=== PATIENT | female | born 1935 | race Caucasian/White ===

== ENCOUNTER → 2017-11-18 07:59 | Outpatient (CLI) | payer MEDICARE, SELFPAY ==
[2017-11-18 09:53] LABS: HCT 40.6 % (36.0-46.0); HGB 12.9 g/dL (12.0-15.5); Mean Corp. HGB Concentration 31.8 g/dL (32.0-36.0); Mean Corpuscular Hemoglobin 30.5 pg (27.0-33.0); Mean Platelet Volume 10.9 fL (8.0-11.0); Platelet Count 232 x1000/uL (130-400); RBC 4.23 m/cumm (4.00-5.20); RBC Distribution Width 16.2 % (11.7-14.6); White Blood Cell Count 4.92 k/cumm (4.4-10.8)
[2017-11-18 12:21] LABS: ALT 20 U/L (12-78); AST 18 U/L (15-37); Albumin 3.6 g/dL (3.4-5.0); Alkaline Phosphatase 106 U/L (46-116); Anion Gap 9.7 mmol/L (3-11); BUN 16 mg/dL (7-18); Bilirubin, Total 0.3 mg/dL (0.2-1.0); CO2 27.3 mmol/L (21.0-32.0); CREATININE 0.81 mg/dL (0.55-1.02); Calcium 8.9 mg/dL (8.5-10.1); Chloride 104 mmol/L (98-107); Glucose 68 mg/dL (70-100); Potassium 4.2 mmol/L (3.5-5.1); Sodium 141 mmol/L (136-145); Total Protein 7.1 g/dL (6.4-8.2); Vitamin B12 873 pg/mL (193-986)
[2017-11-18 12:52] LABS: Iron 109 ug/dL (50-175)
== END ==
DX: I10 Essential (primary) hypertension (principal); I48.91 Unspecified atrial fibrillation; D51.8 Other vitamin B12 deficiency anemias; F32.9 Major depressive disorder, single episode, unspecified; K21.9 Gastro-esophageal reflux disease without esophagitis; R63.8 Other symptoms and signs concerning food and fluid intake
CPT/HCPCS: 36415; 80053; 85027; 82607; 83540

== ENCOUNTER 2018-06-04 00:52 | Outpatient (CLI) | payer MEDICARE, SELFPAY ==
[2018-06-04 07:29] LABS: HCT 42.1 % (36.0-46.0); HGB 13.7 g/dL (12.0-15.5); Mean Corp. HGB Concentration 32.5 g/dL (32.0-36.0); Mean Corpuscular Hemoglobin 31.6 pg (27.0-33.0); Mean Corpuscular Volume 97.2 fL (80-95); Mean Platelet Volume 10.9 fL (8.0-11.0); Platelet Count 220 x1000/uL (130-400); RBC 4.33 m/cumm (4.00-5.20); RBC Distribution Width 13.4 % (11.7-14.6); White Blood Cell Count 4.56 k/cumm (4.4-10.8)
[2018-06-04 10:18] LABS: ALT 15 U/L (12-78); AST 18 U/L (15-37); Albumin 3.8 g/dL (3.4-5.0); Alkaline Phosphatase 110 U/L (46-116); Anion Gap 8.5 mmol/L (3-11); BUN 13 mg/dL (7-18); Bilirubin, Total 0.4 mg/dL (0.2-1.0); CO2 28.5 mmol/L (21.0-32.0); CREATININE 0.74 mg/dL (0.55-1.02); Calcium 9.6 mg/dL (8.5-10.1); Chloride 105 mmol/L (98-107); Cholesterol 219 mg/dL (50-200); Glucose 101 mg/dL (70-100); HDL Cholesterol 74 mg/dL (40-60); LDL CHOLESTEROL 130 mg/dL (<100); Potassium 3.8 mmol/L (3.5-5.1); Sodium 142 mmol/L (136-145); Total Protein 7.3 g/dL (6.4-8.2); Triglyceride 88 mg/dL (30-150)
== END 2018-06-04 01:12 ==
DX: I10 Essential (primary) hypertension (principal); E78.2 Mixed hyperlipidemia; F32.9 Major depressive disorder, single episode, unspecified; K21.9 Gastro-esophageal reflux disease without esophagitis
CPT/HCPCS: 36415; 80053; 80061; 83721; 85027

== ENCOUNTER 2018-12-16 11:00 | Emergency (ER) | payer MEDICARE, SELFPAY ==
[2018-12-16] VITALS (35 sets, daily range): BP systolic 124–170; BP diastolic 70–112; PULSE 53–98; RESP 11–44; TEMP 36.8; O2SAT 89–96
--- NOTE | 2018-12-16 11:07 | ED.GENADUL_ITS ---
Discharge Plan Disposition Patient Disposition: HOME Condition: Improving Discharge Details Chief Complaint: Chest Pain Clinical Impression: Atypical chest pain, Breast mass, Chest wall pain, Abdominal pain, Hiatal hernia Primary Care Provider: Renee Andrade ED Provider: Tayla Batres Home Meds and New Rx's Prescriptions: Continued cyanocobalamin (vitamin B-12) 1,000 mcg/mL solution 1,000 mcg IM monthly Qty: 1 RF: 0 metoprolol succinate 25 mg tablet extended release 24 hr 25 mg PO DAILY Qty: 90 RF: 3 sertraline 25 MG tablet 25 mg PO DAILY Qty: 90 RF: 4 Slow Release Iron 250 MG tablet extended release 250 mg PO BID Qty: 60 RF: 0 apixaban 5 mg tablet 5 mg PO BID Qty: 180 RF: 4 pantoprazole 40 mg tablet,delayed release (DR/EC) 40 mg PO DAILY Qty: 90 RF: 4 Discharge Instructions Instructions: Abdominal Pain (ED), Chest Wall Pain (ED) Additional Instructions: Avoid foods which may worsen reflux or abdominal pain associated with a hiatal hernia such as chocolate, peppermint, alcohol or spicy foods. Take Tylenol as needed directed for pain. Continue your Protonix as directed. Follow-up with your scheduled appointment with your primary care doctor next week for reevaluation and for referral for outpatient upper endoscopy or stress test if indicated and for further evaluation of the breast mass noted on your CT chest today. Return to the emergency department if you develop any worsening or new concerning symptoms. Discharge Data Discharge Date/Time-TO BE ENTERED AT DEPARTURE: 12/16/18 16:40 Discharge Physician: Tayla Batres Medical Decision Making 1110 -- 82-year-old female with a history of anxiety, anemia, atrial fibrillation on Eliquis, hypertension, GERD who presents with chest and upper abdominal pain since this morning. Also admits to generalized weakness and nausea for the past few weeks. Blood pressure hypertensive 170/112. She is afebrile and appears nontoxic and comfortable. EKG notes a rate of 92, A. fib with [address] depression in V3 through V6 which appears new compared to previous. No acute ST elevation. She is most significantly tender in the epigastrium as well as right and left upper quadrants and anterior chest. Differential diagnosis includes acute abdominal abnormality including gastritis, PUD, pancreatitis, ACS, pneumonia, CHF, colitis, UTI. Will place an IV, small bolus IV fluids, screening labs, urinalysis as well as CT chest abdomen and pelvis. 1345 -- labs and imaging reviewed. Normal white blood cell count, electrolytes, lipase. Troponin negative. BNP 836. CT chest abdomen pelvis notes hiatal hernia as well as a left breast mass with recommendation for mammogram. No other acute chest or abdominal findings. Patient states she feels much better after Pepcid and Zofran. She still complaining of some indigestion. She is declining a GI cocktail. Will obtain a second troponin. 1520 --second troponin negative. Repeat EKG rate of 80, A. fib with no ST elevation or depression seen. Urinalysis negative. Patient states she feels much better and feels good to go home. Discussed that her symptoms could be due to her hiatal hernia. She states she had a normal EGD 1 year ago. She has an appointment with her primary care doctor next week. She was informed of the breast mass noted on CT chest and to discuss further with her primary care doctor whether to proceed with a mammogram. Patient states she was told by her primary care doctor that she did not need mammograms anymore. She is advised to return here if she has any worsening or new concerning symptoms. Medical Records Medical records reviewed: Yes I reviewed the patient's medical records. Imaging Data Radiologic Study: Radiologist's impression: PA AND LATERAL CHEST: The heart is at the upper limits of normal in size. There are mild changes of pulmonary scarring. No focal consolidation. No pleural effusion. CONCLUSION: No evidence of acute process. CHEST/ABDOMEN AND PELVIC CT: CT examination of the chest, abdomen and pelvis was performed with a bolus infusion of 100 cc's of Omnipaque 350. The lungs are clear except for minimal areas of scarring and/or atelectasis. Thoracic aorta and major branches appear intact. No abnormality of the pulmonary arterial circulation. No mediastinal or hilar adenopathy. No axillary or supraclavicular adenopathy. 15 mm. left breast nodule identified which is well circumscribed, correlation with mammography recommended. No pleural effusion or pleural based mass. Cardiac size within normal limits. No abnormality of the bones of the thorax apart from degenerative changes of the spine. Liver is unremarkable in appearance except for a small, low attenuation lesion which may represent small cyst or hemangioma in the right hepatic lobe measuring less than 1 cm. in diameter. Prior cholecystectomy noted. No biliary dilatation. Pancreas is unremarkable. Spleen appears normal. Large hiatal hernia noted. No evidence of obstruction. Tiny fat containing umbilical hernia and tiny fat containing inguinal hernia is noted. Abdominal aorta is of normal diameter and no major vascular abnormality is seen. Adrenals and kidneys are unremarkable. Incidental presumed tiny right renal cyst noted. No abdominal or pelvic adenopathy. Colonic diverticulosis noted. Normal appearance of the appendix. No specific evidence of diverticulitis. [employer] structures unremarkable for age. Degenerative changes of the lumbar spine noted. Old mild anterior T 11 compression fracture noted. CONCLUSION: 1. Hiatal hernia. 2. 15 mm., well circumscribed left breast lesion, correlation with mammography is recommended. 3. No evidence of acute process. 4. Prior cholecystectomy noted. Lab Data Lab results reviewed: Yes I reviewed the patient's lab results. Laboratory Tests Range/Units 12/16/18 12/16/18 12/16/18 11:11 11:11 11:11 WBC (4.4-10.8) k/cumm 5.73 RBC (4.00-5.20) m/cumm 4.63 Hgb (12.0-15.5) g/dL 14.2 Hct (36.0-46.0) % 45.2 MCV (80-95) fL 97.6 H MCH (27.0-33.0) pg 30.7 MCHC (32.0-36.0) g/dL 31.4 L RDW (11.7-14.6) % 14.3 Plt Count (130-400) x1000/uL 282 MPV (8.0-11.0) fL 10.6 Immature Gran % 0.2 Neutrophils % 69.5 Lymphocytes % 19.4 Monocytes % 9.2 Eosinophils % 1.4 Basophils % 0.3 Absolute Neutrophils (1.2-6.7) k/cumm 3.98 Absolute Lymphocytes (1.2-3.4) k/cumm 1.11 L Absolute Monocytes (0.11-0.7) k/cumm 0.53 Absolute Eosinophils (0.0-0.7) k/cumm 0.08 Absolute Basophils (0.0-0.2) k/cumm 0.02 Sodium (136-145) mmol/L 141 Potassium (3.5-5.1) mmol/L 3.4 L Chloride (98-107) mmol/L 102 Carbon Dioxide (21.0-32.0) mmol/L 27.3 Anion Gap (3-11) mmol/L 11.7 H BUN (7-18) mg/dL 9 Creatinine (0.55-1.02) mg/dL 0.82 Estimated GFR/1.73 m2 (mL/min/1.73m2) >= 60.00 Glucose (70-100) mg/dL 95 Calcium (8.5-10.1) mg/dL 9.1 Magnesium (1.8-2.4) mg/dL 1.8 Total Bilirubin (0.2-1.0) mg/dL 0.4 AST (15-37) U/L 11 L ALT (14-59) U/L 13 L Alkaline Phosphatase (46-116) U/L 102 Troponin I (0.00-0.06) ng/mL < 0.05 NT-Pro-B Natriuret Pep ( - 299) pg/mL 836 H Total Protein (6.4-8.2) g/dL 8.0 Albumin (3.4-5.0) g/dL 3.8 Lipase (73-393) U/L 129 Urine Color (Yellow) Urine Clarity (Clear) Urine pH (5-8) Ur Specific [place] (1.005-1.025) Urine Protein (Negative) mg/dL Urine Ketones (Negative) mg/dL Urine Blood (Negative) Urine Nitrite (Negative) Urine Bilirubin (Negative) Urine Urobilinogen (Up TO 0.2) EU/dL Ur Leukocyte Esterase (Negative) Urine Glucose (Negative) mg/dL Range/Units 12/16/18 12/16/18 14:45 15:50 WBC (4.4-10.8) k/cumm RBC (4.00-5.20) m/cumm Hgb (12.0-15.5) g/dL Hct (36.0-46.0) % MCV (80-95) fL MCH (27.0-33.0) pg MCHC (32.0-36.0) g/dL RDW (11.7-14.6) % Plt Count (130-400) x1000/uL MPV (8.0-11.0) fL Immature Gran % Neutrophils % Lymphocytes % Monocytes % Eosinophils % Basophils % Absolute Neutrophils (1.2-6.7) k/cumm Absolute Lymphocytes (1.2-3.4) k/cumm Absolute Monocytes (0.11-0.7) k/cumm Absolute Eosinophils (0.0-0.7) k/cumm Absolute Basophils (0.0-0.2) k/cumm Sodium (136-145) mmol/L Potassium (3.5-5.1) mmol/L Chloride (98-107) mmol/L Carbon Dioxide (21.0-32.0) mmol/L Anion Gap (3-11) mmol/L BUN (7-18) mg/dL Creatinine (0.55-1.02) mg/dL Estimated GFR/1.73 m2 (mL/min/1.73m2) Glucose (70-100) mg/dL Calcium (8.5-10.1) mg/dL Magnesium (1.8-2.4) mg/dL Total Bilirubin (0.2-1.0) mg/dL AST (15-37) U/L ALT (14-59) U/L Alkaline Phosphatase (46-116) U/L Troponin I (0.00-0.06) ng/mL < 0.05 NT-Pro-B Natriuret Pep ( - 299) pg/mL Total Protein (6.4-8.2) g/dL Albumin (3.4-5.0) g/dL Lipase (73-393) U/L Urine Color (Yellow) Yellow Urine Clarity (Clear) Clear Urine pH (5-8) 5.5 Ur Specific [place] (1.005-1.025) 1.010 Urine Protein (Negative) mg/dL Negative Urine Ketones (Negative) mg/dL Negative Urine Blood (Negative) Negative Urine Nitrite (Negative) Negative Urine Bilirubin (Negative) Negative Urine Urobilinogen (Up TO 0.2) EU/dL 0.2 Ur Leukocyte Esterase (Negative) Negative Urine Glucose (Negative) mg/dL Negative ECG Data Attestation: I personally reviewed and interpreted this ECG (s) as follows: Interpretation: #1 -- Rate of 92, A. fib, [address] depression in V3, V4, V5 and V6 which is new compared to previous. No acute ST elevation. QTc 438. QRS 88. #2 --Rate of 80, A. fib, no ST depression or elevation evident. T wave inversion in lead III. QTc 434. QRS 86. HPI General Mode of arrival: ambulatory . Date/Time Provider Initiated Documentation: 12/16/18 11:04 . Limitations to Documentation: no limitations . Information obtained by: patient . HPI Narrative: Patient is a an 82-year-old female with history of atrial fibrillation on Eliquis, hypertension, hyperlipidemia, GERD, cholecystectomy who presents with chest and upper abdominal pain since this morning. She states her symptoms started while she was laying in bed this morning. She has a history of chronic shortness of breath associated with her atrial fibrillation and states this is no worse than usual. She describes her chest and abdominal pain is constant, pressure-like with radiation wrapping around to both sides of her back. She states the pain is worse with eating and when laying flat and better when she is laying on either side. She states the pain is currently 4/10. She admits to nausea but denies any vomiting. She admits to a few episodes of loose brown stools over the past few days but denies any rectal bleeding. She also admits to dry cough and nasal congestion over the past 3 to 4 weeks but denies any headache or neck pain. She denies dizziness, sick contacts, recent antibiotics, recent travel, leg pain or swelling or recent surgery. Related Data Home Medications Medication Instructions Recorded Confirmed Slow Release Iron 250 mg PO BID #60 tab 11/27/17 12/16/18 sertraline 25 mg PO DAILY #90 tab-cap 11/27/17 12/16/18 apixaban 5 mg tablet 5 mg PO BID #180 tab 12/27/17 12/16/18 pantoprazole 40 mg tablet,delayed 40 mg PO DAILY #90 tab 12/27/17 12/16/18 release cyanocobalamin (vitamin B-12) 1,000 mcg IM monthly #1 vial 06/12/18 12/16/18 1,000 mcg/mL injection solution metoprolol succinate 25 mg 25 mg PO DAILY #90 tab 06/12/18 12/16/18 tablet,extended release 24 hr Previous Rx's Medication Instructions Recorded Slow Release Iron 250 mg PO BID #60 tab 11/27/17 sertraline 25 mg PO DAILY #90 tab-cap 11/27/17 apixaban 5 mg tablet 5 mg PO BID #180 tab 12/27/17 pantoprazole 40 mg tablet,delayed 40 mg PO DAILY #90 tab 12/27/17 release metoprolol succinate 25 mg 25 mg PO DAILY #90 tab 06/12/18 tablet,extended release 24 hr Allergies Allergy/AdvReac Type Severity Reaction Status Date / Time caffeine AdvReac Verified 06/12/18 12:57 General Stated Complaint: Chest Pain GEORGE: 2 Review of Systems Review of Systems All systems reviewed & are unremarkable except as noted in HPI and below Constitutional Reports as per HPI, Denies chills and Denies fever(s) Eyes Denies blurry vision ENT Denies dizziness, Denies sore throat and Denies throat swelling Cardiovascular Reports chest pain and Denies dyspnea Respiratory Denies cough and Denies dyspnea Gastrointestinal Reports abdominal pain, Denies diarrhea, Reports nausea and Denies vomiting Genitourinary Denies hematuria and Denies dysuria Musculoskeletal Denies back pain and Denies numbness Integumentary/Breasts Denies lesions and Denies rash Neurologic Denies dizziness, Denies focal weakness and Denies numbness Allergic/Immunologic Denies throat swelling [facility] Medical History Anemia Anxiety (Chronic 03/03/12) Atrial fibrillation by electrocardiogram (Chronic 08/06/17) By EKG 07/25/17 Cyst of left ovary (Suspected 08/06/17) Simple cyst - evaluated by [facility] Endometrial biopsy negative Depressive disorder (Chronic 02/11/12) Diverticulitis of colon (Chronic) Essential hypertension Essential hypertension (Chronic 02/11/12) Gastroesophageal reflux disease (Chronic 03/03/12) GERD (gastroesophageal reflux disease) Hemorrhoids Hemorrhoids (Resolved 03/03/12) Hyperlipidemia (Resolved 03/03/12) Increased body mass index (Chronic) Iron deficiency anemia, unspecified (Chronic 08/13/17) Osteoarthritis (Chronic 03/03/12) hands; 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 Grandmother Neoplasm BREAST/LIVER Grandmother No problems noted. MATERNAL AUNT Neoplasm BREAST Other Family history of GI malignancy Family hx-breast malignancy Social History Smoking/Tobacco Use Status: Former Tobacco Use Alcohol Intake: never Drug use: Never Substance use type: does not use Do you feel safe in your relationship?: Yes Exam Const General: cooperative, healthy appearing and no acute distress HENMT Head: normal to inspection Face and sinus: normal facial exam Eyes General: appearance normal, both eyes and all related structures Neck Neck: normal visual inspection and No submandibular swelling Lymphatic: no lymphadenopathy noted Chest Chest: normal inspection of the chest and no tenderness Resp Effort & Inspection: normal respiratory effort and able to speak in complete sentences Auscultation: clear to auscultation bilaterally Cardio Rate: regular rate Rhythm: regular rhythm GI Inspection: normal to inspection Palpation: soft, not firm, not rigid and tender (Diffuse, worse in epigastrium> RLQ/LUQ) Auscultation: normal bowel sounds Back/Spine/Pelvis Thoracic/Lumbar Spine: thoracic and lumbar spine normal to inspection Skin General skin exam: no rashes or lesions noted Neuro General: alert, awake and oriented x3 Cognition: normal cognition Speech: speech normal Motor: muscle tone normal throughout Sensory Exam: no sensory deficits noted Extrem General: normal to inspection, full ROM, normal capillary refill, no calf tenderness bilaterally and no edema Psych Appearance: grossly normal Mental Status: mental status grossly normal Speech and Movement: speech and movement normal Affect: normal affect Course Vital Signs Temperature 98.2 F 12/16/18 11:03 Pulse 98 H 12/16/18 11:03 Respiratory Rate 17 12/16/18 11:03 Blood Pressure 170/112 H 12/16/18 11:03 Pulse Oximetry 96 12/16/18 11:03 Temperature 98.2 F 12/16/18 11:03 Temperature Source Skin 12/16/18 11:03 Pulse 98 H 12/16/18 11:03 Respiratory Rate 17 12/16/18 11:03 Blood Pressure 170/112 H 12/16/18 11:03 Pulse Oximetry 96 12/16/18 11:03 Oxygen Delivery Method Room Air 12/16/18 11:03 Oxygen Flow Rate 0 12/16/18 11:03 Pain Level 5 12/16/18 11:03
--- NOTE | 2018-12-16 11:09 | NUR.NOTE ---
Nursing Note: obtain Vs for RN MADI see triage
[2018-12-16 11:23] LABS: Abs Immature Grans 0.01 k/cumm (0.0-0.09); Absolute Basophil Count 0.02 k/cumm (0.0-0.2); Absolute Eosinophil Count 0.08 k/cumm (0.0-0.7); Absolute Lymphocyte Count 1.11 k/cumm (1.2-3.4); Absolute Monocyte Count 0.53 k/cumm (0.11-0.7); Absolute Neutrophil Count 3.98 k/cumm (1.2-6.7); Basophils % 0.3; Eosinophils % 1.4; HCT 45.2 % (36.0-46.0); HGB 14.2 g/dL (12.0-15.5); Immature Grans % 0.2; Lymphocytes % 19.4; Mean Corp. HGB Concentration 31.4 g/dL (32.0-36.0); Mean Corpuscular Hemoglobin 30.7 pg (27.0-33.0); Mean Corpuscular Volume 97.6 fL (80-95); Mean Platelet Volume 10.6 fL (8.0-11.0); Monocytes % 9.2; Neutrophils % 69.5; Platelet Count 282 x1000/uL (130-400); RBC 4.63 m/cumm (4.00-5.20); RBC Distribution Width 14.3 % (11.7-14.6); White Blood Cell Count 5.73 k/cumm (4.4-10.8)
[2018-12-16 11:45] LABS: ALT 13 U/L (14-59); AST 11 U/L (15-37); Albumin 3.8 g/dL (3.4-5.0); Alkaline Phosphatase 102 U/L (46-116); Anion Gap 11.7 mmol/L (3-11); BUN 9 mg/dL (7-18); Bilirubin, Total 0.4 mg/dL (0.2-1.0); CO2 27.3 mmol/L (21.0-32.0); CREATININE 0.82 mg/dL (0.55-1.02); Calcium 9.1 mg/dL (8.5-10.1); Chloride 102 mmol/L (98-107); Glucose 95 mg/dL (70-100); Magnesium 1.8 mg/dL (1.8-2.4); NT-proBNP 836 pg/mL; Potassium 3.4 mmol/L (3.5-5.1); Sodium 141 mmol/L (136-145)
[2018-12-16 11:49] LABS: Troponin I < 0.05 ng/mL (0.00-0.06)
[2018-12-16 11:57] LABS: Lipase 129 U/L (73-393)
[2018-12-16] MEDS: FAMOTIDINE 20 MG/50 ML BAG 200 MG IVPB (11:57)
[2018-12-16] MEDS: Normal Saline 500 ML IV (11:57)
[2018-12-16] MEDS: Ondansetron 4 MG/2 ML VIAL IVP (11:57)
[2018-12-16] MEDS: Lidocaine 5% Patch 1 PATCH TP (11:57)
--- NOTE | 2018-12-16 12:38 | DI.RAD_ITS ---
SYMPTOM/DIAGNOSIS: CHEST PAIN PA AND LATERAL CHEST: The heart is at the upper limits of normal in size. There are mild changes of pulmonary scarring. No focal consolidation. No pleural effusion. CONCLUSION: No evidence of acute process.
[2018-12-16] MEDS: Normal Saline Flush 10 ML SYR IVP (12:44)
[2018-12-16] MEDS: Omnipaque 350 MG/ML 100 ML BTL IJ (12:44)
--- NOTE | 2018-12-16 12:50 | DI.CT_ITS ---
SYMPTOM/DIAGNOSIS: CHEST PAIN, UPPER ABD TENDERNESS CHEST/ABDOMEN AND PELVIC CT: CT examination of the chest, abdomen and pelvis was performed with a bolus infusion of 100 cc's of Omnipaque 350. The lungs are clear except for minimal areas of scarring and/or atelectasis. Thoracic aorta and major branches appear intact. No abnormality of the pulmonary arterial circulation. No mediastinal or hilar adenopathy. No axillary or supraclavicular adenopathy. 15 mm. left breast nodule identified which is well circumscribed, correlation with mammography recommended. No pleural effusion or pleural based mass. Cardiac size within normal limits. No abnormality of the bones of the thorax apart from degenerative changes of the spine. Liver is unremarkable in appearance except for a small, low attenuation lesion which may represent small cyst or hemangioma in the right hepatic lobe measuring less than 1 cm. in diameter. Prior cholecystectomy noted. No biliary dilatation. Pancreas is unremarkable. Spleen appears normal. Large hiatal hernia noted. No evidence of obstruction. Tiny fat containing umbilical hernia and tiny fat containing inguinal hernia is noted. Abdominal aorta is of normal diameter and no major vascular abnormality is seen. Adrenals and kidneys are unremarkable. Incidental presumed tiny right renal cyst noted. No abdominal or pelvic adenopathy. Colonic diverticulosis noted. Normal appearance of the appendix. No specific evidence of diverticulitis. [employer]INE structures unremarkable for age. Degenerative changes of the lumbar spine noted. Old mild anterior T 11 compression fracture noted. CONCLUSION: 1. Hiatal hernia. 2. 15 mm., well circumscribed left breast lesion, correlation with mammography is recommended. 3. No evidence of acute process. 4. Prior cholecystectomy noted.
[2018-12-16] MEDS: Acetaminophen 325 MG TAB 650 MG PO (14:06)
[2018-12-16 15:17] LABS: Troponin I < 0.05 ng/mL (0.00-0.06)
[2018-12-16 15:56] LABS: Bilirubin Negative (Negative); Blood Negative (Negative); Clarity Clear (Clear); Glucose Negative (Negative); Ketones Negative (Negative); Leukocyte Esterase Negative (Negative); Nitrite Negative (Negative); Urobilinogen 0.2 EU/dL (Up TO 0.2); pH 5.5 (5-8)
== END 2018-12-16 16:40 | disposition home or self-care (01) ==
PROVIDERS: Emergency Provider Physician Assistant
DX: R07.89 Other chest pain (principal); R07.81 Pleurodynia; R11.0 Nausea; R53.1 Weakness; K44.9 Diaphragmatic hernia without obstruction or gangrene; R10.10 Upper abdominal pain, unspecified; N63.20 Unspecified lump in the left breast, unspecified quadrant; I48.91 Unspecified atrial fibrillation; Z79.01 Long term (current) use of anticoagulants; I10 Essential (primary) hypertension
CPT/HCPCS: 36415; 74177; 80053; 83690; 93005; 96361; 96374; 96375; 99285; 71046; 71260; 81003; 83735; 83880; 84484; 85025; 93010; J2405; J3490

== ENCOUNTER 2018-12-19 01:48 | Outpatient (CLI) | payer MEDICARE, SELFPAY ==
[2018-12-19 10:29] LABS: Potassium 3.8 mmol/L (3.5-5.1)
== END 2018-12-19 02:08 ==
DX: E87.6 Hypokalemia (principal)
CPT/HCPCS: 36415; 84132

== ENCOUNTER 2018-12-23 11:37 | Observation (INO) | payer MEDICARE, SELFPAY ==
[2018-12-23] VITALS (55 sets, daily range): BP systolic 100–156; BP diastolic 57–88; PULSE 56–92; RESP 10–49; TEMP 36.5–37; O2SAT 93–99
--- NOTE | 2018-12-23 11:48 | DI.RAD_ITS ---
INDICATION: Chest pain COMPARISON: XR CHEST 2V PA LATERAL from 12/16/2018 TECHNIQUE: 2D digital imaging was performed. FINDINGS: The lungs are well expanded and free of infiltrate. Again noted are small regions of scarring. There is an apparent small axial hiatus hernia. There is no pleural effusion. The cardiovascular structures are intact. There has been no significant interval change when compared to prior examination of 12/07.
[2018-12-23 12:01] LABS: Abs Immature Grans 0.01 k/cumm (0.0-0.09); Absolute Basophil Count 0.02 k/cumm (0.0-0.2); Absolute Eosinophil Count 0.07 k/cumm (0.0-0.7); Absolute Lymphocyte Count 1.12 k/cumm (1.2-3.4); Absolute Monocyte Count 0.59 k/cumm (0.11-0.7); Absolute Neutrophil Count 4.28 k/cumm (1.2-6.7); Basophils % 0.3; Eosinophils % 1.1; HCT 46.9 % (36.0-46.0); HGB 14.9 g/dL (12.0-15.5); Immature Grans % 0.2; Lymphocytes % 18.4; Mean Corp. HGB Concentration 31.8 g/dL (32.0-36.0); Mean Corpuscular Hemoglobin 30.8 pg (27.0-33.0); Mean Corpuscular Volume 96.9 fL (80-95); Mean Platelet Volume 10.7 fL (8.0-11.0); Monocytes % 9.7; Neutrophils % 70.3; Platelet Count 281 x1000/uL (130-400); RBC 4.84 m/cumm (4.00-5.20); RBC Distribution Width 14.3 % (11.7-14.6); White Blood Cell Count 6.09 k/cumm (4.4-10.8)
[2018-12-23] MEDS: Ondansetron 4 MG/2 ML VIAL IVP (12:07)
[2018-12-23] MEDS: Normal Saline Flush 10 ML SYR IVP ×2 (12:10→23:17)
[2018-12-23 12:14] LABS: PTT Activated 26.9 sec (21.0-31.4); Prothrombin Time 10.4 sec (9.3-11.0)
--- NOTE | 2018-12-23 12:16 | W.ED.GENAD ---
Discharge Plan Disposition Patient Disposition: [facility] INPATIENT Condition: Stable Discharge Details Chief Complaint: Chest Pain Clinical Impression: Chest pain Primary Care Provider: Renee Andrade ED Provider: Bhavna Philip Home Meds and New Rx's Prescriptions: No Action cyanocobalamin (vitamin B-12) 1,000 mcg/mL solution 1,000 mcg IM monthly Qty: 1 RF: 0 metoprolol succinate 25 mg tablet extended release 24 hr 25 mg PO DAILY Qty: 90 RF: 3 sertraline 25 MG tablet 25 mg PO DAILY Qty: 90 RF: 4 Slow Release Iron 250 MG tablet extended release 250 mg PO BID Qty: 60 RF: 0 apixaban 5 mg tablet 5 mg PO BID Qty: 180 RF: 4 pantoprazole 40 mg tablet,delayed release (DR/EC) 40 mg PO DAILY Qty: 90 RF: 4 Medical Decision Making 1215 -after 1 tablet sublingual nitro patient had almost entire resolution of chest pain. Patient's initial troponin is negative, no concerning EKG changes on her EKG compared to previous. No obvious ST elevation or depression. EKG was reviewed with my attending Dr. Aguilar. Patient is noted to be in A. fib however EKG is unchanged compared to 07/30/2017. Patient has a heart rate of 80. Apparently currently has 1 out of 10 chest pain after receiving nitroglycerin. Patient's vital signs are stable however patient does have a concerning story specifically was seen in the ER 1 week ago for epigastric pain underwent a cardiac evaluation was unremarkable. Patient reports today episode of chest pain which relieved then another episode of chest pain which relieved then a third episode of chest pain which stayed constant presents to the ER with active chest pain. Significantly improved after nitro. Patient has a heart score of 5. Discussed this case at length with my attending Dr. Aguilar we agrees most appropriate to admit this patient to the hospital for further cardiac rule out, And concern for progressive angina symptoms. 1525 - Repeat EKG reviewed in my attending Dr. Aguilar. Current rate 74 irregular consistent with A. fib. Patient has no specific ST elevation changes. The nonspecific T wave changes noted on the EKG without significant change compared to previous. 1533 - Spoke [facility] Hosptialist, Dr. Wood [facility]. HPI General Date/Time Provider Initiated Documentation: 09/17/19 11:38. HPI Narrative: Patient presents for onset of chest pain occurred at approximately 930 this morning. Patient reports she did awake with nausea. Patient reports at approximately 930 this morning while she was sitting she had an episode of chest pain which came and went, another episode of chest pain which came and went in the third episode of chest pain which stayed persistent until she came to the emergency room. Patient reports associated with a chest pain with mild shortness of breath and weakness. She does report radiation of the chest pain into her bilateral upper arms as well as her neck. No radiation to the back. Denies cough, congestion or recent upper respiratory symptoms. Denies any fever. Patient was seen in the emergency room 7 days ago for epigastric and chest pain ultimately underwent a cardiac evaluation as well as CT imaging which was unremarkable. When asked about exertional type chest pain she denies any recent exertion and denies chest pain worsening when walking in from the parking lot prior to arrival. Patient historically was a smoker since quit, history of hyperlipidemia, history of hypertension. Currently on Eliquis for A. fib. A. fib is managed by local primary care not cardiology. Denies any urinary or bowel changes. Related Data Home Medications Medication Instructions Recorded Confirmed Slow Release Iron 250 mg PO BID #60 tab 11/27/17 12/23/18 sertraline 25 mg PO DAILY #90 tab-cap 11/27/17 12/23/18 apixaban 5 mg tablet 5 mg PO BID #180 tab 12/27/17 12/23/18 pantoprazole 40 mg tablet,delayed 40 mg PO DAILY #90 tab 12/27/17 12/23/18 release cyanocobalamin (vitamin B-12) 1,000 mcg IM monthly #1 vial 06/12/18 12/23/18 1,000 mcg/mL injection solution metoprolol succinate 25 mg 25 mg PO DAILY #90 tab 06/12/18 12/23/18 tablet,extended release 24 hr Previous Rx's Medication Instructions Recorded Slow Release Iron 250 mg PO BID #60 tab 11/27/17 sertraline 25 mg PO DAILY #90 tab-cap 11/27/17 apixaban 5 mg tablet 5 mg PO BID #180 tab 12/27/17 pantoprazole 40 mg tablet,delayed 40 mg PO DAILY #90 tab 12/27/17 release metoprolol succinate 25 mg 25 mg PO DAILY #90 tab 06/12/18 tablet,extended release 24 hr Allergies Allergy/AdvReac Type Severity Reaction Status Date / Time caffeine AdvReac Verified 12/23/18 11:53 General Stated Complaint: Chest Pain GEORGE: 2 Review of Systems Review of Systems Narrative: CONSTITUTIONAL: The patient denies fevers, chills. weakness present EYES: Denies vision changes, blurry vision, or eye pain. ENT: Denies hearing changes, tinnitus, vertigo, sore throat. CARDIAC: chest pain. SOB present. RESPIRATORY: Denies cough, sputum. Denies difficulty breathing. GASTROINTESTINAL: Denies abdominal pain, changes in bowel, vomiting. Nausea present GENITOURINARY: Denies dysuria, or frequency of urination. MUSCULOSKELETAL: Denies Joint pain, gait changes. NEUROLOGIC: Denies headaches, Denies focal weakness. Denies numbness. INTEGUMENT: Denies rashes. PSYCHIATRIC: Denies behavior changes. Denies anxiety or depression. ENDOCRINOLOGY: Fatigue present PSYCHIATRY: Denies depression, agitation or anxiety [facility] Surgical History Biopsy of breast (~1989) LEFT Cholecystectomy (~1980) Colonoscopy - MAC (08/16/17) EGD - MAC (08/16/17) Family History Mother Diabetes Father Neoplasm COLON Brother Stroke Grandfather Heart disease Grandfather No problems noted. Grandmother Neoplasm BREAST/LIVER Grandmother No problems noted. MATERNAL AUNT Neoplasm BREAST Other Family history of GI malignancy Family hx-breast malignancy Social History Smoking/Tobacco Use Status: Former Tobacco Use Alcohol Intake: never Drug use: Never Substance use type: does not use Do you feel safe in your relationship?: Yes Exam Narrative Exam Narrative: CONST: Healthy appearing patient, in no acute distress. Well hydrated. Alert and alert. HENMT: Head nomocephalic, normal to inspection. Atraumatic. Hearing grossly normal. EYES: General normal appearance. Alignment normal. Eyelids normal. Conjunctiva normal. NECK: Normal visual inspection. FROM. Trachea midline. No Midline tenderness. CHEST: Normal insepection of the chest. RESP: Normal respiratory effort. Speaking full sentences. No cough. No audible wheezing. No retractions. CARDIO: No JVD. MUSCULOSKELETAL: Normal Gait. FROM of all extremities. SKIN: Normal. Dry. No rashes. NEURO: Alert and awake. Speech clear. PSYCH: Normal affect. Cooperative. Course Vital Signs Vital signs: Vital Signs Temperature 37 C 12/23/18 11:49 Pulse 85 12/23/18 11:49 Respiratory Rate 17 12/23/18 11:49 Blood Pressure 156/85 H 12/23/18 11:49 Pulse Oximetry 98 12/23/18 11:49 Temperature 37 C 12/23/18 11:49 Temperature Source Skin 12/23/18 11:49 Pulse 85 12/23/18 11:49 Respiratory Rate 21 12/23/18 11:56 Respiratory Effort Non-Labored 12/23/18 11:56 Respiratory Depth Normal 12/23/18 11:56 Respiratory Pattern Normal 12/23/18 11:56 Blood Pressure 156/85 H 12/23/18 11:49 Blood Pressure Position Sitting 12/23/18 11:49 Pulse Oximetry 98 12/23/18 11:49 Oxygen Delivery Method Room Air 12/23/18 11:49 Oxygen Flow Rate 0 12/23/18 11:49 Pain Level 4 12/23/18 11:49 Lab/Test Results Lab/Test Results: Laboratory Tests Range/Units 12/23/18 11:47 WBC (4.4-10.8) k/cumm 6.09 RBC (4.00-5.20) m/cumm 4.84 Hgb (12.0-15.5) g/dL 14.9 Hct (36.0-46.0) % 46.9 H MCV (80-95) fL 96.9 H MCH (27.0-33.0) pg 30.8 MCHC (32.0-36.0) g/dL 31.8 L RDW (11.7-14.6) % 14.3 Plt Count (130-400) x1000/uL 281 MPV (8.0-11.0) fL 10.7 Immature Gran % 0.2 Neutrophils % 70.3 Lymphocytes % 18.4 Monocytes % 9.7 Eosinophils % 1.1 Basophils % 0.3 Absolute Neutrophils (1.2-6.7) k/cumm 4.28 Absolute Lymphocytes (1.2-3.4) k/cumm 1.12 L Absolute Monocytes (0.11-0.7) k/cumm 0.59 Absolute Eosinophils (0.0-0.7) k/cumm 0.07 Absolute Basophils (0.0-0.2) k/cumm 0.02
[2018-12-23 12:21] LABS: ALT 17 U/L (14-59); AST 14 U/L (15-37); Albumin 4.1 g/dL (3.4-5.0); Alkaline Phosphatase 101 U/L (46-116); Anion Gap 10.1 mmol/L (3-11); BUN 9 mg/dL (7-18); Bilirubin, Total 0.5 mg/dL (0.2-1.0); CO2 27.9 mmol/L (21.0-32.0); CREATININE 0.84 mg/dL (0.55-1.02); Calcium 9.2 mg/dL (8.5-10.1); Chloride 102 mmol/L (98-107); Glucose 91 mg/dL (70-100); Magnesium 1.9 mg/dL (1.8-2.4); NT-proBNP 452 pg/mL; Potassium 3.7 mmol/L (3.5-5.1); Sodium 140 mmol/L (136-145)
[2018-12-23 12:24] LABS: Troponin I < 0.05 ng/mL (0.00-0.06)
[2018-12-23 15:07] LABS: Troponin I < 0.05 ng/mL (0.00-0.06)
--- NOTE | 2018-12-23 16:59 | W.PM.HP.N ---
Date of service: 12/23/18 Time of Service: 16:59 Assessment and Plan Assessment and plan (1) Chest pain: Start date: 12/23/18 Start time: 17:44 Status: Acute Assessment and plan: The patient presented to the ER this morning with midsternal chest pain 5/10 with associated radiation to BUE and neck, nausea, and dyspnea. In the ER she had an EKG without evidence of ST elevation or depression. Sublingual nitroglycerine administered relieved chest pain symptoms. Initial troponin levels are negative at 0.05. Heart score upon presentation is 5. Chest XR is reported as clear but official radiology read is pending. This patient is admitted to hospital medicine for cardiac monitoring and evaluation. An inpatient echocardiogram and nuclear stress has been ordered. We will monitor lab values including serial troponins, CBC, BMP, and magnesium. Am EKG ordered. Will also maintain on telemetry. (2) Atrial fibrillation by electrocardiogram: Start date: 12/23/18 Start time: 18:02 Status: Chronic Assessment and plan: Rate controlled. Anticoagulated. Telemetry ordered. Continue with home medication apixaban 5mg BID. (3) Essential hypertension: Start date: 12/23/18 Start time: 17:53 Status: Chronic Assessment and plan: Hemodynamically stable. Continue with home medication Metoprolol Succinate 25mg daily. (4) Gastroesophageal reflux disease: Start date: 12/23/18 Start time: 18:00 Status: Chronic Assessment and plan: Patient was evaluated on 12/16/18 at [facility] ER for epigastric pain. The CT resulted showing a hiatal hernia. The patient was discharged with instructions to continue her PPI and follow up with an outpatient upper GI study. Continue with home medication Protonix 40mg daily. Of note relief of chest pain with nitroglycerin could also represent relief related to GI source possibly esphogeal spasms. Qualifiers: Esophagitis presence: without esophagitis Qualified Code(s): K21.9 - Gastro-esophageal reflux disease without esophagitis (5) Anxiety: Start date: 12/23/18 Start time: 17:52 Status: Chronic Assessment and plan: Continue with home medication sertraline 25mg po daily. History of Present Illness History of Present Illness Chief Complaint: Chest pain Narrative: Kaila is an 82yo female with PMH of atrial fibrillation (anticoagulated with abixaban BID), HTN, Iron deficiency anemia, hyperlipidemia, GERD, and anxiety. The patient presents to [facility] ER this morning with complaints of midsternal chest pain pressure 5/10 which radiated to BUE and neck. Denies radiation to her back. She endorses SOB, as well as, associated nausea without emesis during this event. She states that with activity the CP and SOB does not increase. The patient states that she had x2 intermittent chest pain occurances this morning at rest which lasted for approximately 5 minutes. At 1030 this morning she states that she had a third occurance of chest pain which lasted and caused her to present to the ER. In the ER the patient had an EKG without evidence of ST elevation or depression. Upon arrival to the ER she did receive a dose of nitroglycerine with reported improvement of chest pain symptoms. Initial troponin levels are negative at 0.05. Heart score upon presentation is 5. The patient denies MONTE or blurry vision. Denies dizziness, palpitations and, weight gain. Denies cough or increase in SOB prior to today. Denies abdominal pain, vomiting, hematachezia, melena. Denies dysuria, frequency, hesitation, or retention with voiding. Does endorse that she has urgency incontinence at baseline. Denies numbness, tingling, and mobility issues. Denies recent fevers or sick contacts. Is a former smoker from 50 years ago. Denies ETOH and illicit drug use. Of note: This patient was seen and evaluated on 12/16/18 in the ER at [facility] for chest pain and epigastric pain symptoms. She was evaluated for cardiac complications and had a CT which was unremarkable except for hiatal hernia. She was discharged from the ER with a diagnosis of chest wall pain and abdominal pain with instructions to continue her Protonix and referral for an outpatient upper endoscopy. Review of Systems Review of Systems ROS Unobtainable: All systems reviewed & are unremarkable except as noted in HPI and below [facility] Medical History Anemia Anxiety (Chronic 03/03/12) Atrial fibrillation by electrocardiogram (Chronic 08/06/17) By EKG 07/25/17 Cyst of left ovary (Suspected 08/06/17) Simple cyst - evaluated by [facility] Endometrial biopsy negative Depressive disorder (Chronic 02/11/12) Diverticulitis of colon (Chronic) Essential hypertension Essential hypertension (Chronic 02/11/12) Gastroesophageal reflux disease (Chronic 03/03/12) GERD (gastroesophageal reflux disease) Hemorrhoids Hemorrhoids (Resolved 03/03/12) Hyperlipidemia (Resolved 03/03/12) Increased body mass index (Chronic) Iron deficiency anemia, unspecified (Chronic 08/13/17) Osteoarthritis (Chronic 03/03/12) hands; 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 Grandmother Neoplasm BREAST/LIVER Grandmother No problems noted. MATERNAL AUNT Neoplasm BREAST Other Family history of GI malignancy Family hx-breast malignancy Social History Smoking/Tobacco Use Status: Former Tobacco Use Alcohol Intake: never Drug use: Never Substance use type: does not use Do you feel safe in your relationship?: Yes Meds Home Medications and Allergies Home Medications Medication Instructions Recorded Confirmed Type Slow Release Iron 250 mg PO BID #60 tab 11/27/17 12/23/18 Rx sertraline 25 mg PO DAILY #90 tab-cap 11/27/17 12/23/18 Rx apixaban 5 mg tablet 5 mg PO BID #180 tab 12/27/17 12/23/18 Rx pantoprazole 40 mg tablet,delayed 40 mg PO DAILY #90 tab 12/27/17 12/23/18 Rx release cyanocobalamin (vitamin B-12) 1,000 mcg IM monthly #1 vial 06/12/18 12/23/18 History 1,000 mcg/mL injection solution metoprolol succinate 25 mg 25 mg PO DAILY #90 tab 06/12/18 12/23/18 Rx tablet,extended release 24 hr Allergies Allergy/AdvReac Type Severity Reaction Status Date / Time caffeine AdvReac Verified 12/23/18 11:53 Exam Const General: cooperative, comfortable and no acute distress Nutritional Appearance: obese Orientation: alert, awake and oriented x3 HENMT Head: normal to inspection Mouth: oral mucosae normal Teeth and gingiva: dentures Throat: posterior oropharynx normal Eyes General: appearance normal, both eyes and all related structures Pupils: PERRL EOM: EOM intact bilaterally Neck Neck: normal visual inspection, full ROM, trachea midline and no JVD Chest Chest: normal inspection of the chest Resp Effort & Inspection: normal respiratory effort and able to speak in complete sentences Auscultation: clear to auscultation bilaterally Cardio Jugular venous pressure: no JVD Palpation: normal PMI Rate: regular rate Rhythm: abnormal rhythm (irregular ) Heart Sounds: S1 normal and S2 normal Pulses: normal peripheral pulses GI Inspection: normal to inspection Palpation: soft Auscultation: normal bowel sounds General: deferred Back/Spine/Pelvis Thoracic/Lumbar Spine: thoracic and lumbar spine normal to inspection Skin Lesions: no lesions Wounds: no wounds Other: yeast like rash noted under bilateral breasts. No open areas Neuro General: alert, awake, oriented x3, moves all extremities and no focal motor deficits Cognition: normal cognition Speech: speech normal Motor: muscle tone normal throughout and strength 5/5 throughout Sensory Exam: no sensory deficits noted Extrem General: normal to inspection and full ROM Psych Appearance: grossly normal Speech and Movement: speech and movement normal Mood: congruent mood Affect: normal affect Attitude: cooperative Thought Process: normal Thought Content: normal Results Labs Result diagrams: 12/23/18 11:47 12/23/18 11:47 Labs: Laboratory Results - last 24 hr 12/23/18 12/23/18 12/23/18 11:47 11:47 11:47 WBC 6.09 RBC 4.84 Hgb 14.9 Hct 46.9 H MCV 96.9 H MCH 30.8 MCHC 31.8 L RDW 14.3 Plt Count 281 MPV 10.7 Immature Gran % 0.2 Neutrophils % 70.3 Lymphocytes % 18.4 Monocytes % 9.7 Eosinophils % 1.1 Basophils % 0.3 Absolute Neutrophils 4.28 Absolute Lymphocytes 1.12 L Absolute Monocytes 0.59 Absolute Eosinophils 0.07 Absolute Basophils 0.02 PT 10.4 INR 1.0 APTT 26.9 Sodium 140 Potassium 3.7 Chloride 102 Carbon Dioxide 27.9 Anion Gap 10.1 BUN 9 Creatinine 0.84 Estimated GFR/1.73 m2 >= 60.00 Glucose 91 Calcium 9.2 Magnesium 1.9 Total Bilirubin 0.5 AST 14 L ALT 17 Alkaline Phosphatase 101 Troponin I < 0.05 NT-Pro-B Natriuret Pep 452 H Total Protein 8.0 Albumin 4.1 12/23/18 14:40 WBC RBC Hgb Hct MCV MCH MCHC RDW Plt Count MPV Immature Gran % Neutrophils % Lymphocytes % Monocytes % Eosinophils % Basophils % Absolute Neutrophils Absolute Lymphocytes Absolute Monocytes Absolute Eosinophils Absolute Basophils PT INR APTT Sodium Potassium Chloride Carbon Dioxide Anion Gap BUN Creatinine Estimated GFR/1.73 m2 Glucose Calcium Magnesium Total Bilirubin AST ALT Alkaline Phosphatase Troponin I < 0.05 NT-Pro-B Natriuret Pep Total Protein Albumin Last Vital Signs Temp 36.9 C 12/23/18 16:52 Pulse 74 12/23/18 16:52 Resp 16 12/23/18 16:52 BP 130/73 12/23/18 16:52 Pulse Ox 93 L 12/23/18 16:52
[2018-12-23 18:36] LABS: Troponin I < 0.05 ng/mL (0.00-0.06)
[2018-12-23] MEDS: Apixaban 5 MG TAB PO (19:24)
[2018-12-23] MEDS: Nystatin POWDER 15 GM JAR TP (19:25)
[2018-12-23] MEDS: Ferrous Sulfate 325 MG TAB PO (19:25)
[2018-12-24] VITALS (11 sets, daily range): BP systolic 115–143; BP diastolic 74–89; PULSE 66–90; RESP 12–20; TEMP 36.2–36.8; O2SAT 93–96
[2018-12-24 07:12] LABS: Abs Immature Grans 0.01 k/cumm (0.0-0.09); Absolute Basophil Count 0.02 k/cumm (0.0-0.2); Absolute Eosinophil Count 0.05 k/cumm (0.0-0.7); Absolute Monocyte Count 0.49 k/cumm (0.11-0.7); Basophils % 0.4; HCT 43.2 % (36.0-46.0); HGB 13.7 g/dL (12.0-15.5); Immature Grans % 0.2; Mean Corp. HGB Concentration 31.7 g/dL (32.0-36.0); Mean Corpuscular Hemoglobin 30.7 pg (27.0-33.0); Mean Corpuscular Volume 96.9 fL (80-95); Monocytes % 10.3; Neutrophils % 67.1; Platelet Count 249 x1000/uL (130-400); RBC 4.46 m/cumm (4.00-5.20); RBC Distribution Width 14.2 % (11.7-14.6); White Blood Cell Count 4.77 k/cumm (4.4-10.8)
[2018-12-24 07:24] LABS: Anion Gap 9.6 mmol/L (3-11); BUN 9 mg/dL (7-18); CO2 27.4 mmol/L (21.0-32.0); CREATININE 0.75 mg/dL (0.55-1.02); Calcium 9.1 mg/dL (8.5-10.1); Chloride 105 mmol/L (98-107); Glucose 89 mg/dL (70-100); Magnesium 1.9 mg/dL (1.8-2.4); Potassium 3.8 mmol/L (3.5-5.1); Sodium 142 mmol/L (136-145)
[2018-12-24] MEDS: Pantoprazole 40 MG TABCR PO (08:04)
[2018-12-24] MEDS: Apixaban 5 MG TAB PO ×2 (08:04→19:23)
[2018-12-24] MEDS: Nystatin POWDER 15 GM JAR TP ×2 (08:04→19:23)
--- NOTE | 2018-12-24 09:00 | MERGE_ITS ---
*[facility]* *[facility]* [address] [place] [address] Date of study: 12/24/2018 Transthoracic Echocardiography M-mode, complete 2D, complete spectral Doppler, and color Doppler *STUDY CONCLUSIONS* Impressions: The patient was in atrial fibrillation throughout study. This rhythm can interfere with accurate global and segmental wall motion analysis. Summary: 1. Left ventricle: The cavity size was normal. Wall thickness was normal. Systolic function was normal. The estimated ejection fraction was 55-60%. Wall motion was normal; there were no regional wall motion abnormalities. 2. Left atrium: The atrium was severely dilated. 3. Right ventricle: The cavity size was normal. Wall thickness was normal. Systolic function was normal. 4. Right atrium: The atrium was moderately dilated. 5. Pulmonary arteries: Pulmonary systolic pressure was within the normal range, in the range of 40mm Hg to 45mm Hg. 6. Inferior vena cava: The vessel was patent and normal in size. The respirophasic diameter changes were in the normal range (greater than or equal to 50%). *PATIENT PRESENTATION* Height: 170.2cm (67in ) S/D Pressure: 125 / 74 Weight: 99.8kg (219.5lb ) BSA: 2.21m^2 Test start time: 09:00 AM. Test stop time: 09:45 AM. PERFORMING Unknown CONSULTING Iker Wood ORDERING Iker Wood REFERRING Iker Wood PERFORMING [facility] PARACHUTE OFFICER RT Clovis Melton)(REAGAN)ROB *PROCEDURE DATA* Procedure information: The patient was identified by two identifiers. This study was interpreted by [facility]. Pertinent images and digital data are archived for permanent storage and are available for subsequent review. Comparison was made to the study of 07/26/2017. Study status: Routine. Transthoracic echocardiography. M-mode, complete 2D, complete spectral Doppler, and color Doppler. A Transthoracic Echocardiogram was performed. Scanning was performed from the parasternal, apical, subcostal, and suprasternal notch acoustic windows. Images were obtained using an [id number] cardiac ultrasound machine. Image quality was adequate. Study completion: The patient tolerated the procedure well. History: PMH: Chest pain. *CARDIAC ANATOMY* Left ventricle: The cavity size was normal. Wall thickness was normal. Systolic function was normal. The estimated ejection fraction was 55-60%. Wall motion was normal; there were no regional wall motion abnormalities. The study was not technically sufficient to allow evaluation of LV diastolic dysfunction due to atrial fibrillation. Aortic valve: Trileaflet; mildly thickened, mildly calcified leaflets. Mobility was not restricted. Doppler: Transvalvular velocity was within the normal range. There was no stenosis. There was no significant regurgitation. VTI ratio of LVOT to aortic valve: 0.68. Indexed valve area (VTI): 1cm^2/m^2. Peak velocity ratio of LVOT to aortic valve: 0.6. Valve area (Vmax): 1.9cm^2. Indexed valve area (Vmax): 0.9cm^2/m^2. Mean velocity ratio of LVOT to aortic valve: 0.65. Valve area (Vmean): 2cm^2. Indexed valve area (Vmean): 0.9cm^2/m^2. Mean gradient (S): 5.6mm Hg. Peak gradient (S): 9.6mm Hg. Aorta: Aortic root: The aortic root was normal in size. Ascending aorta: The ascending aorta was normal in size. Mitral valve: Structurally normal valve. Mobility was not restricted. Doppler: Transvalvular velocity was within the normal range. There was no evidence for stenosis. There was trivial regurgitation. Peak gradient (D): 4.1mm Hg. Left atrium: The atrium was severely dilated. Right ventricle: The cavity size was normal. Wall thickness was normal. Systolic function was normal. Pulmonic valve: Doppler: Transvalvular velocity was within the normal range. There was no evidence for stenosis. There was no significant regurgitation. Tricuspid valve: Structurally normal valve. Doppler: Transvalvular velocity was within the normal range. There was no evidence for stenosis. There was mild regurgitation. Pulmonary artery: Pulmonary systolic pressure was within the normal range, in the range of 40mm Hg to 45mm Hg. Right atrium: The atrium was moderately dilated. Pericardium: There was no pericardial effusion. Systemic veins: Inferior vena cava: Well visualized. The vessel was patent and normal in size. The respirophasic diameter changes were in the normal range (greater than or equal to 50%). Baseline ECG: Atrial fibrillation. Measurements Left ventricle Value 07/26/2017 Reference LV ID, ED, PLAX 4.1 cm 4.9 3.5 - 6.0 LV ID, ES, PLAX 2.9 cm 3.5 2.1 - 4.0 LV PW thickness, ED, PLAX 1.1 cm 1.2 LV end-diastolic volume, 65 ml 66 1-p A2C LV ejection fraction, 1-p 60 % 67 A2C LV end-diastolic volume, 52 ml 79 1-p A4C LV ejection fraction, 1-p 59 % 59 A4C LV e', lateral 0.103 m/sec 0.104 LV E/e', lateral 10 12 LV e', medial 0.092 m/sec 0.088 LV E/e', medial 11 14 LV e', average 0.098 m/sec 0.096 LV E/e', average 10 13 Ventricular septum Value 07/26/2017 Reference IVS thickness, ED, PLAX 1.0 cm 1.2 LVOT Value 07/26/2017 Reference LVOT ID, A-P 2.0 cm 2.0 LVOT area 3.2 cm^2 3 LVOT peak velocity, S 0.94 m/sec 1 LVOT mean velocity, S 0.72 m/sec 0.73 LVOT VTI, S 19.6 cm 22.7 LVOT peak gradient, S 3.5 mm Hg 4 LVOT mean gradient, S 2.3 mm Hg 2.4 Stroke volume (SV), LVOT 62 ml 69 DP Stroke index (SV/bsa), 28 ml/m^2 30 LVOT DP Aortic valve Value 07/26/2017 Reference Aortic valve peak 1.6 m/sec 1.7 velocity, S Aortic valve mean 1.1 m/sec 1.2 velocity, S Aortic valve VTI, S 29.0 cm 37.2 Aortic mean gradient, S 5.6 mm Hg 6.7 Aortic peak gradient, S 9.6 mm Hg 11.3 VTI ratio, LVOT/AV 0.68 0.61 Velocity ratio, peak, 0.6 0.59 LVOT/AV Aortic valve area, peak 1.9 cm^2 1.8 velocity Velocity ratio, mean, 0.65 0.59 LVOT/AV Aortic valve area, mean 2 cm^2 1.8 velocity Aortic valve area/bsa, 0.9 cm^2/m^2 0.8 mean velocity Aorta Value 07/26/2017 Reference Aortic root ID, ED 3.2 cm 3.1 Ascending aorta ID, A-P, S 3.1 cm 3.1 Left atrium Value 07/26/2017 Reference LA ID, A-P, ES 3.7 cm 5.1 LA ID/bsa, A-P 1.7 cm/m^2 2.2 <=2.2 LA volume/bsa, ES, 1-p A4C 35 ml/m^2 LA volume, ES, 2-p 124 ml 102 LA volume/bsa, ES, 2-p 56 ml/m^2 44 LA/aortic root ratio 1.18 1.68 Mitral valve Value 07/26/2017 Reference Mitral E-wave peak 1.01 m/sec 1.2 velocity Mitral peak gradient, D 4.1 mm Hg 5.7 Tricuspid valve Value 07/26/2017 Reference Tricuspid regurg peak 3 m/sec 3 velocity Tricuspid peak RV-RA 34.9 mm Hg 34.9 gradient Right atrium Value 07/26/2017 Reference RA area, ES, A4C (H) 25.1 cm^2 19.6 8.3 - 19.5 Legend: (L) and (H) chris values outside specified reference range. I have personally reviewed the images and have reviewed and edited the reported findings. Electronically signed by Jose Herrera 12/24/2018 10:31
[2018-12-24 11:20] LABS: Troponin I < 0.05 ng/mL (0.00-0.06)
[2018-12-24] MEDS: Magnesium Oxide 400 MG TAB PO (11:25)
[2018-12-24] MEDS: Potassium Chloride 20 MEQ TABCR PO (11:25)
[2018-12-24] MEDS: Sertraline 25 MG TAB PO (12:10)
[2018-12-24] MEDS: Metoprolol CR 25 MG TABCR PO (12:11)
[2018-12-24] MEDS: Ferrous Sulfate 325 MG TAB PO ×2 (12:11→19:22)
[2018-12-24] MEDS: Cyanocobalamin 1000 MCG/ML VIAL IM (12:16)
--- NOTE | 2018-12-24 13:08 | W.PM.PROGNOT ---
Date of Service Date of service: 12/24/18 Time of Service: 13:08 Assessment and Plan Assessment and plan (1) Chest pain: Status: Acute Assessment and plan: Reports chest pain pressure this morning at 0630. Had associated radiation to neck and back with nausea, hot flash, and mild SOB. Resolved with x1 nitro 0.4mg sl. Had echo this morning. EF 55-60%. Left venticle size, systolic function, and wall motion all within normal limits. Both left and right atriums are dilated L>R this is a typical finding with chronic atrial fibrillation. Due to outpatient scheduling the Nuclear Stress test ordered will be done tomorrow. CXR was negative for cardiopulmonary process. Serial troponins flat at 0.05. Continue with telemetry monitoring. (2) Atrial fibrillation by electrocardiogram: Status: Chronic Assessment and plan: Nursing reports that the patient's HR has been to the 150's with ambulating to the BR then recovers quickly to 70's with rest. She denies chest pain and palpitations with ambulation. Am beta nena was held due to pending nuclear stress test, this certainly plays a factor with rate control. The patient reports in the last couple of weeks she has had increased HONG with ambulation but denies associated chest pain or palpitations. Cardiology consult may be beneficial and an outpatient, as well as, evaluation of heart rate via haulter monitor. Continue with home metoprolol and abixiban. Continue with Telemetry. (3) Essential hypertension: Status: Chronic Assessment and plan: Hemodynamically stable. Continue with home medication Metoprolol Succinate 25mg daily. (4) Gastroesophageal reflux disease: Status: Chronic Assessment and plan: Patient was evaluated on 12/16/18 at [facility] ER for epigastric pain. The CT resulted showing a hiatal hernia. The patient was discharged with instructions to continue her PPI and follow up with an outpatient upper GI study. Continue with home medication Protonix 40mg daily. Of note relief of chest pain with nitroglycerin could also represent relief related to GI source possibly esphogeal spasms. Again this morning, 12/24/18, CP was relieved with x1 nitro. Cardiac markers are negative. Nuclear Stress test will be perfomed tomorrow. Still unclear as to whether chest pain is cardiac or GI related. Continue with home medication Protonix 40mg daily. Qualifiers: Esophagitis presence: without esophagitis Qualified Code(s): K21.9 - Gastro-esophageal reflux disease without esophagitis (5) Anxiety: Status: Chronic Assessment and plan: Continue with home medication sertraline 25mg po daily. Subjective Subjective Interval history since last seen: Reports having 5/10 midsternal chest pain pressure this morning at 0630. States pain radiated to neck and back with associated nausea, hot flash, and mild SOB. Chest pain resolved after nitro 0.4mg sublinguinal x1. States has mild HONG with ambulation but denies palpitations. Had echocardigram this morning. Exam Const General: cooperative, comfortable and no acute distress Nutritional Appearance: obese Orientation: alert, awake and oriented x3 HENMT Head: normal to inspection Mouth: oral mucosae normal Teeth and gingiva: dentures Throat: posterior oropharynx normal Eyes General: appearance normal, both eyes and all related structures Pupils: PERRL EOM: EOM intact bilaterally Neck Neck: normal visual inspection, full ROM, trachea midline and no JVD Chest Chest: normal inspection of the chest Resp Effort & Inspection: normal respiratory effort and able to speak in complete sentences Auscultation: clear to auscultation bilaterally Cardio Jugular venous pressure: no JVD Palpation: normal PMI Rate: regular rate Rhythm: abnormal rhythm (irregular ) Heart Sounds: S1 normal and S2 normal Pulses: normal peripheral pulses GI Inspection: normal to inspection Palpation: soft Auscultation: normal bowel sounds General: deferred Back/Spine/Pelvis Thoracic/Lumbar Spine: thoracic and lumbar spine normal to inspection Skin Lesions: no lesions Wounds: no wounds Neuro General: alert, awake, oriented x3, moves all extremities and no focal motor deficits Cognition: normal cognition Speech: speech normal Motor: muscle tone normal throughout and strength 5/5 throughout Sensory Exam: no sensory deficits noted Extrem General: normal to inspection and full ROM Psych Appearance: grossly normal Speech and Movement: speech and movement normal Mood: congruent mood Affect: normal affect Attitude: cooperative Thought Process: normal Thought Content: normal Objective Objective Clinical Data: Abnormal lab results 12/24/18 Range/Units 06:55 MCV 96.9 H (80-95) fL MCHC 31.7 L (32.0-36.0) g/dL Absolute Lymphocytes 1.00 L (1.2-3.4) k/cumm Vital Signs Temperature 36.6 C 12/24/18 06:40 Temperature Source Tympanic 12/24/18 06:40 Pulse 90 12/24/18 07:25 Pulse Rhythm Irregular 12/24/18 07:25 Pulse 70 12/23/18 16:16 Respiratory Rate 20 12/24/18 06:40 Respiratory Effort Non-Labored 12/24/18 07:25 Respiratory Depth Normal 12/24/18 07:25 Respiratory Pattern Normal 12/24/18 07:25 Blood Pressure 125/74 12/24/18 06:40 Blood Pressure Mean 74 12/23/18 16:16 Blood Pressure Position Sitting 12/23/18 11:49 Pulse Oximetry 95 12/24/18 06:40 Oxygen Delivery Method Room Air 12/24/18 06:40 Oxygen Flow Rate 0 12/24/18 06:40 Pain Level 0 12/24/18 06:42 Comment 12/24/18 06:40 Intake & Output 12/23/18 12/24/18 12/24/18 23:59 11:59 23:59 Intake Total 10 10 200 / 200 Output Total 500 / 500 Balance -300 / -300 Weight 100.1 kg 98.8 kg Intake: IV 10 10 Oral 200 / 200 Output: Urine 500 / 500 Other: Urine Color Yellow Urine Appearance Clear Urine Odor Normal Voiding Methods Toilet Laboratory Results WBC 4.77 k/cumm (4.4-10.8) 12/24/18 06:55 RBC 4.46 m/cumm (4.00-5.20) 12/24/18 06:55 Hgb 13.7 g/dL (12.0-15.5) 12/24/18 06:55 Hct 43.2 % (36.0-46.0) 12/24/18 06:55 MCV 96.9 fL (80-95) H 12/24/18 06:55 MCH 30.7 pg (27.0-33.0) 12/24/18 06:55 MCHC 31.7 g/dL (32.0-36.0) L 12/24/18 06:55 RDW 14.2 % (11.7-14.6) 12/24/18 06:55 Plt Count 249 x1000/uL (130-400) 12/24/18 06:55 MPV 11.0 fL (8.0-11.0) 12/24/18 06:55 Immature Gran % 0.2 12/24/18 06:55 Neutrophils % 67.1 12/24/18 06:55 Lymphocytes % 21.0 12/24/18 06:55 Monocytes % 10.3 12/24/18 06:55 Eosinophils % 1.0 12/24/18 06:55 Basophils % 0.4 12/24/18 06:55 Absolute Neutrophils 3.20 k/cumm (1.2-6.7) 12/24/18 06:55 Absolute Lymphocytes 1.00 k/cumm (1.2-3.4) L 12/24/18 06:55 Absolute Monocytes 0.49 k/cumm (0.11-0.7) 12/24/18 06:55 Absolute Eosinophils 0.05 k/cumm (0.0-0.7) 12/24/18 06:55 Absolute Basophils 0.02 k/cumm (0.0-0.2) 12/24/18 06:55 PT 10.4 sec (9.3-11.0) 12/23/18 11:47 INR 1.0 (0.9-1.1) 12/23/18 11:47 APTT 26.9 sec (21.0-31.4) 12/23/18 11:47 Sodium 142 mmol/L (136-145) 12/24/18 06:55 Potassium 3.8 mmol/L (3.5-5.1) 12/24/18 06:55 Chloride 105 mmol/L (98-107) 12/24/18 06:55 Carbon Dioxide 27.4 mmol/L (21.0-32.0) 12/24/18 06:55 Anion Gap 9.6 mmol/L (3-11) 12/24/18 06:55 BUN 9 mg/dL (7-18) 12/24/18 06:55 Creatinine 0.75 mg/dL (0.55-1.02) 12/24/18 06:55 Estimated GFR/1.73 m2 >= 60.00 (mL/min/1.73m2) 12/24/18 06:55 Glucose 89 mg/dL (70-100) 12/24/18 06:55 Calcium 9.1 mg/dL (8.5-10.1) 12/24/18 06:55 Magnesium 1.9 mg/dL (1.8-2.4) 12/24/18 06:55 Total Bilirubin 0.5 mg/dL (0.2-1.0) 12/23/18 11:47 AST 14 U/L (15-37) L 12/23/18 11:47 ALT 17 U/L (14-59) 12/23/18 11:47 Alkaline Phosphatase 101 U/L (46-116) 12/23/18 11:47 Troponin I < 0.05 ng/mL (0.00-0.06) 12/24/18 06:55 NT-Pro-B Natriuret Pep 452 pg/mL (-299) H 12/23/18 11:47 Total Protein 8.0 g/dL (6.4-8.2) 12/23/18 11:47 Albumin 4.1 g/dL (3.4-5.0) 12/23/18 11:47 Exam(s) a US:US echocardiogram *[facility]* *[facility]* [address] [place] [address] Date of study: 12/24/2018 Transthoracic Echocardiography M-mode, complete 2D, complete spectral Doppler, and color Doppler *STUDY CONCLUSIONS* Impressions: The patient was in atrial fibrillation throughout study. This rhythm can interfere with accurate global and segmental wall motion analysis. Summary: 1. Left ventricle: The cavity size was normal. Wall thickness was normal. Systolic function was normal. The estimated ejection fraction was 55-60%. Wall motion was normal; there were no regional wall motion abnormalities. 2. Left atrium: The atrium was severely dilated. 3. Right ventricle: The cavity size was normal. Wall thickness was normal. Systolic function was normal. 4. Right atrium: The atrium was moderately dilated. 5. Pulmonary arteries: Pulmonary systolic pressure was within the normal range, in the range of 40mm Hg to 45mm Hg. 6. Inferior vena cava: The vessel was patent and normal in size. The respirophasic diameter changes were in the normal range (greater than or equal to 50%). *PATIENT PRESENTATION* Height: 170.2cm (67in ) S/D Pressure: 125 / 74 Weight: 99.8kg (219.5lb ) BSA: 2.21m^2 Test start time: 09:00 AM. Test stop time: 09:45 AM. PERFORMING Unknown CONSULTING Iker Wood ORDERING Iker Wood REFERRING Iker Wood PERFORMING [facility] ASSISTANT GOLF PROFESSIONAL Kaity Maynard, RT (R)(CT), RDCS
--- NOTE | 2018-12-24 13:46 | INITIAL_ITS ---
Care Management Initial Assess REASON FOR HOSPITALIZATION:: Chest Pain PAST MEDICAL HISTORY/PAST SURGICAL HISTORY:: Anemia, Anxiety, A-fib, left ovary cyst, depressive disorder, diverticulitis of colon, essential hypertension, GERD, hemorrhoids, hyperlipidemia, increased BMI, iron deficient anemia, osteoarthritis, uterine anomaly, L breast biopsy, cholecystectomy, colonoscopy, EGD PREVIOUS FUNCTIONAL STATUS/SOCIAL/FAMILY SUPPORTS:: Kaila resides alone in own home in [facility]. She has three daughters, Lesvia in [facility] [facility], Ney in [place] and Mitzi in [place]. She has been since 2011. She is usually independent with ADL's and still able to drive. CURRENT FUNCTIONAL STATUS:: Kaila was lying in bed when CM met with her. She was pleasant in interaction and forthcoming with information. She reviewed her family relationships and shared significant losses including her seven years ago and her best friend three years ago. CM provided space for Kaila to process her loss, Kaila identified that her life is enriched by her family; her three daughters, her grandchildren (6) and great children (15). She was open to the idea of expanding her social [place] and to explore activities in the area. She was agreeable to [facility] referral and [facility] to start taking steps toward downsizing and selling her home. ADVANCE DIRECTIVES:: On file at [facility]; Olegario as agent, Ney as alternate. Has patient been provided with information about the portal?: Yes Did the patient sign up for the portal?: No CODE STATUS:: Full Code INSURANCE COVERAGE / FINANCIAL ISSUES:: Medicare CURRENT HOME/COMMUNITY SERVICES/EQUIPMENT:: [facility] PRIMARY CARE PHYSICIAN:: Renee Andrade NP POTENTIAL DISCHARGE NEEDS:: Follow up appointment with PCP. PATIENT/FAMILY EDUCATION NEEDS:: Review of discharge instructions, discuss Ask Me Three. ANTICIPATED BARRIERS TO DISCHARGE:: None identified at this time. TRANSPORTATION:: Via private vehicle with one of her daughters. PLAN:: Kaila will continue to be closely monitored and treated. Anticipate further imaging and tests including ECHO and MPI stress test. Kaila will likely return home, with outpatient follow up appointments when ready per MD. CM faxed referral for [facility] and [facility]. She will transport via private vehicle with one of her daughters.
--- NOTE | 2018-12-24 13:55 | CHAPLAIN ---
Kaila was in bed when I visited. She had a friend with her who explained that they were waiting for test results to then learn what the next steps would be in Kaila's care. Kaila talked about how difficult it is to not know yet the test results are or what the plan of care will be.
[2018-12-25] VITALS (8 sets, daily range): BP systolic 112–124; BP diastolic 68–86; PULSE 61–85; RESP 18–20; TEMP 36.3–37.1; O2SAT 94–98
[2018-12-25 07:37] LABS: Abs Immature Grans 0.01 k/cumm (0.0-0.09); Absolute Basophil Count 0.02 k/cumm (0.0-0.2); Absolute Eosinophil Count 0.09 k/cumm (0.0-0.7); Absolute Monocyte Count 0.62 k/cumm (0.11-0.7); Absolute Neutrophil Count 3.34 k/cumm (1.2-6.7); Basophils % 0.4; Eosinophils % 1.8; HGB 14.4 g/dL (12.0-15.5); Immature Grans % 0.2; Lymphocytes % 19.7; Mean Corp. HGB Concentration 32.7 g/dL (32.0-36.0); Mean Corpuscular Hemoglobin 31.4 pg (27.0-33.0); Mean Corpuscular Volume 96.1 fL (80-95); Mean Platelet Volume 10.8 fL (8.0-11.0); Monocytes % 12.2; Neutrophils % 65.7; Platelet Count 238 x1000/uL (130-400); RBC 4.58 m/cumm (4.00-5.20); RBC Distribution Width 14.1 % (11.7-14.6); White Blood Cell Count 5.08 k/cumm (4.4-10.8)
--- NOTE | 2018-12-25 07:45 | NUR.NOTE ---
Nursing Note: 12/25/18 0545- pt feeling funny. pt states she feels like her arms and legs are heavy. pt nauseous and lightheaded. no chest pain or pain anywhere. VSS and blood sugar 91. pt got up to bathroom shortly before this and her heart rate climbed to almost 150.
[2018-12-25 07:56] LABS: Anion Gap 8.8 mmol/L (3-11); BUN 14 mg/dL (7-18); CO2 27.2 mmol/L (21.0-32.0); CREATININE 0.73 mg/dL (0.55-1.02); Calcium 9.3 mg/dL (8.5-10.1); Chloride 104 mmol/L (98-107); Glucose 84 mg/dL (70-100); Potassium 4.4 mmol/L (3.5-5.1); Sodium 140 mmol/L (136-145)
--- NOTE | 2018-12-25 08:15 | MERGEMPI_ITS ---
*[facility]* *[facility]* [address] [place] [address] Myocardial Perfusion Imaging - SPECT Rob protocol Date of study: 12/25/2018 *PATIENT PRESENTATION* Height: 170.2cm (67in) Blood Pressure: Weight: 99.8kg (219.5lb) BSA: 2.21m^2 Referring physician: Jose Herrera Ordering physician: Tammy Keating Impressions: Normal study after pharmacologic stress. Summary: 1. Myocardial perfusion imaging: No myocardial perfusion defects noted. 2. The calculated left ventricular ejection fraction after stress: 65%. LV global systolic function is normal. No left ventricular regional motion abnormality. Indication: R07.9. History: REASON FOR TESTING: PATIENT PRESENTED TO THE ER 12/23/18 WITH MIDSTERNAL CHEST PAIN (5/10) WITH RADIATION TO BILATERAL UPPER EXTREMITIES AND NECK, NAUSEA, AND DYSPNEA. PAIN RELIEVED WITH SUBLINGUAL NITROGLYCERINE IN THE ER. PATIENT WAS ADMITTED TO THE HOSPITAL. HER TROPONIN LEVELS WERE 0.05 TIMES FOUR. PATIENT REPORTS HAVING CHEST PRESSURE (5/10) WITH ASSOCIATED SYMPTOMS DESCRIBED ABOVE FOR THE PAST TWO WEEKS. SHE ALSO REPORTS HAVING BEEN TO THE ER 1 WEEK PRIOR TO THIS ADMISSION FOR THE SAME SYMPTOMS. PATIENT DENIES CHEST PAIN UPON ARRIVAL TO TESTING TODAY. SIGNIFICANT PAST MEDICAL HISTORY: GERD, ATRIAL FIBRILLATION, ANXIETY. SMOKING STATUS: QUIT 50 YEARS AGO. SHE SMOKED FOR APPROXIMATELY 20 YEARS--1 PACK PER WEEK. EXERCISE ROUTINE: SEDENTARY LIFESTYLE. Risk factors: Family history of coronary artery disease. Hypertension. Dyslipidemia. ALLERGIES: CAFFEINE. MEDICATIONS: APIXABAN 5 MG BID, SLOW RELEASE IRON 250 MG BID, SERTRALINE 25 MG DAILY, PANTOPRAZOLE 40 MG DAILY, METOPROLOL SUCCINATE 25 MG DAILY, VITAMIN B 12 IM INJECTION MONTHLY. Imaging Technique: Protocol: Rob protocol. Acquisition: Gated SPECT; 1 day - rest/stress. The patient was imaged in the supine position. Attenuation correction used. Isotope administration: - Rest. Tc[99m]-sestamibi. Dose: 10mCi. Injection time: 08:25 AM. Injection to stress time: 00:45. - Stress. Tc[99m]-sestamibi. Dose: 31.5mCi. Injection time: 10:25 AM. 1-2 min before end of exercise Baseline ECG: ATRIAL FIBRILLATION. HR 76 BPM. Stress protocol: +--------+---+ + + !Stage !HR !BP (mmHg) !Comments ! +--------+---+ + + !Baseline!76 !134/90 (105)! ! +--------+---+ + + !1 min !91 !152/90 (111)!Inject Regadenoson.! +--------+---+ + + !3 min !112!134/82 (99) ! ! +--------+---+ + + !5 min !103!128/82 (97) ! ! +--------+---+ + + !6 min !95 !126/78 (94) ! ! +--------+---+ + + * Stress results: LEXISCAN STRESS TEST ENDED IN 6 MINUTES 56 SECONDS. NORMAL HEART RATE AND BLOOD PRESSURE RESPONSE TO LEXISCAN INJECTION. NO ECTOPY. NO ANGINA. NO SIGNIFICANT ST SEGMENT CHANGES. The rate-pressure product for the peak heart rate and blood pressure was 83937he Hg/min. Myocardial perfusion: Imaging information: gated. Left ventricular size is normal. No myocardial perfusion defects noted. Ventricular Function (Wall Motion): The calculated left ventricular ejection fraction after stress: 65%. LV global systolic function is normal. No left ventricular regional motion abnormality. Study data: Sidney Murphy MD supervised and was readily available during the procedure. This study was interpreted by [facility]. Study status: Routine. Consent: The risks, benefits, and alternatives to the procedure were explained to the patient and informed consent was obtained. Procedure: Initial setup. A baseline ECG was recorded. Surface ECG leads and manual cuff blood pressure measurements were monitored. Heart sounds: Normal. Lung sounds: Normal. Treadmill exercise testing was performed using the Rob protocol. Study completion: All catheters inserted during the procedure were removed. The patient tolerated the procedure well and was discharged from the lab. Discharge: The patient left the laboratory in stable condition. Birthdate: Patient birthdate: 1935. Sex: Gender: female. Study date: Study date: 12/25/2018. Study time: 00:01 AM. Signature Documentation: - The imaging portion of this study was interpreted by Nuclear Community Health Nurse Sidney Murphy MD. - The imaging portion of this study was interpreted by Nuclear Radiologist Olegario Rivera MD. - The Stress ECG portion of this study was interpreted by Sidney Murphy MD. Electronically signed by Sidney Murphy 12/25/2018 14:49
[2018-12-25] MEDS: Regadenoson 0.4 MG/5 ML SYR IVP (10:21)
[2018-12-25] MEDS: Pantoprazole 40 MG TABCR PO (11:10)
[2018-12-25] MEDS: Apixaban 5 MG TAB PO (11:10)
[2018-12-25] MEDS: Metoprolol CR 25 MG TABCR PO (11:10)
[2018-12-25] MEDS: Ferrous Sulfate 325 MG TAB PO (11:10)
[2018-12-25] MEDS: Nystatin POWDER 15 GM JAR TP (11:10)
[2018-12-25] MEDS: Sertraline 25 MG TAB PO (11:10)
--- NOTE | 2018-12-25 11:18 | PDOC.CMDIS ---
LACE Index Scoring Tool - Questions: Length of Stay (in days): 2 Acuity (Admit via E.D.?): Yes Comorbidities: Diabetes w/o Complication E.D. Visits: 2 - Answers: Total Score: 8 Risk of Readmission: Low Risk Care Management Discharge Reason for Hospitalization: Chest Pain Discharge Plan: Kaila will return home with outpatient follow up appointments when ready per MD. CM faxed referral for [facility] and [facility]. Kaila will transport via private vehicle with one of her daughters. Patient/Family Education Needs: Review discharge instructions, discuss Ask Me Three.
[2018-12-25] MEDS: Acetaminophen 325 MG TAB PO (11:37)
--- NOTE | 2018-12-25 12:43 | PHARADMIT ---
Admission Pharmacy Clinical Review CHEST PAIN Code Status Full Code Current Weight Wgt-97.3 kg Renally Cleared and Narrow Therapeutic Index Meds CrCl~54.54 Meds-OK QTc Value / Action Taken QTc-444 na BP Control, Fever BP-124/82 Tmax- 36.8C Electrolytes reviewed Na- 140 K+4.4 Mag-2.0 DVT Prophylaxis Eliquis, Opiate Usage / Scheduled Bowel Regimen Ordered No Yes Plt/SCr for Heparin / Enoxaparin Plts- SCr-0.73 INR for Warfarin inr-1.0 H/H stable, WBC/Bands H&H- 14.4/ 44.0 WBC- 5.08 Antibiotic appropriateness none Cultures and Sensitivities none Surgical ABX d/c within 24 hr NA DM control / Insulin Dosing BG-84 Heart Failure (Check EF%) (YAJAIRA's, B-Block, Diuretics) Toprol-XL, NTG IV to PO Switch No Home Meds Reviewed Yes Home Meds Not Ordered Ordered Comments Stress test today
--- NOTE | 2018-12-25 15:45 | W.PM.DS.N ---
Date of service: 12/25/18 Time of Service: 15:45 DS: Diagnosis Discharge Diagnosis (1) Chest pain: Start date: 12/25/18 Start time: 15:45 Status: Acute Asessment and Plan: Resolved. Echo with 55-60 % EF. LA dilated>RA typical in Afib. Mild PH. Nuclear stress no myocardial defects, left ef 65%. LV global systolic function normal. No left ventricular motion abnormality. Likely GERD or hernia related. Increase PPI BID, Diet for GERD, 48 hour holter monitor as patient does become tachycardic when ambulating with quick recovery. Zoi patch recommended if no results with 48 hour monitor. (2) Atrial fibrillation by electrocardiogram: Start date: 12/25/18 Start time: 15:48 Status: Chronic Asessment and Plan: Continue eliquis BID. (3) Essential hypertension: Status: Chronic (4) Gastroesophageal reflux disease: Status: Chronic (5) Anxiety: Status: Chronic Discharge Plan Disposition Patient Disposition: HOME Condition: Stable Discharge Details Chief Complaint: Chest Pain Clinical Impression: Chest pain Reason For Visit: CHEST PAIN Admit Date/Time: 12/23/18 15:33 Admit Provider: Iker Wood Attending Provider: Iker Wood Primary Care Provider: Renee Andrade ED Provider: Bhavna Philip Hospital Course Hospital Course: 82 y.o Female with PMH afib on apixaban, HTN, KENNETH, Hyperlipidemia, GERD and anxiety admitted to [facility] m/s telemetry from [facility] ED on 12/23 with c/o midsternal chest pain pressure radiating to BUE and neck. SOB with pain as well as nausea. [address] lasting approx. 5 mins. She was admitted to observation for an echo which revealed EF-55-60%, Normal wall motion, LA>RA with severely dilated to moderately dilated in setting of Afib this is typical. Mild PH. Flat troponins at less than 0.05, pain was resolved with nitro. Nuculear stress obtained noted LV ef at 65% with no abnormality. Patient has no pain at this time. On 12/[address] a [address] revealing 15 mm well circumscribed left breast lesion that will need a mammogram for further work up. CXR with no acute abnormality. Likely this was from a hiatal hernia found on CT or GERD. She is being discharged home with a 48 hour holter monitor; while she was on telemetry when ambulating her HR would increase with activity and correct as soon as she sat down. Recommend a Zio patch if holter does not reveal any abnormalities in a patient with a history of Afib. She should also have a follow up mammogram for her breast lesion. Her PPI will be increased to 40 mg BID and she should avoid spicy foods, chocolate, etc. She denies CP, SOB, N/v/d Home Meds and New Rx's Prescriptions: New pantoprazole [Protonix] 40 mg tablet,delayed release (DR/EC) 40 mg PO BID Qty: 60 RF: 0 Continued cyanocobalamin (vitamin B-12) 1,000 mcg/mL solution 1,000 mcg IM monthly Qty: 1 RF: 0 metoprolol succinate 25 mg tablet extended release 24 hr 25 mg PO DAILY Qty: 90 RF: 3 sertraline 25 MG tablet 25 mg PO DAILY Qty: 90 RF: 4 Slow Release Iron 250 MG tablet extended release 250 mg PO BID Qty: 60 RF: 0 apixaban 5 mg tablet 5 mg PO BID Qty: 180 RF: 4 pantoprazole 40 mg tablet,delayed release (DR/EC) 40 mg PO DAILY Qty: 90 RF: 4 Discharge Instructions Instructions: Atrial Fibrillation (GEN), Chest Pain (GEN), Hiatal Hernia (GEN), Diet for Stomach Ulcers and Gastritis (GEN), Gastroesophageal Reflux Disease (GEN) Additional Instructions: Follow up with PCP in 1 day. Take protonix twice a day. Avoid laying down for at least 30 mins after every meal. You were found to have a breast lesion by CT on 12/16, you should have a follow up mammogram for further treatment. You will have a holter monitor for 48 hours. Follow up with your PCP on what to do next regarding Holter. Activity:: Activity as Tolerated Equipment/Supplies:: No Equipment Needed Diet:: As Tolerated Discharge Orders Discharge Orders: Discharge Order (Routine); Ordered 12/25/18 Ordered By: Naila Mcintosh DS: Summary Status at Discharge Functional status at discharge: independent ambulation Overall status at discharge: patient is back to baseline Mental Status: mental status grossly normal Speech and Movement: speech and movement normal Mood: congruent mood Affect: normal affect Exam Const General: cooperative, healthy appearing, comfortable and no acute distress Nutritional Appearance: obese Orientation: alert, awake and oriented x3 HENMT Head: normal to inspection Mouth: oral mucosae normal Teeth and gingiva: dentures Throat: posterior oropharynx normal Eyes General: appearance normal, both eyes and all related structures Pupils: PERRL EOM: EOM intact bilaterally Neck Neck: normal visual inspection, full ROM, trachea midline and no JVD Chest Chest: normal inspection of the chest Resp Effort & Inspection: normal respiratory effort and able to speak in complete sentences Auscultation: clear to auscultation bilaterally Cardio Jugular venous pressure: no JVD Palpation: normal PMI Rate: regular rate Rhythm: abnormal rhythm (irregular ) Heart Sounds: S1 normal and S2 normal Pulses: normal peripheral pulses GI Inspection: normal to inspection Palpation: soft Auscultation: normal bowel sounds General: deferred Back/Spine/Pelvis Thoracic/Lumbar Spine: thoracic and lumbar spine normal to inspection Skin Lesions: no lesions Wounds: no wounds Neuro General: alert, awake, oriented x3, moves all extremities and no focal motor deficits Cognition: normal cognition Speech: speech normal Motor: muscle tone normal throughout and strength 5/5 throughout Sensory Exam: no sensory deficits noted Extrem General: normal to inspection and full ROM Psych Appearance: grossly normal Mental Status: mental status grossly normal Speech and Movement: speech and movement normal Mood: congruent mood Affect: normal affect Attitude: cooperative Thought Process: normal Thought Content: normal DS: Data Vitals/I&O Vitals and I&O: Vital Signs Temperature 36.6 C 12/25/18 11:25 Temperature Source Tympanic 12/25/18 11:25 Pulse 82 12/25/18 11:25 Pulse Rhythm Irregular 12/25/18 07:53 Pulse 70 12/23/18 16:16 Respiratory Rate 18 12/25/18 11:25 Respiratory Effort 12/25/18 07:53 Respiratory Depth Normal 12/25/18 07:53 Respiratory Pattern Normal 12/25/18 07:53 Blood Pressure 124/82 12/25/18 11:25 Blood Pressure Mean 74 12/23/18 16:16 Blood Pressure Position Sitting 12/23/18 11:49 Pulse Oximetry 96 12/25/18 11:25 Oxygen Delivery Method Room Air 12/25/18 11:25 Oxygen Flow Rate 0 12/25/18 11:25 Pain Level 5 12/25/18 11:37 Comment 12/25/18 05:45 Intake & Output 12/24/18 12/25/18 12/25/18 23:59 11:59 23:59 Intake Total 610 / 810 10 / 130 120 / 130 Output Total 300 / 1400 600 / 600 Balance 310 / -590 -590 / -470 120 / -470 Weight 97.3 kg Intake: IV 10 / 10 10 / 10 Oral 600 / 800 120 / 120 Output: Urine 300 / 1400 600 / 600 Other: Urine Color Yellow Yellow Urine Appearance Clear Clear Urine Odor Normal Normal Comment pt voiding in toilet. no hat being used at this time. incontinent void when Pt stood up, pad in underware wet. Voiding Methods Toilet Toilet Data Completed and Pending Completed studies during hospitalization [Text1]: Exam(s) a RAD:XR chest 2V PA & lateral SYMPTOM/DIAGNOSIS: CHEST PAIN PA AND LATERAL CHEST: The heart is at the upper limits of normal in size. There are mild changes of pulmonary scarring. No focal consolidation. No pleural effusion. CONCLUSION: No evidence of acute process. Exam(s) a CT:CT chest/abd/pel w SYMPTOM/DIAGNOSIS: CHEST PAIN, UPPER ABD TENDERNESS CHEST/ABDOMEN AND PELVIC CT: CT examination of the chest, abdomen and pelvis was performed with a bolus infusion of 100 cc's of Omnipaque 350. The lungs are clear except for minimal areas of scarring and/or atelectasis. Thoracic aorta and major branches appear intact. No abnormality of the pulmonary arterial circulation. No mediastinal or hilar adenopathy. No axillary or supraclavicular adenopathy. 15 mm. left breast nodule identified which is well circumscribed, correlation with mammography recommended. No pleural effusion or pleural based mass. Cardiac size within normal limits. No abnormality of the bones of the thorax apart from degenerative changes of the spine. Liver is unremarkable in appearance except for a small, low attenuation lesion which may represent small cyst or hemangioma in the right hepatic lobe measuring less than 1 cm. in diameter. Prior cholecystectomy noted. No biliary dilatation. Pancreas is unremarkable. Spleen appears normal. Large hiatal hernia noted. No evidence of obstruction. Tiny fat containing umbilical hernia and tiny fat containing inguinal hernia is noted. Abdominal aorta is of normal diameter and no major vascular abnormality is seen. Adrenals and kidneys are unremarkable. Incidental presumed tiny right renal cyst noted. No abdominal or pelvic adenopathy. Colonic diverticulosis noted. Normal appearance of the appendix. No specific evidence of diverticulitis. [employer] structures unremarkable for age. Degenerative changes of the lumbar spine noted. Old mild anterior T 11 compression fracture noted. CONCLUSION: 1. Hiatal hernia. 2. 15 mm., well circumscribed left breast lesion, correlation with mammography is recommended. 3. No evidence of acute process. 4. Prior cholecystectomy noted. Exam(s) a RAD:XR chest 2V PA & lateral INDICATION: Chest pain COMPARISON: XR CHEST 2V PA LATERAL from 12/16/2018 TECHNIQUE: 2D digital imaging was performed. FINDINGS: The lungs are well expanded and free of infiltrate. Again noted are small regions of scarring. There is an apparent small axial hiatus hernia. There is no pleural effusion. The cardiovascular structures are intact. There has been no significant interval change when compared to prior examination of 12/16/2018. Exam(s) a US:US echocardiogram *[facility]* *[facility]* [address] [place] [address] Date of study: 12/24/2018 Transthoracic Echocardiography M-mode, complete 2D, complete spectral Doppler, and color Doppler *STUDY CONCLUSIONS* Impressions: The patient was in atrial fibrillation throughout study. This rhythm can interfere with accurate global and segmental wall motion analysis. Summary: 1. Left ventricle: The cavity size was normal. Wall thickness was normal. Systolic function was normal. The estimated ejection fraction was 55-60%. Wall motion was normal; there were no regional wall motion abnormalities. 2. Left atrium: The atrium was severely dilated. 3. Right ventricle: The cavity size was normal. Wall thickness was normal. Systolic function was normal. 4. Right atrium: The atrium was moderately dilated. 5. Pulmonary arteries: Pulmonary systolic pressure was within the normal range, in the range of 40mm Hg to 45mm Hg. 6. Inferior vena cava: The vessel was patent and normal in size. The respirophasic diameter changes were in the normal range (greater than or equal to 50%). Impressions: Normal study after pharmacologic stress. Summary: 1. Myocardial perfusion imaging: No myocardial perfusion defects noted. 2. The calculated left ventricular ejection fraction after stress: 65%. LV global systolic function is normal. No left ventricular regional motion abnormality. Labs on day of discharge: Labs from last 24 hours 12/25/18 12/25/18 06:55 06:55 WBC 5.08 RBC 4.58 Hgb 14.4 Hct 44.0 MCV 96.1 H MCH 31.4 MCHC 32.7 RDW 14.1 Plt Count 238 MPV 10.8 Immature Gran % 0.2 Neutrophils % 65.7 Lymphocytes % 19.7 Monocytes % 12.2 Eosinophils % 1.8 Basophils % 0.4 Absolute Neutrophils 3.34 Absolute Lymphocytes 1.00 L Absolute Monocytes 0.62 Absolute Eosinophils 0.09 Absolute Basophils 0.02 Sodium 140 Potassium 4.4 Chloride 104 Carbon Dioxide 27.2 Anion Gap 8.8 BUN 14 Creatinine 0.73 Estimated GFR/1.73 m2 >= 60.00 Glucose 84 Calcium 9.3 Magnesium 2.0 PFSH Medical History Anemia Anxiety (Chronic 03/03/12) Atrial fibrillation by electrocardiogram (Chronic 08/06/17) By EKG 07/25/17 Cyst of left ovary (Suspected 08/06/17) Simple cyst - evaluated by 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 Grandmother Neoplasm BREAST/LIVER Grandmother No problems noted. MATERNAL AUNT Neoplasm BREAST Other Family history of GI malignancy Family hx-breast malignancy Social History Smoking/Tobacco Use Status: Former Tobacco Use Alcohol Intake: never Drug use: Never Substance use type: does not use Do you feel safe in your relationship?: Yes
== END 2018-12-25 17:20 | disposition home or self-care (01) ==
LOC: ER 16:40 → MS 16:43
PROVIDERS: Nurse Practitioner Family; Admitting Provider Internal Medicine; Emergency Provider Physician Assistant; Visit Provider Internal Medicine
DX: R07.9 Chest pain, unspecified (principal); I48.91 Unspecified atrial fibrillation; I10 Essential (primary) hypertension; K21.9 Gastro-esophageal reflux disease without esophagitis; F41.9 Anxiety disorder, unspecified; Z79.01 Long term (current) use of anticoagulants
CPT/HCPCS: 36415; 78452; 80048; 80053; 93005; 93016; 93018; 93306; 96374; 99219; 99232; 99239; 99285; 71046; 83735; 83880; 84484; 85025; 85610; 85730; 93010; 93017; 93225; 99217; 99225; G0378; J2405; J2785; J3420; J3490

== ENCOUNTER 2018-12-28 07:20 | Outpatient (CLI) | payer MEDICARE, SELFPAY ==
--- NOTE | 2018-12-29 09:50 | HOLTER_ITS ---
DATE OF DICTATION: December 29, 2018 48-HOUR STUDY Atrial fibrillation throughout recording. Heart rates on average 60-80 bpm, both during the daytime and nighttime hours. There are occasional brief episodes of more rapid heart rate, approximately 120-140 bpm, these are more numerous during th e nighttime hours. Occasional single PVC vs. aberrantly-conducted beat, 155 total, 0.1% of total beat. Heart rates as low as 55-60 bpm, this occurring at 8 p.m. No symptoms. Average heart rate 72 bpm, range 57-156 bpm.
== END 2018-12-28 07:40 ==
PROVIDERS: Visit Provider Nurse Practitioner Family
DX: I48.91 Unspecified atrial fibrillation (principal)
CPT/HCPCS: 93226

== ENCOUNTER 2018-12-29 08:34 | Outpatient (CLI) | payer MEDICARE, SELFPAY | END 2018-12-29 08:54 | PROVIDERS: Visit Provider Internal Medicine Interventional Cardiology | DX: I48.91 Unspecified atrial fibrillation (principal) | CPT/HCPCS: 93227 ==

== ENCOUNTER 2019-12-10 04:28 | Outpatient (CLI) | payer MEDICARE, SELFPAY ==
[2019-12-10 08:07] LABS: HCT 40.8 % (36.0-46.0); HGB 13.3 g/dL (11.2-15.7)
[2019-12-10 10:21] LABS: Anion Gap 7.8 mmol/L (3-11); BUN 16 mg/dL (7-18); CO2 28.2 mmol/L (21.0-32.0); CREATININE 0.86 mg/dL (0.55-1.02); Calcium 9.4 mg/dL (8.5-10.1); Chloride 105 mmol/L (98-107); Glucose 94 mg/dL (74-106); Sodium 141 mmol/L (136-145); Vitamin B12 1541 pg/mL (193-986)
== END 2019-12-10 04:48 ==
DX: I10 Essential (primary) hypertension (principal); I48.91 Unspecified atrial fibrillation; E78.5 Hyperlipidemia, unspecified; F32.9 Major depressive disorder, single episode, unspecified; E53.8 Deficiency of other specified B group vitamins
CPT/HCPCS: 36415; 80048; 82607; 85014; 85018

== ENCOUNTER 2021-07-31 04:43 | Outpatient (CLI) | payer MEDICARE, SELFPAY ==
[2021-07-31 09:02] LABS: Anion Gap 7.6 mmol/L (3-11); BUN 18 mg/dL (7-18); CO2 27.4 mmol/L (21.0-32.0); CREATININE 0.8 mg/dL (0.55-1.02); Calcium 9.2 mg/dL (8.5-10.1); Chloride 103 mmol/L (98-107); Glucose 91 mg/dL (74-106); Potassium 4.2 mmol/L (3.5-5.1); Sodium 138 mmol/L (136-145)
== END 2021-07-31 04:44 | disposition home or self-care (01) ==
LOC: LBO 04:44
DX: I10 Essential (primary) hypertension (principal)
CPT/HCPCS: 36415; 80048

== ENCOUNTER 2022-07-24 02:44 | Outpatient (CLI) | payer MEDICARE, SELFPAY ==
[2022-07-24 07:34] LABS: HCT 38.8 % (36.0-46.0); HGB 12.3 g/dL (11.2-15.7); MCH 30.8 pg (27.0-33.0); MCHC 31.7 % (32.0-36.0); MCV 97 fL (80-95); MPV 9.6 fL (8.0-11.0); Platelet Count 273 10^3/uL (130-400); RDW 15.1 % (11.7-14.6); RDW-SD 54.4 fL; WBC 6.85 10^3/uL (4.4-10.8)
[2022-07-24 08:32] LABS: Iron 76 ug/dL (50-170)
[2022-07-24 08:58] LABS: Anion Gap 9.5 mmol/L (3-11); BUN 17 mg/dL (7-18); CO2 26.5 mmol/L (21.0-32.0); Calcium 9.3 mg/dL (8.5-10.1); Chloride 102 mmol/L (98-107); Estimated GFR 55.55 (mL/min/1.73m2); Glucose 96 mg/dL (74-106); Potassium 3.4 mmol/L (3.5-5.1); Sodium 138 mmol/L (136-145); Vitamin B12 204 pg/mL (193-986)
== END 2022-07-24 02:45 | disposition home or self-care (01) ==
LOC: LBO 02:44
PROVIDERS: PCP Nurse Practitioner Family; Visit Provider Nurse Practitioner Family
DX: I10 Essential (primary) hypertension (principal); D50.9 Iron deficiency anemia, unspecified; E53.8 Deficiency of other specified B group vitamins
CPT/HCPCS: 36415; 80048; 85027; 82607; 83540

== ENCOUNTER 2022-11-14 07:07 | Inpatient (IN) | payer MEDICARE, SELFPAY ==
[2022-11-14] VITALS (8 sets, daily range): BP systolic 132–162; BP diastolic 68–89; PULSE 83–110; RESP 16–19; TEMP 36–38; O2SAT 92–98
--- NOTE | 2022-11-14 08:00 | RT.EKG_ITS ---
APPROVED REPORT Exam: Resting ECG Reason for Exam: NV Patient Location: E HR:94 bpm ECG Measurements Heart Rate 94 AXIS NC [id number] P [id number] QRSd 105 QRS 1 QT [id number] T 242 QTc 0 Conclusion Atrial fibrillation...V-rate 63-106, irreg A-activity Ventricular premature complex...V complex w/ short R-R interval Aberrant conduction of SV complex(es)...aberrant shape, NC 80-220 Nonspecific repol abnormality, diffuse leads...ST dep, T flat/neg, ant/lat/inf
--- NOTE | 2022-11-14 08:24 | W.ED.GENAD ---
Discharge Plan Disposition Patient Disposition: Admit to [facility] Discharge Details Clinical Impression: Bowel obstruction Admit Date/Time: 11/14/22 09:20 Admit Provider: Eb Jiang Attending Provider: Eb Jiang Primary Care Provider: Sridhar Odell ED Provider: Rama Ross Medical Decision Making Case discussed with Dr. Eb Jiang from surgery. He will admit the patient to his service. He would like an NG tube. This was all discussed with the patient and her daughter, as well as differential diagnosis. Of note, the patient says the breast nodule has been there for years and is stable. Medical Records Medical records reviewed: Yes I reviewed the patient's medical records. Imaging Data Radiologic Study: Imaging: CT Scan Radiologist's impression: Exam(s) a CT:CT abdomen & pelvis wo Exam(s) CT ABDOMEN ? PELVIS WO EXAM:? CT ABDOMEN ? PELVIS WO CLINICAL HISTORY: ? vomiting, distension, r/o SBO.? TECHNIQUE:? Imaging Protocol: Axial computed tomography images with coronal and sagittal reformatted images were created and reviewed. Oral: no COMPARISON:? CT CT CHEST/ABD/PEL W from 12/16/2018 FINDINGS: ABDOMEN: Lung Bases: Normal where visualized. ? Large hiatal hernia, increasing in size from prior.? No findings to suggest obstruction.? The heart is enlarged.? Coronary artery calcifications are present. Liver: Normal density. No measurable mass. Gallbladder and biliary tract: Status post cholecystectomy.? No radiodense calculus or dilation. Pancreas: Normal density, no abnormal calcifications or inflammatory process. Spleen: Normal. Kidneys: Normal size, contour and axis. No radiodense stones or obstructive uropathy. No masses seen. Adrenal glands: No masses seen. Lymph nodes: Within normal limits. Abdominal Aorta: Abdominal portion non-dilated. ? Atherosclerotic changes. Soft tissues: 2.4 centimeter relatively circumscribed nodule seen laterally in the left breast/left lateral chest wall.? This was present the prior exam but has increased in size. PELVIS:? Bladder: Symmetric distention, no gross wall thickening. Bowel: Markedly dilated:, cecum measures 11 cm in diameter.? The colon is dilated down to the sigmoid region with the distal sigmoid and rectum nondistended. ? diverticulosis is noted of the sigmoid.? No evidence of diverticulitis.? A mass would be difficult to exclude given lack of IV an oral contrast.? Small bowel is also dilated proximally with decreased distention of distal small bowel. Peritoneal cavity: No ascites, collection or mesenteric inflammatory response. Reproductive organs: Within normal limits. Bones: Mild T11 compression fracture, stable from 2019.? Degenerative changes. IMPRESSION: Marked dilatation of small bowel as well as colon. The distal sigmoid rectum not distended. A diverticular stricture or mass could be considered. Significant small bowel dilatation also present. Large hiatal hernia containing fluid. 2.4 centimeter left breast nodule.? Mammogram and ultrasound could be considered for further evaluation. Lab Data Lab results reviewed: Yes I reviewed the patient's lab results. Lab results narrative: White blood cell count normal. Patient's BUN and creatinine are elevated when compared to July. The remainder of her labs are unremarkable. ECG Data Attestation: I personally reviewed and interpreted this ECG (s) as follows: (Atrial fibrillation at 95, diffuse artifact, diffuse T wave abnormalities new vs 2019) Interpretation: xam(s) a CT:CT abdomen & pelvis wo Exam(s) CT ABDOMEN ? PELVIS WO EXAM:? CT ABDOMEN ? PELVIS WO CLINICAL HISTORY: ? vomiting, distension, r/o SBO.? TECHNIQUE:? Imaging Protocol: Axial computed tomography images with coronal and sagittal reformatted images were created and reviewed. Oral: no COMPARISON:? CT CT CHEST/ABD/PEL W from 12/16/2018 FINDINGS: ABDOMEN: Lung Bases: Normal where visualized. ? Large hiatal hernia, increasing in size from prior.? No findings to suggest obstruction.? The heart is enlarged.? Coronary artery calcifications are present. Liver: Normal density. No measurable mass. Gallbladder and biliary tract: Status post cholecystectomy.? No radiodense calculus or dilation. Pancreas: Normal density, no abnormal calcifications or inflammatory process. Spleen: Normal. Kidneys: Normal size, contour and axis. No radiodense stones or obstructive uropathy. No masses seen. Adrenal glands: No masses seen. Lymph nodes: Within normal limits. Abdominal Aorta: Abdominal portion non-dilated. ? Atherosclerotic changes. Soft tissues: 2.4 centimeter relatively circumscribed nodule seen laterally in the left breast/left lateral chest wall.? This was present the prior exam but has increased in size. PELVIS:? Bladder: Symmetric distention, no gross wall thickening. Bowel: Markedly dilated:, cecum measures 11 cm in diameter.? The colon is dilated down to the sigmoid region with the distal sigmoid and rectum nondistended. ? diverticulosis is noted of the sigmoid.? No evidence of diverticulitis.? A mass would be difficult to exclude given lack of IV an oral contrast.? Small bowel is also dilated proximally with decreased distention of distal small bowel. Peritoneal cavity: No ascites, collection or mesenteric inflammatory response. Reproductive organs: Within normal limits. Bones: Mild T11 compression fracture, stable from 2019.? Degenerative changes. IMPRESSION: Marked dilatation of small bowel as well as colon. The distal sigmoid rectum not distended. A diverticular stricture or mass could be considered. Significant small bowel dilatation also present. Large hiatal hernia containing fluid. 2.4 centimeter left breast nodule.? Mammogram and ultrasound could be considered for further evaluation. HPI General Date/Time Provider Initiated Documentation: 11/14/22 08:02. HPI Narrative: This 86-year-old female patient presents with a chief complaint of nausea, vomiting, and diarrhea that began 3 days ago. Patient reports that the diarrhea started first. She says it was loose but had no blood in it. It stopped on Saturday, 2 days ago. She had some nausea yesterday and overnight she began vomiting profusely. She says she has some diffuse belly soreness and feels like she is distended. She has had no bowel movement in 2 days. There is no fever or shaking chills. She has no chest pain or shortness of breath. She is peeing. Nothing really makes this better or worse. Related Data Home Medications Medication Instructions Recorded Confirmed acetaminophen 325 mg capsule 325 mg PO BID PRN 06/08/19 11/14/22 ferrous sulfate 250 mg (50 mg 250 mg PO DAILY #30 tabs 03/12/22 11/14/22 iron) tablet,extended release (Slow Release Iron) metoprolol succinate 25 mg 25 mg PO DAILY #90 tabs 03/12/22 11/14/22 tablet,extended release 24 hr pantoprazole 40 mg tablet,delayed 40 mg PO BID #180 tabs 03/12/22 11/14/22 release (Protonix) sertraline 25 mg tablet 25 mg PO DAILY #90 tab-caps 03/12/22 11/14/22 apixaban 5 mg tablet 5 mg PO BID #180 tabs 04/17/22 11/14/22 diclofenac sodium 1 % topical gel 4 g topical QID #100 grams 04/17/22 11/14/22 (Arthritis Pain (diclofenac)) Previous Rx's Medication Instructions Recorded ferrous sulfate 250 mg (50 mg 250 mg PO DAILY #30 tabs 03/12/22 iron) tablet,extended release (Slow Release Iron) metoprolol succinate 25 mg 25 mg PO DAILY #90 tabs 03/12/22 tablet,extended release 24 hr pantoprazole 40 mg tablet,delayed 40 mg PO BID #180 tabs 03/12/22 release (Protonix) sertraline 25 mg tablet 25 mg PO DAILY #90 tab-caps 03/12/22 apixaban 5 mg tablet 5 mg PO BID #180 tabs 04/17/22 diclofenac sodium 1 % topical gel 4 g topical QID #100 grams 04/17/22 (Arthritis Pain (diclofenac)) Allergies Allergy/AdvReac Type Severity Reaction Status Date / Time cyanocobalamin (vitamin B12) AdvReac Intermediate heart Verified 04/17/22 10:08 racing caffeine AdvReac Verified 04/17/22 10:08 General Stated Complaint: Nausea/Vomit/Diar GEORGE: 3 Review of Systems Constitutional Constitutional: Denies chills, Denies fever(s), Denies headache(s) and Denies weakness Eyes Eyes: Denies diplopia and Reports other (no redness) ENT Ears, Nose, Mouth, and Throat: Denies otalgia, Denies headache(s), Denies nasal congestion, Denies nasal discharge, Denies neck pain and Denies sore throat Cardiovascular Cardiovascular: Denies chest pain, Denies palpitations and Denies dyspnea Respiratory Respiratory: Denies cough and Denies dyspnea Gastrointestinal Gastrointestinal: Reports abdominal pain, Reports diarrhea, Reports nausea and Reports vomiting Genitourinary Genitourinary: Denies dysuria Musculoskeletal Musculoskeletal: Denies myalgias, Denies muscle weakness, Denies neck pain, Denies numbness and Reports other (edema) Integumentary/Breasts Skin/Breast: Denies change in pigmentation and Denies rash Neurologic Neurologic: Denies headache(s), Denies numbness and Denies weakness Endocrine Endocrine: Denies palpitations PFSH All Active Problems (Updated 11/14/22 @ 09:17 by Rama Ross MD) Bowel obstruction (Acute) Obesity (BMI 30-39.9) (Acute) Anxiety (Chronic 03/03/12) Depressive disorder (Chronic 02/11/12) Essential hypertension (Chronic 02/11/12) Iron deficiency anemia, unspecified (Chronic 08/13/17) Gastroesophageal reflux disease (Chronic 03/03/12) Osteoarthritis (Chronic 03/03/12) hands; knees Vitamin B12 deficiency (Chronic) Advanced directives, counseling/discussion (Chronic) Hiatal hernia (Chronic) Atrial fibrillation by electrocardiogram (Chronic 08/06/17) By EKG 07/25/17 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 Grandmother Neoplasm BREAST/LIVER Grandmother No problems noted. MATERNAL AUNT Neoplasm BREAST Other Family history of GI malignancy Family hx-breast malignancy Social History Smoking/Tobacco Use Status: Former Tobacco Use tobacco type: cigarettes Quit Date: 04/08/59 Second Hand Exposure: Yes Smoking risk assessment performed?: Yes Alcohol Intake: never Drug use: Never Substance use type: does not use Household members: none Housing: house Do you need help understanding health information?: Never Pets and animals: No Sexually active: No Do you think of yourself as: straight/heterosexual Current gender identity: female What is your relationship status?: How often do you talk on the phone with friends or family?: three or more times per week How often do you get together with friends or relatives?: once per week How often do you attend mormonism or zoroastrianism services?: decline to answer Do you belong to any clubs or organized social groups?: no Panel score (0-1 are the most socially isolated patients): 1 What type of physical activity do you participate in: none Caroline/Restorationism: Yazdanism Special caroline needs: No Seatbelt use: always Drive intox or ride w/intox truck driver: No Do you feel safe at home: Yes Do you feel safe in your relationship?: Yes Exam Const General: no acute distress, well developed, well groomed and not in acute distress Nutritional Appearance: well nourished Orientation: alert and oriented x3 HENMT Head: normocephalic and atraumatic Ears: external ears normal Mouth: oropharynx normal and moist mucous membranes Throat: posterior oropharynx normal Eyes Conjunctivae: conjunctivae normal Neck Neck: full ROM and supple Chest Chest: normal inspection of the chest Resp Effort & Inspection: normal respiratory effort Auscultation: clear to auscultation bilaterally Cardio Rate: regular rate Rhythm: regular rhythm Heart Sounds: no murmurs and no rubs GI Inspection: distended Palpation: soft, tender (Diffusely and minimally tender to palpation) and other (Tympanitic to percussion) Auscultation: absent bowel sounds Skin General skin exam: no rashes or lesions noted and other (pink, warm, dry) Neuro General: patient alert, patient awake and patient oriented x3 Speech: speech normal Motor: other (MCLEAN) Sensory Exam: no sensory deficits noted Extrem General: normal to inspection, full ROM and pedal edema present Psych Mental Status: mental status grossly normal Speech and Movement: speech and movement normal Affect: normal affect Course Vital Signs Vital signs: Vital Signs Pulse 110 H 11/14/22 07:09 Respiratory Rate 18 11/14/22 07:09 Blood Pressure 162/83 H 11/14/22 07:09 Pulse Oximetry 97 11/14/22 07:09 Pulse 110 H 11/14/22 07:09 Respiratory Rate 18 11/14/22 07:09 Respiratory Effort Normal 11/14/22 07:35 Blood Pressure 162/83 H 11/14/22 07:09 Blood Pressure Position Supine 11/14/22 07:09 Pulse Oximetry 97 11/14/22 07:09 Oxygen Delivery Method Room Air 11/14/22 07:09 Oxygen Flow Rate 0 11/14/22 07:09 Pain Level 2 11/14/22 07:35
[2022-11-14] MEDS: Normal Saline 1,000 ML 1000 ML IV (08:25)
[2022-11-14] MEDS: Ondansetron 4 MG/2 ML VIAL IVP (08:25)
[2022-11-14 08:27] LABS: Abs Immature Grans 0.02 10^3/uL (0.0-0.06); Absolute Basophil Count 0.03 10^3/uL (0.0-0.2); Absolute Eosinophil Count 0.02 10^3/uL (0.0-0.7); Absolute Monocyte Count 1.15 10^3/uL (0.1-0.8); Absolute Neutrophil Count 7.12 10^3/uL (1.2-6.7); Basophils % 0.3; Eosinophils % 0.2; HGB 12.6 g/dL (11.2-15.7); Immature Grans % 0.2; Lymphocytes % 6.7; MCH 30.7 pg (27.0-33.0); MCHC 33.2 % (32.0-36.0); MCV 93 fL (80-95); MPV 10.6 fL (8.0-11.0); Monocytes % 12.9; Neutrophils % 79.7; Platelet Count 318 10^3/uL (130-400); RBC 4.11 10^6/uL (3.93-5.22); RDW-SD 47.8 fL; WBC 8.94 10^3/uL (4.4-10.8)
[2022-11-14 08:41] LABS: ALT 12 U/L (14-59); AST 16 U/L (15-37); Albumin 3.3 g/dL (3.4-5.0); Alkaline Phosphatase 99 U/L (46-116); Anion Gap 11.5 mmol/L (3-11); BUN 30 mg/dL (7-18); Bilirubin, Total 0.9 mg/dL (0.2-1.0); CO2 24.5 mmol/L (21.0-32.0); CREATININE 1.1 mg/dL (0.55-1.02); Chloride 98 mmol/L (98-107); Estimated GFR 49.55 (mL/min/1.73m2); Glucose 111 mg/dL (74-106); Magnesium 1.8 mg/dL (1.8-2.4); Potassium 3.4 mmol/L (3.5-5.1); Sodium 134 mmol/L (136-145); Total Protein 7.1 g/dL (6.4-8.2); Troponin I < 50 ng/L (<or=60)
--- NOTE | 2022-11-14 08:44 | DI.CT_ITS ---
Exam(s) CT ABDOMEN PELVIS WO EXAM: CT ABDOMEN PELVIS WO CLINICAL HISTORY: vomiting, distension, r/o SBO. TECHNIQUE: Imaging Protocol: Axial computed tomography images with coronal and sagittal reformatted images were created and reviewed. Oral: no COMPARISON: CT CT CHEST/ABD/PEL W from 12/16/2018 FINDINGS: ABDOMEN: Lung Bases: Normal where visualized. Large hiatal hernia, increasing in size from prior. No findin gs to suggest obstruction. The heart is enlarged. Coronary artery calcifications are present. Liver: Normal density. No measurable mass. Gallbladder and biliary tract: Status post cholecystectomy. No radiodense calculus or dilation. Pancreas: Normal density, no abnormal calcifications or inflammatory process. Spleen: Normal. Kidneys: Normal size, contour and axis. No radiodense stones or obstructive uropathy. No masses seen. Adrenal glands: No masses seen. Lymph nodes: Within normal limits. Abdominal Aorta: Abdominal portion non-dilated. Atherosclerotic changes. Soft tissues: 2.4 centimeter relatively circumscribed nodule seen laterally in the left breast/left l ateral chest wall. This was present the prior exam but has increased in size. PELVIS: Bladder: Symmetric distention, no gross wall thickening. Bowel: Markedly dilated:, cecum measures 11 cm in diameter. The colon is dilated down to the sigmoid region with the distal sigmoid and rectum nondistended. diverticulosis is noted of the sigmoid. N o evidence of diverticulitis. A mass would be difficult to exclude given lack of IV an oral contrast . Small bowel is also dilated proximally with decreased distention of distal small bowel. Peritoneal cavity: No ascites, collection or mesenteric inflammatory response. Reproductive organs: Within normal limits. Bones: Mild T11 compression fracture, stable from 2019. Degenerative changes. IMPRESSION: Marked dilatation of small bowel as well as colon. The distal sigmoid rectum not distended. A diverti cular stricture or mass could be considered. Significant small bowel dilatation also present. Large h iatal hernia containing fluid. 2.4 centimeter left breast nodule. Mammogram and ultrasound could be considered for further evaluati on. RADIATION DOSE DELIVERED: Total DLP DATA REPOSITORY: All CT scans at this facility are submitted to the National Radiology Data Registry (NRDR) Dose Index Registry (DIR) with the [employer] (ACR). RADIATION OPTIMIZATION: All CT scans at this facility use at least one of these dose optimization te chniques: automated exposure control; mA and/or kV adjustment per patient size (includes targeted exa ms where dose is matched to clinical indication); or iterative reconstruction.
--- NOTE | 2022-11-14 10:14 | HPE_ITS ---
Date of service: 11/14/22 Time of Service: 10:14 Assessment and Plan Assessment and plan (1) Bowel obstruction: Status: Acute Assessment and plan: Based on the CAT scan, I suspect that this is a partial bowel obstruction, potentially involving the area of the sigmoid colon. Based on her history, I t hink the leading differential diagnosis would be diverticular stricture, although malignancy is certainly within the realm of possibility. While the cecum is a bit dilated on her CAT scan, she is not at all tender in that area, and the rest of her abdominal exam is fairly reassuring. Will attempt a Gastrografin challenge to see if that offers any therapeutic relief, or at the very least identifies a specific target of transition. I did explain that some patients in this condition will require an operation to relieve the source of obstruction, but I think we have some time to try to figure out exactly where the cause is. History of Present Illness History of Present Illness Chief Complaint: Abdominal pain Narrative: Kaila is 86 years old. She comes to the emergency department with nausea vomiting and abdominal pain. She says it started about 4 days ago, when she had the acute onset of crampy abdominal pain with diarrhea. Very shortly thereafter, she developed nausea and vomiting. It was around that same time that she developed a little bit of abdominal distention as well. She says the pain is nonfocal. Sharp, and a bit stabbing, and tends to radiate throughout the abdomen. There is no exacerbating factors. Nothing in particular makes it feel better. Generally she has had some loss of appetite, and she has not been drinking much because of the symptoms. She denies any melena or hematochezia. It appears her last colonoscopy was in 2018, with marked diverticulosis Review of Systems Constitutional Constitutional: Denies body ache(s), Reports fatigue, Denies fever(s) and Reports poor appetite Eyes Eyes: Reports system reviewed and no additional complaints, except as documented ENT Ears, Nose, Mouth, and Throat: Reports system reviewed and no additional complaints, except as documented Cardiovascular Cardiovascular: Denies chest pain and Denies dyspnea Respiratory Respiratory: Denies chest congestion, Denies cough and Denies dyspnea Gastrointestinal Gastrointestinal: Reports abdominal pain, Denies hematochezia, Denies tenesmus, Reports cramping, Reports diarrhea, Reports nausea and Reports vomiting Genitourinary Genitourinary: Reports system reviewed and no additional complaints, except as documented Musculoskeletal Musculoskeletal: Reports muscle weakness Neurologic Neurologic: Reports system reviewed and no additional complaints, except as documented Psychiatric Psychiatric: Reports system reviewed and no additional complaints, except as documented Endocrine Endocrine: Reports fatigue Hematologic/Lymphatic Hematologic/Lymphatic: Denies easy bleeding and Denies easy bruising PFSH All Active Problems (Updated 11/14/22 @ 09:17 by Rama Ross MD) Bowel obstruction (Acute) Obesity (BMI 30-39.9) (Acute) Anxiety (Chronic 03/03/12) Depressive disorder (Chronic 02/11/12) Essential hypertension (Chronic 02/11/12) Iron deficiency anemia, unspecified (Chronic 08/13/17) Gastroesophageal reflux disease (Chronic 03/03/12) Osteoarthritis (Chronic 03/03/12) hands; knees Vitamin B12 deficiency (Chronic) Advanced directives, counseling/discussion (Chronic) Hiatal hernia (Chronic) Atrial fibrillation by electrocardiogram (Chronic 08/06/17) By EKG 07/25/17 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 Grandmother Neoplasm BREAST/LIVER Grandmother No problems noted. MATERNAL AUNT Neoplasm BREAST Other Family history of GI malignancy Family hx-breast malignancy Social History Smoking/Tobacco Use Status: Former Tobacco Use tobacco type: cigarettes Quit Date: 04/08/59 Second Hand Exposure: Yes Smoking risk assessment performed?: Yes Alcohol Intake: never Drug use: Never Substance use type: does not use Household members: none Housing: house Do you need help understanding health information?: Never Pets and animals: No Sexually active: No Do you think of yourself as: straight/heterosexual Current gender identity: female What is your relationship status?: How often do you talk on the phone with friends or family?: three or more times per week How often do you get together with friends or relatives?: once per week How often do you attend amish or presybeterian services?: decline to answer Do you belong to any clubs or organized social groups?: no Panel score (0-1 are the most socially isolated patients): 1 What type of physical activity do you participate in: none Caroline/Anglican: Restorationism Special caroline needs: No Seatbelt use: always Drive intox or ride w/intox after school driver: No Do you feel safe at home: Yes Do you feel safe in your relationship?: Yes Meds Allergies and Home Medications Allergies Allergy/AdvReac Type Severity Reaction Status Date / Time cyanocobalamin (vitamin B12) AdvReac Intermediate heart Verified 04/17/22 10:08 racing caffeine AdvReac Verified 04/17/22 10:08 Home Medications Medication Instructions Recorded Confirmed Type acetaminophen 325 mg capsule 325 mg PO BID PRN 06/08/19 11/14/22 History ferrous sulfate 250 mg (50 mg 250 mg PO DAILY #30 tabs 03/12/22 11/14/22 Rx iron) tablet,extended release (Slow Release Iron) metoprolol succinate 25 mg 25 mg PO DAILY #90 tabs 03/12/22 11/14/22 Rx tablet,extended release 24 hr pantoprazole 40 mg tablet,delayed 40 mg PO BID #180 tabs 03/12/22 11/14/22 Rx release (Protonix) sertraline 25 mg tablet 25 mg PO DAILY #90 tab-caps 03/12/22 11/14/22 Rx apixaban 5 mg tablet 5 mg PO BID #180 tabs 04/17/22 11/14/22 Rx diclofenac sodium 1 % topical gel 4 g topical QID #100 grams 04/17/22 11/14/22 Rx (Arthritis Pain (diclofenac)) Exam Const General: cooperative and comfortable Orientation: alert, awake and oriented x3 HENMT Head: normal to inspection Eyes General: appearance normal, both eyes and all related structures Resp Effort & Inspection: normal respiratory effort Auscultation: clear to auscultation bilaterally Cardio Rate: regular rate Rhythm: abnormal rhythm Heart Sounds: S1 normal GI Inspection: normal to inspection Palpation: soft, no guarding, no hernias, no masses and tender (Mild nonfocal tenderness) Auscultation: abnormal bowel sounds Neuro General: patient alert, patient awake and patient oriented x3 Extrem General: normal to inspection and full ROM Results Imaging Abdomen CT scan report/results: report reviewed and image reviewed CT scan - pelvis: report reviewed and image reviewed Labs 11/14/22 07:25 11/14/22 07:25 Labs: Laboratory Results - last 24 hr 11/14/22 11/14/22 07:25 07:25 WBC 8.94 RBC 4.11 Hgb 12.6 Hct 38.0 MCV 93 MCH 30.7 MCHC 33.2 RDW 14.0 Plt Count 318 MPV 10.6 Immature Gran % 0.2 Neutrophils % 79.7 Lymphocytes % 6.7 Monocytes % 12.9 Eosinophils % 0.2 Basophils % 0.3 Nucleated RBC % 0.0 Absolute Neutrophils 7.12 H Absolute Lymphocytes 0.60 L Absolute Monocytes 1.15 H Absolute Eosinophils 0.02 Absolute Basophils 0.03 Sodium 134 L Potassium 3.4 L Chloride 98 Carbon Dioxide 24.5 Anion Gap 11.5 H BUN 30 H Creatinine 1.1 H Est GFR (CKD-EPI 2020) 49.55 Glucose 111 H Calcium 9.0 Magnesium 1.8 Total Bilirubin 0.9 AST 16 ALT 12 L Alkaline Phosphatase 99 Troponin I < 50 Total Protein 7.1 Albumin 3.3 L Last Vital Signs Pulse 96 H 11/14/22 09:29 Resp 16 11/14/22 09:29 BP 145/74 H 11/14/22 09:29 Pulse Ox 96 11/14/22 09:29 Time Spent Time spent with Patient: 55-74 minutes Time was spent: preparing to see the patient(eg.review tests), obtaining and/or reviewing separately otained hiistory, ordering medications,tests, procedures, referring, communicating with other health customer care assistant, indepentently interpreting results and counseling the patient
[2022-11-14 11:41] LABS: Bilirubin Small (Negative); Blood Negative (Negative); Clarity Clear (Clear); Glucose Negative (Negative); Ketones 40 mg/dL (Negative); Leukocyte Esterase Small (Negative); Nitrite Negative (Negative); pH 5.5 (5-8)
[2022-11-14] MEDS: Normal Saline Flush 10 ML SYR IVP (11:52)
[2022-11-14] MEDS: Normal Saline 1,000 ML 125 ML IV (11:52)
[2022-11-14 11:53] LABS: Bacteria Few HPF (Negative); C & S Indicated? No/Sq. Contamination; Casts 0-2 Hyaline LPF (Negative); Crystals Negative HPF (Negative); Epithelial Cells Moderate HPF (Negative); Mucus Trace (Negative); RBC Negative HPF (0-2)
[2022-11-14 13:28] LABS: Troponin I < 50 ng/L (<or=60)
[2022-11-14] MEDS: Lactated Ringers 1,000 ML 75 ML IV (13:41)
[2022-11-14] MEDS: Gastrografin 120 ML BTL PO (15:15)
--- NOTE | 2022-11-14 22:00 | DI.RAD_ITS ---
Exam(s) XR ABDOMEN FLAT PLATE EXAM: 2D digital imaging was performed. CLINICAL HISTORY: bowel obstruction with gastrografin challenge. COMPARISON: CT CT ABDOMEN PELVIS WO from 11/14/2022 TECHNIQUE: Supine views of the abdomen performed. FINDINGS: BOWEL GAS PATTERN: There is again seen moderate gaseous distention of the small bowel with marked dis tention of the right colon. This is similar in appearance to the CT scan from earlier in the day. CALCIFICATIONS: No radiopaque calcifications. There are surgical clips seen in the right upper quadra nt of the abdomen. OSSEOUS STRUCTURES: Normal for age. OTHER FINDINGS: At the upper edge of the film a tube is present, likely the tip of the nasogastric tu be. The upper abdomen is not completely imaged. IMPRESSION: 1. Similar small and large bowel dilatation compared to the CT scan from earlier in the day which may represent ileus and/or obstruction. 2. The tip of the nasogastric tube is seen at the edge of the film. DATA REPOSITORY: RADIATION DOSE DELIVERED:
--- NOTE | 2022-11-14 22:56 | DI.VRAD_ITS ---
PROCEDURE INFORMATION: Exam: XR Abdomen Exam date and time: 11/14/2022 22:33 Age: 86 years old Clinical indication: Condition or disease; Other: Bowel obstruction with gastrografin challenge TECHNIQUE: Imaging protocol: Radiologic exam of the abdomen. Views: Frontal supine view of the abdomen. 1 View. COMPARISON: CT ABDOMEN PELVIS WO 11/14/2022 08:41 FINDINGS: Tubes, catheters and devices: Tip of NGT partially seen, upper edge of the film. Upper abdomen not completely imaged. Gastrointestinal tract: Moderate gaseous distension of small bowel, moderate to severe gaseous distention of right colon measuring up to 14 mm. Intraperitoneal space: Right upper quadrant clips, probable cholecystectomy. Bones/joints: Unremarkable. IMPRESSION: 1. Small bowel ileus and or obstruction as well as significant dilation of right colon similar to prior. 2. NGT tip not well assessed, consider dedicated view of the upper abdomen. Dictated and Authenticated by: Maxine York MD. Ordering:MARLENE Parson MD
[2022-11-15] VITALS (17 sets, daily range): BP systolic 107–162; BP diastolic 58–87; PULSE 79–122; RESP 18–34; TEMP 36.4–37.2; O2SAT 88–99; BMI 34.2
[2022-11-15] MEDS: Lactated Ringers 1,000 ML 75 ML IV ×4 (02:32→17:22)
[2022-11-15] MEDS: Normal Saline Flush 10 ML SYR IVP (08:00)
[2022-11-15] MEDS: Pantoprazole 40 MG VIAL IVP (08:00)
[2022-11-15 08:35] LABS: Anion Gap 12.6 mmol/L (3-11); BUN 41 mg/dL (7-18); CO2 24.4 mmol/L (21.0-32.0); Calcium 9.2 mg/dL (8.5-10.1); Chloride 101 mmol/L (98-107); Estimated GFR 55.55 (mL/min/1.73m2); Glucose 107 mg/dL (74-106); Potassium 3.4 mmol/L (3.5-5.1); Sodium 138 mmol/L (136-145)
[2022-11-15 10:25] LABS: HCT 35.8 % (36.0-46.0); MCV 92 fL (80-95); WBC 6.75 10^3/uL (4.4-10.8)
[2022-11-15 10:26] LABS: MCH 30.8 pg (27.0-33.0); MCHC 33.5 % (32.0-36.0); MPV 10.4 fL (8.0-11.0); Platelet Count 323 10^3/uL (130-400); RDW 14.3 % (11.7-14.6); RDW-SD 47.8 fL
--- NOTE | 2022-11-15 10:34 | W.PM.PROGNOT ---
Date of Service Date of service: 11/15/22 Time of Service: 10:34 Assessment and Plan Assessment and plan (1) Bowel obstruction: Status: Acute Assessment and plan: Although her labs, vital signs, and exam are fairly reassuring, there was 0 progress of contrast from the Gastrografin study, and based on the nature of the CAT scan, I am quite concerned this is a very significant large bowel obstruction. Given the dilation of the cecum, I do not think there is much benefit waiting any longer. The Eliquis should be cleared by now, and I think this is a safe window to proceed with the operation. We talked about the nature of surgery, which would be an exploratory laparotomy, potential bowel resection, and possibility of colostomy depending upon the nature of the bowel, and the prognosis of the new anastomosis. I think she has a good understanding of the nature of the operation, we will make arrangements to proceed this afternoon when a room is available. Subjective Subjective Interval history since last seen: Kaila has had no bowel movement since her admission. She denies any vomiting with the nasogastric tube, but she does complain of some discomfort in her mouth and hypopharynx associated with the tube itself. Exam GI Other: Abdomen remains distended, tympanitic. There is minimal bowel sounds. She is not very tender. Objective Last Vital Signs Temp 98.8 F 11/15/22 07:15 Pulse 102 H 11/15/22 07:15 Resp 18 11/15/22 07:15 BP 162/86 H 11/15/22 07:15 Pulse Ox 94 11/15/22 07:15 Laboratory Results - last 24 hr 11/14/22 11/14/22 11/15/22 11:34 13:02 06:49 WBC 6.75 RBC 3.90 L Hgb 12.0 Hct 35.8 L MCV 92 MCH 30.8 MCHC 33.5 RDW 14.3 Plt Count 323 MPV 10.4 Sodium Potassium Chloride Carbon Dioxide Anion Gap BUN Creatinine Est GFR (CKD-EPI 2020) Glucose Calcium Troponin I < 50 Urine Color Yellow Urine Clarity Clear Urine pH 5.5 Ur Specific [place] 1.020 Urine Protein 30 H Urine Ketones 40 H Urine Blood Negative Urine Nitrite Negative Urine Bilirubin Small H Urine Urobilinogen 1.0 H Ur Leukocyte Esterase Small H Urine RBC Negative Urine WBC 5-10 Ur Epithelial Cells Moderate Urine Crystals Negative Urine Bacteria Few Urine Casts 0-2 Hyaline Urine Mucus Trace Ur Culture Indicated? No/Sq. Contamination Urine Glucose Negative 11/15/22 06:49 WBC RBC Hgb Hct MCV MCH MCHC RDW Plt Count MPV Sodium 138 Potassium 3.4 L Chloride 101 Carbon Dioxide 24.4 Anion Gap 12.6 H BUN 41 H Creatinine 1.0 Est GFR (CKD-EPI 2020) 55.55 Glucose 107 H Calcium 9.2 Troponin I Urine Color Urine Clarity Urine pH Ur Specific [place] Urine Protein Urine Ketones Urine Blood Urine Nitrite Urine Bilirubin Urine Urobilinogen Ur Leukocyte Esterase Urine RBC Urine WBC Ur Epithelial Cells Urine Crystals Urine Bacteria Urine Casts Urine Mucus Ur Culture Indicated? Urine Glucose Time Spent with Patient Time Spent with Patient: 35-49 minutes Time was spent: preparing to see the patient(eg.review tests), indepentently interpreting results and counseling the patient
--- NOTE | 2022-11-15 10:51 | ANES.PREOP_ITS ---
General Info Date of Service Date Performed: 11/15/22 Height: 5 ft 8 in Weight: 102.058 kg Body Mass Index (BMI): 34.2 Surgical Procedure: Operation Date: 11/15/22 15:35 Proposed Procedure Side Surgeon p Exploratory Laparotomy Eb Jiang MD s Bowel Resection, possible Colostomy Eb Jiang MD Meds Allergies and Home Medications Allergies Allergy/AdvReac Type Severity Reaction Status Date / Time cyanocobalamin (vitamin B12) AdvReac Intermediate heart Verified 04/17/22 10:08 racing caffeine AdvReac Verified 04/17/22 10:08 Home Medication Medication Instructions Recorded acetaminophen 325 mg capsule 325 mg PO BID PRN 06/08/19 ferrous sulfate 250 mg (50 mg 250 mg PO DAILY #30 tabs 03/12/22 iron) tablet,extended release (Slow Release Iron) metoprolol succinate 25 mg 25 mg PO DAILY #90 tabs 03/12/22 tablet,extended release 24 hr pantoprazole 40 mg tablet,delayed 40 mg PO BID #180 tabs 03/12/22 release (Protonix) sertraline 25 mg tablet 25 mg PO DAILY #90 tab-caps 03/12/22 apixaban 5 mg tablet 5 mg PO BID #180 tabs 04/17/22 diclofenac sodium 1 % topical gel 4 g topical QID #100 grams 04/17/22 (Arthritis Pain (diclofenac)) Current Visit Medications: Current Medications Generic Name Dose Route Start Last Admin Trade Name Freq PRN Reason Stop Dose Admin Ringer's Solution 1,000 mls @ 75 mls/hr 11/14/22 13:00 11/15/22 02:32 IV 75 mls/hr [facility] Administration Sodium Chloride 500 mls @ 0 mls/hr 11/15/22 09:52 Saline 500ml Bag IV PRN PRN As Directed IV Miscellaneous Supplies 1 each 11/15/22 10:00 Iv Access IV DIRECTED ABNER Metoprolol Succinate 25 mg 11/15/22 08:30 11/15/22 08:37 Metoprolol Cr 25 Mg Tabcr PO Not Given DAILY ABNER Morphine Sulfate 2 mg 11/14/22 13:01 Morphine 2 Mg/Ml Syr IVP Q3H PRN PRN Ondansetron HCl 4 mg 11/14/22 13:01 Ondansetron 4 Mg/2 Ml Vial IVP Q6H PRN PRN Pantoprazole Sodium 40 mg 11/15/22 08:30 11/15/22 08:00 Pantoprazole 40 Mg Vial IVP 40 mg DAILY ABNER Administration Sodium Chloride 0 ml 11/14/22 08:07 11/15/22 08:00 Normal Saline Flush 10 Ml Syr IVP 10 ml PRN PRN Administration PFSH Active Problems Active Problems: Problem Status Onset Code Bowel obstruction K56.609 Obesity (BMI 30-39.9) E66.9 Anxiety 03/03/12 F41.9 Depressive disorder 02/11/12 F32.9 Essential hypertension 02/11/12 I10 Hyperlipidemia 03/03/12 E78.5 Iron deficiency anemia, unspecified 08/13/17 D50.9 Gastroesophageal reflux disease 03/03/12 K21.9 Osteoarthritis 03/03/12 M19.90 Vitamin B12 deficiency E53.8 Advanced directives, counseling/discussion Z71.89 Hiatal hernia K44.9 Hemorrhoids 03/03/12 K64.9 Atrial fibrillation by electrocardiogram 08/06/17 I48.91 Diverticulitis of colon K57.32 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 Medical History Medical History Anemia Breast lump Essential hypertension Family history of GI malignancy (03/03/12) Family hx-breast malignancy (03/03/12) GERD (gastroesophageal reflux disease) Hemorrhoids History of tobacco use Surgical History Surgical History Biopsy of breast (~1989) LEFT Cholecystectomy (~1980) Colonoscopy - MAC (08/16/17) EGD - MAC (08/16/17) Status post breast biopsy Tobacco Smoking/Tobacco Use Status: Former Tobacco Use Passive smoking exposure: Yes Second hand exposure: Yes Alcohol Alcohol Intake: never Substance Use Substance use: Never Substance use type: does not use Vital Signs and Lab Results Vital Signs Most Recent Vital Signs in EMR: Most Recent Vital Signs Temp Pulse Resp BP Pulse Ox 37.1 C 102 H 18 162/86 H 94 11/15/22 07:15 11/15/22 07:15 11/15/22 07:15 11/15/22 07:15 11/15/22 07:15 Lab Results 11/15/22 06:49 11/15/22 06:49 Blood Type / Crossmatch: No Data to Display Complete Blood Count: White Blood Count 6.75 10^3/uL (4.4-10.8) 11/15/22 06:49 Red Blood Count 3.90 10^6/uL (3.93-5.22) L 11/15/22 06:49 Hemoglobin 12.0 g/dL (11.2-15.7) 11/15/22 06:49 Hematocrit 35.8 % (36.0-46.0) L 11/15/22 06:49 Platelet Count 323 10^3/uL (130-400) 11/15/22 06:49 Complete Metabolic Panel: Sodium 138 mmol/L (136-145) 11/15/22 06:49 Potassium 3.4 mmol/L (3.5-5.1) L 11/15/22 06:49 Chloride 101 mmol/L (98-107) 11/15/22 06:49 Carbon Dioxide 24.4 mmol/L (21.0-32.0) 11/15/22 06:49 BUN 41 mg/dL (7-18) H 11/15/22 06:49 Creatinine 1.0 mg/dL (0.55-1.02) 11/15/22 06:49 Est GFR (CKD-EPI 2020) 55.55 (mL/min/1.73m2) 11/15/22 06:49 Magnesium 1.8 mg/dL (1.8-2.4) 11/14/22 07:25 Calcium 9.2 mg/dL (8.5-10.1) 11/15/22 06:49 Albumin 3.3 g/dL (3.4-5.0) L 11/14/22 07:25 Glucose 107 mg/dL (74-106) H 11/15/22 06:49 Liver Function Panel: Alanine Aminotransferase (ALT/SGPT) 12 U/L (14-59) L 11/14/22 0 7:25 Aspartate Amino Transf (AST/SGOT) 16 U/L (15-37) 11/14/22 07:25 Coagulation Panel: No Data to Display Cardiac Panel: Troponin I < 50 ng/L (<or=60) 11/14/22 Arterial Blood Gas: No Data to Display Venous Blood Gas: No Data to Display Pancreas Panel: No Data to Display Thyroid Panel: No Data to Display Infectious Disease: No Data to Display Blood Cultures: No Data to Display Toxicology Panel: No Data to Display Anesthesia Assessment and Plan Anesthesia History Personal History: No History of Anesthesia Complications Family History: No Family History of Anesthesia Complications Exercise Tolerance Exercise Tolerance: Metabolic Equivalents>4 Pertinent Negatives Pertinent Negatives: No Symptoms of GERD Cardiac & Pulmonary Exam Cardiac Exam: Normal S1/S2 Heart Sounds Pulmonary Exam: Clear Bilateral Breath Sounds Implantable Cardiac Device Does patient have a Pacemaker or an ICD?: No Airway Exam Known Difficult Airway: No Mallampati Class: 2 Mouth Opening: Normal (> 3cm) Thyromental Distance: Greater than 3 cm Neck Range of Motion: Full ROM Neck Circumference: Normal Teeth Condition: Removable Dentures/Plates Upper and Removable Dentures/Plates Lower ASA Classification ASA Score: ASA 3 Emergency Case?: Yes NPO Status NPO Status: NPO Clears >2 hours, Solids >8 hours Anesthesia Plan Resuscitation Status: Full Code Anesthesia Technique: General Anesthesia Airway Planned: Endotracheal Tube Monitors Used: Standard Monitors Preoperative Comments:: Last Eliquis dose: November 13 @ 6pm
--- NOTE | 2022-11-15 14:16 | INITIAL_ITS ---
Date of service: 11/15/22 Time of Service: 14:16 Care Management Initial Assmt Initial Assessment REASON FOR HOSPITALIZATION:: Bowel Obstruction PREVIOUS FUNCTIONAL STATUS/SOCIAL/FAMILY SUPPORTS:: Kaila is and lives in [facility] alone. She feels very well supported and plans to live at home for as long as possible. She is independent with her ADL's at baseline. Her daughter Lesvia Huynh lives 5 minutes from her house and provides her transportation, she also helps her with her bills and get groceries; since she no longer drives. She receives [facility] and is connected to [facility]. CURRENT FUNCTIONAL STATUS:: Kaila is lying in bed visiting with her daughter Lesvia when CM met with her. Kaila easily engages in conversation for the purpose of this interview and identifies Lesvia as her primary support person. She de nies any needs at this time. ADVANCE DIRECTIVES:: On file Has patient been provided with info about the portal/API?: Yes Did the patient sign up for the portal?: Yes (Prior to admission) CODE STATUS:: DNR/DNI (COLST on file) INSURANCE COVERAGE / FINANCIAL ISSUES:: Medicare CURRENT HOME/COMMUNITY SERVICES/EQUIPMENT:: MOW through [facility] PRIMARY CARE PHYSICIAN:: Sridhar Peters/[facility] POTENTIAL DISCHARGE NEEDS:: Evaluations for further needs, Follow up appointments and discharge plan of care PATIENT/FAMILY EDUCATION NEEDS:: Review discharge instructions, limitations, medications and plan to follow up with outpatient providers. Discuss ask me three and goals of self care. ANTICIPATED BARRIERS TO DISCHARGE:: None identified TRANSPORTATION:: Via private vehicle with daughter Lesvia PLAN:: Kaila went to the OR for an exploratory laparotomy. Per Surgeon it is possible that she may need a bowel Resection and colostomy. Discharge plan is undetermined at this time. CM will continue to follow. PFSH All Active Problems (Updated 11/14/22 @ 09:17 by Rama Ross MD) Bowel obstruction (Acute) Obesity (BMI 30-39.9) (Acute) Anxiety (Chronic 03/03/12) Depressive disorder (Chronic 02/11/12) Essential hypertension (Chronic 02/11/12) Iron deficiency anemia, unspecified (Chronic 08/13/17) Gastroesophageal reflux disease (Chronic 03/03/12) Osteoarthritis (Chronic 03/03/12) hands; knees Vitamin B12 deficiency (Chronic) Advanced directives, counseling/discussion (Chronic) Hiatal hernia (Chronic) Atrial fibrillation by electrocardiogram (Chronic 08/06/17) By EKG 07/25/17 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 Grandmother Neoplasm BREAST/LIVER Grandmother No problems noted. MATERNAL AUNT Neoplasm BREAST Other Family history of GI malignancy Family hx-breast malignancy Social History Smoking/Tobacco Use Status: Former Tobacco Use tobacco type: cigarettes Quit Date: 04/08/59 Second Hand Exposure: Yes Smoking risk assessment performed?: Yes Alcohol Intake: never Drug use: Never Substance use type: does not use Household members: none Housing: house Do you need help understanding health information?: Never Pets and animals: No Sexually active: No Do you think of yourself as: straight/heterosexual Current gender identity: female What is your relationship status?: How often do you talk on the phone with friends or family?: three or more times per week How often do you get together with friends or relatives?: once per week How often do you attend taoist or cheondoism services?: decline to answer Do you belong to any clubs or organized social groups?: no Panel score (0-1 are the most socially isolated patients): 1 What type of physical activity do you participate in: none Caroline/Jain: Uatsdin Special caroline needs: No Seatbelt use: always Drive intox or ride w/intox driver utility worker: No Do you feel safe at home: Yes Do you feel safe in your relationship?: Yes
[2022-11-15] MEDS: ceFAZolin 2 GM/50 ML BAG 50 GM (15:06)
[2022-11-15] MEDS: Bupivacaine 0.5% Pres-Free W/EPI 30 ML VIAL (15:17)
[2022-11-15] MEDS: Bupivacaine LIPOSOME/PF 133 MG/10 ML VIAL IJ (16:40)
--- NOTE | 2022-11-15 18:05 | W.ANESPOSTOP ---
Postoperative Evaluation Date, Time and Location Date Performed: 11/15/22 Time Performed: 18:05 Patient Location: PACU Vital Signs Most Recent Imported Vital Signs: Most Recent Vital Signs Temp Pulse Resp BP Pulse Ox 36.4 C L 101 H 24 143/69 H 98 11/15/22 18:00 11/15/22 18:00 11/15/22 18:00 11/15/22 18:00 11/15/22 18:00 Pain Score Most Recent Pain Score: Most Recent Pain Score Pain Level [Mid Abdomen] 0 11/14/22 14:20 Pain Level 0 11/15/22 03:04 Assessment Mental Status: Arousable with meaningful communication Airway and Respiratory Function: Patent airway with normal (patient baseline) respiratory exam Cardiovascular Function: Hemodynamically Stable (Weaned off of Phenylephrine. A-fib HR 100-110) Hydration Status: Adequately Hydrated Nausea & Vomiting: No Nausea or Vomiting (NG with high output. 1000cc in OR/PACU) Pain: Pt. Denies Any Pain Peripheral Nerve Block: Other (abdominal inj. of Exparel by surgeon) Postoperative Comments:: Transfer from PACU to ICU for ongoing HR management, high NG output and pain control.
--- NOTE | 2022-11-15 18:26 | W.PM.OP ---
Date of service: 11/15/22 Time of Service: 18:26 Operative Note Operative Note DATE OF PROCEDURE: 11/15/22 PRE-OP DIAGNOSIS: Large bowel obstruction POST-OP DIAGNOSIS: same PROCEDURE: Exploratory laparotomy, creation of descending loop colostomy SURGEON: Eb Jiang TECHNICAL ASST: Brisa Singh ANESTHESIA TYPE: Local By Surgeon and General LMA/ETT Refer to Anesthesia Record ESTIMATED BLOOD LOSS: 100 PATHOLOGY: none sent COMPLICATIONS: None Patient was transported to: PACU Patient's condition: stable Indications: Kaila is an 86-year-old woman who comes to the hospital with a chief complaint of abdominal pain with nausea and vomiting. She underwent a CAT scan of the abdomen and pelvis demonstrated massively dilated loops of small and large bowel. There is transition point near the sigmoid colon, and concern for a sigmoid colon obstruction. We attempted a Gastrografin challenge, but there was no evidence of any progression of contrast anywhere on the film. Findings: Dense adhesion of the rectosigmoid colon to the pelvic floor Procedure Description: After the induction of general endotracheal anesthesia, we assisted the patient to lithotomy positioning. Great care was taken to pad all of the points of contact. Anterior abdominal wall was then prepped and draped in the usual fashion. I started with a midline laparotomy incision. I dissected down to the fascia which was quite attenuated from her abdominal distention and obesity. The fascia was opened along the midline. The cecum was massively dilated occupying majority of the right lower quadrant. I began by gently grasping the stomach to ensure appropriate position of the nasogastric tube. It felt to be seated above the diaphragm hiatus, and I manually by directed down into the true gastric lumen as it was advanced by the anesthesia service. It was secured in place in the appropriate position and placed to suction. Next, I turned my attention to the large intestine. As mentioned the cecum was massively dilated, the transverse colon was also dilated as well as the descending and sigmoid colons. I could traced the sigmoid colon down onto the pelvic floor, and behind the uterus as the sigmoid transition into the rectum, there was a dense adhesion, folding the sigmoid down onto the pelvic floor. This was clearly the site of obstruction as there was dilation all upstream of this. Next, I established a self-retaining retracting system. As the bowel was so dilated, it was quite difficult to gain adequate exposure. After multiple attempts, I felt decompression of the gastrointestinal tract in a controlled fashion was the best option. Therefore, I identified a location along the descending colon right at the beginning of the sigmoid colon to serve as a site of controlled colotomy. I figured this would be a good place in the case that we ultimately needed to make a loop colostomy. I used to pursestring suture on the antimesenteric border within the tenia. I then opened that portion of the colon wall with electrocautery, and passed a pool sucker type drain into the colon lumen. I then gently manipulated the contents of the large intestine from the cecum towards the descending colon. Once this was complete, I gently evacuated the small intestine into the cecum and antegrade in the same fashion. All told, I would estimate we drained about 2 L of succus and stool using this technique. Suction was then removed, and the pursestring suture was closed. With the bowel decompressed, I could get better visualization of the pelvic floor. I began by lysing some adhesions along the left pelvic floor to better visualize the sigmoid colon. Once this was complete, I could traced the colon all the way down onto the back wall of the uterus. There were some adhesions here, but a majority of the adhesions involve the pelvic floor creating an acute fold of the rectosigmoid junction. I was not able to appreciate a discrete mass here, but complete evaluation of the area was quite challenging based on her anatomy. There was no obvious carcinomatosis, or concerning lesions of the pelvic floor that would support the diagnosis of cancer at this point. Given the location of this obstruction, and the patient's overall state of health and body habitus, think I be safely able to resect this. Therefore, I felt the safest course of option at this point was to create a loop colostomy to allow for antegrade drainage, as well as to provide a decompression for the downstream obstruction. Therefore, I turned my attention back up to the more proximal sigmoid colon. Because of the tethering of the mass down onto the pelvic floor the sigmoid colon proper was not a suitable candidate for creation of the loop colostomy. Therefore, I mobilized some of the descending colon more towards the midline. I created a small defect along the mesenteric border and passed a [place] drain here. Next, an appropriate target was found on the anterior abdominal wall through which we could pass the colostomy. An ellipse of skin and fat was excised, and dissection was continued down onto the fascia, which was opened in a cruciate manner. The rectus muscle was split, and the back wall of the fascia was also opened. I then passed the [place] drain in the loop of colon out through the anterior abdominal wall. It was just slightly retracted, but held in place with [place] clamps to give it some time to settle and to ensure that it would remain well-perfused and be a suitable colostomy site. I turned my attention back to the midline, and ensured that all the small bowel was arranged in the appropriate manner. I quickly ran the small intestine from the ligament of Treitz down to the cecum once again. It was all normal-appearing, and seemed adequately decompressed at this point. I laid the greater omentum over the small bowel, and closed the midline fascia with running 2-0 PDS stitches. This was irrigated, and the overlying subcutaneous tissues were closed with interrupted Vicryl stitches in multiple layers. Finally, the skin was closed with a surgical stapler. I then turned my attention back to the loop colostomy. It appeared well-perfused, and sat at the skin level with the assistance of the [place] bridge. I removed the [place] clamps. There was no evidence of trauma from them. Next, I open the antimesenteric tenia, and affixed it to the skin with interrupted Vicryl stitches. As mentioned previously, the [place] drain was used as a bridge, and was pexied to the skin with Prolene sutures. The colostomy was mildly edematous, but pink. The cut edges bled. Perform digital examination of the afferant and efferant limbs. They felt appropriate. A colostomy appliance was cut to fit and secured in place. The midline incision was dressed with a domingo negative pressure therapy device. The patient was then extubated and transferred to the recovery unit prior to transfer up to the surgical intensive care unit. I discussed the findings, and the conduct of the operation as well as the prognosis and plan with the patient's family immediately afterwards.
[2022-11-15] MEDS: Heparin 5,000 UNITS/ML VIAL 5000 UNITS SC (20:17)
[2022-11-15] MEDS: MORPHine 2 MG/ML SYR IVP (20:18)
[2022-11-16] VITALS (20 sets, daily range): BP systolic 106–130; BP diastolic 48–68; PULSE 64–127; RESP 16–24; TEMP 36.5–37.6; O2SAT 89–92
[2022-11-16] MEDS: Metoprolol 5 MG/5 ML VIAL IVP (03:35)
[2022-11-16] MEDS: MORPHine 2 MG/ML SYR IVP (03:37)
[2022-11-16] MEDS: Metoprolol CR 25 MG TABCR PO ×2 (09:44→20:43)
[2022-11-16] MEDS: Pantoprazole 40 MG VIAL IVP (09:45)
[2022-11-16] MEDS: Normal Saline Flush 10 ML SYR IVP (09:45)
--- NOTE | 2022-11-16 10:01 | W.PM.PROGNOT ---
Date of Service Date of service: 11/16/22 Time of Service: 10:01 Assessment and Plan Assessment and plan (1) Bowel obstruction: Status: Acute Assessment and plan: I talked with her and her daughter again regarding what I found in the operating room. Briefly, dense adhesions in the pelvic floor that I did not think were safe for resection. She seems to be doing well with a diverting colostomy at this point. I would like to see it a little more productive before pulling the nasogastric tube. Especially since she has a fairly large hiatal hernia, and reinsertion of the nasogastric tube may be challenging. Will check some labs today, and replete electrolytes if needed. I like to see her up in about. I think she is fine to move out of the intensive care unit. Will plan to resume some therapeutic anticoagulation in the next 24 to 48 hours. Subjective Subjective Interval history since last seen: We looks very good this morning. She is awake and alert. She has been tolerating ice chips and sips of antonina racheal. He denies any nausea or vomiting (although she still has her nasogastric tube to suction). She has a mild amount of abdominal discomfort, but says that her pain is well-controlled. Exam GI Other: Abdomen is soft and not distended. The domingo dressing looks fine. The stoma is making some liquid stool. There is not a lot of gas in that yet. Mucosa is pink, mildly edematous Objective Last Vital Signs Temp 97.7 F 11/16/22 00:00 Pulse 64 11/16/22 03:01 Resp 20 11/16/22 03:01 BP 119/66 11/16/22 03:01 Pulse Ox 91 L 11/16/22 03:01 Laboratory Results - last 24 hr 11/15/22 06:49 WBC 6.75 RBC 3.90 L Hgb 12.0 Hct 35.8 L MCV 92 MCH 30.8 MCHC 33.5 RDW 14.3 Plt Count 323 MPV 10.4 Time Spent with Patient Time Spent with Patient: 25-34 minutes Time was spent: preparing to see the patient(eg.review tests) and counseling the patient
[2022-11-16] MEDS: Heparin 5,000 UNITS/ML VIAL 5000 UNITS SC ×2 (10:04→20:43)
[2022-11-16] MEDS: Lactated Ringers 1,000 ML 75 ML IV (10:13)
--- NOTE | 2022-11-16 10:29 | PDOC.CMPRO ---
Date of service: 11/16/22 Time of Service: 10:29 Care Management Progress Note Progress Note Text Progress Note Text: S/O: Kaila was sitting up in her chair when CM met with her. She stated that she is doing well today, although she has not been able to eat yet since her surgery. She stated that she is able to have clear liquids which she is happy about. CM discussed discharge planning considerations; Kaila stated that she lives alone, but is independent, and her daughter lives very close, and is supportive. CM stated that new orders for home health nursing may be recommended, as she has a new ostomy, which she is agreeable to. She reported that per MD, she will likely remain inpatient for 5-6 days. She continues to be closely monitored at ICU level of care. CM will continue to follow. A: Kaila is an 86 year old female admitted to [facility] for a bowel obstruction. P: Kaila went to the OR yesterday, and now has a diverting colostomy. Kaila will return home once medically cleared, likely with new RN for support with her new colostomy. Her daughter is supportive as well, and will provide transport home via private vehicle. She will follow up with her PCP and discharge plan of care. CM will continue to follow.
[2022-11-16 10:58] LABS: HCT 33.7 % (36.0-46.0); MCH 30.2 pg (27.0-33.0); MCHC 32.6 % (32.0-36.0); MCV 93 fL (80-95); Platelet Count 290 10^3/uL (130-400); RBC 3.64 10^6/uL (3.93-5.22); RDW 14.6 % (11.7-14.6); WBC 7.35 10^3/uL (4.4-10.8)
[2022-11-16 11:23] LABS: Anion Gap 9.5 mmol/L (3-11); BUN 33 mg/dL (7-18); CO2 26.5 mmol/L (21.0-32.0); CREATININE 0.9 mg/dL (0.55-1.02); Calcium 8.6 mg/dL (8.5-10.1); Chloride 104 mmol/L (98-107); Estimated GFR 63.04 (mL/min/1.73m2); Glucose 123 mg/dL (74-106); Magnesium 1.9 mg/dL (1.8-2.4); Sodium 140 mmol/L (136-145)
[2022-11-16 11:27] LABS: Potassium 2.8 mmol/L (3.5-5.1)
[2022-11-16] MEDS: POTASSIUM CHLORIDE 20 MEQ/100 ML BAG 50 MEQ IVPB ×2 (12:30→15:11)
--- NOTE | 2022-11-16 13:38 | PHA.REVIEW2 ---
Pharmacy Admission Review Admission Clinical Review Admission Pharmacy Review: (Updated 11/14/22 @ 09:17 by Rama Ross MD) Bowel obstruction (Acute) cyanocobalamin (vitamin B12) Adverse Reaction (Intermediate, Verified 04/17/22 10:08) heart racing caffeine Adverse Reaction (Verified 04/17/22 10:08) Resuscitation Status DNR/DNI Height 5 ft 8 in Weight 102.5 kg Pharmacy Admission Review Renal Dosing Renal Dosing: BUN 33 mg/dL (7-18) H 11/16/22 10:40 Creatinine 0.9 mg/dL (0.55-1.02) 11/16/22 10:40 Medications needing adjustments: Reviewed (crcl ~52 mL/min, no adjustments needed) Anticoagulation Anticoagulation: Hgb 11.0 g/dL (11.2-15.7) L 11/16/22 10:40 Hct 33.7 % (36.0-46.0) L 11/16/22 10:40 Plt Count 290 10^3/uL (130-400) 11/16/22 10:40 Creatinine 0.9 mg/dL (0.55-1.02) 11/16/22 10:40 DVT Prophylaxis: Reviewed (heparin 5000 units q12h) Therapeutic Anticoagulation: Reviewed (takes abixaban 5 mg BID at home - currently on hold d/t surgery (done yesterday), restart in 24-[address] Jiang note (or start therapeutic LMWH if unable to take PO per Dr. Garcia)) Opiate Usage Evaluate Pain Scale/Pains Meds: Reviewed (morphine 2 mg q3h prn - minimal use (2 doses in last 24 hrs). IV tylenol q8h prn added this afternoon) Scheduled Bowel Reg ordered if on Opiates?: No (n/a) Relevant Labs Relevant Labs: Sodium 140 mmol/L (136-145) 11/16/22 10:40 Potassium 2.8 mmol/L (3.5-5.1) L* 11/16/22 10:40 Chloride 104 mmol/L (98-107) 11/16/22 10:40 Magnesium 1.9 mg/dL (1.8-2.4) 11/16/22 10:40 Electrolytes, C-Reactive P, ESR: Reviewed (K+ drop from 3.4 yesterday, 40 mEq IV ordered for today) DM Control DM Control: Reviewed (no diabetes diagnosis noted, sugars are WNL) Cardiac Review Cardiac Review: Troponin I < 50 ng/L (<or=60) 11/14/22 13:02 BP, HR, EF%: Reviewed (metoprolol succ 25 mg daily restarted this AM - increased to BID to start tonight) QTc Review QTc: Not Reviewed (no QTc in chart to review, EKG in chart from 11/14 does not include QTc) IV to PO Switch IV Medications: Reviewed (IV meds necessary for now, switch to PO when able) Home Meds Home Med List reviewed: Reviewed Relevent Home Meds Not ordered & why?: apixiban held for surgery, ?restart tomorrow. sertraline not currently ordered, assess ability to take PO tomorrow and ?restart Current Meds Current Medication Order Review: Reviewed
--- NOTE | 2022-11-16 14:01 | W.PM.PROGNOT ---
Date of Service Date of service: 11/16/22 Time of Service: 14:01 Assessment and Plan Assessment and plan (1) Bowel obstruction: Status: Acute Assessment and plan: Kaila is POD #1 s/p Loop colostomy created Some stool in the bag BS ar normoactive Will clamp NG tube. If residuals are < 100 then will pull NG tube If able to remove NG tube will start clears (2) Anxiety: Status: Chronic (3) Essential hypertension: Status: Chronic Assessment and plan: continue on Lopressor IV until taking po (4) Gastroesophageal reflux disease: Status: Chronic Qualifiers: Esophagitis presence: without esophagitis Qualified Code(s): K21.9 - Gastro-esophageal reflux disease without esophagitis (5) Atrial fibrillation by electrocardiogram: Status: Chronic Assessment and plan: Is normally on Eliquis Will start weight based lovenox or eliquis tomorrow deopending on if she is taking po HR into 170's when she gets up. Appreciate Hospitalist helping with management of Afib Subjective Subjective Interval history since last seen: Kaila is doing well. She has no complaints this afternoon. She was up for a couple of hours. She is tired. Exam Const General: cooperative, comfortable and no acute distress Nutritional Appearance: overweight Orientation: alert and oriented x3 HENMT Head: normocephalic and atraumatic Resp Effort & Inspection: normal respiratory effort Auscultation: clear to auscultation bilaterally Cardio Rate: regular rate Rhythm: regular rhythm GI Inspection: incision (covered with LORI) and other (ostomy with some stool in it) Palpation: soft, no hepatosplenomegaly and tender (appropriately tender) Auscultation: normal bowel sounds Other: NG tube with clear output Objective Last Vital Signs Temp 99.0 F 11/16/22 10:07 Pulse 92 H 11/16/22 10:01 Resp 19 11/16/22 10:01 BP 116/66 11/16/22 10:01 Pulse Ox 91 L 11/16/22 10:01 Laboratory Results - last 24 hr 11/16/22 11/16/22 11/16/22 10:40 10:40 10:40 WBC 7.35 RBC 3.64 L Hgb 11.0 L Hct 33.7 L MCV 93 MCH 30.2 MCHC 32.6 RDW 14.6 Plt Count 290 MPV 10.0 Sodium 140 Potassium 2.8 L* Chloride 104 Carbon Dioxide 26.5 Anion Gap 9.5 BUN 33 H Creatinine 0.9 Est GFR (CKD-EPI 2020) 63.04 Glucose 123 H Calcium 8.6 Magnesium 1.9 Time Spent with Patient Time Spent with Patient: <25 minutes Time was spent: preparing to see the patient(eg.review tests), obtaining and/or reviewing separately otained hiistory and counseling the patient
[2022-11-16] MEDS: ACETAMINOPHEN 1,000 MG/100 ML BTL 400 MG IVPB (15:24)
--- NOTE | 2022-11-16 15:52 | MCONE_ITS ---
Date of service: 11/16/22 Time of Service: 15:52 Assessment and Plan Assessment and plan (1) Bowel obstruction: Status: Acute Assessment and plan: POD #1. Gen Surg planning to clamp NG and potentially d/c. + bowel sounds. Colostomy functioning. Stoma appears viable. (2) Anxiety: Status: Chronic Assessment and plan: Stable. (3) Depressive disorder: Status: Chronic Assessment and plan: Will restart sertraline in the AM. (4) Essential hypertension: Status: Chronic Assessment and plan: Metoprolol; also for rate control. Has been receiving via IV but did receive an oral dose of 25mg this AM (her home dose). Will give another dose tonight. . (5) Atrial fibrillation by electrocardiogram: Status: Chronic Assessment and plan: On metoprolol and apixiban at home. Given oral metoprolol this AM when NG clamped. Also has received prn IV dosing. HR has elevated into the 140-150 transiently today with activity but then mostly now in the low 100's Gen surgery OK with restarting apixaban in the AM. Telemetry monitoring. History of Present Illness History of Present Illness Chief Complaint: Abd pain and vomitting Narrative: This is an 86 yo female that presented to the ED on 11/14/22 with N/V and abd pain. Her symptoms began appx 4 days prior to presentation. General surgery admitted her for a partial bowel obstruction potentially involving the sigmoid colon. A gastrograffin study indicated a more significant large bowel o bstruction. On 11/15 she was taken to the OR and Dr Jiang performed an exploratory laparotomy and creation of a descending loop colostomy. She had very dense adhesions that were not amenable to lysis. Today, POD 1 she was feeling generally well. Her NG was clamped this AM and her morning medications were given w/o development of nausea. Hospitalist service consulted for managment of afib, HTN. Review of Systems All systems reviewed & are unremarkable except as noted in HPI and below PFSH All Active Problems (Updated 11/14/22 @ 09:17 by Rama Ross MD) Bowel obstruction (Acute) Obesity (BMI 30-39.9) (Acute) Anxiety (Chronic 03/03/12) Depressive disorder (Chronic 02/11/12) Essential hypertension (Chronic 02/11/12) Iron deficiency anemia, unspecified (Chronic 08/13/17) Gastroesophageal reflux disease (Chronic 03/03/12) Osteoarthritis (Chronic 03/03/12) hands; knees Vitamin B12 deficiency (Chronic) Advanced directives, counseling/discussion (Chronic) Hiatal hernia (Chronic) Atrial fibrillation by electrocardiogram (Chronic 08/06/17) By EKG 07/25/17 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 Grandmother Neoplasm BREAST/LIVER Grandmother No problems noted. MATERNAL AUNT Neoplasm BREAST Other Family history of GI malignancy Family hx-breast malignancy Social History Smoking/Tobacco Use Status: Former Tobacco Use tobacco type: cigarettes Quit Date: 04/08/59 Second Hand Exposure: Yes Smoking risk assessment performed?: Yes Alcohol Intake: never Drug use: Never Substance use type: does not use Household members: none Housing: house Do you need help understanding health information?: Never Pets and animals: No Sexually active: No Do you think of yourself as: straight/heterosexual Current gender identity: female What is your relationship status?: How often do you talk on the phone with friends or family?: three or more times per week How often do you get together with friends or relatives?: once per week How often do you attend catholic or christianity services?: decline to answer Do you belong to any clubs or organized social groups?: no Panel score (0-1 are the most socially isolated patients): 1 What type of physical activity do you participate in: none Caroline/Taoism: Oriental Orthodox Special caroline needs: No Seatbelt use: always Drive intox or ride w/intox route cdl driver: No Do you feel safe at home: Yes Do you feel safe in your relationship?: Yes Exam Narrative Exam Narrative: Gen: Lying supine. NG in place. Pleasant and conversant. Appears comfortable. HEENT: sclera clear. MMM. Neck: No JVD Lungs: clear. Nonlabored breathing. CV: Irreg Irreg. HR in the low 100's Abd: Surgical incision covered. Ostomy with liquid brown stool in bag. Soft. Appropriate mild tendernss. +BS. Exts: No edema, calf tenderness. GI Other: Abdomen is soft and not distended. The domingo dressing looks fine. The stoma is making some liquid stool. There is not a lot of gas in that yet. Mucosa is pink, mildly edematous Results Last Vital Signs Temp 36.9 C 11/16/22 12:45 Pulse 87 11/16/22 11:01 Resp 19 11/16/22 11:01 BP 111/59 L 11/16/22 11:01 Pulse Ox 91 L 11/16/22 11:01 Labs 11/16/22 10:40 11/16/22 10:40 Labs: Laboratory Results - last 24 hr 11/16/22 11/16/22 11/16/22 10:40 10:40 10:40 WBC 7.35 RBC 3.64 L Hgb 11.0 L Hct 33.7 L MCV 93 MCH 30.2 MCHC 32.6 RDW 14.6 Plt Count 290 MPV 10.0 Sodium 140 Potassium 2.8 L* Chloride 104 Carbon Dioxide 26.5 Anion Gap 9.5 BUN 33 H Creatinine 0.9 Est GFR (CKD-EPI 2020) 63.04 Glucose 123 H Calcium 8.6 Magnesium 1.9
--- NOTE | 2022-11-16 16:09 | CHAPLAIN ---
Kaila was resting in bed in the ICU when I visited. Her middle daughter was with her. Kaila has surgery yesterday for a small bowel obstruction. She said he didn't sleep well last night and is very tired. She seems to be well supported by family.
--- NOTE | 2022-11-16 17:33 | PT.INNT ---
PT Notes Visit Reasons: Bowel Obstruction Patient wanted to wait until tomorrow to be mobilized by PT. Daughter in agreement. Fatigued and is firm about resting today. Anxious about her heart rate going up if she does too much. Weekend on-call PT apprised.
[2022-11-17] VITALS (12 sets, daily range): BP systolic 107–126; BP diastolic 69–83; PULSE 85–165; RESP 16–24; TEMP 36.4–37.5; O2SAT 93–95
[2022-11-17] MEDS: Lactated Ringers 1,000 ML 75 ML IV (00:17)
[2022-11-17 05:58] LABS: HCT 31.8 % (36.0-46.0); HGB 10.4 g/dL (11.2-15.7); MCH 30.8 pg (27.0-33.0); MCHC 32.7 % (32.0-36.0); MCV 94 fL (80-95); MPV 9.9 fL (8.0-11.0); Platelet Count 261 10^3/uL (130-400); RBC 3.38 10^6/uL (3.93-5.22); RDW 14.4 % (11.7-14.6); RDW-SD 49.7 fL; WBC 7.18 10^3/uL (4.4-10.8)
[2022-11-17 06:23] LABS: Anion Gap 8.8 mmol/L (3-11); BUN 30 mg/dL (7-18); CO2 26.2 mmol/L (21.0-32.0); CREATININE 0.9 mg/dL (0.55-1.02); Calcium 8.3 mg/dL (8.5-10.1); Chloride 101 mmol/L (98-107); Estimated GFR 63.04 (mL/min/1.73m2); Glucose 82 mg/dL (74-106); Potassium 3.1 mmol/L (3.5-5.1); Sodium 136 mmol/L (136-145)
[2022-11-17] MEDS: Normal Saline Flush 10 ML SYR IVP ×3 (08:28→22:08)
[2022-11-17] MEDS: Pantoprazole 40 MG VIAL IVP (08:28)
[2022-11-17] MEDS: Heparin 5,000 UNITS/ML VIAL 5000 UNITS SC (08:28)
[2022-11-17] MEDS: Metoprolol CR 25 MG TABCR PO ×2 (08:28→19:24)
--- NOTE | 2022-11-17 09:25 | IN_ITS ---
Date of service: 11/17/22 Time of Service: 09:00 PT Notes Visit Reasons: Bowel Obstruction Inpatient Physical Therapy Evaluation Date: 11/17/22 Referring Doctor: Teresa Garcia MD PT Orders: PT CONSULT: Non-urgent, limited ability Precautions: standard Patient Profile/Admitting Diagnosis: 86 y o POD #2 S/P exploratory laparotomy and creation of a descending loop colostomy. 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 Biopsy of breast (~1989) LEFTCholecystectomy (~1980) Colonoscopy - MAC (08/16/17) EGD - MAC (08/16/17) Status post breast biopsy Social History/Home Situation: Lives independent, in a private one story home. Handicap bathroom, with grab bars, and walk in shower, high toilet. Ramp to enter home. She no longer drives. She utilizes meals on wheels, her daughter buys her groceries for her - her daughter lives [address] an is supportive. Patient wishes to return home when ready, and daughter will stay with her if needed. Current Functional Limitations: Requires use of walker, CG for STS and vice versa, refuses to walk more than transfer from bed to chair (already completed with nursing), limited to 30 sec of standing Equipment Owned/DME: None Subjective: Kaila reporting pain in abdomen, more so with movement. She feels very tired and fatigued, can not tolerate ambulation because her legs are shaky. Her skin is raw where they continue to attach her colostomy bag. Welcome to hospital stay to become more confident and able with mobility. Objective: General Observation: Sitting in hospital chair, colostomy bag, IV port left wrist and cubitol fossa Mental Status: A & O x 3 Pain: 4/10 with movement, 2/10 sititng - abdoen Vital Signs: Sitting BP 90/54, HR 95-105 w a. fib, O2 on room air 95%. BP improves to 105/67 with standing ROM: Right Upper Extremity: 90 deg shoulder flex and abduction, elbow and wrists WNL Left Upper Extremity: 90 deg shoulder flex and abduction, elbow and wrist WNL Right Lower Extremity: Grossly WFL Left Lower Extremity: Grossly WFL Strength: Right Upper Extremity: Wendy: Flex 4/5, abd 4/5, elbow ext 5/5, elbow flex 5/5, wrist grossly 5/5 Left Upper Extremity: Wendy: Flex 4/5, abd 4/5, elbow ext 5/5, elbow flex 5/5, wrist grossly 5/5 Right Lower Extremity: Grossly 4/5 throughout Left Lower Extremity: Grossly 4/5 throughout Sensation: Intact Bed Mobility/Transfers: Sit to stand from recliner chair CGx1, to RW Stand to sit CG Denies chair to bed attempt, she was transfer from bed to chair with 2 CG (RN's) Gait: Only attempts two steps with RW, legs become shaky and unable to attempt ambulation Balance: 10 sec WBOS, WNL. 10 sec WBOS, EC, 8 sec. Stage 4 Balance Test Time (seconds) Feet together 10 Partial tandem Unable Tandem Uable One foot Unable Static Sitting: Good Dynamic Sitting: Good Static Standing: Good w WBOS Dynamic Standing: Poor Special Tests: Mobility Limitations Standardized Measure [facility] AM-PAC 6 clicks Basic Mobility Inpatient Short Form: 64% disability Treatment: Therapeutic Procedures [id number] min: Provided skilled instruction in LE strengthening and mobility exercises to initiation mobility return, written on patient board in room for independent performance between PT sessions LAQ x 10 Seated HR x 10 Glute sets 10 sec x 10 seated Mini seated march x 10 Informed Consent/Education: Patient instructed in purpose of PT consult and plan of care. Assessment: Patient is a 86 year old female referred to physical therapy services POD 2, S/P colostomy. She presents globally weak with poor balance, limited her confidence and ability to ambulate functional distance and requiring assist upon attempt, requires CG with transfers, pain and weakness allowing for reporting bed mobility assistance and [facility] sore of 64% disability. She requires skilled PT service to attend to these impairment and functional limitations, to progress her strength, balance, and functional mobilities for hopeful return home with family support. She will require RW to prevent falls and promote safe home distance ambulation up discharge. OT consultation recommended. Patient is assessed as a Moderate 34105 complexity based on the following: History: See comorbdities Examination: See assessment Presentation: Evolving Decision Making: Moderate Goals: Goals X1 week 1. Supine-Sit supervision 2. Sit-Supine supervision 3. Sit-Stand close supervision to RW 4. Stand-Sit close supervision from RW 5. Bed-Chair close supervision w RW 6. Chair-Bed close supervision w RW 7. Gait 40 ft with RW, close supervision 8. Tolerated 5 min of standing activity 9. Dynamic static balance fair with Rw Plan of Care/Treatment Plan: 1-2x/day, 7 days/week x 1 week. Plan of care has been reviewed with the INSPECTOR OF DREDGING providing the service under Physical Therapy direction. Initiate Physical Therapy intervention for strengthening, bed mobility, transfers, gait, stairs, balance training, use of assistive device. DISCHARGE RECOMMENDATIONS: Home with services HHPT and family supervision TREATMENT CODE/TIME: 49600, 49051, 30 min 9:00-9:30
[2022-11-17] MEDS: Sertraline 25 MG TAB PO (11:08)
[2022-11-17] MEDS: Potassium Chloride 20 MEQ TABCR 40 MEQ PO (11:09)
--- NOTE | 2022-11-17 15:50 | W.PM.PROGNOT ---
Date of Service Date of service: 11/17/22 Time of Service: 15:50 Assessment and Plan Assessment and plan (1) Bowel obstruction: Status: Acute Assessment and plan: Kaila is POD #2 s/p Loop colostomy Some stool in the bag and normal BS On clear liquids and tolerating that. Will advance to full liquids I will place an order for a colostomy consult to assist nursing staff Midline wound- LORI was removed. Will apply Mepilex dressing or ABD with tape (2) Anxiety: Status: Chronic (3) Essential hypertension: Status: Chronic Assessment and plan: switched to her PO meds (4) Gastroesophageal reflux disease: Status: Chronic Qualifiers: Esophagitis presence: without esophagitis Qualified Code(s): K21.9 - Gastro-esophageal reflux disease without esophagitis (5) Atrial fibrillation by electrocardiogram: Status: Chronic Assessment and plan: Eliquis started Subjective Subjective Interval history since last seen: Mrs Salas is doing OK. She is frustrated with the ostomy leaking a lot. Her LORI dressing has stopped working because the edges were lifted up to change the ostomy appliance. Nursing continues to work on trying to find an ostomy appliance that works. She is tolerating clear liquids. There is liquid and soft stool in her ostomy bag labs showed low potassium. WBC count is normal. She has been afebrile Exam Const General: cooperative, comfortable and no acute distress Nutritional Appearance: overweight Orientation: alert and oriented x3 HENMT Head: normocephalic and atraumatic Resp Effort & Inspection: normal respiratory effort Auscultation: clear to auscultation bilaterally Cardio Rate: regular rate Rhythm: abnormal rhythm GI Inspection: incision (c/d/i) and other (ostomy is congested and sunken in.) Palpation: soft, no hepatosplenomegaly and nontender Objective Last Vital Signs Temp 99.5 F 11/17/22 15:14 Pulse 107 H 11/17/22 15:14 Resp 17 11/17/22 15:14 BP 117/81 11/17/22 15:14 Pulse Ox 94 11/17/22 15:14 Laboratory Results - last 24 hr 11/17/22 11/17/22 05:51 05:51 WBC 7.18 RBC 3.38 L Hgb 10.4 L Hct 31.8 L MCV 94 MCH 30.8 MCHC 32.7 RDW 14.4 Plt Count 261 MPV 9.9 Sodium 136 Potassium 3.1 L Chloride 101 Carbon Dioxide 26.2 Anion Gap 8.8 BUN 30 H Creatinine 0.9 Est GFR (CKD-EPI 2020) 63.04 Glucose 82 Calcium 8.3 L Time Spent with Patient Time Spent with Patient: 25-34 minutes Time was spent: preparing to see the patient(eg.review tests), indepentently interpreting results and counseling the patient
[2022-11-17] MEDS: Metoprolol 5 MG/5 ML VIAL IVP (17:06)
--- NOTE | 2022-11-17 17:10 | NUR.NOTE ---
Nursing Note: was notified by dora songtest and turn up technician nurse that patient hr was elevated to 160s. pt just got transferred from bed to chair. charge nurse states that pt was seen sitting in chair and hr remained elevated. when this rn came to assess, pt hr was between 112-140s. iv metoprolol was given. will continue to monitor
[2022-11-17] MEDS: POTASSIUM CHLORIDE 10 MEQ/100 ML BAG 100 MEQ IVPB ×2 (17:53→18:59)
[2022-11-17] MEDS: Ondansetron 4 MG/2 ML VIAL IVP (19:23)
[2022-11-17] MEDS: Apixaban 5 MG TAB PO (19:23)
[2022-11-17] MEDS: Calcium Carbonate *TUMS* 500 MG CHEW PO (19:24)
[2022-11-17] MEDS: Prochlorperazine 10 MG/2 ML VIAL 5 MG IVP (22:07)
[2022-11-17] MEDS: PIPERACILLIN/TAZO 3.375 GM in Normal Saline 50 ML IVPB (23:04)
--- NOTE | 2022-11-17 23:28 | NUR.NOTE ---
Ostomy Care Note 11/17/22 2100: I came in to do some routine rounding. which included checking on pts ostomy. Per day time report pts ostomy had frequent drainage, requiring a couple ostomy bag changes. due to visible brown drainage near the bag attachment site and inability to assess the stoma color due to mucous . I decided to change the ostomy bag to ensure the patient skin integrity remains intact. Before removing bag, it was drained with approximately 150ml liquid brown. pt tolerated removal of ostomy bag adhesive well. upon removal of ostomy bag. visible excoriation noted around ostomy site. What was visible of the stoma was covered in a dark brown mucous. with copious drainage. the right side of the stoma site had a visible suture intact with what appeared to be a gautam drain protruding above the skin. the left side of the stoma did not appear to have a suture intact but a gautam drain was visible just beneath the surface of the skin. Upon recognition of the stoma suture missing. I Notified the Charge Nurse so we could contact the attending physician of these findings. about 22:30 pt ordered to npo. provider came to bedside to assess pt. throughout this the patient remained relatively comfortable, despite some nausea, about 750ml of brown emesis. since the beginning of my shift since 1800. 4mg IV zofran initially unsuccessful for nausea relief. compazine 5mg iv push. successful. [id number] end note. Nursing Note:
--- NOTE | 2022-11-17 23:46 | PGE_ITS ---
Date of Service Date of service: 11/17/22 Time of Service: 23:00 Assessment and Plan Assessment and plan (1) Colostomy malfunction: Status: Acute Assessment and plan: Discussed with Kaila and her daughter over the phone that I was worried about enteric content leaking into her abdomen. Recommend going back to the operating room to try and pull up the ostomy. If that doesnt work then will need to re-explore the abdomen and bring up a new loop colostomy. Risks, benefits and complications have been discussed with the patient. Complications inlcude but are not limited to bleeding (increased risk as patient was restarted on eliquis), infection, injury to the intestine or other organs, AK, , aspirayion, hernia, wound dehisence. Patient asked questions which were answered to her satisfaction and she wished to proceed. Patient seemed to understand the risks involved. No guarantees were given. Patient will be typ4ed and screened. (2) Nausea and vomiting: Status: Acute Subjective Subjective Interval history since last seen: Recieved a call from nursing that the patient had started vomiting again. She was vomiting bile. There was also consern that they could only see one of the sides of the gautam drain that was holding the loop colostomy above the skin. No fevers or chills. No abdominal pain. Patient stated that she started feeling nauseated after drinking some broth that was spicey. Exam Const General: cooperative, comfortable and no acute distress [facility] Head: normocephalic and atraumatic Resp Effort & Inspection: normal respiratory effort Auscultation: clear to auscultation bilaterally Cardio Rate: tachycardic Rhythm: abnormal rhythm GI Palpation: soft, no hepatosplenomegaly and nontender Other: Ostomy is very dark. I attempted to pass a red rubber catheter under the loop colostomy without success. Objective Last Vital Signs Temp 99.1 F 11/17/22 23:16 Pulse 103 H 11/17/22 23:16 Resp 24 11/17/22 23:16 BP 119/78 11/17/22 23:16 Pulse Ox 94 11/17/22 23:16 Laboratory Results - last 24 hr 11/17/22 11/17/22 05:51 05:51 WBC 7.18 RBC 3.38 L Hgb 10.4 L Hct 31.8 L MCV 94 MCH 30.8 MCHC 32.7 RDW 14.4 Plt Count 261 MPV 9.9 Sodium 136 Potassium 3.1 L Chloride 101 Carbon Dioxide 26.2 Anion Gap 8.8 BUN 30 H Creatinine 0.9 Est GFR (CKD-EPI 2020) 63.04 Glucose 82 Calcium 8.3 L Time Spent with Patient Time Spent with Patient: 25-34 minutes Time was spent: indepentently interpreting results and counseling the patient
[2022-11-18] VITALS (57 sets, daily range): BP systolic 86–123; BP diastolic 46–72; PULSE 61–136; RESP 14–28; TEMP 36.3–36.9; TEMPC 36.5; O2SAT 90–97; BMI 34.3
--- NOTE | 2022-11-18 00:18 | ANES.PREOP_ITS ---
General Info Date of Service Date Performed: 11/18/22 Height: 5 ft 8 in Weight: 102.5 kg Body Mass Index (BMI): 34.3 Surgical Procedure: Operation Date: 11/15/22 15:35 Proposed Procedure Side Surgeon p Exploratory Laparotomy Eb Jiang MD s Bowel Resection, possible Colostomy Eb Jiang MD Actual Procedure Side Surgeon p Exploratory Laparotomy w/Colostomy Placement Not Applicable Eb Jiang MD Pre-Op Diagnosis Post-Op Diagnosis BOWEL OBSTRUCTION BOWEL OBSTRUCTION Operation Date: 11/17/22 23:55 Proposed Procedure Side Surgeon p Exploratory Laparotomy Teresa Garcia MD Actual Procedure Side Surgeon p Exploratory Laparotomy Teresa Garcia MD Meds Allergies and Home Medications Allergies Allergy/AdvReac Type Severity Reaction Status Date / Time cyanocobalamin (vitamin B12) AdvReac Intermediate heart Verified 04/17/22 10:08 racing caffeine AdvReac Verified 04/17/22 10:08 Home Medication Medication Instructions Recorded acetaminophen 325 mg capsule 325 mg PO BID PRN 06/08/19 ferrous sulfate 250 mg (50 mg 250 mg PO DAILY #30 tabs 03/12/22 iron) tablet,extended release (Slow Release Iron) metoprolol succinate 25 mg 25 mg PO DAILY #90 tabs 03/12/22 tablet,extended release 24 hr pantoprazole 40 mg tablet,delayed 40 mg PO BID #180 tabs 03/12/22 release (Protonix) sertraline 25 mg tablet 25 mg PO DAILY #90 tab-caps 03/12/22 apixaban 5 mg tablet 5 mg PO BID #180 tabs 04/17/22 diclofenac sodium 1 % topical gel 4 g topical QID #100 grams 04/17/22 (Arthritis Pain (diclofenac)) Current Visit Medications: Current Medications Generic Name Dose Route Start Last Admin Trade Name Freq PRN Reason Stop Dose Admin Acetaminophen 650 mg 11/17/22 16:02 Acetaminophen 325 Mg Tab PO Q6H PRN PRN Apixaban 5 mg 11/17/22 20:00 11/17/22 19:23 Apixaban 5 Mg Tab PO 5 mg BID ABNER Administration Calcium Carbonate 500 mg 11/17/22 17:30 11/17/22 19:24 Calcium Carbonate *Tums* 500 Mg Chew PO 500 mg QID PRN PRN Administration Sodium Chloride 500 mls @ 0 mls/hr 11/15/22 09:52 Saline 500ml Bag IV PRN PRN As Directed IV Miscellaneous Supplies 1 each 11/15/22 10:00 Iv Access IV DIRECTED [facility] Metoprolol Succinate 25 mg 11/16/22 20:00 11/17/22 19:24 Metoprolol Cr 25 Mg Tabcr PO 25 mg BID ABNER Administration Metoprolol Tartrate 5 mg 11/16/22 13:56 11/17/22 17:06 Metoprolol 5 Mg/5 Ml Vial IVP 5 mg Q6H PRN PRN Administration Morphine Sulfate 2 mg 11/14/22 13:01 11/16/22 03:37 Morphine 2 Mg/Ml Syr IVP 2 mg Q3H PRN PRN Administration Nystatin 60 gm 11/17/22 20:00 Nystatin Powder 60 Gm Jar TP BID [facility] Ondansetron HCl 4 mg 11/14/22 13:01 11/17/22 19:23 Ondansetron 4 Mg/2 Ml Vial IVP 4 mg Q6H PRN PRN Administration Pantoprazole Sodium 40 mg 11/18/22 07:30 Pantoprazole 40 Mg Tabcr PO DAILY@0730 [facility] Prochlorperazine Edisylate 5 mg 11/17/22 21:49 11/17/22 22:07 Prochlorperazine 10 Mg/2 Ml Vial IVP 5 mg Q3H PRN PRN Administration Sertraline HCl 25 mg 11/17/22 10:50 11/17/22 11:08 Sertraline 25 Mg Tab PO 25 mg DAILY ABNER Administration Sodium Chloride 0 ml 11/14/22 08:07 11/17/22 22:08 Normal Saline Flush 10 Ml Syr IVP 10 ml PRN PRN Administration [facility] Active Problems Active Problems: Problem Status Onset Code Bowel obstruction K56.609 Obesity (BMI 30-39.9) E66.9 Anxiety 03/03/12 F41.9 Depressive disorder 02/11/12 F32.9 Essential hypertension 02/11/12 I10 Hyperlipidemia 03/03/12 E78.5 Iron deficiency anemia, unspecified 08/13/17 D50.9 Gastroesophageal reflux disease 03/03/12 K21.9 Osteoarthritis 03/03/12 M19.90 Vitamin B12 deficiency E53.8 Advanced directives, counseling/discussion Z71.89 Hiatal hernia K44.9 Hemorrhoids 03/03/12 K64.9 Atrial fibrillation by electrocardiogram 08/06/17 I48.91 Diverticulitis of colon K57.32 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 Medical History Medical History Anemia Breast lump Essential hypertension Family history of GI malignancy (03/03/12) Family hx-breast malignancy (03/03/12) GERD (gastroesophageal reflux disease) Hemorrhoids History of tobacco use Surgical History Surgical History Biopsy of breast (~1989) LEFT Cholecystectomy (~1980) Colonoscopy - MAC (08/16/17) EGD - MAC (08/16/17) Status post breast biopsy Tobacco Smoking/Tobacco Use Status: Former Tobacco Use Passive smoking exposure: Yes Second hand exposure: Yes Alcohol Alcohol Intake: never Substance Use Substance use: Never Substance use type: does not use Vital Signs and Lab Results Vital Signs Most Recent Vital Signs in EMR: Most Recent Vital Signs Temp Pulse Resp BP Pulse Ox 37.3 C 103 H 24 119/78 94 11/17/22 23:16 11/17/22 23:16 11/17/22 23:16 11/17/22 23:16 11/17/22 23:16 Point of Care Results Point of Care Results: Finger Stick Blood Glucose 112 11/17/22 23:12 Lab Results 11/17/22 05:51 11/17/22 05:51 Blood Type / Crossmatch: Patient ABO/Rh Pending 11/17/22 Complete Blood Count: White Blood Count 7.18 10^3/uL (4.4-10.8) 11/17/22 05:51 Red Blood Count 3.38 10^6/uL (3.93-5.22) L 11/17/22 05:51 Hemoglobin 10.4 g/dL (11.2-15.7) L 11/17/22 05:51 Hematocrit 31.8 % (36.0-46.0) L 11/17/22 05:51 Platelet Count 261 10^3/uL (130-400) 11/17/22 05:51 Complete Metabolic Panel: Sodium 136 mmol/L (136-145) 11/17/22 05:51 Potassium 3.1 mmol/L (3.5-5.1) L 11/17/22 05:51 Chloride 101 mmol/L (98-107) 11/17/22 05:51 Carbon Dioxide 26.2 mmol/L (21.0-32.0) 11/17/22 05:51 BUN 30 mg/dL (7-18) H 11/17/22 05:51 Creatinine 0.9 mg/dL (0.55-1.02) 11/17/22 05:51 Est GFR (CKD-EPI 2020) 63.04 (mL/min/1.73m2) 11/17/22 05:51 Magnesium 1.9 mg/dL (1.8-2.4) 11/16/22 10:40 Calcium 8.3 mg/dL (8.5-10.1) L 11/17/22 05:51 Albumin 3.3 g/dL (3.4-5.0) L 11/14/22 07:25 Glucose 82 mg/dL (74-106) 11/17/22 05:51 Liver Function Panel: Alanine Aminotransferase (ALT/SGPT) 12 U/L (14-59) L 11/14/22 0 7:25 Aspartate Amino Transf (AST/SGOT) 16 U/L (15-37) 11/14/22 07:25 Coagulation Panel: No Data to Display Cardiac Panel: Troponin I < 50 ng/L (<or=60) 11/14/22 Arterial Blood Gas: No Data to Display Venous Blood Gas: No Data to Display Pancreas Panel: No Data to Display Thyroid Panel: No Data to Display Infectious Disease: No Data to Display Blood Cultures: No Data to Display Toxicology Panel: No Data to Display Imaging and Studies Imaging and Studies Study information below may be from another EMR and interpreted by another provider. Please see original notes in EMR for more complete details. EKG Summary: EKG PATIENT NAME: Kaila Thomas #: [id number] ORDERING PROVIDER: Rama Ross M.D. PRIMARY CARE PROVIDER:Sridhar Charles DNP DATE/TIME OF SERVICE: 11/14/22811 : 1935PERFORMING LOCATION: ER APPROVED REPORT Exam: Resting ECG Reason for Exam: NV Patient Location: E HR:94 bpm ECG Measurements Heart Rate 94 AXIS [place] [id number] P [id number] QRSd 105 QRS 1 QT [id number] T242 QTc 0 Conclusion Atrial fibrillation...V-rate 63-106, irreg A-activity Ventricular premature complex...V complex w/ short R-R interval Aberrant conduction of SV complex(es)...aberrant shape, WI 80-220 Nonspecific repol abnormality, diffuse leads...ST dep, T flat/neg, ant/lat/inf <Electronically signed by RAMA ROSS MD in OV> E-Sign Date: 11/14/22 E-Sign Time: 832 Stress Test Summary: Patient Name: KAILA THOMAS #: [id number]: MS Ordering Provider: Tammy Keating NPAccount #: [id number]: DIS RADHA Primary Care Provider: Renee Andrade NPDate of Exam: 12/25/18Sex: F : 8Age: 82 Exam(s) a NM:NM MPI rest & stress grp *[facility]* *[facility]* [address] [place] [address] Myocardial Perfusion Imaging - SPECT Rob protocol Date of study: 12/25/2018 *PATIENT PRESENTATION* Height: 170.2cm (67in) Blood Pressure: Weight: 99.8kg (219.5lb) BSA: 2.21m^2 Referring physician: Jose Herrera Ordering physician: Tammy Keating Impressions: Normal study after pharmacologic stress. Summary: 1. Myocardial perfusion imaging: No myocardial perfusion defects noted. 2. The calculated left ventricular ejection fraction after stress: 65%. LV global systolic function is normal. No left ventricular regional motion abnormality. Indication: R07.9. History: REASON FOR TESTING: PATIENT PRESENTED TO THE ER 12/23/18 WITH MIDSTERNAL CHEST PAIN (5/10) WITH RADIATION TO BILATERAL UPPER EXTREMITIES AND NECK, NAUSEA, AND DYSPNEA. PAIN RELIEVED WITH SUBLINGUAL NITROGLYCERINE IN THE ER. PATIENT WAS ADMITTED TO THE HOSPITAL. HER TROPONIN LEVELS WERE 0.05 TIMES FOUR. PATIENT REPORTS HAVING CHEST PRESSURE (5/10) WITH ASSOCIATED SYMPTOMS DESCRIBED ABOVE FOR THE PAST TWO WEEKS. SHE ALSO REPORTS HAVING BEEN TO THE ER 1 WEEK PRIOR TO THIS ADMISSION FOR THE SAME SYMPTOMS. PATIENT DENIES CHEST PAIN UPON ARRIVAL TO TESTING TODAY. SIGNIFICANT PAST MEDICAL HISTORY: GERD, ATRIAL FIBRILLATION, ANXIETY. SMOKING STATUS: QUIT 50 YEARS AGO. SHE SMOKED FOR APPROXIMATELY 20 YEARS--1 PACK PER WEEK. EXERCISE ROUTINE: SEDENTARY LIFESTYLE. Risk factors: Family history of coronary artery disease. Hypertension. Dyslipidemia. ALLERGIES: CAFFEINE. MEDICATIONS: APIXABAN 5 MG BID, SLOW RELEASE IRON 250 MG BID, SERTRALINE 25 MG DAILY, PANTOPRAZOLE 40 MG DAILY, METOPROLOL SUCCINATE 25 MG DAILY, VITAMIN B 12 IM INJECTION MONTHLY. Imaging Technique: Protocol: Rob protocol. Acquisition: Gated SPECT; 1 day - rest/stress. The patient was imaged in the supine position. Attenuation correction used. Isotope administration: - Rest. Tc[99m]-sestamibi. Dose: 10mCi. Injection time: 08:25 AM. Injection to stress time: 00:45. - Stress. Tc[99m]-sestamibi. Dose: 31.5mCi. Injection time: 10:25 AM. 1-2 min before end of exercise Baseline ECG: ATRIAL FIBRILLATION. HR 76 BPM. Stress protocol: +--------+---+ + + !Stage !HR !BP (mmHg) !Comments ! +--------+---+ + + !Baseline!76 !134/90 (105)! ! +--------+---+ + + !1 min !91 !152/90 (111)!Inject Regadenoson.! +--------+---+ + + !3 min !112!134/82 (99) ! ! +--------+---+ + + !5 min !103!128/82 (97) ! ! +--------+---+ + + !6 min !95 !126/78 (94) ! ! +--------+---+ + + * Stress results: LEXISCAN STRESS TEST ENDED IN 6 MINUTES 56 SECONDS. NORMAL HEART RATE AND BLOOD PRESSURE RESPONSE TO LEXISCAN INJECTION. NO ECTOPY. NO ANGINA. NO SIGNIFICANT ST SEGMENT CHANGES. The rate-pressure product for the peak heart rate and blood pressure was 22136mk Hg/min. Myocardial perfusion: Imaging information: gated. Left ventricular size is normal. No myocardial perfusion defects noted. Ventricular Function (Wall Motion): The calculated left ventricular ejection fraction after stress: 65%. LV global systolic function is normal. No left ventricular regional motion abnormality. Study data: Sidney Murphy MD supervised and was readily available during the procedure. This study was interpreted by [facility]. Study status: Routine. Consent: The risks, benefits, and alternatives to the procedure were explained to the patient and informed consent was obtained. Procedure: Initial setup. A baseline ECG was recorded. Surface ECG leads and manual cuff blood pressure measurements were monitored. Heart sounds: Normal. Lung sounds: Normal. Treadmill exercise testing was performed using the Rob protocol. Study completion: All catheters inserted during the procedure were removed. The patient tolerated the procedure well and was discharged from the lab. Discharge: The patient left the laboratory in stable condition. Birthdate: Patient birthdate: 1935. Sex: Gender: female. Study date: Study date: 12/25/2018. Study time: 00:01 AM. Signature Documentation: - The imaging portion of this study was interpreted by Nuclear Systems Planner Sidney Murphy MD. - The imaging portion of this study was interpreted by Nuclear Radiologist Olegario Rivera MD. - The Stress ECG portion of this study was interpreted by Sidney Murphy MD. Electronically signed by Sidney Murphy 12/25/2018 14:49 Ordering provider: Tammy Keating NP CC: MARIE AMOS,PhD,[facility] Dictated by: Olegario Rivera M.D.12/25/18 1500 <Electronically signed by Olegario Rivera M.D.>12/30/18 1313 Disclaimer: The [facility] radiologist is signing only the Nuclear Medicine MPI Imaging exam portion of the report. Transcribed by: Yohana Lynn12/25/18 6179 Echocardiogram Summary: Patient Name: KAILA THOMAS #: [id number]: MS Ordering Provider: Iker Wood M.D. : ADM RADHA Primary Care Provider: Renee Andrade NPDate of Exam: 12/24/18Sex: Jennifer : 8Age: 82 Exam(s) a US:US echocardiogram *[facility]* *[facility]* [address] [place] [address] Date of study: 12/24/2018 Transthoracic Echocardiography M-mode, complete 2D, complete spectral Doppler, and color Doppler *STUDY CONCLUSIONS* Impressions: The patient was in atrial fibrillation throughout study. This rhythm can interfere with accurate global and segmental wall motion analysis. Summary: 1. Left ventricle: The cavity size was normal. Wall thickness was normal. Systolic function was normal. The estimated ejection fraction was 55-60%. Wall motion was normal; there were no regional wall motion abnormalities. 2. Left atrium: The atrium was severely dilated. 3. Right ventricle: The cavity size was normal. Wall thickness was normal. Systolic function was normal. 4. Right atrium: The atrium was moderately dilated. 5. Pulmonary arteries: Pulmonary systolic pressure was within the normal range, in the range of 40mm Hg to 45mm Hg. 6. Inferior vena cava: The vessel was patent and normal in size. The respirophasic diameter changes were in the normal range (greater than or equal to 50%). *PATIENT PRESENTATION* Height: 170.2cm (67in ) S/D Pressure: 125 / 74 Weight: 99.8kg (219.5lb ) BSA: 2.21m^2 Test start time: 09:00 AM. Test stop time: 09:45 AM. PERFORMING Unknown CONSULTING Iker Wood ORDERING Iker Wood REFERRING Iker Wood PERFORMING [facility] PAPER CORE MACHINE OPERATOR RT Melton (R)(REAGAN) [facility] *PROCEDURE DATA* Procedure information: The patient was identified by two identifiers. This study was interpreted by [facility]. Pertinent images and digital data are archived for permanent storage and are available for subsequent review. Comparison was made to the study of 07/26/2017. Study status: Routine. Transthoracic echocardiography. M-mode, complete 2D, complete spectral Doppler, and color Doppler. A Transthoracic Echocardiogram was performed. Scanning was performed from the parasternal, apical, subcostal, and suprasternal notch acoustic windows. Images were obtained using an [id number] cardiac ultrasound machine. Image quality was adequate. Study completion: The patient tolerated the procedure well. History: PMH: Chest pain. *CARDIAC ANATOMY* Left ventricle: The cavity size was normal. Wall thickness was normal. Systolic function was normal. The estimated ejection fraction was 55-60%. Wall motion was normal; there were no regional wall motion abnormalities. The study was not technically sufficient to allow evaluation of LV diastolic dysfunction due to atrial fibrillation. Aortic valve: Trileaflet; mildly thickened, mildly calcified leaflets. Mobility was not restricted. Doppler: Transvalvular velocity was within the normal range. There was no stenosis. There was no significant regurgitation. VTI ratio of LVOT to aortic valve: 0.68. Indexed valve area (VTI): 1cm^2/m^2. Peak velocity ratio of LVOT to aortic valve: 0.6. Valve area (Vmax): 1.9cm^2. Indexed valve area (Vmax): 0.9cm^2/m^2. Mean velocity ratio of LVOT to aortic valve: 0.65. Valve area (Vmean): 2cm^2. Indexed valve area (Vmean): 0.9cm^2/m^2. Mean gradient (S): 5.6mm Hg. Peak gradient (S): 9.6mm Hg. Aorta: Aortic root: The aortic root was normal in size. Ascending aorta: The ascending aorta was normal in size. Mitral valve: Structurally normal valve. Mobility was not restricted. Doppler: Transvalvular velocity was within the normal range. There was no evidence for stenosis. There was trivial regurgitation. Peak gradient (D): 4.1mm Hg. Left atrium: The atrium was severely dilated. Right ventricle: The cavity size was normal. Wall thickness was normal. Systolic function was normal. Pulmonic valve: Doppler: Transvalvular velocity was within the normal range. There was no evidence for stenosis. There was no significant regurgitation. Tricuspid valve: Structurally normal valve. Doppler: Transvalvular velocity was within the normal range. There was no evidence for stenosis. There was mild regurgitation. Pulmonary artery: Pulmonary systolic pressure was within the normal range, in the range of 40mm Hg to 45mm Hg. Right atrium: The atrium was moderately dilated. Pericardium: There was no pericardial effusion. Systemic veins: Inferior vena cava: Well visualized. The vessel was patent and normal in size. The respirophasic diameter changes were in the normal range (greater than or equal to 50%). Baseline ECG: Atrial fibrillation. Measurements Left ventricle Value 07/26/2017 Reference LV ID, ED, PLAX 4.1 cm 4.9 3.5 - 6.0 LV ID, ES, PLAX 2.9 cm 3.5 2.1 - 4.0 LV PW thickness, ED, PLAX 1.1 cm 1.2 LV end-diastolic volume, 65 ml 66 1-p A2C LV ejection fraction, 1-p 60 % 67 A2C LV end-diastolic volume, 52 ml 79 1-p A4C LV ejection fraction, 1-p 59 % 59 A4C LV e', lateral 0.103 m/sec 0.104 LV E/e', lateral 10 12 LV e', medial 0.092 m/sec 0.088 LV E/e', medial 11 14 LV e', average 0.098 m/sec 0.096 LV E/e', average 10 13 Ventricular septum Value 07/26/2017 Reference IVS thickness, ED, PLAX 1.0 cm 1.2 LVOT Value 07/26/2017 Reference LVOT ID, A-P 2.0 cm 2.0 LVOT area 3.2 cm^2 3 LVOT peak velocity, S 0.94 m/sec 1 LVOT mean velocity, S 0.72 m/sec 0.73 LVOT VTI, S 19.6 cm 22.7 LVOT peak gradient, S 3.5 mm Hg 4 LVOT mean gradient, S 2.3 mm Hg 2.4 Stroke volume (SV), LVOT 62 ml 69 DP Stroke index (SV/bsa), 28 ml/m^2 30 LVOT DP Aortic valve Value 07/26/2017 Reference Aortic valve peak 1.6 m/sec 1.7 velocity, S Aortic valve mean 1.1 m/sec 1.2 velocity, S Aortic valve VTI, S 29.0 cm 37.2 Aortic mean gradient, S 5.6 mm Hg 6.7 Aortic peak gradient, S 9.6 mm Hg 11.3 VTI ratio, LVOT/AV 0.68 0.61 Velocity ratio, peak, 0.6 0.59 LVOT/AV Aortic valve area, peak 1.9 cm^2 1.8 velocity Velocity ratio, mean, 0.65 0.59 LVOT/AV Aortic valve area, mean 2 cm^2 1.8 velocity Aortic valve area/bsa, 0.9 cm^2/m^2 0.8 mean velocity Aorta Anesthesia Assessment and Plan Anesthesia History Personal History: No History of Anesthesia Complications Family History: No Family History of Anesthesia Complications Exercise Tolerance Exercise Tolerance: Metabolic Equivalents>4 Pertinent Negatives Pertinent Negatives: No Symptoms of GERD and No Major Pulmonary Symptoms or Complaints Cardiac & Pulmonary Exam Cardiac Exam: Normal S1/S2 Heart Sounds Pulmonary Exam: Clear Bilateral Breath Sounds Implantable Cardiac Device Does patient have a Pacemaker or an ICD?: No Airway Exam Known Difficult Airway: No Mallampati Class: 2 Mouth Opening: Normal (> 3cm) Thyromental Distance: Greater than 3 cm Neck Range of Motion: Full ROM Neck Circumference: Normal Teeth Condition: Removable Dentures/Plates Upper and Removable Dentures/Plates Lower ASA Classification ASA Score: ASA 3 Emergency Case?: Yes NPO Status NPO Status: Full Stomach Anesthesia Plan Resuscitation Status: Full Code Anesthesia Technique: General Anesthesia Airway Planned: Endotracheal Tube Monitors Used: Standard Monitors Preoperative Comments:: Last Eliquis dose: Tonight
[2022-11-18] MEDS: Lactated Ringers 1,000 ML 30 ML IV ×2 (00:22→22:28)
[2022-11-18 00:33] LABS: ALT 15 U/L (14-59); AST 16 U/L (15-37); Albumin 2.3 g/dL (3.4-5.0); Alkaline Phosphatase 76 U/L (46-116); Anion Gap 7.2 mmol/L (3-11); BUN 25 mg/dL (7-18); Bilirubin, Total 0.6 mg/dL (0.2-1.0); CO2 25.8 mmol/L (21.0-32.0); CREATININE 0.8 mg/dL (0.55-1.02); Calcium 8.4 mg/dL (8.5-10.1); Chloride 101 mmol/L (98-107); Estimated GFR 72.61 (mL/min/1.73m2); Glucose 114 mg/dL (74-106); Potassium 3.4 mmol/L (3.5-5.1); Sodium 134 mmol/L (136-145); Total Protein 5.9 g/dL (6.4-8.2)
[2022-11-18] MEDS: Bupivacaine 0.25% Pres-Free 30 ML VIAL (01:59)
--- NOTE | 2022-11-18 03:00 | ROE_ITS ---
Date of service: 11/18/22 Time of Service: 03:00 Operative Note Operative Note DATE OF PROCEDURE: 11/15/22 PRE-OP DIAGNOSIS: colostomy malfunction POST-OP DIAGNOSIS: same (and ileus) PROCEDURE: Exploratory Laparotomy and loop colostomy revision SURGEON: Teresa Garcia WATERPROOFING MACHINE OPERATOR: Angely Rucker ANESTHESIA TYPE: Local By Surgeon and General LMA/ETT Refer to Anesthesia Record ESTIMATED BLOOD LOSS: 100 PATHOLOGY: none sent COMPLICATIONS: None Patient was transported to: ICU Patient's condition: stable Indications: Ms. 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 Patient was doing well up until the night of the procedure when she started to develop nausea and vomiting. Her ostomy was sinking down into the subcutaneous tissue. I tried to place a Blaise catheter under the loop colostomy to bring it back up but was unable to. I was worried about enteric contents leaking down into the patient's abdomen and therefore I recommended going back to the OR to try to bring the loop colostomy up a little bit higher without going into the abdomen. I did tell Ms. shabazz that if I was not able to do it I would have to go back into her abdomen to revise her colostomy. Risks, benefits and complications were reviewed with her and she wished to proceed. No guarantees were given or implied. Findings: The descending colon loop was almost below the fascial defect at the colostomy site. The sigmoid loop had a necrotic area which had perforated. Procedure Description: After informed consent was obtained the patient was taken to the operating room and placed in a supine position. Monitors were applied and a timeout was done. The patient's name date of procedure site and type, allergies to medications, antibiotic given were reviewed. Fire risk was assessed. The patient was then placed under general anesthesia and intubated without difficulty. NG tube was placed. SCDs were applied to the patient's lower extremities. A Baugh catheter was placed in a standard fashion. The colostomy bag was then removed and her entire abdomen was prepped and draped with iodine and a sterile flexion. Ioban was placed over the abdomen. Using scissors the Ioban was cut over the colostomy site. The old sutures were removed from the ostomy site and I attempted to gently pull up the loop col ostomy a little bit farther up to rehab suture it. I noticed that the edges of the colostomy loops were dusky and I was unable to see a small enterotomy in the side of the sigmoid loop which was dusky. At that point the midline incision tisha were removed and the midline incision was reopened. The subcutaneous sutures were removed and the fascia was easily opened. The Prolene sutures were removed from the fascia as well. Once the abdomen was entered the omentum was gently moved away from the fascia. The small intestine was noted to be quite dilated. The loop colostomy was then delivered down into the abdominal cavity. The sigmoid loop was palpated all the way down into the pelvic floor. I was able to gently break some adhesions bluntly to give me a little bit more length to that loop. I did feel the strictured area down low in the pelvis. I thought about potentially just removing that area and therefore being able to give the patient just an end colostomy. The narrowing was way too low in the pelvis for me to safely be able to resect therefore the loop was left intact. Next I went along the white line of Toldt and mobilized the splenic flexure and descending colon again to try to give me a little bit more length for creation of the new colostomy. Once this was done I trimmed both loops of intestine to get new fridge edges and also to remove the area where the necrotic enterotomy was. I was then able to pass the 2 loops back through the fascial defect up to the skin. I had more length than before which would help with colostomy creation. I then gently milked the small bowel content into the stomach. I was able to palpate the NG tube within the stomach and over 3 L was removed in this fashion. I then followed the small intestine from the ligament of Treitz down to the ileocecal valve. 1 small serosal tear was identified and this was reapproximated with silk interrupted sutures. No other serosal tears or enterotomies were noted. The omentum was then placed over the small intestine and the abdomen was irrigated with 1 L of normal saline. At the end the fluid was clear. No bleeding was identified anywhere. Interceed was then placed over the omentum and the fascia was reclosed using a running 2-0 Prolene suture. Once the fascia was closed local anesthetic was injected along the fascia on both sides. Subcutaneous tissue was irrigated. The subcutaneous tissue was reapproximated with 3-0 Vicryl and the skin was closed with tisha. At this point attention was given to the creation of the loop colostomy. The loops were brought up and a loop colostomy was created in a standard fashion using 2-0 silk sutures to attach it to this skin. Once the colostomy was created the skin was cleaned and dried. A Mepilex border dressing was applied through the midline incision and an ostomy bag was placed over the loop colostomy. Lap, instrument needle counts were correct at the end of the case. Patient was woken up extubated and taken back upstairs to ICU in stable condition.
--- NOTE | 2022-11-18 03:17 | W.ANESPOSTOP ---
Postoperative Evaluation Date, Time and Location Date Performed: 11/18/22 Time Performed: 03:17 Patient Location: Day Surgery Unit Vital Signs Most Recent Imported Vital Signs: Most Recent Vital Signs Temp Pulse Resp BP Pulse Ox 37.3 C 103 H 24 119/78 94 11/17/22 23:16 11/17/22 23:16 11/17/22 23:16 11/17/22 23:16 11/17/22 23:16 Most Recent Vital Signs Temp Pulse Resp BP Pulse Ox 36.4 C L 101 H 24 143/69 H 98 11/15/22 18:00 11/15/22 18:00 11/15/22 18:00 11/15/22 18:00 11/15/22 18:00 Most Recent Manually Entered Vital Signs: Adult Blood Pressure: 111/54 Heart Rate: 96 Respirations: 21 Oxygen Saturation (%): 93 Temperature (C): 36.5 C Pain Score (0-10 Scale): 0 Pain Score Most Recent Pain Score: Most Recent Pain Score Pain Level [Mid Abdomen] 0 11/16/22 00:00 Pain Level 4 11/17/22 23:16 Assessment Mental Status: Awake (Alert & Oriented to Patient Baseline) Airway and Respiratory Function: Patent airway with normal (patient baseline) respiratory exam Cardiovascular Function: Hemodynamically Unstable (See Explanation) (Remains on neosynephrine to be titrated by ICU) and Receiving care as an inpatient Hydration Status: Adequately Hydrated Nausea & Vomiting: No Nausea or Vomiting Pain: Pt. Denies Any Pain Peripheral Nerve Block: Patient did not receive a nerve block
[2022-11-18] MEDS: ACETAMINOPHEN 1,000 MG/100 ML BTL 400 MG IVPB ×3 (05:04→21:23)
[2022-11-18] MEDS: Enoxaparin 100 MG/ML SYR SC ×2 (05:05→21:20)
[2022-11-18] MEDS: Lactated Ringers 1,000 ML 125 ML IV (05:05)
[2022-11-18] MEDS: PIPERACILLIN/TAZO 3.375 GM in Normal Saline 50 ML IVPB ×3 (06:09→18:35)
[2022-11-18] MEDS: MORPHine 2 MG/ML SYR IVP (06:09)
[2022-11-18] MEDS: Normal Saline Flush 10 ML SYR IVP ×2 (06:11→09:08)
[2022-11-18 06:31] LABS: Abs Immature Grans 0.15 10^3/uL (0.0-0.06); Absolute Basophil Count 0.11 10^3/uL (0.0-0.2); Absolute Eosinophil Count 0.03 10^3/uL (0.0-0.7); Basophils % 0.8; Eosinophils % 0.2; HCT 32.3 % (36.0-46.0); HGB 10.6 g/dL (11.2-15.7); Immature Grans % 1.1; Lymphocytes % 2.5; MCH 30.7 pg (27.0-33.0); MCHC 32.8 % (32.0-36.0); MCV 94 fL (80-95); MPV 10.8 fL (8.0-11.0); Monocytes % 6.9; Neutrophils % 88.5; Platelet Count 341 10^3/uL (130-400); RBC 3.45 10^6/uL (3.93-5.22); RDW 14.6 % (11.7-14.6); RDW-SD 50.2 fL; WBC 13.85 10^3/uL (4.4-10.8)
[2022-11-18 06:33] LABS: Absolute Lymphocyte Count 0.35 10^3/uL (1.2-3.4); Absolute Monocyte Count 0.96 10^3/uL (0.1-0.8); Absolute Neutrophil Count 12.26 10^3/uL (1.2-6.7)
[2022-11-18 07:06] LABS: Anion Gap 8.9 mmol/L (3-11); BUN 26 mg/dL (7-18); CO2 25.1 mmol/L (21.0-32.0); CREATININE 0.9 mg/dL (0.55-1.02); Calcium 8.4 mg/dL (8.5-10.1); Chloride 99 mmol/L (98-107); Estimated GFR 63.04 (mL/min/1.73m2); Glucose 118 mg/dL (74-106); Magnesium 1.9 mg/dL (1.8-2.4); Potassium 3.6 mmol/L (3.5-5.1); Sodium 133 mmol/L (136-145)
--- NOTE | 2022-11-18 09:04 | PT.INNT ---
PT Notes Visit Reasons: Bowel Obstruction Status change with pt. New order will have to be made for PT when pt is appropriate.
[2022-11-18] MEDS: Normal Saline Flush 10 ML SYR ×2 (09:06→21:23)
[2022-11-18] MEDS: Metoprolol 5 MG/5 ML VIAL IVP ×2 (09:09→14:15)
[2022-11-18] MEDS: Pantoprazole 40 MG VIAL IVP (09:09)
--- NOTE | 2022-11-18 12:01 | PGE_ITS ---
Date of Service Date of service: 11/18/22 Time of Service: 12:01 Assessment and Plan Assessment and plan (1) Colostomy malfunction: Status: Acute Assessment and plan: POD#3/0- s/p ex-lap with loop colostomy creation/ Ex-lap with colostomy revision Plan: 1. Nutrition: Continue NPO except for ice chips and sips of Ngozi Vidya. Will get PICC line placed for TPN (no reall po intake for 1 week) 2. DVT prophilaxis: Lovenox weight based. 3. GI prophilaxis: Protonix IV 4. Activity- up with PT and nursing 5. UOP- decreased- will give 1 L bolus of NS 6. Other- continue to watch in ICU overnight due to low BP's Continue supportive care (2) Nausea and vomiting: Status: Acute Subjective Subjective Interval history since last seen: Kaila is doing well this morning. She has been up walking. She is currently in the chair visiting with 2 daughters. She doesn't complain of pain She was able to get weaned off the ayana last night. BP's in the low 100's. Labs show a slight increase in her WbC count which I expected. No fevers over night Exam Const General: cooperative, comfortable and no acute distress Nutritional Appearance: overweight Orientation: alert and oriented x3 HENMT Head: normocephalic and atraumatic Chest Other: mamary folds- with some bruising vs candidiasis. Resp Effort & Inspection: normal respiratory effort Auscultation: clear to auscultation bilaterally Cardio Rate: regular rate and tachycardic Rhythm: abnormal rhythm Heart Sounds: no gallops, no murmurs and no rubs GI Inspection: incision (Mepilex dressing intact) Palpation: soft, no hepatosplenomegaly, nontender and other (Ostomy is congest ed, no output) Auscultation: hypoactive bowel sounds Objective Last Vital Signs Temp 98.4 F 11/18/22 08:54 Pulse 120 H 11/18/22 09:09 Resp 19 11/18/22 09:04 BP 106/50 L 11/18/22 09:09 Pulse Ox 93 11/18/22 09:04 Laboratory Results - last 24 hr 11/17/22 11/18/22 11/18/22 23:58 00:05 05:45 WBC 13.85 H RBC 3.45 L Hgb 10.6 L Hct 32.3 L MCV 94 MCH 30.7 MCHC 32.8 RDW 14.6 Plt Count 341 MPV 10.8 Immature Gran % 1.1 Neutrophils % 88.5 Lymphocytes % 2.5 Monocytes % 6.9 Eosinophils % 0.2 Basophils % 0.8 Nucleated RBC % 0.0 Absolute Neutrophils 12.26 H Absolute Lymphocytes 0.35 L Absolute Monocytes 0.96 H Absolute Eosinophils 0.03 Absolute Basophils 0.11 Sodium 134 L Potassium 3.4 L Chloride 101 Carbon Dioxide 25.8 Anion Gap 7.2 BUN 25 H Creatinine 0.8 Est GFR (CKD-EPI 2020) 72.61 Glucose 114 H Calcium 8.4 L Magnesium Total Bilirubin 0.6 AST 16 ALT 15 Alkaline Phosphatase 76 Total Protein 5.9 L Albumin 2.3 L Patient ABO/Rh O Negative Antibody Screen NEGATIVE 11/18/22 06:46 WBC RBC Hgb Hct MCV MCH MCHC RDW Plt Count MPV Immature Gran % Neutrophils % Lymphocytes % Monocytes % Eosinophils % Basophils % Nucleated RBC % Absolute Neutrophils Absolute Lymphocytes Absolute Monocytes Absolute Eosinophils Absolute Basophils Sodium 133 L Potassium 3.6 Chloride 99 Carbon Dioxide 25.1 Anion Gap 8.9 BUN 26 H Creatinine 0.9 Est GFR (CKD-EPI 2020) 63.04 Glucose 118 H Calcium 8.4 L Magnesium 1.9 Total Bilirubin AST ALT Alkaline Phosphatase Total Protein Albumin Patient ABO/Rh Antibody Screen Time Spent with Patient Time Spent with Patient: 25-34 minutes Time was spent: preparing to see the patient(eg.review tests), obtaining and/or reviewing separately otained hiistory, ordering medications,tests, procedures, indepentently interpreting results, counseling the patient and care coordination
[2022-11-18] MEDS: Normal Saline 500 ML 1000 ML IV (14:04)
--- NOTE | 2022-11-18 15:15 | DI.RAD_ITS ---
Exam(s) XR PORTABLE CHEST AP POST LINE EXAM: XR PORTABLE CHEST AP POST LINE CLINICAL HISTORY: S/P RUE PICC line placement. TECHNIQUE: 2D digital imaging was performed. COMPARISON: CR XR CHEST 2V PA LATERAL from 12/23/2018 CR,XR XR ABDOMEN FLAT PLATE from 11/14/2022 FINDINGS: The exam is limited by multiple overlying leads. Lungs are suboptimally inflated. A nasogastric tube has been placed which projects in the stomach. A PICC line is been inserted which projects in the upper right atrium. LUNGS: Increased density at medial left lung base could represent large hiatal hernia. No pleural ab normality seen. HEART: Normal size. AORTA: Normal diameter. BONES: Unremarkable for age. Soft tissues: Unremarkable. IMPRESSION: Tip of PICC line projects in upper right atrium. DATA REPOSITORY: RADIATION DOSE DELIVERED:
--- NOTE | 2022-11-18 15:30 | DI.RAD_ITS ---
Exam(s) XR PORTABLE CHEST AP POST LINE EXAM: XR PORTABLE CHEST AP POST LINE CLINICAL HISTORY: picc line placement TECHNIQUE: 2D digital imaging was performed. COMPARISON: CT CT ABDOMEN PELVIS WO from 11/14/2022 CR,XR XR ABDOMEN FLAT PLATE from 11/14/2022 CR,XR XR PORTABLE CHEST AP POST LINE from 11/18/2022 FINDINGS: Exam limited by multiple leads overlying the chest. PICC line has been pulled out with the tip now lying in the distal SVC. In G-tube again projects in stomach. LUNGS: Area of increased density again noted in the medial left lung base. The this density could in part be secondary to the large hiatal hernia seen on prior CT. HEART: Normal size. AORTA: Normal diameter. BONES: Unremarkable for age. Soft tissues: Unremarkable. IMPRESSION: Satisfactory placement of PICC line. DATA REPOSITORY: RADIATION DOSE DELIVERED:
--- NOTE | 2022-11-18 16:03 | DI.VRAD_ITS ---
PROCEDURE INFORMATION: Exam: XR Chest Exam date and time: 11/18/2022 3:32 PM Age: 86 years old Clinical indication: Other: Picc line placement TECHNIQUE: Imaging protocol: Radiologic exam of the chest. Views: 1 view. COMPARISON: CR XR CHEST 2V PA LATERAL 12/23/2018 12:31 PM FINDINGS: Tubes, catheters and devices: Right-sided PICC in place. The tip is seen at the distal SVC sinoatrial junction. Lungs: Mild left lower lobe atelectasis. Pleural spaces: Unremarkable. No pleural effusion. No pneumothorax. Heart/Mediastinum: Mild cardiomegaly. Bones/joints: Unremarkable. Other findings: The patient is slightly rotated to the right. IMPRESSION: No pneumothorax after line placement. Line tip at the distal SVC sinoatrial junction. Dictated and Authenticated by: Edel Fu MD. Ordering:TANYA Moore MD
--- NOTE | 2022-11-18 16:09 | DI.VRAD_ITS ---
PROCEDURE INFORMATION: Exam: XR Chest Exam date and time: 11/18/2022 3:39 PM Age: 86 years old Clinical indication: Other: Backed out 3 cm from first image TECHNIQUE: Imaging protocol: Radiologic exam of the chest. Views: 1 view. COMPARISON: CR XR PORTABLE CHEST AP POST LINE 11/18/2022 3:32 PM FINDINGS: Tubes, catheters and devices: A right PICC is in place. The tip is currently at the distal SVC level. Lungs: Left lower lobe opacity, atelectasis versus early consolidation. Pleural spaces: Unremarkable. No pleural effusion. No pneumothorax. Heart/Mediastinum: Mild cardiomegaly. Bones/joints: Unremarkable. Other findings: Patient is slightly rotated to the right. IMPRESSION: Right PICC tip at the distal SVC. Dictated and Authenticated by: Edel Fu MD. Ordering:TANYA Moore MD
[2022-11-18] MEDS: Lactated Ringers 1,000 ML 1000 ML IV (18:15)
--- NOTE | 2022-11-18 20:01 | W.PM.PROGNOT ---
Date of Service Date of service: 11/18/22 Time of Service: 20:01 Assessment and Plan Assessment and plan (1) Hypotension: Status: Acute Assessment and plan: Hypotension and UOP has responded to fluid bolus. Will continue to watch overnight. Continue supportive Care Subjective Subjective Interval history since last seen: Received call from [facility] that patients UOP was still down and her blood pressure was in the low 90's. Patient was asymptomatic. Urine was clear. I came in to see the patient. She looks well. She has no pain. NG tube is in good position with bilious output. I did order 1 L NS bolus. BP has come up with that. Has had another 75 cc of urine in last 2 hours which is adequate Exam Resp Auscultation: clear to auscultation bilaterally and diminished lung sounds bilaterally in the lower lung [place] Objective Last Vital Signs Temp 98.1 F 11/18/22 17:06 Pulse 101 H 11/18/22 17:06 Resp 18 11/18/22 17:06 BP 93/52 L 11/18/22 17:06 Pulse Ox 95 11/18/22 17:40 Laboratory Results - last 24 hr 11/17/22 11/18/22 11/18/22 23:58 00:05 05:45 WBC 13.85 H RBC 3.45 L Hgb 10.6 L Hct 32.3 L MCV 94 MCH 30.7 MCHC 32.8 RDW 14.6 Plt Count 341 MPV 10.8 Immature Gran % 1.1 Neutrophils % 88.5 Lymphocytes % 2.5 Monocytes % 6.9 Eosinophils % 0.2 Basophils % 0.8 Nucleated RBC % 0.0 Absolute Neutrophils 12.26 H Absolute Lymphocytes 0.35 L Absolute Monocytes 0.96 H Absolute Eosinophils 0.03 Absolute Basophils 0.11 Sodium 134 L Potassium 3.4 L Chloride 101 Carbon Dioxide 25.8 Anion Gap 7.2 BUN 25 H Creatinine 0.8 Est GFR (CKD-EPI 2020) 72.61 Glucose 114 H Calcium 8.4 L Magnesium Total Bilirubin 0.6 AST 16 ALT 15 Alkaline Phosphatase 76 Total Protein 5.9 L Albumin 2.3 L Patient ABO/Rh O Negative Antibody Screen NEGATIVE 11/18/22 06:46 WBC RBC Hgb Hct MCV MCH MCHC RDW Plt Count MPV Immature Gran % Neutrophils % Lymphocytes % Monocytes % Eosinophils % Basophils % Nucleated RBC % Absolute Neutrophils Absolute Lymphocytes Absolute Monocytes Absolute Eosinophils Absolute Basophils Sodium 133 L Potassium 3.6 Chloride 99 Carbon Dioxide 25.1 Anion Gap 8.9 BUN 26 H Creatinine 0.9 Est GFR (CKD-EPI 2020) 63.04 Glucose 118 H Calcium 8.4 L Magnesium 1.9 Total Bilirubin AST ALT Alkaline Phosphatase Total Protein Albumin Patient ABO/Rh Antibody Screen Time Spent with Patient Time Spent with Patient: 25-34 minutes Time was spent: ordering medications,tests, procedures, indepentently interpreting results and counseling the patient
[2022-11-18] MEDS: Miconazole 2% Topical Powder 85 GM BTL TP (21:23)
[2022-11-18] MEDS: Insulin Aspart 300 UNITS/3 ML PEN SC (21:27)
[2022-11-19] VITALS (56 sets, daily range): BP systolic 96–131; BP diastolic 45–103; PULSE 66–138; RESP 12–26; TEMP 36.1–36.8; O2SAT 82–97
[2022-11-19] MEDS: Normal Saline 500 ML 30 ML IV (00:01)
[2022-11-19] MEDS: PIPERACILLIN/TAZO 3.375 GM in Normal Saline 50 ML IVPB ×5 (00:02→23:24)
[2022-11-19] MEDS: Insulin Aspart 300 UNITS/3 ML PEN SC (00:09)
--- NOTE | 2022-11-19 03:18 | NUR.NOTE ---
Nursing Note: Time spent with patient from 29 to 229 cleaning and redressing abdominal midline incision. Page surgeon production assembler initially @ 0030 through hospital tank farm operator. Jones back from Dr Garcia @ 0225. Informed her that patients ostomy had leaked stool from around the ostomy and into the abdominal wound. Both dressings were completely changed, patient skin is excoriated beneath the ostomy site. Duoderm wafer was placed under ostomy device to protect excoriated skin, then ostomy was attached. Midline abdominal incision was dressed with Silver Mepiplex with border.
[2022-11-19] MEDS: ACETAMINOPHEN 1,000 MG/100 ML BTL 400 MG IVPB ×3 (05:45→22:10)
[2022-11-19] MEDS: Normal Saline Flush 10 ML SYR (06:18)
[2022-11-19 06:35] LABS: Abs Immature Grans 0.12 10^3/uL (0.0-0.06); Absolute Basophil Count 0.07 10^3/uL (0.0-0.2); Absolute Eosinophil Count 0.01 10^3/uL (0.0-0.7); Absolute Monocyte Count 0.91 10^3/uL (0.1-0.8); Basophils % 0.5; Eosinophils % 0.1; HGB 9.8 g/dL (11.2-15.7); Immature Grans % 0.9; Lymphocytes % 5.6; MCH 30.7 pg (27.0-33.0); MCHC 32.7 % (32.0-36.0); MCV 94 fL (80-95); MPV 10.5 fL (8.0-11.0); Monocytes % 6.6; Neutrophils % 86.3; Platelet Count 318 10^3/uL (130-400); RBC 3.19 10^6/uL (3.93-5.22); RDW 14.6 % (11.7-14.6); RDW-SD 50.4 fL; WBC 13.85 10^3/uL (4.4-10.8)
[2022-11-19 06:39] LABS: Absolute Lymphocyte Count 0.78 10^3/uL (1.2-3.4); Absolute Neutrophil Count 11.95 10^3/uL (1.2-6.7)
[2022-11-19 06:42] LABS: INR 1.1 (0.9-1.1); Prothrombin Time 11.5 sec (9.3-11.0)
[2022-11-19 06:50] LABS: ALT 10 U/L (14-59); AST 13 U/L (15-37); Albumin 1.7 g/dL (3.4-5.0); Alkaline Phosphatase 60 U/L (46-116); BUN 23 mg/dL (7-18); Bilirubin, Total 0.4 mg/dL (0.2-1.0); CREATININE 0.8 mg/dL (0.55-1.02); Calcium 8.6 mg/dL (8.5-10.1); Chloride 104 mmol/L (98-107); Estimated GFR 72.61 (mL/min/1.73m2); Glucose 122 mg/dL (74-106); PHOSPHORUS 2.7 mg/dL (2.6-4.7); Sodium 137 mmol/L (136-145); Total Protein 4.9 g/dL (6.4-8.2)
--- NOTE | 2022-11-19 07:35 | W.PM.PROGNOT ---
Date of Service Date of service: 11/19/22 Time of Service: 06:50 Assessment and Plan Assessment and plan (1) Colostomy malfunction: Status: Acute Assessment and plan: POD#4/1- s/p ex-lap with loop colostomy creation/ Ex-lap with colostomy revision Plan: 1. Nutrition: Continue NPO except for ice chips and sips of Ngozi Vidya. Will clamp NG tube. If residuals in 1 hour are <100 will d/c NG tube. PICC line placed for TPN. TPN started last night 2. DVT prophilaxis: Lovenox weight based. 3. GI prophilaxis: Protonix IV 4. Activity- up with PT and nursing 5. UOP- marginal- will give 500 cc bolus of LR 6. Other- continue to watch in ICU due to low BP's Continue supportive care (2) Hypotension: Status: Acute Assessment and plan: Has been responsive to fluid boluses. With the high ostomy output she is getting dehydrated (3) Hypokalemia: Status: Acute Assessment and plan: Will replace today (4) Nausea and vomiting: Status: Acute Assessment and plan: resolved with NG decompression Subjective Subjective Interval history since last seen: Kaila is doing well except for the fact that her ostomy leaked again overnight. She is putting out 150 cc/hr of bilious fluid from her ostomy. NG output has decreased significantly to 200 cc in 9 hours. She has minimal pain. No fevers overnight. WBC count today about the same. Lymphocytosis decreased. She is hypokalemic again today Exam Const General: cooperative and no acute distress Nutritional Appearance: overweight Orientation: alert and oriented x3 [facility] Head: normocephalic and atraumatic Resp Effort & Inspection: normal respiratory effort Auscultation: clear to auscultation bilaterally Cardio Rate: regular rate Rhythm: abnormal rhythm GI Inspection: other (midline dressing is intact) Palpation: soft, no hepatosplenomegaly and nontender Auscultation: hypoactive bowel sounds Other: Ostomy- pink. bilious output noted Objective Last Vital Signs Temp 97.2 F L 11/19/22 05:45 Pulse 90 11/19/22 06:00 Resp 16 11/19/22 06:01 BP 98/58 L 11/19/22 06:00 Pulse Ox 91 L 11/19/22 06:01 Laboratory Results - last 24 hr 11/19/22 11/19/22 11/19/22 06:00 06:00 06:00 WBC 13.85 H RBC 3.19 L Hgb 9.8 L Hct 30.0 L MCV 94 MCH 30.7 MCHC 32.7 RDW 14.6 Plt Count 318 MPV 10.5 Immature Gran % 0.9 Neutrophils % 86.3 Lymphocytes % 5.6 Monocytes % 6.6 Eosinophils % 0.1 Basophils % 0.5 Nucleated RBC % 0.0 Absolute Neutrophils 11.95 H Absolute Lymphocytes 0.78 L Absolute Monocytes 0.91 H Absolute Eosinophils 0.01 Absolute Basophils 0.07 PT 11.5 H INR 1.1 Sodium 137 Potassium 3.0 L Chloride 104 Carbon Dioxide 26.0 Anion Gap 7.0 BUN 23 H Creatinine 0.8 Est GFR (CKD-EPI 2020) 72.61 Glucose 122 H Calcium 8.6 Phosphorus 2.7 Total Bilirubin 0.4 AST 13 L ALT 10 L Alkaline Phosphatase 60 Total Protein 4.9 L Albumin 1.7 L Time Spent with Patient Time Spent with Patient: 25-34 minutes Time was spent: preparing to see the patient(eg.review tests), obtaining and/or reviewing separately otained hiistory, ordering medications,tests, procedures, indepentently interpreting results, counseling the patient and care coordination
--- NOTE | 2022-11-19 07:41 | W.PULMCC ---
General Date of Service Date of service: 11/19/22 Time of Service: 07:41 Reason for Admission to ICU: Hypotension Assessment and Plan Assessment and plan (1) Hypokalemia: Status: Acute (2) Hypovolemia: Status: Acute (3) Colostomy malfunction: Status: Acute (4) Bowel obstruction: Status: Acute (5) Gastroesophageal reflux disease: Status: Chronic Qualifiers: Esophagitis presence: without esophagitis Qualified Code(s): K21.9 - Gastro-esophageal reflux disease without esophagitis (6) Atrial fibrillation by electrocardiogram: Status: Chronic (7) Leukocytosis: Status: Acute (8) Iron deficiency anemia, unspecified: Status: Chronic Qualifiers: Iron deficiency anemia type: inadequate dietary iron intake Qualified Code(s): D50.8 - Other iron deficiency anemias (9) Hypoalbuminemia: Status: Acute (10) Hypoproteinemia: Status: Acute (11) S/P exploratory laparotomy: Status: Acute (12) Colostomy in place: Status: Chronic Assessment and plan: This is a 86 yo admitted to the ICU in the setting of a SBO POD4 ex lap with colostomy and POD1 for colostomy revision. She is doing very well but did have some hypotension and decreased urine output overnight. She is receiving TPN and IVF's. On POCUS today her IVC is completed collapsible with a likely normal EF and irregular rhythm. I agree the fluid bolus and LR at 125cc/hr is appropriate for the specified time given her apparent hypovolemia. She is on scheduled metoprolol for A. fib, but I would recommend making this prn this until her blood pressure can more effectively tolerate this. She is having a fair amount of ostomy output so I do think this is likely related. Her potassium as been chronically low during admission. She was written for 40 or potassium this morning but she will need at least another 40 this afternoon. Recommendations Pulmonary: No acute concerns Cardiac: A. fib - change 5mg IV metoprolol q6hr to q4h prn - given is HR is persistently >140 bpm - stop metoprolol 2.5mg q4h prn - holding home metoprolol - Eliquis being held Hypovolemia - s/p LR bolus this morning - LR 125cc/hr ordered for 8 hours - strict I/O's - MAP goal 65mmHg Renal: Monitor UOP Hypokalemia - 40meq this morning - will order for 40meq to be given this afternoon Hypoproteinemia and hypoalbuminemia - nutrition via TPN - per surgery I&O: Intake & Output 11/16/22 11/17/22 11/18/22 11/19/22 23:59 23:59 23:59 23:59 Intake Total 3020 / 3020 1780 / 1780 4250 / 4250 217 / 217 Output Total 1615 / 1615 1220 / 1220 2680 / 2830 1225 / 1225 Balance 1405 / 1405 560 / 560 1570 / 1420 -1008 / -1008 Weight 106.2 kg Daily Fluid Goal:: positive 1L GI Nutrition: SBO POD4 ex lap with colostomy and POD1 colostomy revision - NGT clamped - residual assessment today to assess for NGT D/C - ostomy with significant output - nutrition via TPN - NPO - per surgery GERD - on PPI Date of Last Bowel Movement: 11/19/22 Infectious Disease: No acute concerns Hematologic: No acute concerns Neurologic: No acute concerns Endocrine: No acute concerns - on SSI Lines: PICC PIV Valencia Prophylaxis: Protonix Eliquis on hold Code Status: Resuscitation Status DNR/DNI Subjective Critical and life-threatening events over the past 24 hours: In brief this is an 86 yo admitted to the ICU for continued complications s/p bowel resection and colostomy. She presented with a SBO necessitating an ex lap with surgical resection and ostomy formation. Over the weekend the ostomy fell as had to be revised. She is POD 4 from the original ex-lap with loop colostomy and POD 1 from ex lap with colostomy revision. She is doing considerably well, however did have some hypotension and decreased UOP occur overnight which was treated with fluids. She has been having high ostomy output. She is planned for NGT clamp and residual measurement to assess for ability to remove NGT. She is having some abdominal pain today but nothing terrible. She does not have chest pain nor any difficulty breathing. Exam Narrative Exam Narrative: Gen: NAD, normal respiratory effort, well-nourished HENT: PERRL, moist oral mucosa Chest: No respiratory distress, normal appearance of chest, clear to auscultation bilaterally, no crackles or wheezes, normal inspiratory effort Heart: regular rate and but an irregular rhythm, no murmurs, rubs or gallops Abdomen: Non-distended, soft, non tender, pink ostomy in place with GI output and some skin excoriation, +BS Extremities: No clubbing, edema, cyanosis, rashes Neuro: AAOx3 , non focal Psych: cooperative, appropriate mental affect Most Recent VS/Results Last Vital Signs Temp 36.2 C L 11/19/22 05:45 Pulse 90 11/19/22 06:00 Resp 16 11/19/22 06:01 BP 98/58 L 11/19/22 06:00 Pulse Ox 91 L 11/19/22 06:01 Laboratory Results - last 24 hr 11/19/22 11/19/22 11/19/22 06:00 06:00 06:00 WBC 13.85 H RBC 3.19 L Hgb 9.8 L Hct 30.0 L MCV 94 MCH 30.7 MCHC 32.7 RDW 14.6 Plt Count 318 MPV 10.5 Immature Gran % 0.9 Neutrophils % 86.3 Lymphocytes % 5.6 Monocytes % 6.6 Eosinophils % 0.1 Basophils % 0.5 Nucleated RBC % 0.0 Absolute Neutrophils 11.95 H Absolute Lymphocytes 0.78 L Absolute Monocytes 0.91 H Absolute Eosinophils 0.01 Absolute Basophils 0.07 PT 11.5 H INR 1.1 Sodium 137 Potassium 3.0 L Chloride 104 Carbon Dioxide 26.0 Anion Gap 7.0 BUN 23 H Creatinine 0.8 Est GFR (CKD-EPI 2020) 72.61 Glucose 122 H Calcium 8.6 Phosphorus 2.7 Total Bilirubin 0.4 AST 13 L ALT 10 L Alkaline Phosphatase 60 Total Protein 4.9 L Albumin 1.7 L Review of Systems All systems reviewed & are unremarkable except as noted in HPI and below Time spent with patient Time spent in Critical Care: 45 Time spent in Critical care included: Chart review, Documenting critically ill care, Time at immediate bedside, Discussing critically ill care with other medical staff and Discussing care with family members Multi-Disciplinary Checklist Lines/Tubes CENTRAL LINE: yes, Central Line Day#: 1 Note: PICC line ARTERIAL LINE: no VALENCIA: yes, Valencia Day#: 5 ENDOTRACHEAL TUBE: no ICU Maintenance GLUCOSE 140-180mg/dL: yes NUTRITION AT GOAL: no, Reason/Intervention: NPO on TPN, per surgery PRESSURE ULCER: yes, ostomy skin excoriation RESTRAINTS: no ANTIBIOTICS(if yes, consider Stewardship): No Social Issues FAMILY UPDATED: yes PT/OT: yes GOALS/DISPOSITION/ADMINISTRATOR HEALTH CARE FACILITY: yes CODE STATUS: DNR/DNI Prophylaxis DVT PROPHYLAXIS: no Reason/Intervention: Eliquis on hold per surgery GI PROPHYLAXIS: yes, Pocus Exam Limited Cardiac Exam DATE OF EXAM: 11/19/22 TIME OF EXAM: 07:30 PROVIDER THAT PERFORMED THE STUDY: Renae Romano IS THIS A REPEAT EXAM DURING THIS ENCOUNTER: no REASON FOR EXAM: Hypotension VISUALIZED STRUCTURES: four chambers, LVOT, aortic valve, Interventricular septum and IVC VIEW OBTAINED: Apical 4-Chamber, Parasternal long-axis, Parasternal short-axis and Subxiphoid PERTINENT FINDINGS/IMPRESSION: IVC inspiratory collapsability; No LV dysfunction, No pericardial effusion and No RV dysfunction Exam complete
[2022-11-19] MEDS: Lactated Ringers 1,000 ML 125 ML IV (08:23)
[2022-11-19] MEDS: Enoxaparin 100 MG/ML SYR SC ×2 (08:24→20:20)
[2022-11-19] MEDS: Pantoprazole 40 MG VIAL IVP (08:25)
[2022-11-19] MEDS: POTASSIUM CHLORIDE 20 MEQ/100 ML BAG 50 MEQ IVPB ×4 (08:25→17:56)
[2022-11-19] MEDS: Normal Saline Flush 10 ML SYR IVP ×2 (08:31)
[2022-11-19] MEDS: Miconazole 2% Topical Powder 85 GM BTL TP ×2 (08:37→20:20)
--- NOTE | 2022-11-19 10:20 | CMPROGNOTE_ITS ---
Date of service: 11/19/22 Time of Service: 10:21 Care Management Progress Note Progress Note Text Progress Note Text: S/O: Kaila was lying in bed when CM met with her. She stated that she has had a very long day, and is tired. Her daughter, Lesvia, was in the room visiting. Lesvia reported that they had just met with an RN who was helping with ostomy care teaching, which she was glad to be present for. Kaila stated that she has a very supportive family who are willing to help in any way, especially during the transition home. CM discussed the recommendation for new nursing, for ostomy care and supplies, which they are both happy to have. Kaila stated that she was looking forward to getting some rest, but she has been able to get up and out of bed multiple times a day with both PT and nursing. CM will continue to follow. A: Kaila is an 86 year old female admitted to [facility] for a bowel obstruction. P: Kaila will return home once medically cleared, with new RN for support with her new colostomy. Her family is very supportive; her daughter Lesvia will provide transport home via private vehicle, and the family plans to take turns helping Kaila at home. She will follow up with her PCP and discharge plan of care. CM will continue to follow.
[2022-11-19] MEDS: Lactated Ringers 1,000 ML 30 ML IV (20:17)
--- NOTE | 2022-11-19 21:12 | NUR.NOTE ---
Nursing Note: Ostomy Care note: Post-op colostomy and bowel resection on 11/18/2022. Patient alert and orientated, reports positive pain control and states she has visualized her stoma. Patients three children are at bedside for teaching and support. Patient has been experiencing leaking of her appliance, multiple changes have been required. Stoma was measured at ~70-71 mm in length in an oval shape. Team worked with [employer] ostomy supplies to have larger base waffer sent to hospital to better fit patient. New appliance will be a two piece with drainable pouch that opens vs a spout opening. Appliance was removed, peristomal skin is macerated with multiple open areas, tender and weeping. Skin was cleansed, duo derm applied for protection, stoma measured, barrier rings and pasted used to better protect skin around stoma and appliance placed. Education was provided on when to change your appliance, how to measure, when to seek medical attention, diet considerations, trouble shooting for leaks, importance of saving template, new ostomy kit provided along with additional educational information, daughters were actively involved in care, questions asked and answered and emotional support provided for patient and family. A review of reaching and ostomy recommendations was completed with primary nurse DAVID Perdue. Primary RN was also given ostomy teaching tool for continuity of care,that will go with the patient throughout her inpatient stay. Providers have been updated on patient status.
[2022-11-19] MEDS: Metoprolol 5 MG/5 ML VIAL IVP (23:54)
[2022-11-20] VITALS (30 sets, daily range): BP systolic 100–122; BP diastolic 51–71; PULSE 80–117; RESP 13–27; TEMP 36–36.9; O2SAT 91–98
[2022-11-20] MEDS: Normal Saline Flush 10 ML SYR IVP ×4 (02:50→16:49)
[2022-11-20] MEDS: PIPERACILLIN/TAZO 3.375 GM in Normal Saline 50 ML IVPB ×3 (05:02→18:04)
[2022-11-20] MEDS: ACETAMINOPHEN 1,000 MG/100 ML BTL 400 MG IVPB ×3 (05:33→21:05)
[2022-11-20 06:37] LABS: Abs Immature Grans 0.23 10^3/uL (0.0-0.06); Absolute Basophil Count 0.03 10^3/uL (0.0-0.2); Absolute Eosinophil Count 0.27 10^3/uL (0.0-0.7); Absolute Lymphocyte Count 0.94 10^3/uL (1.2-3.4); Absolute Monocyte Count 0.51 10^3/uL (0.1-0.8); Absolute Neutrophil Count 12.47 10^3/uL (1.2-6.7); Basophils % 0.2; Eosinophils % 1.9; HCT 27.9 % (36.0-46.0); Immature Grans % 1.6; Lymphocytes % 6.5; MCH 30.7 pg (27.0-33.0); MCHC 32.3 % (32.0-36.0); MCV 95 fL (80-95); MPV 9.9 fL (8.0-11.0); Monocytes % 3.5; Neutrophils % 86.3; Platelet Count 308 10^3/uL (130-400); RBC 2.93 10^6/uL (3.93-5.22); RDW 14.7 % (11.7-14.6); RDW-SD 51.3 fL; WBC 14.45 10^3/uL (4.4-10.8)
[2022-11-20 06:56] LABS: Anion Gap 2.6 mmol/L (3-11); BUN 16 mg/dL (7-18); CO2 28.4 mmol/L (21.0-32.0); CREATININE 0.6 mg/dL (0.55-1.02); Calcium 8.5 mg/dL (8.5-10.1); Chloride 104 mmol/L (98-107); Estimated GFR 88.45 (mL/min/1.73m2); Glucose 127 mg/dL (74-106); Magnesium 1.7 mg/dL (1.8-2.4); PHOSPHORUS < 2.0 mg/dL (2.6-4.7); Potassium 3.2 mmol/L (3.5-5.1); Sodium 135 mmol/L (136-145)
[2022-11-20 07:19] LABS: Ferritin 392 ng/mL (8-252)
--- NOTE | 2022-11-20 07:35 | W.PM.PROGNOT ---
Date of Service Date of service: 11/20/22 Time of Service: 07:05 Assessment and Plan Assessment and plan (1) Colostomy malfunction: Status: Acute Assessment and plan: POD#5/2- s/p ex-lap with loop colostomy creation/ Ex-lap with colostomy revision Plan: 1. Nutrition: Continue NPO except for ice chips and sips of Ngozi Vidya. NG tube removed yesterday. Minimal BS PICC line placed for TPN. Continue TPN 2. DVT prophilaxis: Lovenox weight based. 3. GI prophilaxis: Protonix IV 4. Activity- up with PT and nursing 5. UOP- improved 6. Other- continue to watch in ICU due to low BP's Continue supportive care (2) Hypotension: Status: Acute Assessment and plan: Has been responsive to fluid boluses. With the high ostomy output she is getting dehydrated (3) Hypokalemia: Status: Acute Assessment and plan: Will replace today (4) Nausea and vomiting: Status: Acute Assessment and plan: resolved with NG decompression Subjective Subjective Interval history since last seen: Ms. shabazz is doing well today she is a little sore around her abdominal incision. She has a new ostomy in place which seems to be working well. She has not had any more leaking. She has been tolerating some sips of clears without nausea or vomiting. Her ostomy put out around 450 cc of bilious fluid overnight. There is no air within the ostomy bag. Urine output has been about 45 cc an hour which is better than yesterday. She still tachycardic and goes up into the 130s at times. Blood pressure is still soft but holding steady. She is not symptomatic from the lower blood pressures. Exam Const General: cooperative, comfortable and no acute distress Nutritional Appearance: overweight Orientation: alert and oriented x3 HENMT Head: normocephalic and atraumatic Resp Effort & Inspection: normal respiratory effort Auscultation: diminished lung sounds bilaterally in the lower lung moulton and wheezes expiratory wheezes Cardio Rate: tachycardic Rhythm: abnormal rhythm GI Palpation: soft, no hepatosplenomegaly, tender (appropriately tender around incisions and ostomy) and other (ostomy is pink. there is bilious output) Auscultation: hypoactive bowel sounds Objective Last Vital Signs Temp 96.8 F L 11/20/22 06:00 Pulse 96 H 11/20/22 06:00 Resp 16 11/20/22 06:00 BP 109/54 L 11/20/22 06:00 Pulse Ox 95 11/20/22 06:00 Laboratory Results - last 24 hr 11/20/22 11/20/22 11/20/22 05:35 05:50 05:50 WBC 14.45 H RBC 2.93 L Hgb 9.0 L Hct 27.9 L MCV 95 MCH 30.7 MCHC 32.3 RDW 14.7 H Plt Count 308 MPV 9.9 Immature Gran % 1.6 Neutrophils % 86.3 Lymphocytes % 6.5 Monocytes % 3.5 Eosinophils % 1.9 Basophils % 0.2 Nucleated RBC % 0.0 Absolute Neutrophils 12.47 H Absolute Lymphocytes 0.94 L Absolute Monocytes 0.51 Absolute Eosinophils 0.27 Absolute Basophils 0.03 Sodium 135 L Potassium 3.2 L Chloride 104 Carbon Dioxide 28.4 Anion Gap 2.6 L BUN 16 Creatinine 0.6 Est GFR (CKD-EPI 2020) 88.45 Glucose 127 H Calcium 8.5 Phosphorus Cancelled < 2.0 L Magnesium 1.7 L Ferritin Cancelled 392 H Time Spent with Patient Time Spent with Patient: 25-34 minutes Time was spent: preparing to see the patient(eg.review tests), obtaining and/or reviewing separately otained hiistory, indepentently interpreting results, counseling the patient and care coordination
[2022-11-20] MEDS: Sertraline 25 MG TAB PO (08:22)
[2022-11-20] MEDS: Enoxaparin 100 MG/ML SYR SC (08:22)
[2022-11-20] MEDS: Apixaban 5 MG TAB PO ×2 (08:22→21:05)
[2022-11-20] MEDS: Metoprolol CR 25 MG TABCR PO ×2 (08:22→21:05)
[2022-11-20] MEDS: Pantoprazole 40 MG VIAL IVP (08:23)
--- NOTE | 2022-11-20 09:44 | PGE_ITS ---
Date of Service Date of service: 11/20/22 Time of Service: 09:44 Assessment and Plan Assessment and plan (1) Bowel obstruction: Status: Acute Assessment and plan: POD#2 laparotomy and loop colostomy revision, POD# 5 expl lap, creation of descending loop colostomy; patient started on sips/chips but diet not advanced yet until improvement in her bowels. surgery managing patient and has ordered TPN; patient w/ multiple electrolyte issues including hypokalemia, hypophosphatemia, hypomagnesemia (2) Atrial fibrillation by electrocardiogram: Status: Chronic Assessment and plan: patient resumed on oral toprol XL, she still has prn iv lopressor, patient back on apixaban; Medicine service will continue to follow peripherally but if no acute medical issues, then no need for daily medicine notes (3) Essential hypertension: Status: Chronic Assessment and plan: BP stable, toprol xl resumed (4) Depressive disorder: Status: Chronic Assessment and plan: sertraline has been resumed (5) Hypokalemia: Status: Acute Assessment and plan: K 3.2 up from 3.0, receiving iv replacement and will get K from her TPN; repeat level ordered for this afternoon (6) Hypomagnesemia: Status: Acute Assessment and plan: mild; replete and monitor (7) Hypophosphatemia: Status: Acute Assessment and plan: severely depressed at <2.0; I spoke w/ pharmacist and asked for iv phosphorus to be given; she will coordinated TPN composition w/ surgeon. Subjective Subjective Interval history since last seen: Patient states that her abdomen is sore but not severely painful. Passing flatus but no BM yet. Dr. Garcia has put her on sips and chips. Patient denies any dyspnea, cough or CP. She has been using her IS. Nursing plans on getting her out of bed today. Patient will start TPN tonight. Exam Narrative Exam Narrative: Pleasant elderly white female lying in bed upright, alert and oriented x 3, visiting w/ her daughter HEENT: unremarkable Neck: supple, no JVD Lungs: clear Heart: irregullary irregular, slightly fast (per monitor running high 90's to low 100's); no appreciable murmur Abdomen: hypoactive bowel sounds; stoma appears intact, pink; colostimy back w/ green clear liquid Baugh draining clear yellow urine Extremities: normal strength and ROM, feet warm, dry, normal pedal pulses Objective Last Vital Signs Temp 36.4 C L 11/20/22 07:30 Pulse 105 H 11/20/22 07:30 Resp 16 11/20/22 07:30 BP 109/54 L 11/20/22 06:00 Pulse Ox 95 11/20/22 07:30 Laboratory Results - last 24 hr 11/20/22 11/20/22 11/20/22 05:35 05:50 05:50 WBC 14.45 H RBC 2.93 L Hgb 9.0 L Hct 27.9 L MCV 95 MCH 30.7 MCHC 32.3 RDW 14.7 H Plt Count 308 MPV 9.9 Immature Gran % 1.6 Neutrophils % 86.3 Lymphocytes % 6.5 Monocytes % 3.5 Eosinophils % 1.9 Basophils % 0.2 Nucleated RBC % 0.0 Absolute Neutrophils 12.47 H Absolute Lymphocytes 0.94 L Absolute Monocytes 0.51 Absolute Eosinophils 0.27 Absolute Basophils 0.03 Sodium 135 L Potassium 3.2 L Chloride 104 Carbon Dioxide 28.4 Anion Gap 2.6 L BUN 16 Creatinine 0.6 Est GFR (CKD-EPI 2020) 88.45 Glucose 127 H Calcium 8.5 Phosphorus Cancelled < 2.0 L Magnesium 1.7 L Ferritin Cancelled 392 H Time Spent with Patient Time Spent with Patient: 25-34 minutes Time was spent: preparing to see the patient(eg.review tests), ordering medications,tests, procedures, referring, communicating with other health critical care technician, indepentently interpreting results, counseling the patient and care coordination
[2022-11-20] MEDS: MAGNESIUM SULFATE 2 GM/50 ML BAG IVPB (09:49)
[2022-11-20] MEDS: POTASSIUM CHLORIDE 20 MEQ/100 ML BAG 50 MEQ IVPB (09:50)
--- NOTE | 2022-11-20 10:35 | PT.INIE ---
PT Notes Visit Reasons: Bowel Obstruction Physical Therapy Inpatient Initial Evaluation Date: 11/20/22 Referring Doctor: Angely Malagon MD PT Orders: PT CONSULT: Eval & treat Precautions: Fall. Standard. Ostomy. Patient Profile/Admitting Diagnosis: Kaila is an 86 yo female that presented to the ER on 11/14/22 for nausea, vomiting, and diarrhea three days prior and lack of bowel movement in two days. She was admitted and subsequently underwent exploratory laparotomy and creation of a descending loop colostomy on 11/15/22. She was experiencing leaking at ostomy and difficulty with getting good sealing around the wound and concern for enteric content entering the abdominal cavity. On 11/18/22 she underwent exploratry laparotomy and loop colostomy revision. Patient more stable today without leaking at ostomy site. PMHX: See EMR Social History/Home Situation: Lives independent in a private one story home. Handicap bathroom with grab bars, walk in shower, and high toilet. Ramp to enter home. She no longer drives. She utilizes meals on wheels, her daughter buys her groceries. Daughter lives [address] and is supportive. Patient wishes to return home when ready, and daughter will stay with her if needed. Equipment Owned/DME: None Subjective: Cleared by nursing to see patient and patient is agreeable to PT. Patient resting in bed at time of consult and connected to telemetry, IV, rodriguez catheter, ostomy. She does report somewhat tired. Objective: General Observation: Pleasant and calm, happy to sit up in chair Mental Status: A&O x3 Pain: Mild in abdomen, no rating given ROM: Right Upper Extremity: Shoulder Flexion 100. Shoulder abduction 100. Elbow flexion WFL. Wrist flexion WFL. Opening and closing of hand WFL. Left Upper Extremity: Shoulder Flexion 100. Shoulder abduction 100. Elbow flexion WFL. Wrist flexion WFL. Opening and closing of hand WFL. Right Lower Extremity: Hip flexion less than 90 degrees AROM. Hip abduction WFL. Knee flexion WFL. Ankle dorsiflexion WFL. Ankle plantarflexion WFL. Left Lower Extremity: Hip flexion less than 90 degrees AROM. Hip abduction WFL. Knee flexion WFL. Ankle dorsiflexion WFL. Ankle plantarflexion WFL. Strength: Right Upper Extremity: Shoulder flexors 3+/5. Shoulder abductors 3+/5. Elbow flexors 4+/5. Elbow extensors 4/5. Left Upper Extremity: Shoulder flexors 4/5. Shoulder abductors 4/5. Elbow flexors 5-/5. Elbow extensors 4+/5. Right Lower Extremity: Grossly 4/5 Left Lower Extremity: Grossly 4/5 Sensation: Intact as to pain and pressure on bilateral lower extremities. Bed Mobility/Transfers: Supine to sit: 1 person mod A with HOB elevated and use of rail Sit to supine: Not assessed Sit to stand: 1 person mod A with surface height raised Stand to sit: CGA Gait: Shuffling steps in right step pivot transfer to chair using FWW Balance: Static Sitting: Fair Dynamic Sitting: Poor Static Standing: Fair Dynamic Standing: Poor Special Tests: Mobility Limitations Standardized Measure [facility] AM-PAC 6 clicks Basic Mobility Inpatient Short Form: Raw Score: 8 CMS Score: 87% Informed Consent/Education: Patient instructed in purpose of PT consult and plan of care. Assessment: Kaila is POD 5 and 2 following laparotomies for loop colostomy. She demonstrates poor endurance with easy fatigue. Weakness throughout body, including core. She needs assist to get out of bed and reports shaky feeling in standing. Bed height needed to be elevated in order for her to get to standing. Weaker in right upper extremity and patient is left side dominant. Shuffling steps with FWW to chair. Unable to do standing june. Will monitor her progress closely. Patient would like to return home. If her functional mobility does not improve to demonstrate being safe home with assist, then would recommend SNF to build strength for resuming independence. Patient presents with clinical signs and symptoms consistent with current/admitting diagnoses that have resulted to mobility limitations, gait instability, generalized weakness, and impairment of motor control as demonstrated by the following impairment level findings: 1. Decreased strength to shoulder and hip major muscle groups 2. Impaired sitting/standing balance 3. Impaired activity tolerance Impairments are contributing to the following functional limitations: 1. Dependent bed mobility skills 2. Increased dependence with transfers 3. Inability to safely ambulate without assistive device and physical assistance 4. Increase completion time for mobility ADL performance 5. Increased fall risk Patient is assessed as a Moderate complexity based on the following: History: 86 year old female with impairment level findings, functional limitations, and past medical history as indicated above Examination: Demonstrable impairment in strength, balance, and mobility level with underlying impairments and functional limitations as documented above Presentation: Evolving Decision Making: Moderate complexity Goals: Goals x1 week 1. Supine-Sit: Min A 2. Sit-Supine: Min A 3. Sit-Stand: independent 4. Stand-Sit: independent 5. Bed-Chair: independent 6. Chair-Bed: independent 7. Independent gait on level surface with use of least restrictive device for at least 100 feet without report of pain nor dyspnea 8. Good static and dynamic standing balance/tolerance 9. Independent with home exercise program Plan of Care/Treatment Plan: 1-2x/day, 7 days/week x1 week. Plan of care has been reviewed with the PHOSPHORUS PROCESSING SUPERVISOR providing the service under Physical Therapy direction. Initiate Physical Therapy intervention for strengthening, bed mobility, transfers, gait, stairs, balance training, and use of assistive device. Discharge Plan DISCHARGE RECOMMENDATIONS: Home with Home Health PT versus SNF for continued rehabilitation depending on mobility progression while admitted TREATMENT CODE/TIME: 10:08-10:33 (25 minutes), [id number] Thank you for the opportunity to participate in the care of this patient. Sarina Borrego, PT, DPT, OCS [facility] [place], [place]
[2022-11-20] MEDS: POTASSIUM CHLORIDE 20 MEQ/100 ML BAG 100 MEQ IVPB (10:58)
--- NOTE | 2022-11-20 11:08 | PT.INDS ---
Date of service: 11/19/22 PT Notes Visit Reasons: Bowel Obstruction Inpatient Physical Therapy Discharge Summary Date: 11/19/22 Dates of Service: 11/17/22 through 11/19/22 Patient required service of inpatient physical therapy to improve functional mobility and strength for return to independence. Patient was evaluated on 11/17/22 for acute care physical therapy, but change of status and new surgery required a new patient evaluation. Discharge of this episode of care and see new evaluation for updated status. Please refer to patient physical therapy initial evaluation, treatment and/or progress notes for a summary of physical therapy care provided through dates of service listed above. This is a clinical summary of care provided for the duration of dates listed above. No charge was made in the completion of this documentation.
--- NOTE | 2022-11-20 13:42 | PT.INTREAT ---
Date of service: 11/20/22 Time of Service: 13:10 PT Notes Visit Reasons: Bowel Obstruction Inpatient Physical Therapy Treatment Note [facility] Date: 11/20/22 PRECAUTIONS: Fall, standard, activity as tolerated. SUBJECTIVE: Patient sitting up in chair, reports feeling tired, ready to go to bed. OBJECTIVE: Baugh catheter, ostomy catheter, telemetry all in place, blood pressure cuff on LUE, IV access RUE with IV connected. ? PAIN: yes, around ostomy site, especially with movement. VITALS: Closely monitored by nursing staff via telemetry. ? Therapeutic Exercises (54689k8): Direct one-on-one instruction in therapeutic exercises to develop strength, endurance, range of motion and flexibility. ? Exercises bridging x2 ?Ambulation ? Assistive Device: FWW ? Weight bearing: full Assist: SBA, help with cord, catheter, and IV management. ? Distance:? 3 feet ? Deviation: reduced step height, flexed posture, HR spike to 170+ with simply standing up, recovered to low 100's after resting for 3+ minutes. ? Provided skilled instruction in proper exercise performance Coached patient on breathing to reduce heart rate. ASSESSMENT:? Patient tolerates therapy well, is supine in bed at end of treatment with call vines in easy reach, daughter and RN present in room at end of treatment. PLAN: Continue global strengthening and endurance training within patient tolerance per plan of care until patient is medically cleared for discharge. TREATMENT CODE/TIME: 16212 Ther Ex 16 minutes beginning at 13:10
--- NOTE | 2022-11-20 13:47 | CMPROGNOTE_ITS ---
Date of service: 11/20/22 Time of Service: 13:47 Care Management Progress Note Progress Note Text Progress Note Text: S/O: Kaila is awake and lying in bed when CM met with her. She is very pleasant and easily engages in conversation. Kaila recognizes that she is much weaker than her baseline and is agreeable to short rehab stay at [facility], prior to returning home. CM sent referral to [facility] at patients request. Patient may transition to Med Surg status tomorrow per Dr. Garcia. A: Kaila is an 86 year old female admitted to [facility] on 11/14/22 for a bowel obstruction. P: PT recommends Home with [facility] PT vs SNF. She would like to have a short rehab stay at [facility] prior to returning home. Referral is sent to [facility]. Her family is very supportive; and plan to take turns helping Kaila at home. She will follow up with her PCP and discharge plan of care. CM will continue to follow.
[2022-11-20] MEDS: Miconazole 2% Topical Powder 85 GM BTL TP ×2 (13:59→21:06)
--- NOTE | 2022-11-20 16:32 | W.PM.PROGNOT ---
Date of Service Date of service: 11/20/22 Time of Service: 16:32 Assessment and Plan Assessment and plan (1) Colostomy malfunction: Status: Acute Assessment and plan: POD#5/2- s/p ex-lap with loop colostomy creation/ Ex-lap with colostomy revision Plan: 1. Nutrition: Continue NPO except for sips of clears. NG tube removed yesterday. Minimal BS PICC line placed for TPN. Continue TPN 2. DVT prophilaxis: Lovenox weight based. 3. GI prophilaxis: Protonix IV 4. Activity- up with PT and nursing 5. UOP- improved 6. Other- continue to watch in ICU due to low BP's Continue supportive care (2) Hypotension: Status: Acute Assessment and plan: Better this afternoon (3) Hypokalemia: Status: Acute Assessment and plan: Will replace today (4) Nausea and vomiting: Status: Acute Assessment and plan: resolved Subjective Subjective Interval history since last seen: Went up to check on Ms. shabazz. She is sleeping comfortably so I did not want to wake her. Discussed case with nursing. Patient is having a good urine output. Her pressures have been a little bit higher in the 110s to 120s. She continues to just sip on clear liquids at this point. She continues to have quite a bit of output from her ostomy but adrenals all bilious. Still not a lot of bowel sounds. Objective Last Vital Signs Temp 98.4 F 11/20/22 12:00 Pulse 82 11/20/22 13:27 Resp 27 H 11/20/22 13:27 BP 122/58 L 11/20/22 13:27 Pulse Ox 98 11/20/22 13:27 Laboratory Results - last 24 hr 11/20/22 11/20/22 11/20/22 05:35 05:50 05:50 WBC 14.45 H RBC 2.93 L Hgb 9.0 L Hct 27.9 L MCV 95 MCH 30.7 MCHC 32.3 RDW 14.7 H Plt Count 308 MPV 9.9 Immature Gran % 1.6 Neutrophils % 86.3 Lymphocytes % 6.5 Monocytes % 3.5 Eosinophils % 1.9 Basophils % 0.2 Nucleated RBC % 0.0 Absolute Neutrophils 12.47 H Absolute Lymphocytes 0.94 L Absolute Monocytes 0.51 Absolute Eosinophils 0.27 Absolute Basophils 0.03 Sodium 135 L Potassium 3.2 L Chloride 104 Carbon Dioxide 28.4 Anion Gap 2.6 L BUN 16 Creatinine 0.6 Est GFR (CKD-EPI 2020) 88.45 Glucose 127 H Calcium 8.5 Phosphorus Cancelled < 2.0 L Magnesium 1.7 L Ferritin Cancelled 392 H Time Spent with Patient Time Spent with Patient: <25 minutes Time was spent: care coordination
[2022-11-20 16:58] LABS: Potassium 3.4 mmol/L (3.5-5.1)
[2022-11-20] MEDS: Potassium Chloride 10 MEQ CAPCR 20 MEQ PO (21:05)
[2022-11-21] VITALS (19 sets, daily range): BP systolic 111–132; BP diastolic 48–69; PULSE 77–106; RESP 17–27; TEMP 36.4–37.1; O2SAT 93–98
[2022-11-21] MEDS: PIPERACILLIN/TAZO 3.375 GM in Normal Saline 50 ML IVPB ×5 (00:06→23:19)
[2022-11-21] MEDS: ACETAMINOPHEN 1,000 MG/100 ML BTL 400 MG IVPB ×3 (05:01→21:18)
[2022-11-21] MEDS: Normal Saline Flush 10 ML SYR IVP ×2 (06:07→08:39)
[2022-11-21 07:48] LABS: ALT 10 U/L (14-59); AST 15 U/L (15-37); Albumin 1.3 g/dL (3.4-5.0); Alkaline Phosphatase 76 U/L (46-116); Anion Gap 5.2 mmol/L (3-11); BUN 12 mg/dL (7-18); Bilirubin, Total 0.3 mg/dL (0.2-1.0); CO2 27.8 mmol/L (21.0-32.0); CREATININE 0.6 mg/dL (0.55-1.02); Calcium 8.4 mg/dL (8.5-10.1); Chloride 103 mmol/L (98-107); Estimated GFR 88.45 (mL/min/1.73m2); Glucose 115 mg/dL (74-106); Potassium 3.3 mmol/L (3.5-5.1); Sodium 136 mmol/L (136-145); Total Protein 4.8 g/dL (6.4-8.2)
[2022-11-21] MEDS: Pantoprazole 40 MG VIAL IVP (08:38)
[2022-11-21] MEDS: Potassium Chloride 10 MEQ CAPCR 20 MEQ PO ×2 (08:39→14:37)
[2022-11-21] MEDS: Metoprolol CR 25 MG TABCR PO ×2 (08:39→21:18)
[2022-11-21] MEDS: Sertraline 25 MG TAB PO (08:39)
[2022-11-21] MEDS: Apixaban 5 MG TAB PO ×2 (08:39→21:18)
[2022-11-21] MEDS: Miconazole 2% Topical Powder 85 GM BTL TP ×2 (08:41→21:24)
--- NOTE | 2022-11-21 08:59 | CMPROGNOTE_ITS ---
Date of service: 11/21/22 Time of Service: 08:59 Care Management Progress Note Progress Note Text Progress Note Text: S/O: Kaila is awake and sitting up in her chair visiting with her daughter when CM met with her. She is very pleasant and easily engages in conversation. She remains on TPN and is not medically ready for discharge, transitioned to MS status today. Her daughter is looking into getting her a second hand lift chair. Pt remains agreeable to a short rehab stay at [facility], prior to returning home. She accepted a bed offer at [facility]. Per Rossana, bed availability is unlikely before Saturday. CM will follow. A: Kaila is an 86 year old female admitted to [facility] on 11/14/22 for a bowel obstruction. P: PT recommends Home with [facility] PT vs SNF. She would like to have a short rehab stay at [facility] prior to returning home. [facility] has a bed offer for Saturday. Her family is very supportive;? and plan to take turns helping Kaila at home. She will follow up with her PCP and discharge plan of care. CM will continue to follow.
--- NOTE | 2022-11-21 09:50 | PT.INTREAT ---
Date of service: 11/21/22 Time of Service: 09:20 PT Notes Visit Reasons: Bowel Obstruction Inpatient Physical Therapy Treatment Note [facility] Date: 11/21/22 PRECAUTIONS: Fall, standard. RUE IV access with IV attached. LUE BP cuff, O2 sensor. Telemetry in place, Baugh catheter in place, Ostomy catheter in place. SUBJECTIVE: Patient was feeling a bit better until this therapist arrived. Appears to be joking. Supine in bed, agreeable to therapy. OBJECTIVE: ? PAIN: Yes, around ostomy site with movement. Less at rest, but not none. VITALS: Closely monitored by RN via telemetry. Spikes to 180 bpm with standing, drops back to low 100's within 2 minutes of seated rest. Patient appears much less anxious today when heart rate spikes. ? Therapeutic Exercises ([id number]): Direct one-on-one instruction in therapeutic exercises to develop strength, endurance, range of motion and flexibility. ? ?Ambulation ? Assistive Device: FWW? Weight bearing: full Assist: Standby, assist with managing catheters, telemetry, and IV lines. Min assist of 1 to stand. Mod assist of one to transition supine to sit. ? Distance:? 5 feet ? Deviation: reduced step height, reduced stride length, however both are improved over yesterday. Standing tolerance improved over yesterday. Patient remains standing while RN provides hygiene support for 2 minutes. ? Provided skilled instruction in proper exercise performance Provided skilled instruction for breath and pacing to optimize energy during ambulation. ASSESSMENT:? Patient tolerates therapy well, is sitting up in chair at end of session with tray table, breakfast. Daughter present throughout therapy session. PLAN: Plan established with patient, nurse to come back just before lunch for breathing exercises, seated LE exercises, and transfer training back to bed / bed mobility. Patient, RN, and daughter agreeable to plan. Continue global strength and conditioning per plan of care until patient is medically ready to discharge. Patient would benefit from a skilled rehab stay to continue strengthening. TREATMENT CODE/TIME: 30058 Ther Ex 15 minutes beginning at 9:20
--- NOTE | 2022-11-21 10:13 | W.PM.PROGNOT ---
Date of Service Date of service: 11/21/22 Time of Service: 10:13 Assessment and Plan Assessment and plan (1) Atrial fibrillation by electrocardiogram: Status: Chronic Assessment and plan: Rates are still uncontrolled with activity, but the patient is asymptomatic of this. She is currently on metoprolol XL 25 mg PO BID. She only gets tachycardic with activity which is more c/w deconditioning. I would like to keep her toprol XL dose the same today and encourage activity. Would increase dose tomorrow if the episodes of tachycardia persist. Continue apixaban. (2) Bowel obstruction: Status: Acute Assessment and plan: POD#3 laparotomy and loop colostomy revision, POD# 5 exl lap, creation of descending loop colostomy. On TPN and tolerating clears. Monitor and replete lytes. I do think that she is slightly fluid overloaded today, so I am writing for a dose of furosemide. (3) Essential hypertension: Status: Chronic Assessment and plan: Continue metoprolol. (4) Depressive disorder: Status: Chronic Assessment and plan: Continue sertraline (5) Hypokalemia: Status: Acute Assessment and plan: Being repleted orally and via TPN. We are rechecking it at 4 Pm today. (6) Hypomagnesemia: Status: Resolved Assessment and plan: Recheck in am. (7) Hypophosphatemia: Status: Acute Assessment and plan: Being repleted by general surgery in TPN. (8) DVT prophylaxis: Status: Acute Assessment and plan: On apixaban. Subjective Subjective Interval history since last seen: Ms Salas feels well. She denies dizziness, CP, SOB, n/v. She is tolerating clear liquids. Her colostomy has a large amount of liquid brown output. HR goes up to 150s with activity. Exam Narrative Exam Narrative: General: Pleasant elderly female who is sitting comfortably in a chair, A&Ox3, NAD, on RA HEENT: EOMI, MMM Heart: irregularly irregular rhythm, no m/r/g Lungs: subtle end-expiratory squeek B Abdomen: soft, LUQ ostomy with liquid brown output - ostomy bag is connected with a rodriguez bag Extremities: +1 edema BUEs/BLEs, symmetric Objective Last Vital Signs Temp 37.1 C 11/21/22 09:10 Pulse 93 H 11/21/22 09:10 Resp 18 11/21/22 09:10 BP 120/61 11/21/22 09:10 Pulse Ox 97 11/21/22 09:10 Laboratory Results - last 24 hr 11/20/22 11/21/22 11/21/22 16:25 05:35 06:15 Sodium Cancelled Potassium 3.4 L Cancelled Chloride Cancelled Carbon Dioxide Cancelled Anion Gap Cancelled BUN Cancelled Creatinine Cancelled Est GFR (CKD-EPI 2020) Cancelled Glucose Cancelled Calcium Cancelled Phosphorus 2.0 L Magnesium Cancelled Total Bilirubin AST ALT Alkaline Phosphatase Total Protein Albumin 11/21/22 06:15 Sodium 136 Potassium 3.3 L Chloride 103 Carbon Dioxide 27.8 Anion Gap 5.2 BUN 12 Creatinine 0.6 Est GFR (CKD-EPI 2020) 88.45 Glucose 115 H Calcium 8.4 L Phosphorus Magnesium 2.0 Total Bilirubin 0.3 AST 15 ALT 10 L Alkaline Phosphatase 76 Total Protein 4.8 L Albumin 1.3 L Time Spent with Patient Time Spent with Patient: 25-34 minutes Time was spent: preparing to see the patient(eg.review tests), obtaining and/or reviewing separately otained hiistory, ordering medications,tests, procedures, referring, communicating with other health nurse behavioral health care, indepentently interpreting results, counseling the patient and care coordination
[2022-11-21] MEDS: Furosemide 20 MG/2 ML VIAL IVP (10:44)
--- NOTE | 2022-11-21 14:02 | W.PM.PROGNOT ---
Date of Service Date of service: 11/21/22 Time of Service: 14:02 Assessment and Plan Assessment and plan (1) Colostomy malfunction: Status: Acute Assessment and plan: POD#6/3- s/p ex-lap with loop colostomy creation/ Ex-lap with colostomy revision Plan: 1. Nutrition: Continue with sips of clears.Still with Minimal BS PICC line placed for TPN. Continue TPN 2. DVT prophilaxis: apixiban restarted 3. GI prophilaxis: Protonix IV 4. Activity- up with PT and nursing 5. UOP- improved 6. Other- Transfered to Med/Surg 7. Discharge planning: Patient will be going to SNF once Medically stable. (2) Hypotension: Status: Acute Assessment and plan: Seems to have resolved (3) Hypokalemia: Status: Acute Assessment and plan: Replaced (4) Nausea and vomiting: Status: Acute Assessment and plan: resolved Subjective Subjective Interval history since last seen: Kaila is doing well today. She sitting in the chair when I walked into her room. She is sipping on some broth. She denies any nausea. She denies any pain today. She did receive some Lasix today from the hospitalist to help with some of the edema. Her blood pressures have finally been stable. Last blood pressure recorded at noon was 132/64. Her heart rate is still anywhere from low 90s to 100s. She is working with physical therapy. Exam Const General: comfortable and no acute distress Orientation: alert and oriented x3 HENMT Head: normocephalic and atraumatic Resp Effort & Inspection: normal respiratory effort Auscultation: diminished lung sounds bilaterally in the lower lung [place] Cardio Rate: tachycardic Rhythm: abnormal rhythm GI Inspection: incision (covered with a new mepilex) Palpation: soft, no hepatosplenomegaly, nontender and other (ostomy with bilious discharge) Objective Last Vital Signs Temp 98.8 F 11/21/22 09:10 Pulse 83 11/21/22 12:00 Resp 18 11/21/22 12:01 BP 132/64 11/21/22 12:00 Pulse Ox 97 11/21/22 09:10 Laboratory Results - last 24 hr 11/20/22 11/21/22 11/21/22 16:25 05:35 06:15 Sodium Cancelled Potassium 3.4 L Cancelled Chloride Cancelled Carbon Dioxide Cancelled Anion Gap Cancelled BUN Cancelled Creatinine Cancelled Est GFR (CKD-EPI 2020) Cancelled Glucose Cancelled Calcium Cancelled Phosphorus 2.0 L Magnesium Cancelled Total Bilirubin AST ALT Alkaline Phosphatase Total Protein Albumin 11/21/22 06:15 Sodium 136 Potassium 3.3 L Chloride 103 Carbon Dioxide 27.8 Anion Gap 5.2 BUN 12 Creatinine 0.6 Est GFR (CKD-EPI 2020) 88.45 Glucose 115 H Calcium 8.4 L Phosphorus Magnesium 2.0 Total Bilirubin 0.3 AST 15 ALT 10 L Alkaline Phosphatase 76 Total Protein 4.8 L Albumin 1.3 L Time Spent with Patient Time Spent with Patient: <25 minutes Time was spent: counseling the patient
--- NOTE | 2022-11-21 16:40 | PT.INTREAT ---
Date of service: 11/21/22 Time of Service: 14:22 PT Notes Visit Reasons: Bowel Obstruction Inpatient Physical Therapy Treatment Note [facility] Date: 11/21/22 PRECAUTIONS: Fall, standard, activity as tolerated. Per RN, no out of bed activity until replacement ostomy supply shipment arrives. SUBJECTIVE: Patient supine in bed, agreeable to therapy. Daughter visiting. OBJECTIVE: ? PAIN: none reported with bed level activity. VITALS: closely monitored by RN via telemetry. Of note, patient's HR did not go above the mid 110's. ? Therapeutic Exercises ([id number]): Direct one-on-one instruction in therapeutic exercises to develop strength, endurance, range of motion and flexibility. ? Exercises: 1x5 each of the following: ankle pumps, heel slides, bridges, hip ab/adduction. UE exercises with red theraband as follows: shoulder horizontal abduction, rows, LUE bicep curls, tricep extensions. RUE curls/extensions skipped due to IV access. ? Provided skilled instruction in proper exercise performance Provided skilled manual cues to facilitate proper muscle recruitment and/or form: patient required repeated cues for when to keep elbows straight vs when to bend them. ASSESSMENT:? Patient tolerates therapy well. PLAN: Continue global strengthening per plan of care until patient is medically cleared for discharge. TREATMENT CODE/TIME: 71762 ther ex 17 minutes beginning at 14:22
[2022-11-21 16:41] LABS: Anion Gap 9.2 mmol/L (3-11); BUN 11 mg/dL (7-18); CO2 24.8 mmol/L (21.0-32.0); CREATININE 0.7 mg/dL (0.55-1.02); Calcium 8.1 mg/dL (8.5-10.1); Chloride 103 mmol/L (98-107); Estimated GFR 85.23 (mL/min/1.73m2); Glucose 136 mg/dL (74-106); Potassium 3.4 mmol/L (3.5-5.1); Sodium 137 mmol/L (136-145)
[2022-11-21] MEDS: POTASSIUM CHLORIDE 20 MEQ/100 ML BAG 50 MEQ IVPB (18:06)
[2022-11-22] VITALS (34 sets, daily range): BP systolic 99–126; BP diastolic 50–68; PULSE 72–106; RESP 14–31; TEMP 36.6–36.9
[2022-11-22 06:48] LABS: Abs Immature Grans 0.25 10^3/uL (0.0-0.06); Absolute Eosinophil Count 0.13 10^3/uL (0.0-0.7); Absolute Lymphocyte Count 0.82 10^3/uL (1.2-3.4); Absolute Monocyte Count 0.57 10^3/uL (0.1-0.8); Basophils % 0.3; Eosinophils % 0.9; HCT 28.7 % (36.0-46.0); HGB 9.2 g/dL (11.2-15.7); Immature Grans % 1.7; Lymphocytes % 5.7; MCH 29.8 pg (27.0-33.0); MCHC 32.1 % (32.0-36.0); MCV 93 fL (80-95); MPV 9.8 fL (8.0-11.0); Neutrophils % 87.4; Platelet Count 366 10^3/uL (130-400); RBC 3.09 10^6/uL (3.93-5.22); RDW 15.1 % (11.7-14.6); RDW-SD 51.9 fL
[2022-11-22] MEDS: PIPERACILLIN/TAZO 3.375 GM in Normal Saline 50 ML IVPB ×3 (06:48→17:51)
[2022-11-22] MEDS: ACETAMINOPHEN 1,000 MG/100 ML BTL 400 MG IVPB ×2 (06:48→14:53)
[2022-11-22 06:51] LABS: Absolute Basophil Count 0.04 10^3/uL (0.0-0.2)
[2022-11-22 07:05] LABS: Anion Gap 6.5 mmol/L (3-11); BUN 11 mg/dL (7-18); CO2 27.5 mmol/L (21.0-32.0); CREATININE 0.6 mg/dL (0.55-1.02); Calcium 8.5 mg/dL (8.5-10.1); Chloride 104 mmol/L (98-107); Estimated GFR 88.45 (mL/min/1.73m2); Glucose 111 mg/dL (74-106); Magnesium 1.8 mg/dL (1.8-2.4); Potassium 3.8 mmol/L (3.5-5.1); Sodium 138 mmol/L (136-145)
[2022-11-22 07:06] LABS: PHOSPHORUS 3.1 mg/dL (2.6-4.7)
--- NOTE | 2022-11-22 08:14 | PDOC.CMPRO ---
Date of service: 11/22/22 Time of Service: 08:14 Care Management Progress Note Progress Note Text Progress Note Text: S/O: Kaila is Med Surg status in the ICU. She is awake and lying in bed visiting with her daughter Lesvia when CM met with her. Ostomy nurse is present. Per pt, she has had more set backs but she remains positive and states that she will get through it. Per Hospitalist, Kaila is 4 days s/p revision of her new Colostomy and purulent drainage was expressed from a wound. Culture is pending. Per nursing; Ostomy supply delivery is expected by 1100. Kaila remains on TPN and tolerating clear liquids. Her daughter found her a second hand lift chair to borrow. Pt remains agreeable to a short rehab stay at [facility], prior to returning home. She accepted a bed offer at [facility]. Per Rossana, bed availability is unlikely before Saturday. CM will follow. A: Kaila is an 86 year old female admitted to [facility] on 11/14/22 for a bowel obstruction. P: PT recommends Home with [facility] PT vs SNF. She would like to have a short rehab stay at [facility] prior to returning home.??[facility] has a bed offer for Saturday.?Her family is very supportive;? and plan to take turns helping Kaila at home. She will follow up with her PCP and discharge plan of care. CM will continue to follow.
[2022-11-22] MEDS: Pantoprazole 40 MG VIAL IVP (08:16)
[2022-11-22] MEDS: Metoprolol CR 25 MG TABCR PO ×2 (08:16→19:55)
[2022-11-22] MEDS: Apixaban 5 MG TAB PO ×2 (08:16→19:55)
[2022-11-22] MEDS: Sertraline 25 MG TAB PO (08:16)
[2022-11-22] MEDS: Normal Saline Flush 10 ML SYR IVP (08:16)
--- NOTE | 2022-11-22 10:59 | NUR.NOTE ---
Nursing Note: Ostomy care note: Patient working with PT upon arrival, bhargavi Moran RN primary nurse today, over the last few days the appliance has been leaking. Currently it is stable and new appliances are due to arrive today. Patients daughter is at bedside and continues to be involved with care. Patient states she is feeling down about the set back, emotional support and education provided.
[2022-11-22] MEDS: Miconazole 2% Topical Powder 85 GM BTL TP ×2 (11:48→19:55)
[2022-11-22] MEDS: HYDROmorphone 2 MG/ML SYR (12:35)
--- NOTE | 2022-11-22 13:05 | PT.INTREAT ---
Date of service: 11/22/22 Time of Service: 10:03 PT Notes Visit Reasons: Bowel Obstruction Inpatient Physical Therapy Treatment Note [facility] Date: 11/22/22 PRECAUTIONS: Fall, standard, activity as tolerated. SUBJECTIVE: Patient groans and rolls her eyes as this therapist enters. Supine in bed, agreeable to therapy. AFTERNOON 13:49 Patient states she just had wound vac installed, ostomy bag changed, has been poked and prodded and is now too tired to do anything. Agreeable to have this therapist check back after an hour or two. OBJECTIVE: IV access RUE, bp cuff LUE, rodriguez catheter in place, ostomy catheter in place. AFTERNOON: new wound vac to central insicion, smaller ostomy bag contained to abdomen. ? PAIN: none reported with bed level exercises AFTERNOON yes, surgical wound quite irritated from placement of wound vac. VITALS: Closely monitored by nursing staff via telemetry.? Therapeutic Activities AFTERNOON ([id number]): Direct one-on-one instruction in dynamic activities to improve functional performance. ? BED MOBILITY/TRANSFERS? Supine-sit: Mod assist? Sit-supine: Mod assist? Sit-stand: Mod assist? Stand-sit: Min assist ? Bed-Chair: CGA? Chair-bed: CGA Provided skilled cues and instruction on performance and technique throughout. Provided education regarding pacing and breathing techniques to maximize activity tolerance. ? Therapeutic Exercises MORNING ([id number]): Direct one-on-one instruction in therapeutic exercises to develop strength, endurance, range of motion and flexibility. ? Exercises included: - shoulder horizontal abduction, red theraband, 1x10 - rows, red theraband, 1x18 - LUE bicep curls, red theraband, 1x8 - LUE tricep extensions, red theraband, 1x12 - ankle pumps - heel slides 1x8 each side - SLR 1x7 each side - Bridges 1x15 - hip abduction against red theraband 1x11 ? Provided skilled instruction in proper exercise performance Provided skilled manual cues to facilitate proper muscle recruitment and/or form throughout session as necessary. ASSESSMENT:? Patient's heart rate stayed under 122 bpm throughout session. Patient tolerates therapy well. Remains in bed at end of treatment session. AFTERNOON: Patient's HR spikes to 170's/180's with standing, reports feeling short of breath, recovers quickly (<3 minutes) once seated. PLAN: Continue global strengthening per plan of care. Progress ambulation as tolerated once new ostomy supplies arrive today. TREATMENT CODE/TIME: 91854 Ther Ex 22 minutes beginning at 10:03, 19923 Ther Act 24 minutes beginning at 16:35
--- NOTE | 2022-11-22 13:47 | NUR.NOTE ---
Ostomy Product Update: Given the patient has a 70mm ostomy, we did not have products in-house for this large of an ostomy. We have two ostomy supply companies ([employer] (now [employer]) and [employer]). Below is the summary of the supplies we were able to secure from them to be able to use on the patient and to assess what supplies the patient may need from which company at discharge. [facility] - Rehabilitation Liaison Kenneth Tapia ([phone]) 1 box (10 bags) Two Piece Ostomy Pouch (Ref # [id number]) 2 boxes (10 barriers total) Two Piece Ostomy Skin Barrier (Ref # [id number]) Received these completely by 11/22. I called and left a message with Kenneth to see if they have any convexity barrier options. If so, we need some to sample. If not, we do not need anything further from [employer]now [employer]) at this time until the patient is closer to discharge or we choose to enroll the patient in [employer] Start program [employer] - clinician line I called and enrolled the patient in the [employer] Support Program. [employer] is sending the patient a welcome kit along with several bag options for us to try. 2 bags One piece 80mm+ Pouch 2 bags Two piece 80mm+ Pouch 4 Convexity Stretchable Skin barriers These items should be shipping 11/22 or 11/23 and arriving to the [facility] ICU by 11/26. The nurses should try these products and take note of which ones are working best so we can help the patient get the most suitable products on discharge. Ava Webster RN (Ostomy nurse) and Luisa Diez RN (Primary nurse) and the patient's family have been updated. Nursing Note:
--- NOTE | 2022-11-22 15:49 | PGE_ITS ---
Date of Service Date of service: 11/22/22 Time of Service: 15:49 Assessment and Plan Assessment and plan (1) Atrial fibrillation by electrocardiogram: Status: Chronic Assessment and plan: Rates are better today. Continue metoprolol XL 25 mg PO BID. She only gets tachycardic with activity which is more c/w deconditioning, which has not been happening as much today. I would like to keep her toprol XL dose the same. Treating wound infection may also be helpful in slowing down the rates. Encourage activity. Continue apixaban. (2) Bowel obstruction: Status: Acute Assessment and plan: POD#4 laparotomy and loop colostomy revision, POD# 6 exl lap, creation of desc ending loop colostomy. Complicated by surgical wound infection On TPN and tolerating clears. Defer diets to general surgery. Monitor and replete lytes. Repeat furosemide. (3) Essential hypertension: Status: Chronic Assessment and plan: Continue metoprolol. (4) Depressive disorder: Status: Chronic Assessment and plan: Continue sertraline (5) Hypokalemia: Status: Resolved Assessment and plan: Recheck in am. (6) Hypomagnesemia: Status: Resolved Assessment and plan: Recheck in am. (7) Hypophosphatemia: Status: Resolved (8) DVT prophylaxis: Status: Acute Assessment and plan: On apixaban. Subjective Subjective Interval history since last seen: Found to have purulent drainage from the laparatomy incision, which was opened at the bedside today with wound vac placed. Discharge was cultured. Diet got advanced to regular diet. TPN is getting weaned off. Afib has been controlled. Ms Salas is not in pain, denies dizziness, CP, SOB, nausea. She had a new ostomy bag attached. She had ensure clear for lunch. Exam Narrative Exam Narrative: General: Pleasant elderly female who is laying comfortably in bed, A&Ox3, NAD, on RA HEENT: EOMI, MMM Heart: irregularly irregular rhythm, no m/r/g Lungs: CTAB anteriorly Abdomen: soft, LUQ ostomy with liquid brown output. Midline incision with wound vac. Extremities: +1 edema BUEs/BLEs, symmetric Objective Last Vital Signs Temp 36.9 C 11/22/22 12:04 Pulse 77 11/22/22 14:01 Resp 19 11/22/22 15:00 BP 107/68 11/22/22 14:01 Pulse Ox 97 11/21/22 09:10 Laboratory Results - last 24 hr 11/21/22 11/22/22 11/22/22 15:55 05:40 05:40 WBC RBC Hgb Hct MCV MCH MCHC RDW Plt Count MPV Immature Gran % Neutrophils % Lymphocytes % Monocytes % Eosinophils % Basophils % Nucleated RBC % Absolute Neutrophils Absolute Lymphocytes Absolute Monocytes Absolute Eosinophils Absolute Basophils Sodium 137 138 Potassium 3.4 L 3.8 Chloride 103 104 Carbon Dioxide 24.8 27.5 Anion Gap 9.2 6.5 BUN 11 11 Creatinine 0.7 0.6 Est GFR (CKD-EPI 2020) 85.23 88.45 Glucose 136 H 111 H Calcium 8.1 L 8.5 Phosphorus 3.1 Magnesium 1.8 11/22/22 05:40 WBC 14.30 H RBC 3.09 L Hgb 9.2 L Hct 28.7 L MCV 93 MCH 29.8 MCHC 32.1 RDW 15.1 H Plt Count 366 MPV 9.8 Immature Gran % 1.7 Neutrophils % 87.4 Lymphocytes % 5.7 Monocytes % 4.0 Eosinophils % 0.9 Basophils % 0.3 Nucleated RBC % 0.0 Absolute Neutrophils 12.50 H Absolute Lymphocytes 0.82 L Absolute Monocytes 0.57 Absolute Eosinophils 0.13 Absolute Basophils 0.04 Sodium Potassium Chloride Carbon Dioxide Anion Gap BUN Creatinine Est GFR (CKD-EPI 2020) Glucose Calcium Phosphorus Magnesium Time Spent with Patient Time Spent with Patient: 25-34 minutes Time was spent: preparing to see the patient(eg.review tests), obtaining and/or reviewing separately otained hiistory, ordering medications,tests, procedures, referring, communicating with other health care management coordinator, indepentently interpreting results, counseling the patient and care coordination
--- NOTE | 2022-11-22 16:28 | W.PM.PROGNOT ---
Date of Service Date of service: 11/22/22 Time of Service: 16:28 Assessment and Plan Assessment and plan (1) Colostomy malfunction: Status: Acute Assessment and plan: POD#7/4- s/p ex-lap with loop colostomy creation/ Ex-lap with colostomy revision Plan: 1. Nutrition: Continue TPN. Will advance diet as tolerated. (+) BS and increased stool output into the colostomy. 2. DVT prophilaxis: apixiban restarted 3. GI prophilaxis: Protonix IV 4. Activity- up with PT and nursing 5. UOP- improved 6. Other- Transfered to Med/Surg 7. Wound care for open portion of the incision. Change PRN for drainage. Dr. Malagon will evaluate this further later this morning. Await wound cultures. She is currently on Zosyn. 8. Discharge planning: Patient will be going to SNF once Medically stable. -Patient seen and examined agree with above. -We will wean TPN to off. Patient is tolerating p.o.'s well. She is hungry and wants to eat a regular diet. -There is purulent drainage from the wound. Tisha are removed and the wound is opened up. There is about 200 cc of purulent fluid that is evacuated. Wound is irrigated with saline and debrided at bedside with gauze. The fascia is intact. There has been minimal healing and there is a large collection of fluid underneath the wound. The wound measures 18 x 5 x 4. Cultures are taken. Wound VAC is placed. -Ostomy appliance is also changed at the same time. There is some necrotic tissue that is sloughed sloughing off stoma. This is debrided away using a sponge. The abdomen underneath the tissue is pink and healthy. The edema is starting to go down. Both lumens are patent. The stoma is productive. abx: zosyn (2) Hypotension: Status: Acute Assessment and plan: Seems to have resolved (3) Hypokalemia: Status: Resolved Assessment and plan: Replaced (4) Nausea and vomiting: Status: Acute Assessment and plan: resolved Subjective Subjective Interval history since last seen: Arrived with Kaila resting in bed. She reports that her pain is fairly well controlled at this time. She has soreness with transfers. Denies any fevers chills or night sweats. Exam Const General: cooperative, healthy appearing and comfortable Orientation: alert and oriented x3 Resp Effort & Inspection: normal respiratory effort, no audible wheezes and no cough GI Other: Shadowing was noted on the midline dressing. Midline dressing was removed. The midline incision is well approximated with tisha in place with palpation around the incision there was significant induration and tenderness. Upon the palpation towards the inferior aspect of the incision copious amounts of purulent drainage started leaking from the incision. 4 tisha were removed to open up the wound to allow for drainage. The purulent drainage was cultured. The open area was irrigated with sterile saline. 4 x 4 gauze and ABD pads were placed over the opening to collect the drainage. Colostomy in place with soft dark brown/green stool. It was noted at the time of patient's evaluation that she had had incontinence of the bowel movement per her rectum. Objective Last Vital Signs Temp 36.9 C 11/22/22 12:04 Pulse 77 11/22/22 14:01 Resp 19 11/22/22 15:00 BP 107/68 11/22/22 14:01 Pulse Ox 97 11/21/22 09:10 Laboratory Results - last 24 hr 11/21/22 11/22/22 11/22/22 15:55 05:40 05:40 WBC RBC Hgb Hct MCV MCH MCHC RDW Plt Count MPV Immature Gran % Neutrophils % Lymphocytes % Monocytes % Eosinophils % Basophils % Nucleated RBC % Absolute Neutrophils Absolute Lymphocytes Absolute Monocytes Absolute Eosinophils Absolute Basophils Sodium 137 138 Potassium 3.4 L 3.8 Chloride 103 104 Carbon Dioxide 24.8 27.5 Anion Gap 9.2 6.5 BUN 11 11 Creatinine 0.7 0.6 Est GFR (CKD-EPI 2020) 85.23 88.45 Glucose 136 H 111 H Calcium 8.1 L 8.5 Phosphorus 3.1 Magnesium 1.8 11/22/22 05:40 WBC 14.30 H RBC 3.09 L Hgb 9.2 L Hct 28.7 L MCV 93 MCH 29.8 MCHC 32.1 RDW 15.1 H Plt Count 366 MPV 9.8 Immature Gran % 1.7 Neutrophils % 87.4 Lymphocytes % 5.7 Monocytes % 4.0 Eosinophils % 0.9 Basophils % 0.3 Nucleated RBC % 0.0 Absolute Neutrophils 12.50 H Absolute Lymphocytes 0.82 L Absolute Monocytes 0.57 Absolute Eosinophils 0.13 Absolute Basophils 0.04 Sodium Potassium Chloride Carbon Dioxide Anion Gap BUN Creatinine Est GFR (CKD-EPI 2020) Glucose Calcium Phosphorus Magnesium Time Spent with Patient Time Spent with Patient: >50 minutes Time was spent: preparing to see the patient(eg.review tests), obtaining and/or reviewing separately otained hiistory, ordering medications,tests, procedures, referring, communicating with other health career development manager, indepentently interpreting results, counseling the patient and care coordination
[2022-11-22] MEDS: Furosemide 20 MG/2 ML VIAL IVP (16:30)
[2022-11-22] MEDS: Protein Nutritional Supplement 16 GM 1 OUNCE PACKET PO (19:55)
--- NOTE | 2022-11-22 21:22 | NUR.NOTE ---
Nursing Note: Ostomy care note: Ostomy appliances arrived to floor, nurse and MD Malagon changed ostomy appliance and a wound vac was placed at the midline site, for wound healing. Stoma measuring roughly 70 mm and oval in shape, stoma pink/red, noted to have less slough, patent with mucoid discharge and thickened green output. Peristomal skin, redended with open areas, tender to the touch. Skin and stoma cleansed with normal saline, stoma powder applied, antifungal powder applied and crusted with skin prep. stoma paste and barrier ring also applied, two piece delfina appliance placed, over wound vac dressing. Patient was given PRN pain medication for wound vac application and appliance change with fair to positive results. Prior to change nurse reviewed how to open and close pouch, when to empty, how often to change and answered patient questions. Patient demonstrated how to open and close different pouch styles. Dietary considerations and importance of increased protein intake for wound healing reviewed. Patient verbalized understanding and able to provide some teaching back, patient will need additional education and re-enforcement.
[2022-11-23] VITALS (36 sets, daily range): BP systolic 108–126; BP diastolic 52–68; PULSE 81–107; RESP 16–24; TEMP 36.2–36.9; O2SAT 96–100
[2022-11-23] MEDS: Acetaminophen 500 MG TAB 1000 MG PO ×4 (00:11→23:12)
[2022-11-23] MEDS: PIPERACILLIN/TAZO 3.375 GM in Normal Saline 50 ML IVPB ×5 (00:12→23:29)
[2022-11-23] MEDS: Lidocaine 2% Jelly 6 ML SYR TP (01:00)
[2022-11-23] MEDS: Normal Saline Flush 10 ML SYR IVP ×3 (05:34→20:48)
[2022-11-23 07:07] LABS: Anion Gap 5.9 mmol/L (3-11); BUN 13 mg/dL (7-18); CO2 27.1 mmol/L (21.0-32.0); CREATININE 0.6 mg/dL (0.55-1.02); Calcium 8.5 mg/dL (8.5-10.1); Chloride 103 mmol/L (98-107); Estimated GFR 88.45 (mL/min/1.73m2); Glucose 101 mg/dL (74-106); Magnesium 1.7 mg/dL (1.8-2.4); Potassium 3.6 mmol/L (3.5-5.1); Sodium 136 mmol/L (136-145)
--- NOTE | 2022-11-23 08:04 | W.PM.PROGNOT ---
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 Fascia is intact. WOund vac placed (3) Nausea and vomiting: Status: Acute (4) Obesity (BMI 30-39.9): Status: Acute (5) Anxiety: Status: Chronic (6) Essential hypertension: Status: Chronic (7) Hyperlipidemia: Status: Resolved Qualifiers: Hyperlipidemia type: mixed hyperlipidemia Qualified Code(s): E78.2 - Mixed hyperlipidemia (8) Iron deficiency anemia, unspecified: Status: Chronic Qualifiers: Iron deficiency anemia type: inadequate dietary iron intake Qualified Code(s): D50.8 - Other iron deficiency anemias (9) Gastroesophageal reflux disease: Status: Chronic Qualifiers: Esophagitis presence: without esophagitis Qualified Code(s): K21.9 - Gastro-esophageal reflux disease without esophagitis (10) Osteoarthritis: Status: Chronic (11) Hiatal hernia: Status: Chronic (12) Hemorrhoids: Status: Resolved (13) Atrial fibrillation by electrocardiogram: Status: Chronic (14) GERD (gastroesophageal reflux disease): (15) History of tobacco use: (16) Essential hypertension: (17) Anemia: Subjective Subjective Interval history since last seen: Pt is doing well. no headaches. No CP or SOB. no productive cough. no dysuria. no leg pain or swelling. Objective Last Vital Signs Temp 36.5 C 11/23/22 03:35 Pulse 92 H 11/23/22 03:35 Resp 19 11/23/22 06:00 BP 113/68 11/23/22 03:35 Pulse Ox 96 11/23/22 03:35 Laboratory Results - last 24 hr 11/23/22 05:50 Sodium 136 Potassium 3.6 Chloride 103 Carbon Dioxide 27.1 Anion Gap 5.9 BUN 13 Creatinine 0.6 Est GFR (CKD-EPI 2020) 88.45 Glucose 101 Calcium 8.5 Magnesium 1.7 L
--- NOTE | 2022-11-23 08:10 | PGE_ITS ---
Date of Service Date of service: 11/23/22 Time of Service: 08:10 Assessment and Plan Assessment and plan (1) Atrial fibrillation by electrocardiogram: Status: Chronic Assessment and plan: Rates controlled at rest; we will monitor them with activity. Continue metoprolol XL 25 mg PO BID. Keep her toprol XL dose the same. Treating wound infection may also be helpful in slowing down the rates. Encourage activity. Continue apixaban. (2) Bowel obstruction: Status: Acute Assessment and plan: POD#5 laparotomy and loop colostomy revision, POD# 7 exl lap, creation of descending loop colostomy. Complicated by surgical wound infection, now opened to fascia with wound vac in place. On TPN, which is being weaned off. Tolerated advancement of diet to apple sauce and a custard. Defer diets to general surgery. Monitor and replete lytes. Repeat furosemide. (3) Essential hypertension: Status: Chronic Assessment and plan: Continue metoprolol. (4) Depressive disorder: Status: Chronic Assessment and plan: Continue sertraline (5) Hypokalemia: Status: Resolved Assessment and plan: Recheck in am. (6) Hypomagnesemia: Status: Resolved Assessment and plan: Recurred. Replete. (7) Hypophosphatemia: Status: Resolved (8) DVT prophylaxis: Status: Acute Assessment and plan: On apixaban. Subjective Subjective Interval history since last seen: Ms Salas states she is comfortable. She tolerated a custard and an apple sauce. Denied dizziness, CP, SOB, n/v, abdominal pain. Heart rates controlled overnight. Exam Narrative Exam Narrative: General: Pleasant elderly female who is laying comfortably in bed, A&Ox3, NAD, on RA HEENT: EOMI, MMM Heart: irregularly irregular rhythm, no m/r/g Lungs: CTAB anteriorly Abdomen: soft, LUQ ostomy with liquid brown output. Midline incision with wound vac - c/d/i. Extremities: +1 edema BUEs/BLEs, symmetric Objective Last Vital Signs Temp 36.5 C 11/23/22 03:35 Pulse 92 H 11/23/22 03:35 Resp 19 11/23/22 06:00 BP 113/68 11/23/22 03:35 Pulse Ox 96 11/23/22 03:35 Laboratory Results - last 24 hr 08/18/23 05:50 Sodium 136 Potassium 3.6 Chloride 103 Carbon Dioxide 27.1 Anion Gap 5.9 BUN 13 Creatinine 0.6 Est GFR (CKD-EPI 2020) 88.45 Glucose 101 Calcium 8.5 Magnesium 1.7 L Time Spent with Patient Time Spent with Patient: 25-34 minutes Time was spent: preparing to see the patient(eg.review tests), obtaining and/or reviewing separately otained hiistory, ordering medications,tests, procedures, referring, communicating with other health home visit field care manager, indepentently interpreting results, counseling the patient and care coordination
[2022-11-23] MEDS: Apixaban 5 MG TAB PO ×2 (08:48→20:14)
[2022-11-23] MEDS: Pantoprazole 40 MG TABCR PO (08:49)
[2022-11-23] MEDS: Metoprolol CR 25 MG TABCR PO ×2 (08:49→20:14)
[2022-11-23] MEDS: Furosemide 20 MG/2 ML VIAL IVP (08:49)
--- NOTE | 2022-11-23 08:55 | PGE_ITS ---
Date of Service Date of service: 11/23/22 Time of Service: 07:30 Assessment and Plan Assessment and plan (1) Colostomy malfunction: Status: Acute Assessment and plan: POD#8/5- s/p ex-lap with loop colostomy creation/ Ex-lap with colostomy revision Plan: Nutrition: Continue TPN. She is currently on a high calorie/high protein diet. (+) BS and increased stool output into the colostomy. She has been actively participating in ostomy education. DVT prophilaxis: apixiban restarted GI prophilaxis: Protonix IV Activity- up with PT and nursing UOP- improved Wound VAC is now in place. The wound measures 18 x 5 x 4. Cultures were taken on 11/22. Will complete and send in prior authorization forms for outpatient wound VAC. Gram stain showed few WBCs Continue Zosyn Discharge planning: Patient will be going to SNF once Medically stable -probably saturday. She will require wound VAC at discharge. -d/c rodriguez -no further tpn (2) Hypotension: Status: Acute Assessment and plan: Seems to have resolved (3) Hypokalemia: Status: Resolved Assessment and plan: Replaced (4) Nausea and vomiting: Status: Acute Assessment and plan: resolved Subjective Subjective Interval history since last seen: Arrived with Kaila resting comfortably in bed. She does report a strange burning sensation last night at the superior portion of her thigh and her crease. This has resolved however she is unsure of the cause of the discomfort. She denies having any fevers or chills overnight. She does describe moderate abdominal pain that increases with transfers. She is feeling discouraged over the past couple days and is hoping to see more rapid improvement. She is concerned about the infection and the need for the wound VAC. Exam Const General: cooperative, healthy appearing and comfortable Orientation: alert and oriented x3 Resp Effort & Inspection: normal respiratory effort, no audible wheezes and no cough GI Palpation: soft and tender Auscultation: normal bowel sounds Other: Wound VAC in place along the midline incision. Mild erythema along the inferior portion of the wound and along the lower abdominal/suprapubic skin fold. Colostomy appliance is intact and functioning well at this time. Dark brown, soft stool is noted in the bag. Objective Last Vital Signs Temp 36.5 C 11/23/22 08:45 Pulse 91 H 11/23/22 08:45 Resp 16 11/23/22 08:45 BP 126/54 L 11/23/22 08:45 Pulse Ox 96 11/23/22 08:45 Laboratory Results - last 24 hr 11/23/22 05:50 Sodium 136 Potassium 3.6 Chloride 103 Carbon Dioxide 27.1 Anion Gap 5.9 BUN 13 Creatinine 0.6 Est GFR (CKD-EPI 2020) 88.45 Glucose 101 Calcium 8.5 Magnesium 1.7 L Time Spent with Patient Time Spent with Patient: 35-49 minutes Time was spent: preparing to see the patient(eg.review tests), obtaining and/or reviewing separately otained hiistory, ordering medications,tests, procedures, referring, communicating with other health patient centered care specialist, indepentently interpreting results, counseling the patient and care coordination
[2022-11-23] MEDS: Protein Nutritional Supplement 16 GM 1 OUNCE PACKET PO ×3 (09:29→20:15)
[2022-11-23] MEDS: Sertraline 25 MG TAB PO (09:29)
[2022-11-23] MEDS: MAGNESIUM SULFATE 2 GM/50 ML BAG IVPB (09:33)
[2022-11-23] MEDS: Nystatin POWDER 60 GM JAR TP ×3 (09:43→20:15)
--- NOTE | 2022-11-23 10:10 | PDOC.CMPRO ---
Date of service: 11/23/22 Time of Service: 10:10 Care Management Progress Note Progress Note Text Progress Note Text: S/O: Kaila remains in the ICU, med surg status. She is awake and pleasant. She is 5 days s/p revision of her new Colostomy and now has a wound vac. TPN is being discontinued. Unlikely she will be medically ready for discharge until Saturday or Saturday, per Surgery. Pt remains agreeable to a short rehab stay at [facility], prior to returning home. She accepted a bed offer at [facility]. CM updated Rossana. CM will follow. A: Kaila is an 86 year old female admitted to [facility] on 11/14/22 for a bowel obstruction. P: PT recommends Home with [facility] PT vs SNF. She would like to have a short rehab stay at [facility] prior to returning home. She will discharge with a wound vac.??[facility] has a bed offer for Saturday.?Her family is very supportive;? and plan to take turns helping Kaila at home. She will follow up with her PCP and discharge plan of care. CM will continue to follow.
--- NOTE | 2022-11-23 15:02 | NUR.NOTE ---
RN switches out cartridge on wound vac. Old cartridge was full of pink colored fluid.Nursing Note:
--- NOTE | 2022-11-23 15:40 | PT.INTREAT ---
Date of service: 11/23/22 Time of Service: 09:40 PT Notes Visit Reasons: Bowel Obstruction Inpatient Physical Therapy Treatment Note [facility] Date: 11/23/22 PRECAUTIONS: Fall, standard, activity as tolerated. SUBJECTIVE: Patient feels a bit better today. Supine in bed, agreeable to therapy. AFTERNOON: Patient feels wiped out, wishes to go lay down in the bed. Sitting up in chair, agreeable to therapy. OBJECTIVE: ? PAIN: Yes, around suture site, especially with movement. VITALS: Closely monitored by RN via telemetry.? Therapeutic Activities ([id number] morning, 1 afternoon): Direct one-on-one instruction in dynamic activities to improve functional performance. ? BED MOBILITY/TRANSFERS? Rolling L/R: SBA Supine-sit: mod assist? Sit-supine: mod assist ? Sit-stand: mod assist? Stand-sit: CGA with verbal cues for hand placement? Bed-Chair: min assist? Chair-bed: min assist Of note, patient's heart rate remains in the low 110's even with transfer in the afternoon. Provided skilled cues and instruction on performance and technique throughout. ? Therapeutic Exercises ([id number] in the morning): Direct one-on-one instruction in therapeutic exercises to develop strength, endurance, range of motion and flexibility. ?Ambulation ? Assistive Device: FWW ? Weight bearing: Full Assist: CGA, assist with IV, Baugh, wound vac, and telemetry management, wheelchair follow.? Distance:? 5 feet, seated rest, 15 feet. ? Deviation: reduced antonia, reduced step height, reduced step length. Patient's heart rate spike to 160's. Walk discontinued. Patient recovers to mid 100's within 3 minutes of seated rest. ? Provided skilled instruction in proper exercise performance ASSESSMENT:? Patient tolerates therapy well both times. Morning, resting in recliner with curtis vines in easy reach, DAVID Espinoza and daughter present. Afternoon, resting supine in bed with curtis vines in easy reach and DAVID Espinoza present. PLAN: Continue global strengthening per plan of care until patient is medically ready to discharge to SNF. TREATMENT CODE/TIME: 73152 Ther Ex 30, 21620 Ther Act 14 minutes beginning at 9:40. [id number] Ther Act 12 minutes beginning at 2:40
[2022-11-23] MEDS: Insulin Aspart 300 UNITS/3 ML PEN SC (17:59)
[2022-11-24] VITALS (35 sets, daily range): BP systolic 112–136; BP diastolic 56–64; PULSE 74–112; RESP 15–23; TEMP 36.2–37.7; O2SAT 93–96
--- NOTE | 2022-11-24 | DI.CT_ITS ---
Exam(s) CT ABDOMEN PELVIS W EXAM: CT ABDOMEN PELVIS W CLINICAL HISTORY: s/p ex lap x2 for obstruction/increasing WBC/wound. TECHNIQUE: Imaging Protocol: Axial computed tomography images with coronal and sagittal reformatted images were created and reviewed CONTRAST MATERIAL: Intravenous: Omnipaque-350 100cc Oral: Yes. Oral contrast administered for bowel opacification. COMPARISON: CT CT ABDOMEN PELVIS WO from 11/14/2022 FINDINGS: VISUALIZED LUNG BASES: Mild increased markings in the lung bases. Tiny bilateral pleural effusions ABDOMEN: There has been interval abdominal surgery. There is now open midline vertical wound. There is no he rniation of bowel loops into the wound. However, there is a midline hernia sac in the pannus noted w hich contains small bowel loops. There is now a left-sided colostomy. The colon itself is collapsed . Large hiatal hernia again noted which measures 10 cm across by 6 cm AP by 6 cm cephalo caudal, simila r to previous. The duodenum and small bowel loops are distended up to 5 cm. No obvious pneumatosis. There are few bubbles of extra lumen gas noted but these are predominantly within the anterior abdo roel wall related to the recent surgery.. The oral contrast has not reached the colon by the time o f imaging. Distal small bowel loops are collapsed and the colon is collapsed. Non abrupt transition point is in the right-side of the pelvis. No obvious pneumatosis and there is no air-gas in the por marina venous system. There is no generalized ascites. However, there is a fluid collection left side of the pelvis which measures approximately 12 cm length by this extends to the level just superior to the uterus. Above the uterus it is 4.2 cm wide. There is 2nd fluid collection in the central-right pelvis, smaller yakov n the left-sided and not exhibiting mural enhancement.. LIVER: There are no focal hepatic lesions evident. No dilated intrahepatic ducts. GALLBLADDER/BILIARY: Gallbladder surgically absent. CBD is not dilated. PANCREAS: No evidence of pancreatic mass nor dilatation of the pancreatic duct. There is a small janeth unt of fluid subjacent to the uncinate process of the pancreas. May represent element of pancreatiti s. There is no pancreatic mass and no dilatation of the pancreatic duct. SPLEEN: Spleen is not enlarged. No obvious intrasplenic lesions. Splenic and portal veins are paten t. ADRENALS: There are no significant adrenal masses. KIDNEYS:Tiny benign bilateral cortical cysts. No significant renal lesions. No solid renal masses. No calculi nor hydronephrosis.. ABDOMINAL AORTA: Abdominal aorta is not enlarged. Superior mesenteric artery is patent. Inferior me senteric artery is patent. Celiac patent. LYMPH NODES:There is no retroperitoneal nor paraaortic adenopathy. ABDOMINAL WALL: Midline open wound defect. GI: As above. PELVIS: GI: No evidence of appendicitis.No evidence of acute sigmoid diverticulitis. LYMPH NODES: There is no intrapelvic nor inguinal adenopathy. REPRODUCTIVE: Uterus and ovaries age-appropriate. URINARY BLADDER: There is air seen in the anterior aspect of the urinary bladder which is possibly re lated to recent instrumentation. There is no Baugh catheter in the urinary bladder at this time. OSSEOUS: No acute fractures and no significant osseous lesions. Chronic appearing T11 mild compression fracture. IMPRESSION: 1. Compared to the prior CT scan of November 14, 2022 there has been interval surgery with creation of l eft-sided colostomy. The colon is collapsed. There is an open midline wound without herniation of b owel loops through the wound. There is a midline hernia sac in the pannus. This contains small heather l loops but has a wide neck. 2. The duodenum and small bowel loops are dilated down to region of the distal ileum with the distal ileal loops being collapsed. Consistent with element of bowel obstruction. 3. There are few fluid collections in the abdomen-pelvis. Largest of these extends from just above t he uterus and tracks up the left iliac fossa medial to the iliac vessels measuring approximately 12 c m cephalocaudal length and is approximately 4.2 cm at its widest (which is just above the uterus). A lthough this does not contain gas, this fluid collection may represent abscess. 4. There is air in the urinary bladder. Possibly related to prior instrumentation. There is no Fole y catheter in the urinary bladder at this time. First read by [facility]. Final report called by myself to surgeon on-call 11/25/2022 RADIATION DOSE DELIVERED: 1,402.73mGy.cm Total DLP DATA REPOSITORY: All CT scans at this facility are submitted to the National Radiology Data Registry (NRDR) Dose Index Registry (DIR) with the [employer] (A[employer]). RADIATION OPTIMIZATION: All CT scans at this facility use at least one of these dose optimization te charbel: automated exposure control; mA and/or kV adjustment per patient size (includes targeted exa ms where dose is matched to clinical indication); or iterative reconstruction.
--- NOTE | 2022-11-24 | DI.RAD_ITS ---
Exam(s) XR PORTABLE CHEST AP EXAM: XR PORTABLE CHEST AP CLINICAL HISTORY: worsening leucocytosis. TECHNIQUE: 2D digital imaging was performed. COMPARISON: CR,XR XR PORTABLE CHEST AP POST LINE from 11/18/2022 FINDINGS: Single AP portable view. Right PICC line remains in good position in the SVC. Heart size is upper normal. The mediastinum is not widened. However, there is now a a prominent hiatal hernia evident in the retrocardiac region. No confluent infiltrates. Subsegmental platelike atelectasis in the lateral left lung again noted. No infiltrates. No pulmonary edema. No pneumothorax. No pleural effusions. IMPRESSION: No acute pulmonary findings on this single AP portable view of the chest. Prominent hiatal hernia now evident DATA REPOSITORY: RADIATION DOSE DELIVERED:
[2022-11-24] MEDS: Normal Saline Flush 10 ML SYR IVP ×6 (00:12→23:28)
[2022-11-24] MEDS: Normal Saline 500 ML 30 ML IV (04:52)
[2022-11-24] MEDS: PIPERACILLIN/TAZO 3.375 GM in Normal Saline 50 ML IVPB ×2 (05:21→13:16)
[2022-11-24] MEDS: Nystatin POWDER 60 GM JAR TP ×3 (07:01→19:55)
[2022-11-24 07:02] LABS: Abs Immature Grans 0.26 10^3/uL (0.0-0.06); Absolute Eosinophil Count 0.13 10^3/uL (0.0-0.7); Absolute Lymphocyte Count 0.64 10^3/uL (1.2-3.4); Absolute Monocyte Count 1.01 10^3/uL (0.1-0.8); Basophils % 0.2; Eosinophils % 0.8; HCT 27.1 % (36.0-46.0); HGB 8.8 g/dL (11.2-15.7); Immature Grans % 1.6; Lymphocytes % 3.9; MCH 30.1 pg (27.0-33.0); MCHC 32.5 % (32.0-36.0); MCV 93 fL (80-95); MPV 9.5 fL (8.0-11.0); Monocytes % 6.2; Neutrophils % 87.3; Platelet Count 424 10^3/uL (130-400); RBC 2.92 10^6/uL (3.93-5.22); RDW 15.5 % (11.7-14.6); RDW-SD 52.6 fL; WBC 16.33 10^3/uL (4.4-10.8)
[2022-11-24 07:32] LABS: Absolute Basophil Count 0.03 10^3/uL (0.0-0.2); Absolute Neutrophil Count 14.26 10^3/uL (1.2-6.7)
[2022-11-24 07:33] LABS: Anion Gap 9.5 mmol/L (3-11); BUN 16 mg/dL (7-18); C-Reactive Protein 24.99 mg/dL (0.0-0.3); CO2 25.5 mmol/L (21.0-32.0); CREATININE 0.7 mg/dL (0.55-1.02); Calcium 8.6 mg/dL (8.5-10.1); Chloride 102 mmol/L (98-107); Estimated GFR 85.23 (mL/min/1.73m2); Glucose 90 mg/dL (74-106); Magnesium 1.9 mg/dL (1.8-2.4); Potassium 3.6 mmol/L (3.5-5.1); Sodium 137 mmol/L (136-145)
[2022-11-24 07:47] LABS: Lab Add On Test DONE
--- NOTE | 2022-11-24 08:28 | NUR.NOTE ---
Blood culture is drawn by RN from Picc line.Nursing Note:
[2022-11-24 08:40] LABS: Procalcitonin 0.3 ng/mL
[2022-11-24] MEDS: Metoprolol CR 25 MG TABCR PO ×2 (08:43→19:41)
[2022-11-24] MEDS: Pantoprazole 40 MG TABCR PO (08:43)
[2022-11-24] MEDS: Apixaban 5 MG TAB PO ×2 (08:43→19:41)
[2022-11-24] MEDS: Sertraline 25 MG TAB PO (08:44)
--- NOTE | 2022-11-24 09:09 | W.PM.PROGNOT ---
Date of Service Date of service: 11/24/22 Time of Service: 09:53 Assessment and Plan Assessment and plan (1) Leukocytosis: Status: Acute Assessment and plan: Obtain blood cx including from RUE PICC, UA/Urine C&S, CXR, US venous RUE. Procalcitonin indeterminate. Continue current abx. Wound cx: GNR, which zosyn should adequately cover. (2) Atrial fibrillation by electrocardiogram: Status: Chronic Assessment and plan: Rates controlled at rest. Tolerating activity better as well. Continue metoprolol XL 25 mg PO BID. Treating wound infection may also be helpful in slowing down the rates. Encourage activity. Continue apixaban. (3) Bowel obstruction: Status: Acute Assessment and plan: POD#6 laparotomy and loop colostomy revision, POD# 8 exl lap, creation of descending loop colostomy. Complicated by surgical wound infection, now opened to fascia with wound vac in place. TPN d/c'ed, tolerating a diet. Monitor and replete lytes. Repeat furosemide. (4) Essential hypertension: Status: Chronic Assessment and plan: Continue metoprolol. (5) Depressive disorder: Status: Chronic Assessment and plan: Continue sertraline (6) Hypokalemia: Status: Resolved Assessment and plan: Recheck in am. (7) Hypomagnesemia: Status: Resolved Assessment and plan: Recurred. Replete. (8) Hypophosphatemia: Status: Resolved (9) DVT prophylaxis: Status: Acute Assessment and plan: On apixaban. Subjective Subjective Interval history since last seen: Ms Salas states she is feeling depressed this morning. She is concerned about how she is ever going to home and take care of herself. We discussed how she would be going to a rehab first, and she understands that, but nevertheless feels overwhelmed. Denies dizziness, CP, SOB, n/v. NOtes that her BUEs are still swollen, especially the R hand. She has a PICC line in her RUE. She has been incontinent of urine since the rodriguez catheter was removed. Afebrile. TPN stopped. Tolerating diet. Output in the wound vac has decreased. Exam Narrative Exam Narrative: General: Pleasant elderly female who is laying comfortably in bed, A&Ox3, NAD, on RA HEENT: EOMI, MMM Heart: irregularly irregular rhythm, no m/r/g Lungs: CTAB anteriorly Abdomen: soft, LUQ ostomy with liquid brown output. Midline incision with wound vac - c/d/i. Extremities: +1 edema BUEs/BLEs, I do see the asymmetry with R hand vs L hand (R>L). Objective Last Vital Signs Temp 36.7 C 11/24/22 08:38 Pulse 98 H 11/24/22 08:38 Resp 20 11/24/22 08:38 BP 136/61 11/24/22 08:38 Pulse Ox 95 11/24/22 08:38 Laboratory Results - last 24 hr 11/24/22 11/24/22 11/24/22 05:45 05:45 05:45 WBC 16.33 H RBC 2.92 L Hgb 8.8 L Hct 27.1 L MCV 93 MCH 30.1 MCHC 32.5 RDW 15.5 H Plt Count 424 H MPV 9.5 Immature Gran % 1.6 Neutrophils % 87.3 Lymphocytes % 3.9 Monocytes % 6.2 Eosinophils % 0.8 Basophils % 0.2 Nucleated RBC % 0.0 Absolute Neutrophils 14.26 H Absolute Lymphocytes 0.64 L Absolute Monocytes 1.01 H Absolute Eosinophils 0.13 Absolute Basophils 0.03 Sodium 137 Potassium 3.6 Chloride 102 Carbon Dioxide 25.5 Anion Gap 9.5 BUN 16 Creatinine 0.7 Est GFR (CKD-EPI 2020) 85.23 Glucose 90 Calcium 8.6 Magnesium 1.9 C-Reactive Protein 24.99 H Procalcitonin Add-On Test Request DONE 11/24/22 05:45 WBC RBC Hgb Hct MCV MCH MCHC RDW Plt Count MPV Immature Gran % Neutrophils % Lymphocytes % Monocytes % Eosinophils % Basophils % Nucleated RBC % Absolute Neutrophils Absolute Lymphocytes Absolute Monocytes Absolute Eosinophils Absolute Basophils Sodium Potassium Chloride Carbon Dioxide Anion Gap BUN Creatinine Est GFR (CKD-EPI 2020) Glucose Calcium Magnesium C-Reactive Protein Procalcitonin 0.3 Add-On Test Request Objective Narrative Objective Narrative: CXR ordered, pending Time Spent with Patient Time Spent with Patient: 35-49 minutes Time was spent: preparing to see the patient(eg.review tests), obtaining and/or reviewing separately otained hiistory, ordering medications,tests, procedures, referring, communicating with other health respiratory care faculty, indepentently interpreting results, counseling the patient and care coordination
[2022-11-24 09:42] LABS: Bilirubin Negative (Negative); Blood Large (Negative); Clarity Clear (Clear); Glucose Negative (Negative); Ketones Negative (Negative); Leukocyte Esterase Negative (Negative); Nitrite Negative (Negative); Specific Gravity 1.025 (1.005-1.025); Urobilinogen 0.2 mg/dL (Up to 0.2); pH 5.5 (5-8)
--- NOTE | 2022-11-24 09:53 | W.PM.PROGNOT ---
Date of Service Date of service: 11/24/22 Time of Service: 09:53 Assessment and Plan Assessment and plan (1) Colostomy in place: Status: Chronic Assessment and plan: -stoma looks good. necrotic areas are sloughing off-the tissue underneath is healthy. She is getting liquid out the ostomy and scant amount of stool. (2) S/P exploratory laparotomy: Status: Acute Assessment and plan: POD#6 laparotomy and loop colostomy revision, POD# 8 exl lap, creation of descending loop colostomy. Complicated by surgical wound infection, now opened to fascia with wound vac in place.?? pulm: Lungs are clear on chest x-ray DVT: Fully anticoagulated on apixaban and SCDs GI: PPI pulm toilet -Patient is not taking in significant amount of oral nutrition. She has no appetite. Need to do calorie counts and protein supplements She is at high risk for-skin breakdown Significant deconditioning from being in the ICU. She continues to work with PT. -Case reviewed with Dr. Khan -We will switch her back to ICU level status because of her high acuity and demands on the nursing Further recommendations following results of CT (3) Leukocytosis: Status: Acute Assessment and plan: UA- negative CXR- negative wound- plan debridement in am abdomen- check CT abx: zosyn D#11 (4) Bowel obstruction: Status: Acute (5) Obesity (BMI 30-39.9): Status: Acute (6) Anxiety: Status: Chronic (7) Essential hypertension: Status: Chronic (8) Iron deficiency anemia, unspecified: Status: Chronic Assessment and plan: - Continues to trend down Ferritin is high but most likely phase reactant Qualifiers: Iron deficiency anemia type: inadequate dietary iron intake Qualified Code(s): D50.8 - Other iron deficiency anemias (9) Gastroesophageal reflux disease: Status: Chronic Qualifiers: Esophagitis presence: without esophagitis Qualified Code(s): K21.9 - Gastro-esophageal reflux disease without esophagitis (10) Osteoarthritis: Status: Chronic (11) Vitamin B12 deficiency: Status: Chronic (12) History of tobacco use: (13) GERD (gastroesophageal reflux disease): (14) Colostomy malfunction: Status: Acute (15) Wound infection after surgery: Status: Acute Assessment and plan: -pt has good granulation tissue in the wound bed -there is some necrotic tissue present. PT did not tolerate attempts at bedside debridement. This may or may not account for her elevation in white count. We will plan on debridement tomorrow in OR. We will change the wound VAC and will change her colostomy bag at that time with anesthesia (16) Swelling of right upper extremity: Status: Acute Assessment and plan: -this is the arm the PICC line is in. -pt is fully anti-coagulated (abixiban) - saturday (17) Muscular deconditioning: Status: Acute Assessment and plan: - Encourage patient to continue with physical therapy. This will be difficult with the wound VAC in place (18) Protein calorie malnutrition: Status: Acute Assessment and plan: - Continue nutritional supplements and encouraging patient to eat. Patient does not have much appetite Subjective Subjective Interval history since last seen: Pt is doing well. no headaches. No CP or SOB. no productive cough. no dysuria. no leg pain or swelling. Exam Const General: cooperative and no acute distress Nutritional Appearance: overweight Orientation: alert, awake and oriented x3 Other: PHYSICAL EXAM GENERAL APPEARANCE: Alert, healthy appearance, oriented, x 3,? in no acute distress HYDRATION: Well hydrated HEAD, EYES, EARS, NECK, THROAT: Head is normocephalic, pupils equal, round, reactive to light and accommodation, ocular movement intact, sclera clear and no jaundice. ?No thrush LUNGS: normal respiration/normal chest excursion. ?Clear to auscultation bilaterally. ?No wheeze. ?HEART: Regular rate and rhythm. no murmurs EXTREMITY: No edema or cyanosis.? no leg pain, redness, swelling of lower extremities. PICC site is clean dry and intact. She does have swelling in the right arm. ABDOMEN: Normal bowel sounds.? ? Ostomy is 85 to 90% pink healthy tissue. There is still some spotty areas of necrotic tissue. The tissue underneath these areas is pink and healthy. The peristomal skin shows about 5% breakdown and some redness. We are using an antifungal powder. The wound VAC is removed today. The periwound skin is intact. There is a 30 percent necrotic tissue in the wound. We did attempt to do bedside wound debridement and patient did not tolerate well. The rest of the wound shows good beefy red granulation tissue. There is minimal serous drainage. -No breakdown Objective Last Vital Signs Temp 36.7 C 11/24/22 08:38 Pulse 98 H 11/24/22 08:38 Resp 20 11/24/22 08:38 BP 136/61 11/24/22 08:38 Pulse Ox 95 11/24/22 08:38 Laboratory Results - last 24 hr 11/24/22 11/24/22 11/24/22 05:45 05:45 05:45 WBC 16.33 H RBC 2.92 L Hgb 8.8 L Hct 27.1 L MCV 93 MCH 30.1 MCHC 32.5 RDW 15.5 H Plt Count 424 H MPV 9.5 Immature Gran % 1.6 Neutrophils % 87.3 Lymphocytes % 3.9 Monocytes % 6.2 Eosinophils % 0.8 Basophils % 0.2 Nucleated RBC % 0.0 Absolute Neutrophils 14.26 H Absolute Lymphocytes 0.64 L Absolute Monocytes 1.01 H Absolute Eosinophils 0.13 Absolute Basophils 0.03 Sodium 137 Potassium 3.6 Chloride 102 Carbon Dioxide 25.5 Anion Gap 9.5 BUN 16 Creatinine 0.7 Est GFR (CKD-EPI 2020) 85.23 Glucose 90 Calcium 8.6 Magnesium 1.9 C-Reactive Protein 24.99 H Procalcitonin Urine Color Urine Clarity Urine pH Ur Specific [place] Urine Protein Urine Ketones Urine Blood Urine Nitrite Urine Bilirubin Urine Urobilinogen Ur Leukocyte Esterase Urine Glucose Add-On Test Request DONE 11/24/22 11/24/22 05:45 09:15 WBC RBC Hgb Hct MCV MCH MCHC RDW Plt Count MPV Immature Gran % Neutrophils % Lymphocytes % Monocytes % Eosinophils % Basophils % Nucleated RBC % Absolute Neutrophils Absolute Lymphocytes Absolute Monocytes Absolute Eosinophils Absolute Basophils Sodium Potassium Chloride Carbon Dioxide Anion Gap BUN Creatinine Est GFR (CKD-EPI 2020) Glucose Calcium Magnesium C-Reactive Protein Procalcitonin 0.3 Urine Color Yellow Urine Clarity Clear Urine pH 5.5 Ur Specific [place] 1.025 Urine Protein 100 H Urine Ketones Negative Urine Blood Large H Urine Nitrite Negative Urine Bilirubin Negative Urine Urobilinogen 0.2 Ur Leukocyte Esterase Negative Urine Glucose Negative Add-On Test Request Time Spent with Patient Time Spent with Patient: >50 minutes Time was spent: preparing to see the patient(eg.review tests), obtaining and/or reviewing separately otained hiistory, ordering medications,tests, procedures, referring, communicating with other health assurance services manager health care, indepentently interpreting results, counseling the patient and care coordination
[2022-11-24 10:16] LABS: Bacteria Negative HPF (Negative); C & S Indicated? C&S Done As Ordered; Casts 0-2 Hyaline LPF (Negative); Crystals Negative HPF (Negative); Epithelial Cells Few HPF (Negative); Mucus Negative (Negative); Other Cells Few Yeast (Negative); WBC 0-2 HPF (0-5)
--- NOTE | 2022-11-24 10:37 | NUR.NOTE ---
Chest x-ray is taken.Nursing Note:
--- NOTE | 2022-11-24 10:45 | DI.VRAD_ITS ---
PROCEDURE INFORMATION: Exam: XR Chest Exam date and time: 11/24/2022 10:24 AM Age: 86 years old Clinical indication: Other: Worsening leucocytosis TECHNIQUE: Imaging protocol: Radiologic exam of the chest. Views: 1 view. COMPARISON: CR XR LINE PLACEMENT PICC/CVA 11/18/2022 3:39 PM FINDINGS: Tubes, catheters and devices: Right upper extremity PICC tip projects over the SVC. Lungs: Left basilar atelectasis. No consolidation. Pleural spaces: Unremarkable. No pleural effusion. No pneumothorax. Heart/Mediastinum: Large hiatal hernia. Bones/joints: Degenerative osseous changes. IMPRESSION: No acute findings. Dictated and Authenticated by: Sridhar Blackwell MD. Ordering:NAZARIO Taylor MD
--- NOTE | 2022-11-24 10:52 | PT.INTREAT ---
PT Notes Visit Reasons: Bowel Obstruction Inpatient Physical Therapy Treatment Note [facility] Date: 11/24/22 SUBJECTIVE: Kaila reports that she is willing to participate in PT, but not certain how she will do. Is a little anxious. She reports willing to walk a few steps but with some encouragement from her nurse, she is willing to try to go further. OBJECTIVE: []? PAIN: c/o arthritic pain all over mostly in B knees. VITALS: ? Pre-Treatment: HR 123bpm ? Post-Treatment: HR 121bpm. It did reach 160's during ambulation. After 30 seconds of sitting rest, she recovered to 120's. ? Therapeutic Activities (85841x2): Direct one-on-one instruction in dynamic activities to improve functional performance. ? BED MOBILITY/TRANSFERS? Rolling L/R: to right with vc Supine-sit: mod A? Sit-stand: mod A from bed, CGA from WC ? Stand-sit:CGA VC for proper hand placement ? Provided skilled cues and instruction on performance and technique throughout. ? Therapeutic Exercises (18495j4): Direct one-on-one instruction in therapeutic exercises to develop strength, endurance, range of motion and flexibility. ?Held on ex routine today as she increased distance with ambulation and was very tired.?Ambulation ? GAIT? Assistive Device: FWW ? Weight bearing: full Assist:CGA? Distance:approx 20' + 30'? Deviation: required 1 sitting rest x 1min due to increased HR and tired legs. ? ASSESSMENT:?tolerated session well once she got past some of her anxiety. Required encouragement. She was able to increase distance and seems pleased with that. HR seems to be better managed. She recovers quickly with brief sitting rest. PLAN: Requires PT for continued strengthening and endurance, in order to increase her functional mobility and activity tolerance. TREATMENT CODE/TIME:[id number]. [id number], [id number]
[2022-11-24] MEDS: Furosemide 20 MG/2 ML VIAL IVP (11:07)
[2022-11-24] MEDS: HYDROmorphone 2 MG/ML SYR 0.5 MG IVP (11:32)
[2022-11-24] MEDS: Acetaminophen 500 MG TAB 1000 MG PO ×2 (14:08→21:46)
[2022-11-24] MEDS: Omnipaque 350 MG/ML 50 ML BTL PO (14:13)
[2022-11-24] MEDS: MEROPENEM 1 GM in Normal Saline 100 ML IVPB ×2 (14:16→19:41)
--- NOTE | 2022-11-24 14:23 | NUR.NOTE ---
Patient begins taking contrast in anticipation of CT of abdoment that will take place at 17:00.Nursing Note:
[2022-11-24] MEDS: Normal Saline - Diluent 50 ML VIAL IJ (17:04)
[2022-11-24] MEDS: Omnipaque 350 MG/ML 100 ML BTL IJ (17:05)
[2022-11-24 17:31] LABS: C Diff PCR Negative (Negative)
--- NOTE | 2022-11-24 17:39 | DI.VRAD_ITS ---
PROCEDURE INFORMATION: Exam: CT Abdomen And Pelvis With Contrast Exam date and time: 11/24/2022 4:57 PM Age: 86 years old Clinical indication: Other: S/P ex lap x2 for obstruction/increasing wbc/pt has wound infection; Prior surgery; Surgery date: 3-7 days post-operative; Surgery type: Colostomy TECHNIQUE: Imaging protocol: Computed tomography of the abdomen and pelvis with contrast. Contrast material: OMNIPAQUE 350; Contrast volume: 100 ml; Contrast route: INTRAVENOUS (IV); COMPARISON: CT ABDOMEN PELVIS WO 11/14/2022 8:41 AM FINDINGS: Pleural spaces: Trace bilateral pleural effusions with passive atelectasis. Diaphragm: Large hiatal hernia. Liver: Normal. No mass. Gallbladder and bile ducts: The gallbladder is surgically absent. Pancreas: Normal. No ductal dilation. Spleen: Normal. No splenomegaly. Adrenal glands: Normal. No mass. Kidneys and ureters: 1.5 cm simple right renal cyst. Subcentimeter hypoattenuating foci within the kidneys, too small to further characterize. Stomach and bowel: Moderately distended stomach, proximal and mid small bowel with partially decompressed distal small bowel. No sharp transition point identified. Enteric contrast visualized to the level of mid small bowel. Postsurgical changes of left lower quadrant ostomy. Colonic diverticulosis without diverticulitis. The colon proximal to the ostomy is decompressed. Appendix: No evidence of appendicitis. Intraperitoneal space: Scattered fluid collections throughout the abdomen and pelvis, some of which demonstrate a thin rim enhancement. Largest is seen in the pelvis measuring 6.8 x 3.4 cm (series 7, image 738). No free intraperitoneal contrast. Vasculature: Unremarkable. No abdominal aortic aneurysm. Lymph nodes: Unremarkable. No enlarged lymph nodes. Urinary bladder: Unremarkable as visualized. Reproductive: Unremarkable as visualized. Bones/joints: Mild T11 compression fracture, unchanged. Degenerative changes of the spine. Soft tissues: Large ventral defect with anterior herniation of the abdominal contents. Redemonstrated and partially imaged 2.4 cm breast nodule. Scattered air foci throughout the subcutaneous tissues consistent with recent surgery. IMPRESSION: 1. Partial small-bowel obstruction versus ileus. Recommend continued radiographic monitoring of oral contrast progression. 2. Scattered abdominopelvic fluid collections, these are favored to reflect simple fluid and/or postsurgical seromas, although early abscess formation is not excluded. Dictated and Authenticated by: Sridhar Blackwell MD. Ordering:IMELDA Au MD
[2022-11-24] MEDS: Protein Nutritional Supplement 16 GM 1 OUNCE PACKET PO (19:40)
[2022-11-24] MEDS: Mylanta Suspension 30 ML CUP PO (22:38)
[2022-11-24] MEDS: POTASSIUM CHLORIDE/0.9% NACL 1,000 ML 75 MEQ IV (23:25)
[2022-11-25] VITALS (85 sets, daily range): BP systolic 96–137; BP diastolic 41–76; PULSE 71–131; RESP 10–23; TEMP 36.1–37.3; O2SAT 89–100; BMI 36.8
--- NOTE | 2022-11-25 05:04 | NUR.NOTE ---
Nursing Note: Confirmed with patient that the two rings removed from her left ring finger on 11/23/2022 were given to and taken home by family members on 11/24/2022. Patient acknowledged that the rings were taken home by her daughter on Thursday November 24, 2022.
[2022-11-25] MEDS: Acetaminophen 500 MG TAB 1000 MG PO (05:28)
[2022-11-25] MEDS: MEROPENEM 1 GM in Normal Saline 100 ML IVPB ×3 (05:29→21:39)
[2022-11-25] MEDS: Normal Saline Flush 10 ML SYR IVP (05:30)
[2022-11-25 06:47] LABS: Abs Immature Grans 0.24 10^3/uL (0.0-0.06); Absolute Eosinophil Count 0.08 10^3/uL (0.0-0.7); Basophils % 0.2; Eosinophils % 0.5; HCT 27.4 % (36.0-46.0); HGB 8.8 g/dL (11.2-15.7); Immature Grans % 1.4; Lymphocytes % 3.9; MCH 29.8 pg (27.0-33.0); MCHC 32.1 % (32.0-36.0); MCV 93 fL (80-95); MPV 9.5 fL (8.0-11.0); Monocytes % 6.1; Neutrophils % 87.9; Platelet Count 494 10^3/uL (130-400); RBC 2.95 10^6/uL (3.93-5.22); RDW 15.2 % (11.7-14.6); RDW-SD 52.2 fL; WBC 16.78 10^3/uL (4.4-10.8)
[2022-11-25 06:48] LABS: Absolute Basophil Count 0.03 10^3/uL (0.0-0.2); Absolute Lymphocyte Count 0.65 10^3/uL (1.2-3.4); Absolute Monocyte Count 1.02 10^3/uL (0.1-0.8); Absolute Neutrophil Count 14.75 10^3/uL (1.2-6.7)
[2022-11-25 07:13] LABS: Anion Gap 9.1 mmol/L (3-11); BUN 16 mg/dL (7-18); C-Reactive Protein 20.33 mg/dL (0.0-0.3); CO2 25.9 mmol/L (21.0-32.0); CREATININE 0.6 mg/dL (0.55-1.02); Calcium 8.5 mg/dL (8.5-10.1); Chloride 101 mmol/L (98-107); Estimated GFR 88.45 (mL/min/1.73m2); Glucose 81 mg/dL (74-106); Magnesium 1.8 mg/dL (1.8-2.4); Potassium 3.7 mmol/L (3.5-5.1); Sodium 136 mmol/L (136-145)
[2022-11-25] MEDS: Pantoprazole 40 MG TABCR PO (08:17)
[2022-11-25] MEDS: Nystatin POWDER 60 GM JAR TP (08:17)
[2022-11-25] MEDS: Metoprolol CR 25 MG TABCR PO (08:17)
[2022-11-25] MEDS: Apixaban 5 MG TAB PO (08:17)
--- NOTE | 2022-11-25 09:32 | W.ANESPRE ---
General Info Date of Service Date Performed: 11/25/22 Height: 5 ft 8 in Weight: 109.9 kg Body Mass Index (BMI): 36.8 Surgical Procedure: Operation Date: 11/15/22 15:35 Proposed Procedure Side Surgeon p Exploratory Laparotomy Eb Jiang MD s Bowel Resection, possible Colostomy Eb Jiang MD Actual Procedure Side Surgeon p Exploratory Laparotomy w/Colostomy Placement Not Applicable Eb Jiang MD Pre-Op Diagnosis Post-Op Diagnosis BOWEL OBSTRUCTION BOWEL OBSTRUCTION Operation Date: 11/17/22 23:55 Proposed Procedure Side Surgeon p Exploratory Laparotomy Teresa Garcia MD Actual Procedure Side Surgeon p Exploratory Laparotomy with Colostomy Revision Teresa Garcia MD Pre-Op Diagnosis Post-Op Diagnosis NAUSEA AND VOMITTING/ COLOSTOMY MALFUNCTION NAUSEA AND VOMITTING/ COLOSTOMY MALFUNCTION Operation Date: 11/25/22 09:05 Proposed Procedure Side Surgeon p Debridement Angely Malagon, Meds Allergies and Home Medications Allergies Allergy/AdvReac Type Severity Reaction Status Date / Time cyanocobalamin (vitamin B12) AdvReac Intermediate heart Verified 04/17/22 10:08 racing caffeine AdvReac Verified 04/17/22 10:08 Home Medication Medication Instructions Recorded acetaminophen 325 mg capsule 325 mg PO BID PRN 06/08/19 ferrous sulfate 250 mg (50 mg 250 mg PO DAILY #30 tabs 03/12/22 iron) tablet,extended release (Slow Release Iron) metoprolol succinate 25 mg 25 mg PO DAILY #90 tabs 03/12/22 tablet,extended release 24 hr pantoprazole 40 mg tablet,delayed 40 mg PO BID #180 tabs 03/12/22 release (Protonix) sertraline 25 mg tablet 25 mg PO DAILY #90 tab-caps 03/12/22 apixaban 5 mg tablet 5 mg PO BID #180 tabs 04/17/22 diclofenac sodium 1 % topical gel 4 g topical QID #100 grams 04/17/22 (Arthritis Pain (diclofenac)) Current Visit Medications: Current Medications Generic Name Dose Route Start Last Admin Trade Name Freq PRN Reason Stop Dose Admin Acetaminophen 1,000 mg 11/22/22 22:00 11/25/22 05:28 Acetaminophen 500 Mg Tab PO 1,000 mg Q8H ABNER Administration Al Hydrox/Mg Hydrox/Simethicone 30 ml 11/24/22 22:08 11/24/22 22:38 Mylanta Suspension 30 Ml Cup PO 30 ml Q4H PRN PRN Administration Albuterol/Ipratropium 3 ml 11/18/22 18:10 Albuterol/Ipratropium 3 Ml Upd Vial UPD Q4H PRN PRN Apixaban 5 mg 11/17/22 20:00 11/25/22 08:17 Apixaban 5 Mg Tab PO 5 mg BID ABNER Administration Sodium Chloride 500 mls @ 0 mls/hr 11/15/22 09:52 11/24/22 05:23 Saline 500ml Bag IV 0 mls/hr PRN PRN Infusion As Directed Meropenem 1 gm/ Sodium 100 mls @ 200 mls/hr 11/24/22 14:00 11/25/22 05:59 Chloride IVPB Infused Q8H ABNER Infusion Potassium Chloride/Sodium Chloride 1,000 mls @ 75 mls/hr 11/25/22 00:00 11/25/22 05:59 Kcl 20meq/Ns IV 75 mls/hr INFUSION ABNER Infusion IV Miscellaneous Supplies 1 each 11/15/22 10:00 Iv Access IV DIRECTED ABNER Iohexol 100 ml 11/24/22 17:15 11/24/22 17:05 Omnipaque 350 Mg/Ml 100 Ml Btl IJ 12/24/22 23:59 100 ml DIRECTED ABNER Administration Metoprolol Succinate 25 mg 11/16/22 20:00 11/25/22 08:17 Metoprolol Cr 25 Mg Tabcr PO 25 mg BID ABNER Administration Metoprolol Tartrate 5 mg 11/19/22 09:10 11/19/22 23:54 Metoprolol 5 Mg/5 Ml Vial IVP 5 mg Q4H PRN PRN Administration Morphine Sulfate 2 mg 11/14/22 13:01 11/18/22 06:09 Morphine 2 Mg/Ml Syr IVP 2 mg Q3H PRN PRN Administration Multi-Ingredient Supplement 1 ounce 11/22/22 20:00 11/25/22 08:17 Protein Nutritional Supplement 16 Gm 1 Ounce Packet PO Not Given TID ABNER Naloxone HCl 0 mg 11/18/22 00:59 Naloxone 0.4 Mg/Ml Vial IVP PRN PRN Nystatin 0 gm 11/23/22 08:30 11/25/22 08:17 Nystatin Powder 60 Gm Jar TP 1 applic TID ABNER Administration Pantoprazole Sodium 40 mg 11/23/22 07:30 11/25/22 08:17 Pantoprazole 40 Mg Tabcr PO 40 mg DAILY@0730 ABNER Administration Prochlorperazine Edisylate 5 mg 11/17/22 21:49 11/17/22 22:07 Prochlorperazine 10 Mg/2 Ml Vial IVP 5 mg Q3H PRN PRN Administration Sertraline HCl 25 mg 11/17/22 10:50 11/25/22 08:18 Sertraline 25 Mg Tab PO Not Given DAILY ABNER Sodium Chloride 0 ml 11/18/22 23:45 11/25/22 05:30 Normal Saline Flush 10 Ml Syr IVP 30 ml PRN PRN Administration Sodium Chloride 50 ml 11/24/22 17:15 11/24/22 17:04 Normal Saline - Diluent 50 Ml Vial IJ 50 ml .FOR DI USE ABNER Administration PFSH Active Problems Active Problems: Problem Status Onset Code Protein calorie malnutrition E46 Muscular deconditioning R29.898 Swelling of right upper extremity M79.89 Wound infection after surgery T81.49XA DVT prophylaxis Z29.9 Hypophosphatemia E83.39 Hypomagnesemia E83.[address] Z93.3 S/P exploratory laparotomy Z98.890 Hypoproteinemia E77.8 Hypoalbuminemia E88.09 Leukocytosis D72.829 Hypovolemia E86.1 Hypokalemia E87.6 Hypotension I95.9 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 Nausea and vomiting R11.2 Bowel obstruction K56.609 Obesity (BMI 30-39.9) E66.9 Anxiety 03/03/12 F41.9 Depressive disorder 02/11/12 F32.9 Essential hypertension 02/11/12 I10 Hyperlipidemia 03/03/12 E78.5 Iron deficiency anemia, unspecified 08/13/17 D50.9 Gastroesophageal reflux disease 03/03/12 K21.9 Osteoarthritis 03/03/12 M19.90 Vitamin B12 deficiency E53.8 Advanced directives, counseling/discussion Z71.89 Hiatal hernia K44.9 Hemorrhoids 03/03/12 K64.9 Atrial fibrillation by electrocardiogram 08/06/17 I48.91 Diverticulitis of colon K57.32 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 Medical History Medical History Anemia Breast lump Essential hypertension Family history of GI malignancy (03/03/12) Family hx-breast malignancy (03/03/12) GERD (gastroesophageal reflux disease) Hemorrhoids History of tobacco use Surgical History Surgical History Biopsy of breast (~1989) LEFT Cholecystectomy (~1980) Colonoscopy - MAC (08/16/17) EGD - MAC (08/16/17) Status post breast biopsy Tobacco Smoking/Tobacco Use Status: Former Tobacco Use Passive smoking exposure: Yes Second hand exposure: Yes Alcohol Alcohol Intake: never Substance Use Substance use: Never Substance use type: does not use Vital Signs and Lab Results Vital Signs Most Recent Vital Signs in EMR: Most Recent Vital Signs Temp Pulse Resp BP Pulse Ox 37 C 95 H 17 131/52 L 96 11/25/22 08:49 11/25/22 08:49 11/25/22 08:49 11/25/22 08:49 11/25/22 08:49 Point of Care Results Point of Care Results: Finger Stick Blood Glucose 147 11/23/22 17:59 Lab Results 11/25/22 05:30 11/25/22 05:30 Blood Type / Crossmatch: Patient ABO/Rh O Negative 11/17/22 Antibody Screen NEGATIVE 11/17/22 Complete Blood Count: White Blood Count 16.78 10^3/uL (4.4-10.8) H 11/25/22 05:30 Red Blood Count 2.95 10^6/uL (3.93-5.22) L 11/25/22 05:30 Hemoglobin 8.8 g/dL (11.2-15.7) L 11/25/22 05:30 Hematocrit 27.4 % (36.0-46.0) L 11/25/22 05:30 Platelet Count 494 10^3/uL (130-400) H 11/25/22 05:30 Complete Metabolic Panel: Sodium 136 mmol/L (136-145) 11/25/22 05:30 Potassium 3.7 mmol/L (3.5-5.1) 11/25/22 05:30 Chloride 101 mmol/L (98-107) 11/25/22 05:30 Carbon Dioxide 25.9 mmol/L (21.0-32.0) 11/25/22 05:30 BUN 16 mg/dL (7-18) 11/25/22 05:30 Creatinine 0.6 mg/dL (0.55-1.02) 11/25/22 05:30 Est GFR (CKD-EPI 2020) 88.45 (mL/min/1.73m2) 11/25/22 05:30 Magnesium 1.8 mg/dL (1.8-2.4) 11/25/22 05:30 Calcium 8.5 mg/dL (8.5-10.1) 11/25/22 05:30 Albumin 1.3 g/dL (3.4-5.0) L 11/21/22 06:15 Glucose 81 mg/dL (74-106) 11/25/22 05:30 C-Reactive Protein 20.33 mg/dL (0.0-0.3) H 11/25/22 05:30 Liver Function Panel: Alanine Aminotransferase (ALT/SGPT) 10 U/L (14-59) L 11/21/22 06:15 Aspartate Amino Transf (AST/SGOT) 15 U/L (15-37) 11/21/22 06:15 Coagulation Panel: INR International Normalized Ratio 1.1 (0.9-1.1) 11/19/22 06:00 Prothrombin Time 11.5 sec (9.3-11.0) H 11/19/22 06:00 Cardiac Panel: Troponin I < 50 ng/L (<or=60) 11/14/22 Arterial Blood Gas: No Data to Display Venous Blood Gas: No Data to Display Pancreas Panel: No Data to Display Thyroid Panel: No Data to Display Infectious Disease: No Data to Display Blood Cultures: No Data to Display Toxicology Panel: No Data to Display Imaging and Studies Imaging and Studies Study information below may be from another EMR and interpreted by another provider. Please see original notes in EMR for more complete details. EKG Summary: EKG PATIENT NAME: Kaila Thomas #: [id number] ORDERING PROVIDER: Rama Ross M.D. PRIMARY CARE PROVIDER:Sridhar Charles DNP DATE/TIME OF SERVICE: 11/14/22811 : 09/23/1936PERFORMING LOCATION: ER APPROVED REPORT Exam: Resting ECG Reason for Exam: NV Patient Location: E HR:94 bpm ECG Measurements Heart Rate [address] [id number] P [id number] QRSd 105 QRS 1 QT [id number] T242 QTc 0 Conclusion Atrial fibrillation...V-rate 63-106, irreg A-activity Ventricular premature complex...V complex w/ short R-R interval Aberrant conduction of SV complex(es)...aberrant shape, CT 80-220 Nonspecific repol abnormality, diffuse leads...ST dep, T flat/neg, ant/lat/inf <Electronically signed by RAMA ROSS MD in OV> E-Sign Date: 11/14/22 E-Sign Time: 0833 Stress Test Summary: Patient Name: KAILA THOMAS #: [id number]: MS Ordering Provider: Tammy Keating NPAccount #: [id number]: DIS RADHA Primary Care Provider: Renee Andrade NPDate of Exam: 12/25/18Sex: F : 8Age: 82 Exam(s) a NM:NM MPI rest & stress grp *[facility]* *[facility]* [address] [place] [address] Myocardial Perfusion Imaging - SPECT Rob protocol Date of study: 12/25/2018 *PATIENT PRESENTATION* Height: 170.2cm (67in) Blood Pressure: Weight: 99.8kg (219.5lb) BSA: 2.21m^2 Referring physician: Jose Herrera Ordering physician: Tammy Keating Impressions: Normal study after pharmacologic stress. Summary: 1. Myocardial perfusion imaging: No myocardial perfusion defects noted. 2. The calculated left ventricular ejection fraction after stress: 65%. LV global systolic function is normal. No left ventricular regional motion abnormality. Indication: R07.9. History: REASON FOR TESTING: PATIENT PRESENTED TO THE ER 12/23/18 WITH MIDSTERNAL CHEST PAIN (5/10) WITH RADIATION TO BILATERAL UPPER EXTREMITIES AND NECK, NAUSEA, AND DYSPNEA. PAIN RELIEVED WITH SUBLINGUAL NITROGLYCERINE IN THE ER. PATIENT WAS ADMITTED TO THE HOSPITAL. HER TROPONIN LEVELS WERE 0.05 TIMES FOUR. PATIENT REPORTS HAVING CHEST PRESSURE (5/10) WITH ASSOCIATED SYMPTOMS DESCRIBED ABOVE FOR THE PAST TWO WEEKS. SHE ALSO REPORTS HAVING BEEN TO THE ER 1 WEEK PRIOR TO THIS ADMISSION FOR THE SAME SYMPTOMS. PATIENT DENIES CHEST PAIN UPON ARRIVAL TO TESTING TODAY. SIGNIFICANT PAST MEDICAL HISTORY: GERD, ATRIAL FIBRILLATION, ANXIETY. SMOKING STATUS: QUIT 50 YEARS AGO. SHE SMOKED FOR APPROXIMATELY 20 YEARS--1 PACK PER WEEK. EXERCISE ROUTINE: SEDENTARY LIFESTYLE. Risk factors: Family history of coronary artery disease. Hypertension. Dyslipidemia. ALLERGIES: CAFFEINE. MEDICATIONS: APIXABAN 5 MG BID, SLOW RELEASE IRON 250 MG BID, SERTRALINE 25 MG DAILY, PANTOPRAZOLE 40 MG DAILY, METOPROLOL SUCCINATE 25 MG DAILY, VITAMIN B 12 IM INJECTION MONTHLY. Imaging Technique: Protocol: Rob protocol. Acquisition: Gated SPECT; 1 day - rest/stress. The patient was imaged in the supine position. Attenuation correction used. Isotope administration: - Rest. Tc[99m]-sestamibi. Dose: 10mCi. Injection time: 08:25 AM. Injection to stress time: 00:45. - Stress. Tc[99m]-sestamibi. Dose: 31.5mCi. Injection time: 10:25 AM. 1-2 min before end of exercise Baseline ECG: ATRIAL FIBRILLATION. HR 76 BPM. Stress protocol: +--------+---+ + + !Stage !HR !BP (mmHg) !Comments ! +--------+---+ + + !Baseline!76 !134/90 (105)! ! +--------+---+ + + !1 min !91 !152/90 (111)!Inject Regadenoson.! +--------+---+ + + !3 min !112!134/82 (99) ! ! +--------+---+ + + !5 min !103!128/82 (97) ! ! +--------+---+ + + !6 min !95 !126/78 (94) ! ! +--------+---+ + + * Stress results: LEXISCAN STRESS TEST ENDED IN 6 MINUTES 56 SECONDS. NORMAL HEART RATE AND BLOOD PRESSURE RESPONSE TO LEXISCAN INJECTION. NO ECTOPY. NO ANGINA. NO SIGNIFICANT ST SEGMENT CHANGES. The rate-pressure product for the peak heart rate and blood pressure was 33331eu Hg/min. Myocardial perfusion: Imaging information: gated. Left ventricular size is normal. No myocardial perfusion defects noted. Ventricular Function (Wall Motion): The calculated left ventricular ejection fraction after stress: 65%. LV global systolic function is normal. No left ventricular regional motion abnormality. Study data: Sidney Murphy MD supervised and was readily available during the procedure. This study was interpreted by [facility]. Study status: Routine. Consent: The risks, benefits, and alternatives to the procedure were explained to the patient and informed consent was obtained. Procedure: Initial setup. A baseline ECG was recorded. Surface ECG leads and manual cuff blood pressure measurements were monitored. Heart sounds: Normal. Lung sounds: Normal. Treadmill exercise testing was performed using the Rob protocol. Study completion: All catheters inserted during the procedure were removed. The patient tolerated the procedure well and was discharged from the lab. Discharge: The patient left the laboratory in stable condition. Birthdate: Patient birthdate: 1935. Sex: Gender: female. Study date: Study date: 12/25/2018. Study time: 00:01 AM. Signature Documentation: - The imaging portion of this study was interpreted by Nuclear [employer]er Sidney Murphy MD. - The imaging portion of this study was interpreted by Nuclear Radiologist Olegario Rivera MD. - The Stress ECG portion of this study was interpreted by Sidney Murphy MD. Electronically signed by Sidney Murphy 12/25/2018 14:49 Ordering provider: Tammy Keating NP CC: MARIE AMOS,PhD,[facility] Dictated by: Olegario Rivera M.D.12/25/18 1500 <Electronically signed by Olegario Rivera M.D.>12/30/18 1313 Disclaimer: The [facility] radiologist is signing only the Nuclear Medicine MPI Imaging exam portion of the report. Transcribed by: Yohana Lynn12/25/18 1525 Echocardiogram Summary: Patient Name: KAILA THOMAS #: [id number]: MS Ordering Provider: Iker Wood M.D. : ADM RADHA Primary Care Provider: Renee Andrade NPDate of Exam: 12/24/18Sex: F : 8Age: 82 Exam(s) a US:US echocardiogram *[facility]* *[facility]* [address] [place] [address] Date of study: 12/24/2018 Transthoracic Echocardiography M-mode, complete 2D, complete spectral Doppler, and color Doppler *STUDY CONCLUSIONS* Impressions: The patient was in atrial fibrillation throughout study. This rhythm can interfere with accurate global and segmental wall motion analysis. Summary: 1. Left ventricle: The cavity size was normal. Wall thickness was normal. Systolic function was normal. The estimated ejection fraction was 55-60%. Wall motion was normal; there were no regional wall motion abnormalities. 2. Left atrium: The atrium was severely dilated. 3. Right ventricle: The cavity size was normal. Wall thickness was normal. Systolic function was normal. 4. Right atrium: The atrium was moderately dilated. 5. Pulmonary arteries: Pulmonary systolic pressure was within the normal range, in the range of 40mm Hg to 45mm Hg. 6. Inferior vena cava: The vessel was patent and normal in size. The respirophasic diameter changes were in the normal range (greater than or equal to 50%). *PATIENT PRESENTATION* Height: 170.2cm (67in ) S/D Pressure: 125 / 74 Weight: 99.8kg (219.5lb ) BSA: 2.21m^2 Test start time: 09:00 AM. Test stop time: 09:45 AM. PERFORMING Unknown CONSULTING Iker Wood ORDERING Iker Wood REFERRING Iker Wood PERFORMING [facility] OLERICULTURIST RT Clovis Melton)(REAGAN)ROB *PROCEDURE DATA* Procedure information: The patient was identified by two identifiers. This study was interpreted by [facility]. Pertinent images and digital data are archived for permanent storage and are available for subsequent review. Comparison was made to the study of 07/26/2017. Study status: Routine. Transthoracic echocardiography. M-mode, complete 2D, complete spectral Doppler, and color Doppler. A Transthoracic Echocardiogram was performed. Scanning was performed from the parasternal, apical, subcostal, and suprasternal notch acoustic windows. Images were obtained using an [id number] cardiac ultrasound machine. Image quality was adequate. Study completion: The patient tolerated the procedure well. History: PMH: Chest pain. *CARDIAC ANATOMY* Left ventricle: The cavity size was normal. Wall thickness was normal. Systolic function was normal. The estimated ejection fraction was 55-60%. Wall motion was normal; there were no regional wall motion abnormalities. The study was not technically sufficient to allow evaluation of LV diastolic dysfunction due to atrial fibrillation. Aortic valve: Trileaflet; mildly thickened, mildly calcified leaflets. Mobility was not restricted. Doppler: Transvalvular velocity was within the normal range. There was no stenosis. There was no significant regurgitation. VTI ratio of LVOT to aortic valve: 0.68. Indexed valve area (VTI): 1cm^2/m^2. Peak velocity ratio of LVOT to aortic valve: 0.6. Valve area (Vmax): 1.9cm^2. Indexed valve area (Vmax): 0.9cm^2/m^2. Mean velocity ratio of LVOT to aortic valve: 0.65. Valve area (Vmean): 2cm^2. Indexed valve area (Vmean): 0.9cm^2/m^2. Mean gradient (S): 5.6mm Hg. Peak gradient (S): 9.6mm Hg. Aorta: Aortic root: The aortic root was normal in size. Ascending aorta: The ascending aorta was normal in size. Mitral valve: Structurally normal valve. Mobility was not restricted. Doppler: Transvalvular velocity was within the normal range. There was no evidence for stenosis. There was trivial regurgitation. Peak gradient (D): 4.1mm Hg. Left atrium: The atrium was severely dilated. Right ventricle: The cavity size was normal. Wall thickness was normal. Systolic function was normal. Pulmonic valve: Doppler: Transvalvular velocity was within the normal range. There was no evidence for stenosis. There was no significant regurgitation. Tricuspid valve: Structurally normal valve. Doppler: Transvalvular velocity was within the normal range. There was no evidence for stenosis. There was mild regurgitation. Pulmonary artery: Pulmonary systolic pressure was within the normal range, in the range of 40mm Hg to 45mm Hg. Right atrium: The atrium was moderately dilated. Pericardium: There was no pericardial effusion. Systemic veins: Inferior vena cava: Well visualized. The vessel was patent and normal in size. The respirophasic diameter changes were in the normal range (greater than or equal to 50%). Baseline ECG: Atrial fibrillation. Measurements Left ventricle Value 07/26/2017 Reference LV ID, ED, PLAX 4.1 cm 4.9 3.5 - 6.0 LV ID, ES, PLAX 2.9 cm 3.5 2.1 - 4.0 LV PW thickness, ED, PLAX 1.1 cm 1.2 LV end-diastolic volume, 65 ml 66 1-p A2C LV ejection fraction, 1-p 60 % 67 A2C LV end-diastolic volume, 52 ml 79 1-p A4C LV ejection fraction, 1-p 59 % 59 A4C LV e', lateral 0.103 m/sec 0.104 LV E/e', lateral 10 12 LV e', medial 0.092 m/sec 0.088 LV E/e', medial 11 14 LV e', average 0.098 m/sec 0.096 LV E/e', average 10 13 Ventricular septum Value 07/26/2017 Reference IVS thickness, ED, PLAX 1.0 cm 1.2 LVOT Value 07/26/2017 Reference LVOT ID, A-P 2.0 cm 2.0 LVOT area 3.2 cm^2 3 LVOT peak velocity, S 0.94 m/sec 1 LVOT mean velocity, S 0.72 m/sec 0.73 LVOT VTI, S 19.6 cm 22.7 LVOT peak gradient, S 3.5 mm Hg 4 LVOT mean gradient, S 2.3 mm Hg 2.4 Stroke volume (SV), LVOT 62 ml 69 DP Stroke index (SV/bsa), 28 ml/m^2 30 LVOT DP Aortic valve Value 07/26/2017 Reference Aortic valve peak 1.6 m/sec 1.7 velocity, S Aortic valve mean 1.1 m/sec 1.2 velocity, S Aortic valve VTI, S 29.0 cm 37.2 Aortic mean gradient, S 5.6 mm Hg 6.7 Aortic peak gradient, S 9.6 mm Hg 11.3 VTI ratio, LVOT/AV 0.68 0.61 Velocity ratio, peak, 0.6 0.59 LVOT/AV Aortic valve area, peak 1.9 cm^2 1.8 velocity Velocity ratio, mean, 0.65 0.59 LVOT/AV Aortic valve area, mean 2 cm^2 1.8 velocity Aortic valve area/bsa, 0.9 cm^2/m^2 0.8 mean velocity Aorta Anesthesia Assessment and Plan Anesthesia History Personal History: No History of Anesthesia Complications Family History: No Family History of Anesthesia Complications Exercise Tolerance Exercise Tolerance: Metabolic Equivalents<4 Pertinent Negatives Pertinent Negatives: No Major Cardiovascular Symptoms or Complaints and No Major Pulmonary Symptoms or Complaints Cardiac & Pulmonary Exam Cardiac Exam: Normal S1/S2 Heart Sounds Pulmonary Exam: Clear Bilateral Breath Sounds Implantable Cardiac Device Does patient have a Pacemaker or an ICD?: No Airway Exam Known Difficult Airway: No Mallampati Class: 2 Mouth Opening: Normal (> 3cm) Thyromental Distance: Greater than 3 cm Neck Range of Motion: Full ROM Neck Circumference: Normal Teeth Condition: Removable Dentures/Plates Upper, Removable Dentures/Plates Lower and Edentulous ASA Classification ASA Score: ASA 3 Emergency Case?: Yes NPO Status NPO Status: NPO Clears >2 hours, Solids >8 hours Anesthesia Plan Resuscitation Status: Full Code Anesthesia Technique: General Anesthesia Airway Planned: Endotracheal Tube Monitors Used: Standard Monitors
[2022-11-25] MEDS: Lactated Ringers 1,000 ML 30 ML IV (10:10)
--- NOTE | 2022-11-25 11:36 | PT.INNT ---
PT Notes Visit Reasons: Bowel Obstruction held PT today as Kaila going down for surgical procedure. Will check in with her tomorrow.
--- NOTE | 2022-11-25 12:55 | W.PM.OP ---
Date of service: 11/25/22 Time of Service: 12:55 Operative Note Operative Note DATE OF PROCEDURE: 11/15/22 PRE-OP DIAGNOSIS: Wound infection and fascial dehiscence POST-OP DIAGNOSIS: same (and ileus) PROCEDURE: Abdominal exploration/debridement of abdominal wound/closure of fascial dehiscence with retention sutures. Colostomy change. SURGEON: Angely Malagon RESEARCH EDITOR: Ta Martinez ANESTHESIA TYPE: General LMA/ETT Refer to Anesthesia Record ESTIMATED BLOOD LOSS: 50 PATHOLOGY: none sent COMPLICATIONS: None Patient was transported to: ICU Patient's condition: stable Procedure Description: Patient is developed a wound infection and the abdominal fascial dehiscence. She is being brought to the operating room for debridement of the wound and closure of the fascia. Informed consent and is obtained from the patient explaining risks and benefits of the procedure including but not limited to: Bleeding, infection, pneumonia, blood clots, complications from anesthesia including CO/CVA and . Further infections and read dehiscence abdominal hernia ileus or bowel obstruction, damage to bowel resulting in fistula and other unforeseen complications. Patient is brought to the operative suite and placed in supine position with all bony surfaces padded. Anesthesia is administered per the department of anesthesia. Her old dressing is removed. NG tube and Baugh catheter are placed. The colostomy is left in place for this portion of the procedure. She is already on antibiotics I did do a localized exam of her PICC line because of concerns over swelling in the arm. I do not see any clot. A formal ultrasound will be done tomorrow. The abdomen is prepped and draped in usual sterile fashion using a Betadine scrub solution. Timeout is performed. The abdomen is explored. The fascia is peeled away from the omentum and the intestines. The small bowel is tightly adherent. Attempting to run the bowel only results in tearing and bleeding and this was only minimally attempted. There is no sign of any enterotomies. The colostomy is viewed from the abdominal side. There is no signs of any leaks. the limb of the proximal left colon appears pink and healthy. there are no fluid collections noted within the abdomen. The fascial that was involved in the closure is necrotic and this is debrided away to healthy tissue. All nonviable tissue is debrided away; Using sharp and blunt dissection. The abdomen is irrigated with a 2 liter of saline. 5 retention sutures with 0 nylon are placed with deep bites through the skin and the fascia. The fascia was then reapproximated with 0 Prolene in a [id number] fashion. The skin and subcutaneous tissue was left open. There is no change in pulse or blood pressure once the abdomen is closed. The closure does not feel overly tight or tense to the point that we would be compromising blood flow. The incision is then packed with wet, silver impregnated gauze. The colostomy appliance is then changed. The stoma appears pink and patent. It does have liquid stools. There is less than 5% necrotic tissue. The slough is debrided away with gauze. No appliance is reapplied. She does have some chafing and abrasions under each breast. This was debrided, and closed with skin glue. I do not think these are from infection. I think this is just from tension caused by the breast tissue itself. Silver impregnated Mepilex style dressings were placed on these. NG tube and Baugh were left in place (800 cc of material was evacuated through the OG tube so it was converted to an NG tube). -Dressing under the PICC line will need to be very changed Did discuss the case with Dr. Sprague: -will resume TPN. - hold the apixaban and change her over to heparin Change medications over to IV -High risk for further wound breakdown/fascial dehiscence/hernia/posterior skin breakdown. -Protein calorie malnutrition. Albumin is 1.3 -Severe deconditioning -I would like to be able to put a wound VAC on her incision. At this time I do not know if it is feasible with the retention bolsters and colostomy.
--- NOTE | 2022-11-25 12:56 | PGE_ITS ---
Date of Service Date of service: 11/25/22 Time of Service: 12:56 Assessment and Plan Assessment and plan (1) Wound infection after surgery: Status: Acute Assessment and plan: Blood cultures no growth at 24 hours. Tissue wound culture from 11/22/2022 grew E. coli which appear to be pansensitive. However subsequent anaerobic cultures grew mixed anaerobic growth. Patient previously treated with Zosyn now currently on meropenem. Patient is status post incision and drainage of abdominal wound dehiscence. Management as per surgical service. (2) Bowel obstruction: Status: Acute Assessment and plan: POD#6 laparotomy and loop colostomy revision, POD# 8 exl lap, creation of descending loop colostomy. Complicated by surgical wound infection, status post return to the operating room today for incision and drainage and retention sutures (3) Atrial fibrillation by electrocardiogram: Status: Chronic Assessment and plan: While patient is n.p.o. we will place her on IV Lopressor. may need to switch to heparin drip if she is unable to take po meds or if she is not absorbing her meds (concern that she has gastroparesis or ileus given the large volume of fluids in her stomach) (4) Essential hypertension: Status: Chronic Assessment and plan: Continue metoprolol. (5) Depressive disorder: Status: Chronic Assessment and plan: Sertraline held until to take p.o. (6) Hypokalemia: Status: Resolved Assessment and plan: Corrected continue to monitor (7) Hypomagnesemia: Status: Resolved Assessment and plan: Back to the continue to monitor (8) Hypophosphatemia: Status: Resolved (9) DVT prophylaxis: Status: Acute Assessment and plan: On apixaban. Subjective Subjective Interval history since last seen: Patient went to the OR today d/t dehiscence of her abdominal wound and underwent incision and debridement along w/ retention sutures for closure. She returns to ICU hemodynamically stable. She has NG in place (per nursing she had large volume of fluid in her stomach pre-intubation). She remains on oxygen face mask but w/ SPO2 of 99%. She will remain NPO for now. She is now on meropenem for her abdominal infection. Exam Narrative Exam Narrative: Obese elderly female who is alert and oriented talking with her family. Lungs are clear anteriorly [place] irregular regular slightly tachycardic in the low 100s Abdomen obese distended with active bowel sounds, colostomy appears to be pink with no drainage around the colostomy site rest the abdomen is bandaged over the surgical incision and retention sutures. Extremities without peripheral edema Objective Last Vital Signs Temp 37 C 11/25/22 08:49 Pulse 95 H 11/25/22 08:49 Resp 17 11/25/22 08:49 BP 131/52 L 11/25/22 08:49 Pulse Ox 96 11/25/22 08:49 Laboratory Results - last 24 hr 11/24/22 11/25/22 11/25/22 15:50 05:30 05:30 WBC 16.78 H RBC 2.95 L Hgb 8.8 L Hct 27.4 L MCV 93 MCH 29.8 MCHC 32.1 RDW 15.2 H Plt Count 494 H MPV 9.5 Immature Gran % 1.4 Neutrophils % 87.9 Lymphocytes % 3.9 Monocytes % 6.1 Eosinophils % 0.5 Basophils % 0.2 Nucleated RBC % 0.0 Absolute Neutrophils 14.75 H Absolute Lymphocytes 0.65 L Absolute Monocytes 1.02 H Absolute Eosinophils 0.08 Absolute Basophils 0.03 Sodium 136 Potassium 3.7 Chloride 101 Carbon Dioxide 25.9 Anion Gap 9.1 BUN 16 Creatinine 0.6 Est GFR (CKD-EPI 2020) 88.45 Glucose 81 Calcium 8.5 Magnesium 1.8 C-Reactive Protein 20.33 H Stl C.difficile Tox PCR Negative Time Spent with Patient Time Spent with Patient: 25-34 minutes Time was spent: preparing to see the patient(eg.review tests), ordering medications,tests, procedures, referring, communicating with other health laboratory animal caretaker, indepentently interpreting results, counseling the patient and care coordination
[2022-11-25] MEDS: MORPHine 2 MG/ML SYR IVP (13:03)
[2022-11-25] MEDS: HYDROmorphone 2 MG/ML SYR IVP (13:43)
[2022-11-25] MEDS: Metoprolol 5 MG/5 ML VIAL IVP ×2 (13:44→19:56)
--- NOTE | 2022-11-25 14:39 | W.ANESPOSTOP ---
Postoperative Evaluation Date, Time and Location Date Performed: 11/25/22 Time Performed: 12:54 Patient Location: Intensive Care Unit Vital Signs Most Recent Imported Vital Signs: Most Recent Vital Signs Temp Pulse Resp BP Pulse Ox 37.3 C 115 H 12 137/76 96 11/25/22 14:02 11/25/22 14:02 11/25/22 14:02 11/25/22 13:44 11/25/22 14:02 Most Recent Vital Signs Temp Pulse Resp BP Pulse Ox 37.3 C 103 H 24 119/78 94 11/17/22 23:16 11/17/22 23:16 11/17/22 23:16 11/17/22 23:16 11/17/22 23:16 Most Recent Vital Signs Temp Pulse Resp BP Pulse Ox 36.4 C L 101 H 24 143/69 H 98 11/15/22 18:00 11/15/22 18:00 11/15/22 18:00 11/15/22 18:00 11/15/22 18:00 Pain Score Most Recent Pain Score: Most Recent Pain Score Pain Level [Mid Abdomen] 1 11/22/22 19:35 Pain Level 7 11/25/22 14:02 Assessment Mental Status: Awake (Alert & Oriented to Patient Baseline) Airway and Respiratory Function: Patent airway with normal (patient baseline) respiratory exam Cardiovascular Function: Hemodynamically Stable Hydration Status: Adequately Hydrated Nausea & Vomiting: No Nausea or Vomiting Pain: Pain is Moderate or Severe Postoperative Pain Management: Ongoing pain, patient will be managed as an inpatient Peripheral Nerve Block: Patient did not receive a nerve block
--- NOTE | 2022-11-25 20:13 | W.NUTCONSULT ---
Date of service: 11/25/22 Time of Service: 20:14 Nutritional Consult ASSESSMENT: Ms. Salas has been essentially NPO and on TPN. She did try some clear liquids and soft solids for a few days of which she took in fair to minimal amounts. Her weight is 109.9 kg. Her BMI is 36.8 kg/m2 c/w class 2 obesity. She has gained 9.9 % body weight since admission. There is no peripheral edema noted on exam. She does have a wound infection. ideal body weight is 91 kg. Her estimated energy needs are 1900 kcal/day (REE x 1.2) Estimated protein needs are 91g-118g/day (1.0-1.3 g/kg/adjusted ideal body weight/day) Estimated fluid needs are 1900 ml/day (1 ml/kcal provided per day) Her current TPN regimen provides 1520 kcal/day and 85 g/day NUTRITIONAL DIAGNOSIS: Increased calorie and protein needs related to wounds. INTERVENTION: Would consider increasing TPN regiment to 2.0L of 5/15 with 250 ml/day of 20% lipids daily to provide 1920 kcals and 100 grams of protein to meet 100% of estimated calorie and protein needs. MONITORING AND EVALUATION: 1. Will monitor for advance of PO intake. 2. Will monitor weight. 3. Will evaluate nutrition care plan ongoing and adjust as needed. Time Spent in Nutritional Counseling and Treatment: 15 minutes
[2022-11-25] MEDS: ACETAMINOPHEN 1,000 MG/100 ML BTL 400 MG IVPB (22:20)
[2022-11-26] VITALS (79 sets, daily range): BP systolic 90–121; BP diastolic 40–58; PULSE 69–124; RESP 11–23; TEMP 36.3–36.6; O2SAT 90–97
[2022-11-26] MEDS: Lactated Ringers 500 ML IV (00:08)
[2022-11-26] MEDS: ACETAMINOPHEN 1,000 MG/100 ML BTL 400 MG IVPB ×3 (05:00→20:51)
[2022-11-26] MEDS: MEROPENEM 1 GM in Normal Saline 100 ML IVPB ×3 (05:17→20:52)
[2022-11-26 05:24] LABS: Abs Immature Grans 0.14 10^3/uL (0.0-0.06); Absolute Eosinophil Count 0.17 10^3/uL (0.0-0.7); Absolute Monocyte Count 1.07 10^3/uL (0.1-0.8); Absolute Neutrophil Count 13.59 10^3/uL (1.2-6.7); Basophils % 0.3; Eosinophils % 1.1; HCT 26.5 % (36.0-46.0); HGB 8.7 g/dL (11.2-15.7); Immature Grans % 0.9; Lymphocytes % 4.3; MCH 30.5 pg (27.0-33.0); MCHC 32.8 % (32.0-36.0); MCV 93 fL (80-95); MPV 9.1 fL (8.0-11.0); Monocytes % 6.8; Neutrophils % 86.6; Platelet Count 480 10^3/uL (130-400); RBC 2.85 10^6/uL (3.93-5.22); RDW 15.4 % (11.7-14.6); RDW-SD 52.5 fL; WBC 15.69 10^3/uL (4.4-10.8)
[2022-11-26 05:30] LABS: Absolute Basophil Count 0.05 10^3/uL (0.0-0.2); Absolute Lymphocyte Count 0.67 10^3/uL (1.2-3.4)
[2022-11-26 05:41] LABS: ALT 11 U/L (14-59); AST 13 U/L (15-37); Albumin 1.2 g/dL (3.4-5.0); Alkaline Phosphatase 72 U/L (46-116); Anion Gap 3.4 mmol/L (3-11); BUN 18 mg/dL (7-18); Bilirubin, Total 0.3 mg/dL (0.2-1.0); C-Reactive Protein 16.81 mg/dL (0.0-0.3); CO2 28.6 mmol/L (21.0-32.0); CREATININE 0.6 mg/dL (0.55-1.02); Calcium 8.2 mg/dL (8.5-10.1); Chloride 100 mmol/L (98-107); Estimated GFR 88.45 (mL/min/1.73m2); Glucose 144 mg/dL (74-106); Potassium 3.6 mmol/L (3.5-5.1); Sodium 132 mmol/L (136-145); Total Protein 4.8 g/dL (6.4-8.2)
[2022-11-26 05:58] LABS: Procalcitonin 0.2 ng/mL
[2022-11-26 07:39] LABS: Lab Add On Test DONE
[2022-11-26 07:52] LABS: Magnesium 1.8 mg/dL (1.8-2.4); PHOSPHORUS 2.4 mg/dL (2.6-4.7)
--- NOTE | 2022-11-26 08:00 | DI.US_ITS ---
Exam(s) US UPPER EXTREMITY VENOUS RT EXAM: US UPPER EXTREMITY VENOUS RT CLINICAL HISTORY: RUE swelling; PICC line in place. TECHNIQUE: Ultrasound examination of the right upper extremity venous system(s) is performed using g rayscale, color-flow, and spectral Doppler analysis. COMPARISON: There are no priors for comparison. FINDINGS: The right internal jugular, axillary, subclavian, cephalic, basilic, brachial and median cubital vein s are patent without evidence of thrombosis. There is a PICC line in place. There is edema seen in the soft tissues around the entrance site of the PICC line. No focal fluid collection is seen. IMPRESSION: 1. No evidence of a right upper extremity DVT. 2. There is a right PICC line in place. 3. Edema seen in the soft tissues around the entrance site of the PICC line. No focal fluid collecti on is seen sonographically. DATA REPOSITORY:
[2022-11-26] MEDS: Metoprolol 5 MG/5 ML VIAL IVP (08:43)
[2022-11-26] MEDS: Pantoprazole 40 MG VIAL IVP (08:43)
[2022-11-26] MEDS: Normal Saline Flush 10 ML SYR IVP ×2 (08:44→20:52)
[2022-11-26] MEDS: Insulin Aspart 300 UNITS/3 ML PEN SC (08:46)
[2022-11-26] MEDS: HYDROmorphone 2 MG/ML SYR IVP ×2 (08:57→11:11)
--- NOTE | 2022-11-26 10:30 | CMPROGNOTE_ITS ---
Date of service: 11/26/22 Time of Service: 10:32 Care Management Progress Note Progress Note Text Progress Note Text: S/O: Kaila was lying in bed when CM met with her. She stated that she feels like she is starting to improve, although she is very tired today. She asked for help with chap stick, as she has very dry skin on her lips. Per MD, she will not be ready to transition to [facility], where she has been accepted, for a while, as she is not yet medically ready. Per [facility], she does not require a PA, therefore she should be able to transition to their care as soon as she is ready, pending bed availability. CM will continue to follow. A: Kaila is an 86 year old female admitted to [facility] on 11/14/22 for a bowel obstruction. P: PT recommends Home with [facility] PT vs SNF. She would like to have a short rehab stay at [facility] prior to returning home. She will discharge with a wound vac.?Her family is very supportive;? and plan to take turns helping Kaila at home. She will follow up with her PCP and discharge plan of care. CM will continue to follow.
--- NOTE | 2022-11-26 10:32 | PGE_ITS ---
Date of Service Date of service: 11/26/22 Time of Service: 10:33 Assessment and Plan Assessment and plan (1) Wound infection after surgery: Status: Acute Assessment and plan: Postop day #1 abdominal exploration with debridement of abdominal wound and closure of fascial dehiscence with retention sutures and colostomy change Blood cultures remain no growth to date from 11/24/2022. Initial wound culture from 11/22/2022 grew E. coli which was pansensitive subsequent wound culture from 11/22/2022 grew anaerobic mixed growth. Patient remains on meropenem day #3 after initial treatment with Zosyn. In light of the patient passing flatus and some liquid through her colostomy and with little output from NG consideration will be given towards pulling NG and trialing her on sips and chips if this is acceptable to surgical service. Patient will continue to need TPN as she is significantly malnourished. (2) Bowel obstruction: Status: Acute Assessment and plan: POD#8 laparotomy and loop colostomy revision (11/18), POD# 10 exl lap, creation of descending loop colostomy (11/18). Complicated by surgical wound infection, status post return to the operating room yesterday (11/25) for incision and drainage and retention sutures (3) Atrial fibrillation by electrocardiogram: Status: Chronic Assessment and plan: patient currently on iv lopressor, if surgical service allow her po intake then she can have her toprol XL orally and lopressor iv can be changed to prn; apixaban never got changed to heparin last night but I have reordered her apixaban to be resumed today. (4) Swelling of right upper extremity: Status: Acute Assessment and plan: US taken of right arm; right arm is nontender to palpation and is soft; check US results to r/o DVT; if present then PICC line will need changed. (5) Hypervolemia: Status: Acute Assessment and plan: patient is overall edematous worsened by her hypoalbuminemia; nevertheless she needs gentle diuresis particularly since she is on iv TPN. (6) Essential hypertension: Status: Chronic Assessment and plan: Continue metoprolol. (7) Depressive disorder: Status: Chronic Assessment and plan: Sertraline held until to take p.o. but can resume today (8) Hypokalemia: Status: Resolved Assessment and plan: Corrected continue to monitor (9) Hypomagnesemia: Status: Resolved Assessment and plan: Back to the continue to monitor (10) Hypophosphatemia: Status: Resolved Assessment and plan: monitor and replace. patient now on TPN, will need continued TPN until taking adequate oral intake (11) DVT prophylaxis: Status: Acute Assessment and plan: On apixaban. Subjective Subjective Interval history since last seen: Patient is now passing flatus from her colostomy; per nursing her NG has been minimal ouput. Patient states that she is not having any abdominal pains Exam Narrative Exam Narrative: Kaila is alert, oriented and in NAD; she is sitting up in her bed Lungs: clear anteriorly but w/ bibasilar rales posteriorly; no rhonchi or wheezing Heart: irregularly irregular controlled rate (telemetry shows HR in the 90's Abdomen: colostomy appears pink, fluid from colostomy is dark green liquid; wound is bandaged Extremities: 2+ pitting bilateral edema of her hands/wrists, feet and ankles Objective Last Vital Signs Temp 36.3 C L 11/26/22 03:29 Pulse 70 11/26/22 10:01 Resp 15 11/26/22 10:15 BP 94/53 L 11/26/22 10:01 Pulse Ox 93 11/26/22 10:15 Laboratory Results - last 24 hr 11/25/22 11/25/22 11/26/22 13:03 13:20 05:00 WBC RBC Hgb Hct MCV MCH MCHC RDW Plt Count MPV Immature Gran % Neutrophils % Lymphocytes % Monocytes % Eosinophils % Basophils % Nucleated RBC % Absolute Neutrophils Absolute Lymphocytes Absolute Monocytes Absolute Eosinophils Absolute Basophils Sodium 132 L Potassium 3.6 Chloride 100 Carbon Dioxide 28.6 Anion Gap 3.4 BUN 18 Creatinine 0.6 Est GFR (CKD-EPI 2020) 88.45 Glucose 144 H Calcium 8.2 L Phosphorus Magnesium Total Bilirubin 0.3 AST 13 L ALT 11 L Alkaline Phosphatase 72 C-Reactive Protein 16.81 H Total Protein 4.8 L Albumin 1.2 L Procalcitonin Add-On Test Request Patient ABO/Rh Cancelled O Negative Antibody Screen NEGATIVE Crossmatch See Detail 11/26/22 11/26/22 11/26/22 05:00 05:00 05:00 WBC 15.69 H RBC 2.85 L Hgb 8.7 L Hct 26.5 L MCV 93 MCH 30.5 MCHC 32.8 RDW 15.4 H Plt Count 480 H MPV 9.1 Immature Gran % 0.9 Neutrophils % 86.6 Lymphocytes % 4.3 Monocytes % 6.8 Eosinophils % 1.1 Basophils % 0.3 Nucleated RBC % 0.0 Absolute Neutrophils 13.59 H Absolute Lymphocytes 0.67 L Absolute Monocytes 1.07 H Absolute Eosinophils 0.17 Absolute Basophils 0.05 Sodium Potassium Chloride Carbon Dioxide Anion Gap BUN Creatinine Est GFR (CKD-EPI 2020) Glucose Calcium Phosphorus Magnesium Total Bilirubin AST ALT Alkaline Phosphatase C-Reactive Protein Total Protein Albumin Procalcitonin 0.2 Add-On Test Request DONE Patient ABO/Rh Antibody Screen Crossmatch 11/26/22 05:00 WBC RBC Hgb Hct MCV MCH MCHC RDW Plt Count MPV Immature Gran % Neutrophils % Lymphocytes % Monocytes % Eosinophils % Basophils % Nucleated RBC % Absolute Neutrophils Absolute Lymphocytes Absolute Monocytes Absolute Eosinophils Absolute Basophils Sodium Potassium Chloride Carbon Dioxide Anion Gap BUN Creatinine Est GFR (CKD-EPI 2020) Glucose Calcium Phosphorus 2.4 L Magnesium 1.8 Total Bilirubin AST ALT Alkaline Phosphatase C-Reactive Protein Total Protein Albumin Procalcitonin Add-On Test Request Patient ABO/Rh Antibody Screen Crossmatch Time Spent with Patient Time Spent with Patient: 35-49 minutes Time was spent: preparing to see the patient(eg.review tests), referring, communicating with other health human services care specialist (discussion w/ nursing and Dr. Jiang), indepentently interpreting results, counseling the patient and care coordination
[2022-11-26] MEDS: Furosemide 20 MG/2 ML VIAL IVP ×2 (11:10→16:50)
[2022-11-26] MEDS: Apixaban 5 MG TAB PO ×2 (11:11→20:51)
[2022-11-26] MEDS: Nystatin POWDER 60 GM JAR TP ×2 (11:15→20:50)
--- NOTE | 2022-11-26 12:09 | W.PM.PROGNOT ---
Date of Service Date of service: 11/26/22 Time of Service: 12:09 Assessment and Plan Assessment and plan (1) Wound infection after surgery: Status: Acute Assessment and plan: She looks a little better after abdominal wall retention closure yesterday. There is minimal nasogastric tube output today, and I think it is fine to remove it at this point. Especially with the ostomy function improving a bit. We will use some diuresis to get some of the anasarca off. I encouraged her to get out of bed today. We will need to continue the TPN, as her albumin remains quite low, and she is got a large surgical wound to heal. I will also continue the broad-spectrum antibiotics for now. Subjective Subjective Interval history since last seen: Kaila says she is feeling a little better today. She is having some abdominal pain, mostly with movement. But it is well controlled. She has been sipping on liquids, and denies any nausea or vomiting. Exam GI Other: Her abdomen is soft and mildly distended. The stoma is pink, and there is gas and bilious stool in the bag. The midline wound is clean, and I do not see any active signs of infection. There is no erythema. Objective Last Vital Signs Temp 97.9 F 11/26/22 08:00 Pulse 70 11/26/22 10:01 Resp 15 11/26/22 10:15 BP 94/53 L 11/26/22 10:01 Pulse Ox 93 11/26/22 10:15 Laboratory Results - last 24 hr 11/25/22 11/25/22 11/26/22 13:03 13:20 05:00 WBC RBC Hgb Hct MCV MCH MCHC RDW Plt Count MPV Immature Gran % Neutrophils % Lymphocytes % Monocytes % Eosinophils % Basophils % Nucleated RBC % Absolute Neutrophils Absolute Lymphocytes Absolute Monocytes Absolute Eosinophils Absolute Basophils Sodium 132 L Potassium 3.6 Chloride 100 Carbon Dioxide 28.6 Anion Gap 3.4 BUN 18 Creatinine 0.6 Est GFR (CKD-EPI 2020) 88.45 Glucose 144 H Calcium 8.2 L Phosphorus Magnesium Total Bilirubin 0.3 AST 13 L ALT 11 L Alkaline Phosphatase 72 C-Reactive Protein 16.81 H Total Protein 4.8 L Albumin 1.2 L Procalcitonin Add-On Test Request Patient ABO/Rh Cancelled O Negative Antibody Screen NEGATIVE Crossmatch See Detail 11/26/22 11/26/2223 05:00 05:00 05:00 WBC 15.69 H RBC 2.85 L Hgb 8.7 L Hct 26.5 L MCV 93 MCH 30.5 MCHC 32.8 RDW 15.4 H Plt Count 480 H MPV 9.1 Immature Gran % 0.9 Neutrophils % 86.6 Lymphocytes % 4.3 Monocytes % 6.8 Eosinophils % 1.1 Basophils % 0.3 Nucleated RBC % 0.0 Absolute Neutrophils 13.59 H Absolute Lymphocytes 0.67 L Absolute Monocytes 1.07 H Absolute Eosinophils 0.17 Absolute Basophils 0.05 Sodium Potassium Chloride Carbon Dioxide Anion Gap BUN Creatinine Est GFR (CKD-EPI 2020) Glucose Calcium Phosphorus Magnesium Total Bilirubin AST ALT Alkaline Phosphatase C-Reactive Protein Total Protein Albumin Procalcitonin 0.2 Add-On Test Request DONE Patient ABO/Rh Antibody Screen Crossmatch 11/26/22 05:00 WBC RBC Hgb Hct MCV MCH MCHC RDW Plt Count MPV Immature Gran % Neutrophils % Lymphocytes % Monocytes % Eosinophils % Basophils % Nucleated RBC % Absolute Neutrophils Absolute Lymphocytes Absolute Monocytes Absolute Eosinophils Absolute Basophils Sodium Potassium Chloride Carbon Dioxide Anion Gap BUN Creatinine Est GFR (CKD-EPI 2020) Glucose Calcium Phosphorus 2.4 L Magnesium 1.8 Total Bilirubin AST ALT Alkaline Phosphatase C-Reactive Protein Total Protein Albumin Procalcitonin Add-On Test Request Patient ABO/Rh Antibody Screen Crossmatch Time Spent with Patient Time Spent with Patient: 25-34 minutes Time was spent: preparing to see the patient(eg.review tests), counseling the patient and care coordination
[2022-11-26] MEDS: Metoprolol CR 25 MG TABCR 12.5 MG PO (15:21)
[2022-11-26] MEDS: Diclofenac 1% Gel 100 GM TUBE TP (20:50)
[2022-11-26] MEDS: Metoprolol CR 25 MG TABCR PO (20:51)
[2022-11-27] VITALS (29 sets, daily range): BP systolic 99–122; BP diastolic 48–63; PULSE 67–102; RESP 11–22; O2SAT 95–99
[2022-11-27] MEDS: ACETAMINOPHEN 1,000 MG/100 ML BTL 400 MG IVPB ×3 (06:57→21:09)
[2022-11-27] MEDS: MEROPENEM 1 GM in Normal Saline 100 ML IVPB ×3 (06:58→21:10)
[2022-11-27 07:11] LABS: Abs Immature Grans 0.12 10^3/uL (0.0-0.06); Absolute Basophil Count 0.04 10^3/uL (0.0-0.2); Absolute Eosinophil Count 0.22 10^3/uL (0.0-0.7); Basophils % 0.3; Eosinophils % 1.7; HCT 25.9 % (36.0-46.0); HGB 8.5 g/dL (11.2-15.7); Immature Grans % 0.9; Lymphocytes % 5.6; MCH 30.7 pg (27.0-33.0); MCHC 32.8 % (32.0-36.0); MCV 94 fL (80-95); MPV 9.2 fL (8.0-11.0); Monocytes % 8.4; Neutrophils % 83.1; Platelet Count 512 10^3/uL (130-400); RBC 2.77 10^6/uL (3.93-5.22); RDW 14.7 % (11.7-14.6); RDW-SD 51.1 fL; WBC 13.14 10^3/uL (4.4-10.8)
[2022-11-27 07:18] LABS: Absolute Lymphocyte Count 0.74 10^3/uL (1.2-3.4); Absolute Neutrophil Count 10.92 10^3/uL (1.2-6.7)
[2022-11-27 07:44] LABS: ALT 13 U/L (14-59); AST 19 U/L (15-37); Albumin 1.2 g/dL (3.4-5.0); Alkaline Phosphatase 73 U/L (46-116); Anion Gap 4.2 mmol/L (3-11); BUN 21 mg/dL (7-18); Bilirubin, Total 0.2 mg/dL (0.2-1.0); C-Reactive Protein 15.39 mg/dL (0.0-0.3); CO2 28.8 mmol/L (21.0-32.0); CREATININE 0.7 mg/dL (0.55-1.02); Calcium 8.3 mg/dL (8.5-10.1); Chloride 100 mmol/L (98-107); Estimated GFR 85.23 (mL/min/1.73m2); Glucose 125 mg/dL (74-106); Potassium 3.5 mmol/L (3.5-5.1); Sodium 133 mmol/L (136-145); Total Protein 4.9 g/dL (6.4-8.2)
[2022-11-27] MEDS: Pantoprazole 40 MG VIAL IVP (09:15)
[2022-11-27] MEDS: Sertraline 25 MG TAB PO (09:16)
[2022-11-27] MEDS: Furosemide 20 MG/2 ML VIAL IVP ×2 (09:16→17:11)
[2022-11-27] MEDS: Metoprolol CR 25 MG TABCR PO ×2 (09:16→20:07)
[2022-11-27] MEDS: Apixaban 5 MG TAB PO ×2 (09:16→20:08)
[2022-11-27] MEDS: Normal Saline Flush 10 ML SYR IVP (09:17)
--- NOTE | 2022-11-27 09:33 | PGE_ITS ---
Date of Service Date of service: 11/27/22 Time of Service: 09:34 Assessment and Plan Assessment and plan (1) Wound infection after surgery: Status: Acute Assessment and plan: Postop day #2 abdominal exploration with debridement of abdominal wound and closure of fascial dehiscence with retention sutures and colostomy change Blood cultures remain no growth to date from 11/24/2022. Initial wound culture from 11/22/2022 grew E. coli which was pansensitive subsequent wound culture from 11/22/2022 grew anaerobic mixed growth. Patient remains on meropenem day #4 after initial treatment with Zosyn. She is showing gradual improvment. She will remain on broad spectrum antibiotics w/ meropenem as per Dr. Jiang's note yesterday. Patient will need continued TPN for now until she begins to tolerate a regular diet. (2) Bowel obstruction: Status: Acute Assessment and plan: POD#9 laparotomy and loop colostomy revision (11/18), POD# 11 exl lap, creation of descending loop colostomy (11/18). Complicated by surgical wound infection, status post return to the operating room (11/25) for incision and drainage and retention sutures Dressing changed yesterday by Dr. Jiang. (3) Atrial fibrillation by electrocardiogram: Status: Chronic Assessment and plan: patient currently on iv lopressor, if surgical service allow her po intake then she can have her toprol XL orally and lopressor iv can be changed to prn; apixaban never got changed to heparin last night but I have reordered her apixaban to be resumed today. (4) Swelling of right upper extremity: Status: Acute Assessment and plan: US of her right arm was negative for DVT yesterday. I think the edema is d/t anasarca from being malnourished and all the iv fluids she has required for resuscitation, antibiotics etc. continue w/ gently diuresis w/ iv lasix (5) Hypervolemia: Status: Acute Assessment and plan: continue iv lasix 20 mg iv bid (6) Essential hypertension: Status: Chronic Assessment and plan: Continue metoprolol. (7) Depressive disorder: Status: Chronic Assessment and plan: Sertraline resumed. may need to increase her dose if her depressed mood does not improve. (8) Hypokalemia: Status: Resolved Assessment and plan: corrected, will need supplementation while on lasix (9) Hypomagnesemia: Status: Resolved Assessment and plan: monitor and replete (10) Hypophosphatemia: Status: Resolved Assessment and plan: 2.4 yesterday; patient receiving TPN; continue to monitor (11) DVT prophylaxis: Status: Acute Assessment and plan: On apixaban. Subjective Subjective Interval history since last seen: Patient's daughter feels that the patient is getting discouraged and the patient agrees. however I explained to them both that she is showing improvment, ie. having flatus and some liquid BM (150 mL output this morning in her ostomy) and she is tolerating sips of liquids w/out nausea. I think she would benefit from change of environment and I am hopeful that she will move to med/surg today. Dr. Jiang down graded her from ICU to med/surg status yesterday. She denies any nausea, vomiting or abdominal pain. She does have some burning pain in her right thigh but denies any back pain. She denies any dyspnea or CP. Exam Narrative Exam Narrative: Kaila is alert and oriented, sitting up in bed talking w/ her daugher who is at the bedside Lungs: clear anteriorly but w/ still some bibasilar rales Heart: irregularly irregular (monitor shows afib but at controlled HR in the 80's at rest) Abdomen: active bowel sounds, nontender, her abdominal wound is dressed ( I did look at it yesterday when Dr. Jiang changed her dresssing), ostomy appears pink, draiining clear dark bile liquid Extremities: 2+ pitting edmea in feet and lower legs as well as her hands/wrists Objective Last Vital Signs Temp 36.5 C 11/26/22 20:00 Pulse 67 11/27/22 06:01 Resp 16 11/27/22 06:01 BP 109/49 L 11/27/22 06:01 Pulse Ox 96 11/27/22 06:01 Laboratory Results - last 24 hr 11/27/22 11/27/22 06:40 06:40 WBC 13.14 H RBC 2.77 L Hgb 8.5 L Hct 25.9 L MCV 94 MCH 30.7 MCHC 32.8 RDW 14.7 H Plt Count 512 H MPV 9.2 Immature Gran % 0.9 Neutrophils % 83.1 Lymphocytes % 5.6 Monocytes % 8.4 Eosinophils % 1.7 Basophils % 0.3 Nucleated RBC % 0.0 Absolute Neutrophils 10.92 H Absolute Lymphocytes 0.74 L Absolute Monocytes 1.10 H Absolute Eosinophils 0.22 Absolute Basophils 0.04 Sodium 133 L Potassium 3.5 Chloride 100 Carbon Dioxide 28.8 Anion Gap 4.2 BUN 21 H Creatinine 0.7 Est GFR (CKD-EPI 2020) 85.23 Glucose 125 H Calcium 8.3 L Total Bilirubin 0.2 AST 19 ALT 13 L Alkaline Phosphatase 73 C-Reactive Protein 15.39 H Total Protein 4.9 L Albumin 1.2 L Time Spent with Patient Time Spent with Patient: >50 minutes Time was spent: preparing to see the patient(eg.review tests), obtaining and/or reviewing separately otained hiistory, ordering medications,tests, procedures, referring, communicating with other health regular senior care provider, indepentently interpreting results, counseling the patient and care coordination
--- NOTE | 2022-11-27 10:01 | NUR.NOTE ---
Update on the Ostomy Plan of Care: The ostomy appliance should only be changed every 3-4 days minimum (not sooner) and up to 7 days maximum unless the dressing becomes compromised (leaking exposed skin, etc.). Changing more frequently can damage the peristomal skin. The family should be educated to date the ostomy appliance at each change to track the days. Supplies: We should be receiving a Welcome kit and sample bags from [employer] by 11/29. Please take not of how well these bags work for the patient when using them to assist in guiding ordering home supplies. The patient is currently using the Mason 2 piece appliance and this has been working well. We should be receiving a convex barrier wafer from [employer] by 11/29 that cat be cut, stretched to fit, and placed under the appliance barrier to assist in how the stoma is positioned. Nursing Note:
--- NOTE | 2022-11-27 10:42 | PDOC.CMPRO ---
Date of service: 11/27/22 Time of Service: 10:42 Care Management Progress Note Progress Note Text Progress Note Text: S/O: Kaila was sitting up in her chair when CM met with her. She stated that she is doing ok today. Per RN, she was having pressure near her wound, therefore the dressing was removed. RN reported that the wound vac was removed today as well. CM reviewed her discharge plan, which will be for her to go to [facility] for short term rehab prior to returning home. She is agreeable to this plan. CM will continue to communicate with [facility], and will continue to support discharge planning considerations. A: Kaila is an 86 year old female admitted to [facility] on 11/14/22 for a bowel obstruction. P: PT recommends Home with [facility] PT vs SNF. She would like to have a short rehab stay at [facility] prior to returning home. She will discharge with a wound vac.?Her family is very supportive;? and plan to take turns helping Kaila at home. She will follow up with her PCP and discharge plan of care. CM will continue to follow.
[2022-11-27 11:04] LABS: Iron 16 ug/dL (50-170); Total Iron Binding Capacity 120 ug/dL (250-450); Transferrin Sat 13 % (15-50)
--- NOTE | 2022-11-27 11:06 | PT.INIE ---
Date of service: 11/27/22 Time of Service: 10:31 PT Notes Visit Reasons: Bowel Obstruction Physical Therapy Inpatient Initial Evaluation Date: 11/26/22 Referring Doctor: Ta Snider MD PT Orders: PT CONSULT: Extended stay weakness Precautions: Fall. Standard. Ostomy in place. Activity as tolerated. Patient Profile/Admitting Diagnosis:? POD 2 for abdominal exploration, debridement of abdominal wound, closure of fascial dehiscence with retention sutures, and colostomy change. S/P exporatory laparotomoy and loop colostomy revision on 11/18/2022 and S/P exploratory laparotomoy and creation of descending loop colostomy on 11/15/2022 due to large bowel obstruction. Needed ICU level of care twice and PT re-evaluation for continued post-op rehabilitation. Kaila is an 86 yo female that presented to the ER on 11/14/22 for nausea, vomiting, and diarrhea three days prior and lack of bowel movement in two days. She was admitted and subsequently underwent exploratory laparotomy and creation of a descending loop colostomy on 11/15/22. 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 Biopsy of breast (~1989) LEFTCholecystectomy (~1980) Colonoscopy - MAC (08/16/17) EGD - MAC (08/16/17) Status post breast biopsy Social History/Home Situation: Lives alone in a private one story home with a ramp to enter. Handicap bathroom with grab bars, walk in shower,? and high toilet. She no longer drives. She utilizes meals on wheels, her daughter buys her groceries. Daughter lives [address] and is supportive. Equipment Owned/DME: [employer] Subjective:? Agreeable to trying slowly moving out of bed and walking this morning. Reports new pain in R LE which Nurse Nette is aware of. Reported being weak but is surprised about how much more she is able to do without needing physical help during walking. Complained of pain in the r lower abdominal area which Nurse nette duly checked. Objective:? General Observation: Surgical dressing in abdomen. IV through R UE. Swelling in B UE and LE noted. Colostomy in place. High BMI. Mental Status: Alert ad oriented x 4 Pain: Minimal to moderate pain in R LE and right lower abdominal area ROM: Right Upper Extremity: Shoulder Flexion 100. Shoulder abduction 100. Elbow flexion WFL. Wrist flexion WFL. Opening and closing of hand WFL. Left Upper Extremity: Shoulder Flexion 100. Shoulder abduction 100. Elbow flexion WFL. Wrist flexion WFL. Opening and closing of hand WFL. Right Lower Extremity: Hip flexion less than 90 degrees AROM. Hip abduction WFL. Knee flexion WFL. Ankle dorsiflexion WFL. Ankle plantarflexion WFL. Left Lower Extremity: Hip flexion less than 90 degrees AROM. Hip abduction WFL. Knee flexion WFL. Ankle dorsiflexion WFL. Ankle plantarflexion WFL. Strength: Right Upper Extremity: Shoulder flexors 3-/5. Shoulder abductors 3-/5. Elbow flexors 5/5. Elbow extensors 5/5. [employer] strong. Left Upper Extremity: Shoulder flexors 3-/5. Shoulder abductors 3-/5. Elbow flexors 5/5. Elbow extensors 5/5. [employer] strong. Right Lower Extremity: Hip flexors 3-/5. Hip abductors 3-/5. Knee flexors 4-/5. Knee extensors 4-/5. Ankle dorsiflexors 4/5. Ankle plantarflexors 4/5. Left Lower Extremity: Hip flexors 3-/5. Hip abductors 3-/5. Knee flexors 4-/5. Knee extensors 4-/5. Ankle dorsiflexors 4/5. Ankle plantarflexors 4/5. Sensation:? Intact as to pain and pressure on bilateral lower extremities. Bed Mobility/Transfers: Nurse Perdue assisted for safety Supine to sit: minimal assist of 2 Sit to stand: minimal assist of 1 Stand to sit: conatct guard assist bed to chair: stand by assist Gait:? Tolerated 6-8 small steps from bedside to bedside recliner using FWW with stand by assist with HR going up to 165 bpm and subsided to 119 bpm after activity in less than 3 minutes. Moderate shortness of breath also resolved with rest. pain report in right ower abdominal area during transfer, also dimished with rest. Denied headache, chest pain, and lightheadedness throughout session. Nurse Perdue assisted for safety. Balance:? Static Sitting: Fair Dynamic Sitting: Fair Static Standing: Fair Dynamic Standing: Fair Special Tests: Mobility Limitations Standardized Measure [facility] AM-PAC 6 clicks Basic Mobility Inpatient Short Form: Raw Score: 18 ? CMS Score: 47% deficit Informed Consent/Education:? Patient instructed in purpose of PT consult and plan of care. Assessment: Patient's post operative course complicated with wound dehiscence and infection needing follow up surgeries and continued post-operative care. Post operative rehabilitation is needed in order to regain independent premorbid mobility level without AD. Patient will require premedication for pain for all Pt sessions. Patient presents with clinical signs and symptoms consistent with current/admitting diagnoses that have resulted to mobility limitations, gait instability, generalized weakness, and impairment of motor control as demonstrated by the following impairment level findings: 1. Decreased strength to shoulder and hip major muscle groups 2. Impaired sitting/standing balance 3. Impaired activity tolerance Impairments are contributing to the following functional limitations: 1. Dependent bed mobility skills 2. Increased dependence with transfers 3. Inability to safely ambulate without assistive device and physical assistance 4. Increase completion time for mobility ADL performance 5. Increased fall risk Patient is assessed as a 17141 moderate complexity based on the following: History: 86 year old female with impairment level findings, functional limitations, and past medical history as indicated above Examination: Demonstrable impairment in strength, balance, and mobility level with underlying impairments and functional limitations as documented above Presentation: Evolving Decision Making: Moderate complexity Goals X1 week 1. Supine-Sit independent 2. Sit-Supine independent 3. Sit-Stand independent 4. Stand-Sit independent 5. Bed-Chair independent 6. Chair-Bed independent 7. Independent gait on level surface with use of FWW for at least 300 feet without report of pain nor dyspnea 8. Independent with home exercise program 9. Good static and dynamic standing balance/tolerance Plan of Care/Treatment Plan: 1-2x/day, 7 days/week x1 week. Plan of care has been reviewed with the SOUBRETTE providing the service under Physical Therapy direction. Initiate Physical Therapy intervention for strengthening, bed mobility, transfers, gait, stairs, balance training, and use of assistive device. Discharge Plan DISCHARGE RECOMMENDATIONS: Home with Home Health PT versus SNF for continued rehabilitation depending on mobility progression while admitted TREATMENT CODE/TIME: 40781 x 20 minutes (1 unit), 62508 x 14 minutes( 1 unit) beginning at 10:31 AM. Thank you for the opportunity to participate in the care of this patient. Jesika Abarca PT, DPT, CLT [facility] [place], [place]
[2022-11-27] MEDS: Diclofenac 1% Gel 100 GM TUBE TP ×4 (12:21→21:09)
[2022-11-27] MEDS: Potassium Chloride Liquid 20 MEQ PKT PO ×2 (12:21→20:09)
[2022-11-27] MEDS: Nystatin POWDER 60 GM JAR TP ×3 (12:34→21:10)
[2022-11-27] MEDS: HYDROmorphone 2 MG/ML SYR IVP (12:57)
--- NOTE | 2022-11-27 13:54 | PT.INTREAT ---
Date of service: 11/27/22 Time of Service: 13:14 PT Notes Visit Reasons: Bowel Obstruction Inpatient Physical Therapy Treatment Note [facility] Date: 11/27/22 PRECAUTIONS: Fall, standard, activity as tolerated. SUBJECTIVE: Patient sitting up in recliner, reports RN gave her something for the pain and she is starting to feel a bit better, but would like to lay down in the bed now. OBJECTIVE: ? PAIN: Yes, around incision, especially with curling forward as to sit up. VITALS: Closely monitored by RN via telemetry. HR low 100's at start of session, up to 135 with ambulation, spikes to mid 160's initially upon sitting, recovers back to high 110's after sitting for ~45 seconds. ? Therapeutic Activities (74774v1): Direct one-on-one instruction in dynamic activities to improve functional performance. ? BED MOBILITY/TRANSFERS? Supine-sit: mod assist? Sit-supine: mod assist x2 for comfort ? Sit-stand: CGA? Stand-sit: CGA with verbal cue for hand placement? Bed-Chair: CGA, assist with management of telemetry, IV lines ? Chair-bed: CGA, assist with management of telemetry, IV lines Provided skilled cues and instruction on performance and technique throughout. ASSESSMENT:? Patient tolerates therapy well, however reports feeling very tired and very much wanting a nap. PLAN: Continue global strengthening per plan of care until patient is medically ready to discharge. TREATMENT CODE/TIME: 52440 12 minutes beginning at 13:14
--- NOTE | 2022-11-27 16:20 | W.PM.PROGNOT ---
Date of Service Date of service: 11/27/22 Time of Service: 16:21 Assessment and Plan Assessment and plan (1) Wound infection after surgery: Status: Acute Assessment and plan: She looks a little better after abdominal wall retention closure. NG tube was removed yesterday She has been tolerating clears Diet: advance to full liquids to get her a bit more protein. Continue TPN Activity: up and out to chair and walking with PT Appreciate Hospitalist assisting with care Subjective Subjective Interval history since last seen: Mrs Salas is doing well. She is having some pain when getting up. I explained to her that that is normal given the retention sutures that she has. She has had no fevers. She is minimally hungry. She does have some thicker stool in her bag. Exam Const General: cooperative, comfortable and no acute distress Nutritional Appearance: malnourished Orientation: alert and oriented x3 HENMT Head: normocephalic and atraumatic Resp Effort & Inspection: normal respiratory effort Auscultation: clear to auscultation bilaterally Cardio Rate: regular rate Rhythm: abnormal rhythm GI Inspection: incision (dressing is intact) Palpation: soft, no hepatosplenomegaly and tender (appropriately tender along the incision) Auscultation: normoactive bowel sounds Objective Last Vital Signs Temp 97.7 F 11/26/22 20:00 Pulse 79 11/27/22 08:01 Resp 13 11/27/22 11:00 BP 112/57 L 11/27/22 08:01 Pulse Ox 96 11/27/22 10:00 Laboratory Results - last 24 hr 11/27/22 11/27/22 11/27/22 05:40 06:40 06:40 WBC 13.14 H RBC 2.77 L Hgb 8.5 L Hct 25.9 L MCV 94 MCH 30.7 MCHC 32.8 RDW 14.7 H Plt Count 512 H MPV 9.2 Immature Gran % 0.9 Neutrophils % 83.1 Lymphocytes % 5.6 Monocytes % 8.4 Eosinophils % 1.7 Basophils % 0.3 Nucleated RBC % 0.0 Absolute Neutrophils 10.92 H Absolute Lymphocytes 0.74 L Absolute Monocytes 1.10 H Absolute Eosinophils 0.22 Absolute Basophils 0.04 Sodium 133 L Potassium 3.5 Chloride 100 Carbon Dioxide 28.8 Anion Gap 4.2 BUN 21 H Creatinine 0.7 Est GFR (CKD-EPI 2020) 85.23 Glucose 125 H Calcium 8.3 L Iron 16 L TIBC 120 L Transferrin % Sat 13 L Total Bilirubin 0.2 AST 19 ALT 13 L Alkaline Phosphatase 73 C-Reactive Protein 15.39 H Total Protein 4.9 L Albumin 1.2 L Time Spent with Patient Time Spent with Patient: 25-34 minutes Time was spent: preparing to see the patient(eg.review tests), obtaining and/or reviewing separately otained hiistory, ordering medications,tests, procedures and counseling the patient
[2022-11-28] VITALS (10 sets, daily range): BP systolic 99–120; BP diastolic 47–76; PULSE 64–81; RESP 14–19; TEMP 36.4–36.9; O2SAT 95–97
[2022-11-28] MEDS: MEROPENEM 1 GM in Normal Saline 100 ML IVPB ×2 (04:55→21:21)
[2022-11-28] MEDS: ACETAMINOPHEN 1,000 MG/100 ML BTL 400 MG IVPB ×3 (04:55→21:17)
--- NOTE | 2022-11-28 06:26 | NUR.NOTE ---
transferred to unit from ICU. orientated to staff and room. no c/o pain or discomfort at this time. Nursing Note:
[2022-11-28 06:41] LABS: Abs Immature Grans 0.13 10^3/uL (0.0-0.06); Absolute Basophil Count 0.03 10^3/uL (0.0-0.2); Absolute Lymphocyte Count 0.74 10^3/uL (1.2-3.4); Absolute Monocyte Count 0.93 10^3/uL (0.1-0.8); Absolute Neutrophil Count 12.25 10^3/uL (1.2-6.7); Basophils % 0.2; Eosinophils % 1.3; HCT 26.3 % (36.0-46.0); HGB 8.4 g/dL (11.2-15.7); Immature Grans % 0.9; Lymphocytes % 5.2; MCH 30.2 pg (27.0-33.0); MCHC 31.9 % (32.0-36.0); MCV 95 fL (80-95); MPV 9.4 fL (8.0-11.0); Monocytes % 6.5; Neutrophils % 85.9; Platelet Count 576 10^3/uL (130-400); RBC 2.78 10^6/uL (3.93-5.22); RDW-SD 52.5 fL; WBC 14.26 10^3/uL (4.4-10.8)
[2022-11-28 06:51] LABS: Absolute Eosinophil Count 0.19 10^3/uL (0.0-0.7)
[2022-11-28 07:00] LABS: ALT 23 U/L (14-59); AST 34 U/L (15-37); Albumin 1.2 g/dL (3.4-5.0); Alkaline Phosphatase 84 U/L (46-116); Anion Gap 3.5 mmol/L (3-11); BUN 22 mg/dL (7-18); Bilirubin, Total 0.2 mg/dL (0.2-1.0); C-Reactive Protein 10.36 mg/dL (0.0-0.3); CO2 29.5 mmol/L (21.0-32.0); CREATININE 0.5 mg/dL (0.55-1.02); Calcium 8.6 mg/dL (8.5-10.1); Chloride 101 mmol/L (98-107); Estimated GFR 92.43 (mL/min/1.73m2); Glucose 119 mg/dL (74-106); Potassium 3.8 mmol/L (3.5-5.1); Sodium 134 mmol/L (136-145)
[2022-11-28 07:23] LABS: Procalcitonin 0.1 ng/mL
[2022-11-28] MEDS: Potassium Chloride Liquid 20 MEQ PKT PO ×2 (09:18→21:22)
[2022-11-28] MEDS: Metoprolol CR 25 MG TABCR PO ×2 (09:18→21:23)
[2022-11-28] MEDS: Pantoprazole 40 MG VIAL IVP (09:18)
[2022-11-28] MEDS: Sertraline 50 MG TAB PO (09:19)
[2022-11-28] MEDS: Apixaban 5 MG TAB PO ×2 (09:19→21:22)
[2022-11-28] MEDS: Nystatin POWDER 60 GM JAR TP (09:19)
[2022-11-28] MEDS: Normal Saline Flush 10 ML SYR IVP ×2 (09:21→11:10)
[2022-11-28] MEDS: Diclofenac 1% Gel 100 GM TUBE TP ×4 (09:21→21:24)
[2022-11-28] MEDS: Furosemide 20 MG/2 ML VIAL IVP (09:29)
--- NOTE | 2022-11-28 10:26 | CMPROGNOTE_ITS ---
Date of service: 11/28/22 Time of Service: 10:26 Care Management Progress Note Progress Note Text Progress Note Text: S/O: Kaila was lying in bed when CM met with her. She was transferred out of the ICU, and she is happy to have a larger room. She expressed frustration regarding her long admission. CM asked if she is interested in any activities, but she declined, stating that she is having a hard time with her hands because they are so swollen. Per report, she remains on TPN, and her diet was increased to full liquids. [facility] once she is medically ready. CM will continue to follow. A: Kaila is an 86 year old female admitted to [facility] on 11/14/22 for a bowel obstruction. P: PT recommends Home with [facility] PT vs SNF. She would like to have a short rehab stay at [facility] prior to returning home. She will discharge with a wound vac.?Her family is very supportive;? and plan to take turns helping Kaila at home. She will follow up with her PCP and discharge plan of care. CM will continue to follow.
[2022-11-28] MEDS: HYDROmorphone 2 MG/ML SYR IVP (11:10)
--- NOTE | 2022-11-28 13:11 | PT.INTREAT ---
Date of service: 11/28/22 Time of Service: 10:10 PT Notes Visit Reasons: Bowel Obstruction Inpatient Physical Therapy Treatment Note [facility] Date: 11/28/22 PRECAUTIONS: Fall, standard, activity as tolerated. SUBJECTIVE: Patient reports feeling discouraged, still having lots of pain and fatigue, expected to be feeling a lot better by now. OBJECTIVE: Supine in bed, agreeable to bed level exercises only. Firmly against out of bed activity. ? PAIN: Significant around area of incision. VITALS: Monitored by nursing staff. ? Therapeutic Exercises (77563f3): Direct one-on-one instruction in therapeutic exercises to develop strength, endurance, range of motion and flexibility. ? Exercises: 10x ankle pumps, toe curls. Heel slides d/c'ed due to causing abdominal pain, same for SLR, hip ab/adduction. Active assisted bending hip and knee to 90/90, therapist manual resistance to hip and knee extension x6 each side. Hip internal and external rotation x10 each side. Bilateral arm overhead raise x8, thumb opposition x3 each digit to help mobilize edema, 5x row vs red theraband, 5x shoulder horizontal abduction vs red theraband. ? Provided skilled instruction in proper exercise performance Provided skilled manual cues to facilitate proper muscle recruitment and/or form: Cues to bend elbows during rows, keep straight during shoulder horizontal abduction. Encouraged patient to let this therapist do the work of raising the legs to 90/90 so as not to increase abdominal discomfort. ASSESSMENT:? Patient tolerates therapy, however states that might be enough for today. Agrees to allow therapist to check back in the afternoon. Reports fatigue and pain all over but mostly in abdomen, slightly worse after therapy than before. PLAN: Continue global strengthening within patient tolerance per plan of care until patient is medically cleared to discharge. TREATMENT CODE/TIME: 05204 Ther Ex 25 minutes beginning at 10:10
--- NOTE | 2022-11-28 13:33 | W.PM.PROGNOT ---
Date of Service Date of service: 11/28/22 Time of Service: 13:33 Assessment and Plan Assessment and plan (1) Wound infection after surgery: Status: Acute Assessment and plan: Postop day #3 abdominal exploration with debridement of abdominal wound and closure of fascial dehiscence with retention sutures and colostomy change Blood cultures remain no growth to date from 11/24/2022. Initial wound culture from 11/22/2022 grew E. coli which was pansensitive subsequent wound culture from 11/22/2022 grew anaerobic mixed growth. Patient remains on meropenem day #5 after initial treatment with Zosyn. She is showing gradual improvment. Diet has been advanced per surgical services. continue meropenem and TPN; monitor labs (CBC, CMP, Mg, Phosph, lipids) (2) Bowel obstruction: Status: Acute Assessment and plan: POD#10 laparotomy and loop colostomy revision (11/18), POD# 12 exl lap, creation of descending loop colostomy (11/18). Complicated by surgical wound infection, status post return to the operating room (11/25) for incision and drainage and retention sutures Dressing changes per surgical services (3) Atrial fibrillation by electrocardiogram: Status: Chronic Assessment and plan: patient is back on her oral Toprol XL and her afib rate has been well controlled. She has not needed the iv lopressor in past day since coming out of ICU. I will dc her iv lopressor and her telemetry (4) Iron deficiency anemia, unspecified: Status: Chronic Assessment and plan: serum iron level is 16 and transferrin saturation is low consistent w/ iron deficiency. I have writtent for venofer daily x 3 days Qualifiers: Iron deficiency anemia type: inadequate dietary iron intake Qualified Code(s): D50.8 - Other iron deficiency anemias (5) Hypervolemia: Status: Acute Assessment and plan: continue iv lasix but increase dose to 40 mg iv twice a day, add spironolactone (6) Essential hypertension: Status: Chronic Assessment and plan: Continue metoprolol. (7) Depressive disorder: Status: Chronic Assessment and plan: I increased her sertraline to 50 mg daily yesterday. (8) Hypokalemia: Status: Resolved Assessment and plan: corrected, will need supplementation while on lasix; spironolactone added which will help prevent hypokalemia (9) Hypomagnesemia: Status: Resolved Assessment and plan: monitor and replete (10) Hypophosphatemia: Status: Resolved Assessment and plan: on TPN; monitor and replace (11) DVT prophylaxis: Status: Acute Assessment and plan: On apixaban. Subjective Subjective Interval history since last seen: Kaila has no new concerns. She does complain however of continued edema in her hands and her feet. The edema in her hands causes her to have some difficulty with manipulating things such as feeding herself or holding onto the incentive spirometer. She has been on IV Lasix and has diuresed but she is only net negative about 500 mL/day. I told her I would increase her Lasix to 40 mg twice a day and add some spironolactone. She remains on meropenem for mixed anaerobic infection of her abdominal wound. Dressing changes are being handled by surgical services. With respect to her atrial fibrillation her rates been well controlled. She continues on anticoagulation with apixaban for her atrial fibrillation. She remains on TPN and we are monitoring her daily electrolytes and CBC. Exam Narrative Exam Narrative: Is alert and oriented person place time circumstance she is pleasant does not seem to be as depressed today. I explained her that I increased her sertraline yesterday to 50 mg daily. We will give it 2 or 3 more days on the higher dose and if still no improvement I will increase her to 100 mg daily. Lungs are clear anteriorly posterior she has some fine bibasilar rales no rhonchi or wheezes Heart is irregular irregular at a controlled rate Abdomen obese soft nontender normal bowel sounds. Ostomy appears to be pink she has a fair amount of dark green liquid in her colostomy bag Hands and feet remain edematous 2+ Objective Last Vital Signs Temp 36.5 C 11/28/22 11:26 Pulse 80 11/28/22 11:26 Resp 16 11/28/22 11:26 BP 120/76 11/28/22 11:26 Pulse Ox 95 11/28/22 11:26 Laboratory Results - last 24 hr 11/28/22 11/28/22 11/28/22 05:10 05:10 05:10 WBC 14.26 H RBC 2.78 L Hgb 8.4 L Hct 26.3 L MCV 95 MCH 30.2 MCHC 31.9 L RDW 15.0 H Plt Count 576 H MPV 9.4 Immature Gran % 0.9 Neutrophils % 85.9 Lymphocytes % 5.2 Monocytes % 6.5 Eosinophils % 1.3 Basophils % 0.2 Nucleated RBC % 0.0 Absolute Neutrophils 12.25 H Absolute Lymphocytes 0.74 L Absolute Monocytes 0.93 H Absolute Eosinophils 0.19 Absolute Basophils 0.03 Sodium 134 L Potassium 3.8 Chloride 101 Carbon Dioxide 29.5 Anion Gap 3.5 BUN 22 H Creatinine 0.5 L Est GFR (CKD-EPI 2020) 92.43 Glucose 119 H Calcium 8.6 Total Bilirubin 0.2 AST 34 ALT 23 Alkaline Phosphatase 84 C-Reactive Protein 10.36 H Total Protein 5.0 L Albumin 1.2 L Procalcitonin 0.1 Time Spent with Patient Time Spent with Patient: 35-49 minutes Time was spent: preparing to see the patient(eg.review tests), referring, communicating with other health reproductive healthcare assistant, indepentently interpreting results, counseling the patient and care coordination
[2022-11-28] MEDS: Spironolactone 25 MG TAB PO (15:03)
--- NOTE | 2022-11-28 15:16 | PT.INNT ---
PT Notes Visit Reasons: Bowel Obstruction Pt refused to participate with therapy, reports feeling exhausted and would like to stay in bed, therapist offered bed level exercises but was also refused by pt.
[2022-11-28] MEDS: IRON SUCROSE COMPLEX 400 MG in Normal Saline 250 ML 100 MG IVPB (16:07)
--- NOTE | 2022-11-28 16:10 | W.PM.PROGNOT ---
Date of Service Date of service: 11/28/22 Time of Service: 16:11 Assessment and Plan Assessment and plan (1) Wound infection after surgery: Status: Acute Assessment and plan: The decrease in her CRP is reassuring. And, clinically, she seems to be doing better overall. We will keep the TPN going for tonight and slowly advance her diet over the next few days. Hopefully, we can get the TPN off this week. I will add a little bit of psyllium to her diet to help thicken the stool. Subjective Subjective Interval history since last seen: Kaila does not offer any specific complaints this afternoon. However, she is feeling a little bit depressed regarding the overall situation. She says she was working with physical therapy a little bit in the bed today. She does feel a little stronger. She has been tolerating liquids without any nausea or vomiting. Exam GI Other: Her abdomen is soft, not very distended. Incisions clean. Stoma is working fine. The stool is a little bit thin Objective Last Vital Signs Temp 98.4 F 11/28/22 15:34 Pulse 81 11/28/22 15:34 Resp 19 11/28/22 15:34 BP 117/72 11/28/22 15:34 Pulse Ox 96 11/28/22 15:34 Laboratory Results - last 24 hr 11/28/22 11/28/22 11/28/22 05:10 05:10 05:10 WBC 14.26 H RBC 2.78 L Hgb 8.4 L Hct 26.3 L MCV 95 MCH 30.2 MCHC 31.9 L RDW 15.0 H Plt Count 576 H MPV 9.4 Immature Gran % 0.9 Neutrophils % 85.9 Lymphocytes % 5.2 Monocytes % 6.5 Eosinophils % 1.3 Basophils % 0.2 Nucleated RBC % 0.0 Absolute Neutrophils 12.25 H Absolute Lymphocytes 0.74 L Absolute Monocytes 0.93 H Absolute Eosinophils 0.19 Absolute Basophils 0.03 Sodium 134 L Potassium 3.8 Chloride 101 Carbon Dioxide 29.5 Anion Gap 3.5 BUN 22 H Creatinine 0.5 L Est GFR (CKD-EPI 2020) 92.43 Glucose 119 H Calcium 8.6 Total Bilirubin 0.2 AST 34 ALT 23 Alkaline Phosphatase 84 C-Reactive Protein 10.36 H Total Protein 5.0 L Albumin 1.2 L Procalcitonin 0.1 Time Spent with Patient Time Spent with Patient: 25-34 minutes Time was spent: preparing to see the patient(eg.review tests), ordering medications,tests, procedures, counseling the patient and care coordination
[2022-11-28] MEDS: Furosemide 20 MG/2 ML VIAL 40 MG IVP (16:37)
[2022-11-28 16:50] LABS: Magnesium 1.6 mg/dL (1.8-2.4); PHOSPHORUS 2.3 mg/dL (2.6-4.7)
--- NOTE | 2022-11-28 16:57 | WOUNDCONS ---
- If Service Date Differs Date of service: 11/28/22 Time of Service: 16:00 Wound Initial Evaluation Narrative: Patient is an 86 YOF. Initial admission was for a SBO, in which a loop diversion was performed. Post surgically, she developed complications that led to a second visit to the OR, It was at this point that what appeared to be bruised areas were noted under both breast. Hospitalist service, who had been asked to assist with some of her other medical co-morbidities, requested that the wound team look at the areas and weigh in. Patient has a PMX of A-fib, iron deficient anemia, HTN, depression, Hypokalemia, and hypophosphatemia. In my interview with the patient, she stated that this has been an ongoing problem for years. When asked to clarify, she told me that her PCP had told her that it was yeast. Patient has not been doing anything as of late to treat the issue. Patient was willing to have a wound consult performed. Patient signs the consent. Her H&P, progress notes, allergies, labs, and other pertinent information were reviewed prior to the wound consult. Body Four View: 1 - slit 2 - slit - Wound Left breast Wound Type: Other, Partial Thickness (Fungal slit) Wound General Appearance: Reddened, Unapproximated, Other (fascia visible) Wound Bed Greatest Portion: Other (white) Wound Surrounding Tissue Appearance: Dark Red, Purple Percent of Wound Bed Granulated/Red: 0 Wound Length: 1 cm Wound Width: 9.9 cm Wound Depth: 0.4 cm Wound Drainage Amount: None Wound Drainage Odor: None/Absent Wound Drainage Description: No drainage Wound Topical Solution/Irrigant: Other (soap and water) Wound Debridement Method: Mechanical Wound Debridement Result: Other (No tissue removed) Wound Debridement Amount of Tissue Removed: None Right Breast Wound Type: Other, Partial Thickness Wound General Appearance: Reddened, Unapproximated Wound Bed Greatest Portion: Other (white) Percent of Wound Bed Granulated/Red: 0 Wound Length: 1 cm Wound Width: 8.5 cm Wound Depth: 0.5 cm Wound Drainage Amount: None Wound Drainage Odor: None/Absent Wound Drainage Description: No drainage Wound Topical Solution/Irrigant: Other (Soap and water) Wound Debridement Method: Mechanical Wound Debridement Result: Other (No tissue removed) Wound Debridement Amount of Tissue Removed: None - Circulation, Sensation, Motion Sensation Description: Within Normal Limits Skin Color: Pale - AC Comment:: NA - Pain Pain Level: 2 (Some burning with cleaning) Pain Scale Used: Lenz-Flores Faces Pain Description: Burning Pain Duration (Hours): 0 (Resolved once cleaning was finished) Pain Duration/Frequency: Intermittent Surgical patient with other medical co-morbidities, that was found to have open areas under both breast. Per patient report, this is a long standing issue, years in her own words. Patient is alert and oriented, and this scribe has no reason to not believe what she is saying, though it is unclear why she has not had these areas treated currently. Will attempt to treat with the triple ointment. I spoke to the hospitalist, he concurs that this is an appropriate treatment. He agrees with this scribe to reach out if there is no improvement in 5 days. - Photo Photo: - Treatment/Dressing Change Topicals/Ointments: Other (Erin cream) Cleanse With: Other (Soap and water) Dressing Types: ABD Pad Additional Other Comments: ABD pad to loosely placed under each breast to allow air flow. - Nutrition Education Reviewed Nutrition Education: Yes Note: Patient currently on TPN as diet is slowly advanced. Discussed need for increased protein - Recomendation Recomendation:: Underside of both breasts. Clean areas with warm water and soap. Gently and completely dry both areas. Apply a thin layer of the Erin cream on the open and discolored areas. Gently place and ABD pad under each breast to allow for ventilation. Perform twice daily with AM and HS care. Notify wound nurse if no improvement in five days. Physcian/Nurse Practioner Notified: Yes (Dr. Snider) Treatment Time - Time Total Time Spent with Patient: 1 hour - Patient Will be Seen Weekly Treatment: bid - For: For:: 1 week (Contact wound nursing if no improvement in 5 days)
[2022-11-28] MEDS: Magnesium Oxide 400 MG TAB 800 MG PO (17:54)
[2022-11-28] MEDS: Psyllium PKT 1 EACH PO (21:22)
[2022-11-29] MEDS: MEROPENEM 1 GM in Normal Saline 100 ML IVPB ×3 (06:03→21:25)
[2022-11-29] MEDS: ACETAMINOPHEN 1,000 MG/100 ML BTL 400 MG IVPB (06:05)
[2022-11-29 07:30] VITALS: BP 97/63; PULSE 80; RESP 18; TEMP 36.3; O2SAT 98
[2022-11-29] MEDS: Furosemide 20 MG/2 ML VIAL 40 MG IVP ×2 (08:27→17:20)
[2022-11-29] MEDS: Pantoprazole 40 MG VIAL IVP (08:27)
[2022-11-29] MEDS: Potassium Chloride Liquid 20 MEQ PKT PO ×2 (08:28→21:17)
[2022-11-29] MEDS: Spironolactone 25 MG TAB PO (08:28)
[2022-11-29] MEDS: Psyllium PKT 1 EACH PO ×2 (08:28→21:18)
[2022-11-29] MEDS: Sertraline 50 MG TAB PO (08:28)
[2022-11-29] MEDS: Apixaban 5 MG TAB PO ×2 (08:28→21:17)
[2022-11-29] MEDS: Metoprolol CR 25 MG TABCR PO ×2 (08:28→21:17)
--- NOTE | 2022-11-29 08:28 | W.PM.PROGNOT ---
Date of Service Date of service: 11/29/22 Time of Service: 08:28 Assessment and Plan Assessment and plan (1) Wound infection after surgery: Status: Acute Assessment and plan: Kaila is depressed with her situation and the minimal progress she has made. Encouraged her to continue with PT and activity as tolerated. Sitting in the chair for meals. Pain is fairly well controlled at this time. She describes continued pain with transfers. Encouragement was provided and she describes that her daughter is actively involved. Will continue to advance diet today and work with PT. TPN will be weaned off once her PO intake has increased. Patient seen and examined. Agree with above. Subjective Subjective Interval history since last seen: Kaila describes that she is feeling discouraged and is struggling with concern of whether she will ever be able to return home. She denies abdominal pain at this time. Exam Const General: cooperative, healthy appearing and comfortable Orientation: alert and oriented x3 Resp Effort & Inspection: normal respiratory effort, no audible wheezes and no cough GI Other: MIdline incision with ABD dressings in place. Colostomy with soft, dark brown/green stool Objective Last Vital Signs Temp 36.3 C L 11/29/22 07:30 Pulse 80 11/29/22 07:30 Resp 18 11/29/22 07:30 BP 97/63 L 11/29/22 07:30 Pulse Ox 98 11/29/22 07:30 Laboratory Results - last 24 hr 11/28/22 15:55 Phosphorus 2.3 L Magnesium 1.6 L Time Spent with Patient Time Spent with Patient: >50 minutes Time was spent: preparing to see the patient(eg.review tests), obtaining and/or reviewing separately otained hiistory, ordering medications,tests, procedures, referring, communicating with other health health and social care teacher, indepentently interpreting results, counseling the patient and care coordination
[2022-11-29] MEDS: IRON SUCROSE COMPLEX 300 MG in Normal Saline 250 ML 167 MG IVPB (08:29)
[2022-11-29] MEDS: Normal Saline Flush 10 ML SYR IVP (08:29)
[2022-11-29] MEDS: Diclofenac 1% Gel 100 GM TUBE TP ×4 (08:41→21:17)
[2022-11-29 08:56] LABS: Abs Immature Grans 0.11 10^3/uL (0.0-0.06); Absolute Basophil Count 0.05 10^3/uL (0.0-0.2); Absolute Eosinophil Count 0.23 10^3/uL (0.0-0.7); Absolute Lymphocyte Count 0.73 10^3/uL (1.2-3.4); Absolute Monocyte Count 0.92 10^3/uL (0.1-0.8); Basophils % 0.4; Eosinophils % 1.7; HCT 26.7 % (36.0-46.0); HGB 8.5 g/dL (11.2-15.7); Immature Grans % 0.8; Lymphocytes % 5.4; MCH 30.2 pg (27.0-33.0); MCHC 31.8 % (32.0-36.0); MCV 95 fL (80-95); MPV 9.2 fL (8.0-11.0); Monocytes % 6.8; Neutrophils % 84.9; Platelet Count 625 10^3/uL (130-400); RBC 2.81 10^6/uL (3.93-5.22); RDW 15.2 % (11.7-14.6); RDW-SD 53.4 fL; WBC 13.54 10^3/uL (4.4-10.8)
[2022-11-29 09:19] LABS: Hypochromasia 1+
[2022-11-29 10:28] LABS: Magnesium 1.8 mg/dL (1.8-2.4)
--- NOTE | 2022-11-29 10:36 | CMPROGNOTE_ITS ---
Date of service: 11/29/22 Time of Service: 10:42 Care Management Progress Note Progress Note Text Progress Note Text: S/O: Kaila was lying in bed when CM met with her. She stated that she is doing ok today, but remains frustrated about her slow recovery. She looks forward to transitioning to short term rehab, as it will indicate that she is moving in the right direction. Her diet was advanced today, and she enjoyed a regular meal for lunch. CM will continue to follow. A: Kaila is an 86 year old female admitted to [facility] on 11/14/22 for a bowel obstruction. P: PT recommends Home with [facility] vs SNF. She would like to have a short rehab stay at [facility] prior to returning home. She will discharge with a wound vac.?Her family is very supportive;? and plan to take turns helping Kaila at home. She will follow up with her PCP and discharge plan of care. CM will continue to follow.
--- NOTE | 2022-11-29 10:44 | W.PM.PROGNOT ---
Date of Service Date of service: 11/29/22 Time of Service: 10:44 Assessment and Plan Assessment and plan (1) Wound infection after surgery: Status: Acute Assessment and plan: Postop day #4 abdominal exploration with debridement of abdominal wound and closure of fascial dehiscence with retention sutures and colostomy change Blood cultures remain no growth to date from 11/24/2022. Initial wound culture from 11/22/2022 grew E. coli which was pansensitive subsequent wound culture from 11/22/2022 grew anaerobic mixed growth. Patient remains on meropenem day #6 after initial treatment with Zosyn. She is showing gradual improvment. Diet has been advanced per surgical services to regular foods now. continue meropenem and TPN; monitor labs (CBC, CMP, Mg, Phosph, lipids). Surgical services will wean TPN once her oral intake picks up. Professional time spent interviewing and examining patient, discussion of goals of care with hospital team (care management, nursing and consulting professionals) was 35 minutes. (2) Bowel obstruction: Status: Acute Assessment and plan: POD#11 laparotomy and loop colostomy revision (11/18), POD# 14 exl lap, creation of descending loop colostomy (11/15). Complicated by surgical wound infection, status post return to the operating room (11/25) for incision and drainage and retention sutures Dressing changes per surgical services, continued meropenem (3) Atrial fibrillation by electrocardiogram: Status: Chronic Assessment and plan: patient is back on her oral Toprol XL and her afib rate has been well controlled. She has not needed the iv lopressor in past day since coming out of ICU. I will dc her iv lopressor and her telemetry (4) Iron deficiency anemia, unspecified: Status: Chronic Assessment and plan: serum iron level is 16 and transferrin saturation is low consistent w/ iron deficiency. I have writtent for venofer daily x 3 days (today is day #2 of 3 days of Venofer); Hb stable at 8.5 gm Qualifiers: Iron deficiency anemia type: inadequate dietary iron intake Qualified Code(s): D50.8 - Other iron deficiency anemias (5) Hypervolemia: Status: Acute Assessment and plan: continue iv diuretics and spironolactone. when she is off TPN then she may not require further diuretics or at least we can back off to oral diuretics. Wt not done today but was 109 kg yesterday. Her I/O however have been net negative 700 mL yesterday, and negative 400 mL the day before but she is net negative 2800 mL since midnight. Prior to that she was always in postivie fluid balance. Her overall cumulative balance is 9.5 liters up and her weight is up 9 kg from admission wt of 100 kg. (6) Essential hypertension: Status: Chronic Assessment and plan: Continue metoprolol. (7) Depressive disorder: Status: Chronic Assessment and plan: I will increase her sertraline to 100 mg daily (8) Hypokalemia: Status: Resolved Assessment and plan: corrected, will need supplementation while on lasix; spironolactone added which will help prevent hypokalemia (9) Hypomagnesemia: Status: Resolved Assessment and plan: monitor and replete (10) Hypophosphatemia: Status: Resolved Assessment and plan: on TPN; monitor and replace (11) DVT prophylaxis: Status: Acute Assessment and plan: On apixaban. Subjective Subjective Interval history since last seen: Kaila has no new concerns. her diet has been advanced to solid foods. She says that she ate some oatmeal this morning. no choking spells and no abdominal pains after eating Exam Narrative Exam Narrative: alert and oriented x 3, pleasant, cooperative Lungs: clear anteriorly but some bibasilar rales posteriorly Heart: irregularly irregular (review of her telemetry strips shows chronic afib and rate is well controlled; I will dc her telemetry) Abdomen: wound is bandaged, colostomy w/ green liquid, otherwise soft and nontender Extremities: trace of pedal edema but hand edema on the left is gone, still slight edema of her right hand; she has picc line in left upper arm but the arm is not tender/swollen and her U.S. was negative for LUE DVT Objective Last Vital Signs Temp 36.3 C L 11/29/22 07:30 Pulse 80 11/29/22 07:30 Resp 18 11/29/22 07:30 BP 97/63 L 11/29/22 07:30 Pulse Ox 98 11/29/22 07:30 Laboratory Results - last 24 hr 11/28/22 11/29/22 11/29/22 15:55 06:15 10:10 WBC 13.54 H RBC 2.81 L Hgb 8.5 L Hct 26.7 L MCV 95 MCH 30.2 MCHC 31.8 L RDW 15.2 H Plt Count 625 H MPV 9.2 Immature Gran % 0.8 Neutrophils % 84.9 Lymphocytes % 5.4 Monocytes % 6.8 Eosinophils % 1.7 Basophils % 0.4 Nucleated RBC % 0.0 Absolute Neutrophils 11.50 H Absolute Lymphocytes 0.73 L Absolute Monocytes 0.92 H Absolute Eosinophils 0.23 Absolute Basophils 0.05 RBC Morphology See Below Hypochromasia 1+ Phosphorus 2.3 L 3.0 Magnesium 1.6 L 11/29/22 11/29/22 10:10 Unknown WBC Cancelled RBC Cancelled Hgb Cancelled Hct Cancelled MCV Cancelled MCH Cancelled MCHC Cancelled RDW Cancelled Plt Count Cancelled MPV Cancelled Immature Gran % Neutrophils % Lymphocytes % Monocytes % Eosinophils % Basophils % Nucleated RBC % Absolute Neutrophils Absolute Lymphocytes Absolute Monocytes Absolute Eosinophils Absolute Basophils RBC Morphology Hypochromasia Phosphorus Magnesium 1.8 Time Spent with Patient Time Spent with Patient: 35-49 minutes Time was spent: preparing to see the patient(eg.review tests), ordering medications,tests, procedures, referring, communicating with other health home health aide caregiver, indepentently interpreting results, counseling the patient and care coordination
[2022-11-29] MEDS: HYDROmorphone 2 MG/ML SYR IVP (11:04)
[2022-11-29 11:20] VITALS: BP 108/66; PULSE 81; RESP 18; TEMP 36.2; O2SAT 93
[2022-11-29 12:07] LABS: Lab Add On Test DONE
[2022-11-29 12:23] LABS: BUN 23 mg/dL (7-18); CREATININE 0.6 mg/dL (0.55-1.02); Calcium 8.6 mg/dL (8.5-10.1); Chloride 98 mmol/L (98-107); Estimated GFR 88.45 (mL/min/1.73m2); Glucose 99 mg/dL (74-106); Potassium 4.7 mmol/L (3.5-5.1); Sodium 132 mmol/L (136-145)
--- NOTE | 2022-11-29 14:11 | NUR.NOTE ---
Nursing Note: Ostomy care note: Patient has transitioned to medical surgical floor. Last appliance dressing change on 11/28/22 per primary nurse DAVID Tran. No appliance change needed at time of nurse visit. No leakage noted and stomas appears to be reducing in size with brown thick liquid output. At this time no wound vac in place at midline wound. Per nursing team, dressing is wet to dry and ordered to be changed daily. Nurse reviewed importance of nutrition and protein intake in wound healing with patient, nurse provided emotional support, no additional teaching with patient today as patient was fatigued. Nurse did review with primary nurse the patients ostomy education packet as a resource for both patient and nursing team.
--- NOTE | 2022-11-29 16:43 | PT.INTREAT ---
Date of service: 11/29/22 Time of Service: 13:53 PT Notes Visit Reasons: Bowel Obstruction Inpatient Physical Therapy Treatment Note [facility] Date: 11/29/22 PRECAUTIONS: Fall, standard, activity as tolerated. SUBJECTIVE: Patient reports feeling a little better. Mood appears better. Swelling in hands is decreased today vs yesterday. Some swelling still present in hands, R>L, and in bilateral feet. OBJECTIVE: Baugh catheter, IV access right brachium, Colostomy bag, wound dressing over midline incision. Patient supine in bed, agreeable to therapy. ? PAIN: Yes around incision especially when attempting to sit or stand up. VITALS: monitored by nursing staff. Therapeutic Activities ([id number]): Direct one-on-one instruction in dynamic activities to improve functional performance. ? BED MOBILITY/TRANSFERS? Rolling L/R: min assist Supine-sit: mod assist. Educated patient on rolling to sidelying, pushing with arms to sit up. Practiced x3. Patient reports this still causes a pulling sensation at the incision site, but that it does feel easier and less painful.? Sit-supine: min assist ? Sit-stand: CGA from raised bed. Would be helpful to know how tall patient's bed is at home. ? Stand-sit: CGA? Bed-Chair: CGA to min assist ? Chair-bed: CGA to min assist Provided skilled cues and instruction on performance and technique throughout. Gait Training (31319b7): Direct one-on-one instruction and skilled instruction in: [x] movement sequencing [x] turning and movement with proper form [x] Provided verbal cues for equipment management and technique [x] Patient education regarding pacing and breathing techniques to maximize activity tolerance? GAIT? Assistive Device: FWW ? Weight bearing: full Assist: Min assist, management of Baugh and IV lines. ? Distance:? 8 feet ? Deviation: Reduced step height, reduced step length, patient becomes noticeably short of breath with exertion. ? ASSESSMENT:? Patient performed better today than yesterday, however, patient was unwilling to attempt a second walk even after resting for several minutes. States she has had about enough for today. PLAN: Continue to progress global strength and endurance to patient tolerance according to plan of care. Patient will benefit from a skilled rehab stay due to weakness, fatigue, and inability to care for herself. Would also potentially benefit from inpatient OT consult. TREATMENT CODE/TIME: 45847 Gait 15 minutes, 71052 Ther Act 16 minutes beginning at 13:53
[2022-11-29] MEDS: FLUCONAZOLE 200 MG/100 ML BAG 100 MG IVPB (18:11)
[2022-11-29 19:30] VITALS: BP 116/75; PULSE 98; RESP 17; TEMP 37.3; O2SAT 96
[2022-11-29] MEDS: Magnesium Oxide 400 MG TAB PO (21:17)
[2022-11-29 23:30] VITALS: BP 115/71; PULSE 84; RESP 17; TEMP 36.8; O2SAT 98
[2022-11-30 03:21] VITALS: BP 112/66; PULSE 74; RESP 16; TEMP 37.6; O2SAT 97
[2022-11-30] MEDS: MEROPENEM 1 GM in Normal Saline 100 ML IVPB ×2 (03:50→11:50)
[2022-11-30 07:03] LABS: Abs Immature Grans 0.12 10^3/uL (0.0-0.06); Absolute Basophil Count 0.05 10^3/uL (0.0-0.2); Absolute Eosinophil Count 0.22 10^3/uL (0.0-0.7); Absolute Lymphocyte Count 0.95 10^3/uL (1.2-3.4); Absolute Monocyte Count 0.99 10^3/uL (0.1-0.8); Absolute Neutrophil Count 10.85 10^3/uL (1.2-6.7); Basophils % 0.4; Eosinophils % 1.7; HCT 26.1 % (36.0-46.0); HGB 8.4 g/dL (11.2-15.7); Immature Grans % 0.9; Lymphocytes % 7.2; MCH 30.1 pg (27.0-33.0); MCHC 32.2 % (32.0-36.0); MCV 94 fL (80-95); MPV 9.2 fL (8.0-11.0); Monocytes % 7.5; Neutrophils % 82.3; RBC 2.79 10^6/uL (3.93-5.22); RDW 15.2 % (11.7-14.6); RDW-SD 52.2 fL; WBC 13.18 10^3/uL (4.4-10.8)
[2022-11-30 07:06] VITALS: BP 112/66; PULSE 65; RESP 16; TEMP 36.4; O2SAT 96
[2022-11-30 07:21] LABS: Magnesium 1.8 mg/dL (1.8-2.4)
[2022-11-30 07:24] LABS: Platelet Count 619 10^3/uL (130-400)
[2022-11-30 07:25] LABS: Hypochromasia 1+
[2022-11-30 07:26] LABS: INR 1.1 (0.9-1.1); Prothrombin Time 10.8 sec (9.3-11.0)
[2022-11-30 07:45] LABS: ALT 23 U/L (14-59); AST 28 U/L (15-37); Albumin 1.3 g/dL (3.4-5.0); Alkaline Phosphatase 101 U/L (46-116); Anion Gap 5.1 mmol/L (3-11); BUN 21 mg/dL (7-18); Bilirubin, Total 0.2 mg/dL (0.2-1.0); CO2 30.9 mmol/L (21.0-32.0); CREATININE 0.7 mg/dL (0.55-1.02); Calcium 8.8 mg/dL (8.5-10.1); Chloride 97 mmol/L (98-107); Estimated GFR 85.23 (mL/min/1.73m2); Glucose 99 mg/dL (74-106); Potassium 4.5 mmol/L (3.5-5.1); Sodium 133 mmol/L (136-145); Total Protein 5.4 g/dL (6.4-8.2)
[2022-11-30] MEDS: IRON SUCROSE COMPLEX 300 MG in Normal Saline 250 ML 167 MG IVPB (08:19)
[2022-11-30] MEDS: Normal Saline Flush 10 ML SYR IVP ×2 (08:19→09:09)
[2022-11-30] MEDS: Psyllium PKT 1 EACH PO ×2 (08:19→19:49)
[2022-11-30] MEDS: Potassium Chloride Liquid 20 MEQ PKT PO ×2 (08:19→19:49)
[2022-11-30] MEDS: Metoprolol CR 25 MG TABCR PO ×2 (08:20→19:49)
[2022-11-30] MEDS: Spironolactone 25 MG TAB PO (08:20)
[2022-11-30] MEDS: Pantoprazole 40 MG TABCR PO (08:20)
[2022-11-30] MEDS: Apixaban 5 MG TAB PO ×2 (08:20→19:49)
[2022-11-30] MEDS: Magnesium Oxide 400 MG TAB PO ×2 (08:20→19:48)
[2022-11-30] MEDS: Sertraline 50 MG TAB 100 MG PO (08:20)
[2022-11-30] MEDS: Diclofenac 1% Gel 100 GM TUBE TP ×4 (08:21→19:48)
[2022-11-30] MEDS: Furosemide 40 MG/4 ML VIAL IVP (09:09)
[2022-11-30 11:10] VITALS: BP 98/62; PULSE 88; RESP 16; TEMP 36.5; O2SAT 95
[2022-11-30] MEDS: HYDROmorphone 2 MG/ML SYR IVP (11:40)
--- NOTE | 2022-11-30 11:54 | W.NUTRFU ---
Date of service: 11/30/22 Time of Service: 11:54 Nutrition Note NOTE: Calorie count just initiated for pt to help in transitioning off TPN to full PO intake. Calorie count process was gone over with her assigned nursing staff (karyn) as well as dietary staff so we can get a more accurate picture over the next few days for intake of kcals/protein. Pt also ordered for protein shakes BID b/t meals - sending ensure plus at 10:00 and 14:00 nourishments.. Calorie count to start today at lunch and will monitor over the next 3 days to estimate intake. Nursing agreed to help with tracking between meal intake of supplements and anything nursing is offering. Kaila reports fair appetite - had a small glass of oj this morning and half a cheese omelet with good toleration. I asked Kaila if she might prefer we ask for liquid protein Rx so she can get more protein in a smaller dose, however she states she prefers the ensure over this. Weight is stable. will continue to follow for an accurate assessment of caloric and protein intake. Time Spent in Nutritional Counseling and Treatment: 15 minutes
--- NOTE | 2022-11-30 12:30 | PGE_ITS ---
Date of Service Date of service: 11/30/22 Time of Service: 07:00 Assessment and Plan Assessment and plan (1) Wound infection after surgery: Status: Acute Assessment and plan: Kaila is depressed with her situation and the minimal progress she has made. Encouraged her to continue with PT and activity as tolerated. Sitting in the chair for meals. Pain is fairly well controlled at this time. She describes continued pain with transfers. Encouragement was provided and she describes that her daughter is actively involved. OT consult placed to help address ADLs. In reviewing nursing notes, Kaila has required total assistance at meals and with hygiene. COntinue to encouraged increased PO intake Will attend wound dressing change today with nsg, to determine if we are able to use an alternative to the wet to dry dressings. I saw and examined Kaila and I agree with the note started by Sheree. She remains a little down regarding her overall prognosis, but I think she has good insight and understanding as to what is been going on. She says her pain is not too bad in between the dressing changes. Stoma effluent is about the same, but may be thickened up a little bit. She has been taking a little bit more by mouth. Dressings were changed today, and things look clean without any obvious infections. I think we can complete meropenem today. This will be day 7 of t herapy, combined with almost 7 days of Zosyn prior to that. We will also try to get the TPN off over the next 24 hours and see how that impacts her diet. Subjective Subjective Interval history since last seen: Arrived with Kaila resting in bed with her jeff. UE's elevated on pillows. She states that her left hand/arm continues to be swollen. She denies any warmth or pain in the UE. She describes that she participated in PT yesterday. Wound changes have been uncomfortable and she describes dreading them. Exam Const General: cooperative, healthy appearing and comfortable Orientation: alert and oriented x3 Resp Effort & Inspection: normal respiratory effort, no audible wheezes and no cough GI Other: Midline incision with dressing in place. Colostomy bag with soft, semiformed dark brown stool. Objective Last Vital Signs Temp 36.5 C 11/30/22 11:10 Pulse 88 11/30/22 11:10 Resp 16 11/30/22 11:10 BP 98/62 L 11/30/22 11:10 Pulse Ox 95 11/30/22 11:10 Laboratory Results - last 24 hr 11/30/22 11/30/22 11/30/22 05:40 05:40 05:40 WBC RBC Hgb Hct MCV MCH MCHC RDW Plt Count MPV Immature Gran % Neutrophils % Lymphocytes % Monocytes % Eosinophils % Basophils % Nucleated RBC % Absolute Neutrophils Absolute Lymphocytes Absolute Monocytes Absolute Eosinophils Absolute Basophils RBC Morphology Hypochromasia PT 10.8 INR 1.1 Sodium 133 L Potassium 4.5 Chloride 97 L Carbon Dioxide 30.9 Anion Gap 5.1 BUN 21 H Creatinine 0.7 Est GFR (CKD-EPI 2020) 85.23 Glucose 99 Calcium 8.8 Magnesium 1.8 Total Bilirubin 0.2 AST 28 ALT 23 Alkaline Phosphatase 101 Total Protein 5.4 L Albumin 1.3 L 11/30/22 05:40 WBC 13.18 H RBC 2.79 L Hgb 8.4 L Hct 26.1 L MCV 94 MCH 30.1 MCHC 32.2 RDW 15.2 H Plt Count 619 H MPV 9.2 Immature Gran % 0.9 Neutrophils % 82.3 Lymphocytes % 7.2 Monocytes % 7.5 Eosinophils % 1.7 Basophils % 0.4 Nucleated RBC % 0.0 Absolute Neutrophils 10.85 H Absolute Lymphocytes 0.95 L Absolute Monocytes 0.99 H Absolute Eosinophils 0.22 Absolute Basophils 0.05 RBC Morphology See Below Hypochromasia 1+ PT INR Sodium Potassium Chloride Carbon Dioxide Anion Gap BUN Creatinine Est GFR (CKD-EPI 2020) Glucose Calcium Magnesium Total Bilirubin AST ALT Alkaline Phosphatase Total Protein Albumin Time Spent with Patient Time Spent with Patient: 25-34 minutes Time was spent: preparing to see the patient(eg.review tests), indepentently interpreting results, counseling the patient and care coordination
[2022-11-30 14:41] VITALS: BP 96/60; PULSE 93; RESP 16; TEMP 36.3; O2SAT 94
[2022-11-30] MEDS: Fluconazole 100 MG TAB PO (15:35)
--- NOTE | 2022-11-30 16:16 | CMPROGNOTE_ITS ---
Date of service: 11/30/22 Time of Service: 16:16 Care Management Progress Note Progress Note Text Progress Note Text: S/O: Kaila was sitting up in bed when CM met with her. Her daughter and son in law were visiting with her in the room. Per MD, Kaila may be ready for discharge early next week, possibly Saturday or Saturday. Kaila was really happy to hear this news, as she is looking forward to the next step in her journey. CM will continue to follow. A: Kaila is an 86 year old female admitted to [facility] on 11/14/22 for a bowel obstruction. P: Kaila will go to short term rehab at [facility], where she has been accepted for admission, pending medical clearance. She will transport via facility w/c van. She will follow up with her PCP and discharge plan of care. CM will continue to follow.
--- NOTE | 2022-11-30 16:59 | PT.INTREAT ---
Date of service: 11/30/22 Time of Service: 10:46 PT Notes Visit Reasons: Bowel Obstruction Inpatient Physical Therapy Treatment Note [facility] Date: 11/30/22 PRECAUTIONS: Fall, standard, activity as tolerated. SUBJECTIVE: Patient not sure how she feels today. OBJECTIVE: Supine in bed, agreeable to therapy. ? PAIN: none reported. VITALS: monitored by nursing staff. ? Therapeutic Exercises (80058k4): Direct one-on-one instruction in therapeutic exercises to develop strength, endurance, range of motion and flexibility. ?Ambulation ? Assistive Device: FWW ? Weight bearing: full Assist: CGA ? Distance:? 6 feet ? Deviation: Patient becomes significantly short of breath, reports feeling her heart race. Reduced step height, reduced step length, reduced antonia. ? Provided skilled instruction in proper exercise performance ASSESSMENT:? Patient tolerates therapy well. Expresses the desire to not be up too too long as she gets stiff and it becomes more difficult for her to transfer back to bed. PLAN: Return between 12:30 and 13:00 to assist patient in returning to bed. Continue global strengthening per plan of care until patient is medically cleared to discharge to a SNF. AFTERNOON: Patient already in bed at 12:55, surgeon present dressing abdominal incision. Patient unavailable for therapy. Patient declines therapy at 14:40 due to having visitors and feeling very tired. TREATMENT CODE/TIME: 11159 Ther Ex 18 minutes beginning at 10:46
[2022-11-30 19:30] VITALS: BP 105/67; PULSE 87; RESP 20; TEMP 36.6; O2SAT 94
[2022-11-30] MEDS: Acetaminophen 325 MG TAB 650 MG PO (21:19)
[2022-11-30 23:45] VITALS: BP 112/72; PULSE 82; RESP 16; TEMP 36; O2SAT 95
[2022-12-01 04:03] VITALS: BP 112/74; PULSE 80; RESP 16; TEMP 36.1; O2SAT 96
--- NOTE | 2022-12-01 07:09 | PGE_ITS ---
Date of Service Date of service: 12/01/22 Time of Service: 07:09 Assessment and Plan Assessment and plan (1) S/P exploratory laparotomy: Status: Acute Assessment and plan: Completed the antibiotics for peritonitis yesterday. I will repeat a CBC tomorrow. We will continue with topical dressings for wound care, and nutritional assessment. Subjective Subjective Interval history since last seen: She feels a little bit better today. But is still frustrated with the challe nges of recovery. She has no pain. She is tolerating food without any nausea or vomiting, but she does not have much appetite. Exam GI Other: Her abdomen is soft, nondistended, and not very tender. Stoma looks fine. Objective Last Vital Signs Temp 97.0 F L 12/01/22 04:03 Pulse 80 12/01/22 04:03 Resp 16 12/01/22 04:03 BP 112/74 12/01/22 04:03 Pulse Ox 96 12/01/22 04:03 Laboratory Results - last 24 hr 11/30/22 11/30/22 11/30/22 05:40 05:40 05:40 WBC RBC Hgb Hct MCV MCH MCHC RDW Plt Count MPV Immature Gran % Neutrophils % Lymphocytes % Monocytes % Eosinophils % Basophils % Nucleated RBC % Absolute Neutrophils Absolute Lymphocytes Absolute Monocytes Absolute Eosinophils Absolute Basophils RBC Morphology Hypochromasia PT 10.8 INR 1.1 Sodium 133 L Potassium 4.5 Chloride 97 L Carbon Dioxide 30.9 Anion Gap 5.1 BUN 21 H Creatinine 0.7 Est GFR (CKD-EPI 2020) 85.23 Glucose 99 Calcium 8.8 Magnesium 1.8 Total Bilirubin 0.2 AST 28 ALT 23 Alkaline Phosphatase 101 Total Protein 5.4 L Albumin 1.3 L 11/30/22 05:40 WBC 13.18 H RBC 2.79 L Hgb 8.4 L Hct 26.1 L MCV 94 MCH 30.1 MCHC 32.2 RDW 15.2 H Plt Count 619 H MPV 9.2 Immature Gran % 0.9 Neutrophils % 82.3 Lymphocytes % 7.2 Monocytes % 7.5 Eosinophils % 1.7 Basophils % 0.4 Nucleated RBC % 0.0 Absolute Neutrophils 10.85 H Absolute Lymphocytes 0.95 L Absolute Monocytes 0.99 H Absolute Eosinophils 0.22 Absolute Basophils 0.05 RBC Morphology See Below Hypochromasia 1+ PT INR Sodium Potassium Chloride Carbon Dioxide Anion Gap BUN Creatinine Est GFR (CKD-EPI 2020) Glucose Calcium Magnesium Total Bilirubin AST ALT Alkaline Phosphatase Total Protein Albumin Time Spent with Patient Time Spent with Patient: <25 minutes Time was spent: preparing to see the patient(eg.review tests) and counseling the patient
[2022-12-01 07:31] VITALS: BP 96/59; PULSE 80; TEMP 36.1; O2SAT 96
[2022-12-01 08:32] VITALS: BP 100/60; PULSE 70
[2022-12-01] MEDS: Sertraline 50 MG TAB 100 MG PO (08:34)
[2022-12-01] MEDS: Apixaban 5 MG TAB PO ×2 (08:34→19:28)
[2022-12-01] MEDS: Potassium Chloride Liquid 20 MEQ PKT PO ×2 (08:34→19:27)
[2022-12-01] MEDS: Spironolactone 25 MG TAB PO (08:34)
[2022-12-01] MEDS: Furosemide 40 MG TAB PO (08:34)
[2022-12-01] MEDS: Metoprolol CR 25 MG TABCR PO ×2 (08:35→19:28)
[2022-12-01] MEDS: Magnesium Oxide 400 MG TAB PO ×2 (08:35→19:28)
[2022-12-01] MEDS: Fluconazole 100 MG TAB PO (08:35)
[2022-12-01] MEDS: Pantoprazole 40 MG TABCR PO (08:35)
[2022-12-01] MEDS: Diclofenac 1% Gel 100 GM TUBE TP ×3 (08:36→20:15)
[2022-12-01] MEDS: Psyllium PKT 1 EACH PO ×2 (08:36→19:27)
[2022-12-01 11:07] VITALS: BP 101/65; PULSE 76; TEMP 36.2; O2SAT 95
--- NOTE | 2022-12-01 14:40 | PT.INTREAT ---
Date of service: 12/01/22 Time of Service: 14:05 PT Notes Visit Reasons: Bowel Obstruction Inpatient Physical Therapy Treatment Note [facility] Date: 12/01/22 PRECAUTIONS: Fall, standard, activity as tolerated. SUBJECTIVE: Patient reports feeling a bit better today. OBJECTIVE: Supine in bed. Agreeable to therapy? PAIN: none reported initially, however remarks about left knee pain during ambulation. VITALS: monitored by nursing staff. ? Therapeutic Activities ([id number]): Direct one-on-one instruction in dynamic activities to improve functional performance. ? BED MOBILITY/TRANSFERS? Rolling L/R: SBA with verbal cues Supine-sit: min assist - this therapist prevented patient from falling back x3 but patient made all forward progress with verbal cues only. ?Sit-supine: Min assist ? Sit-stand: mod assist from low bed ? Stand-sit: CGA with verbal cues to sit back as far as possible ? Bed-Chair: CGA? Chair-bed: CGA Provided skilled cues and instruction on performance and technique throughout, including limb placement, movement sequence, pacing and breathing to maximize activity tolerance. ASSESSMENT:? Patient appears to tolerate therapy well, reports no increase in pain once seated in recliner. However, during ambulation this therapist noted several small object fall out from under patients gown. They appeared to be sponges of some kind, and appeared to have blood on them. RN was notified, and discovered that it was part of the wound packing material from patient's abdominal incision. The decision was made to discontinue therapy until after surgeon can re-pack wound. Will see patient again tomorrow. PLAN: Continue global strengthening per plan of care until patient is medically cleared to discharge to SNF. TREATMENT CODE/TIME: 56659 Ther Act 15 minutes beginning at 14:05
[2022-12-01] MEDS: HYDROmorphone 2 MG/ML SYR IVP (15:20)
[2022-12-01 15:35] VITALS: BP 100/66; PULSE 65; TEMP 35.9; O2SAT 93
--- NOTE | 2022-12-01 16:02 | NUR.NOTE ---
RN notified by PT stating abdominal packing and dressing fell out during session. Charge nurse notified. Per charge nurse, stated nursing can repack wound. Dressing repacked and is currently clean dry and intact. Pt given IV pain medicine before dressing change with good effect. Nursing Note:
--- NOTE | 2022-12-01 16:18 | W.NUTRFU ---
Date of service: 12/01/22 Time of Service: 16:18 Nutrition Note NOTE: Calorie and protein intake in the last 24 hours has been 785 kcals (estimated) and 46 g protein (estimated). This intake is 41% and 50% of her calorie and protein needs respectively. Will continue to follow and encourage nutrient dense intake to meet her nutritional needs. Time Spent in Nutritional Counseling and Treatment: 5 minutes
[2022-12-01] MEDS: Acetaminophen 325 MG TAB 650 MG PO (19:28)
[2022-12-01 19:55] VITALS: BP 110/71; PULSE 81; RESP 18; TEMP 36.7; O2SAT 98
[2022-12-02] VITALS (7 sets, daily range): BP systolic 95–111; BP diastolic 63–70; PULSE 63–87; RESP 18; TEMP 36–36.9; O2SAT 94–97
[2022-12-02 07:20] LABS: HCT 26.2 % (36.0-46.0); HGB 8.6 g/dL (11.2-15.7); MCH 30.8 pg (27.0-33.0); MCHC 32.8 % (32.0-36.0); MCV 94 fL (80-95); Platelet Count 583 10^3/uL (130-400); RBC 2.79 10^6/uL (3.93-5.22); RDW 15.3 % (11.7-14.6); WBC 10.27 10^3/uL (4.4-10.8)
[2022-12-02 07:39] LABS: BUN 17 mg/dL (7-18); CREATININE 0.7 mg/dL (0.55-1.02); Calcium 9.3 mg/dL (8.5-10.1); Chloride 97 mmol/L (98-107); Estimated GFR 85.23 (mL/min/1.73m2); Glucose 88 mg/dL (74-106); Magnesium 2.1 mg/dL (1.8-2.4); Potassium 4.4 mmol/L (3.5-5.1); Sodium 132 mmol/L (136-145)
[2022-12-02] MEDS: Potassium Chloride Liquid 20 MEQ PKT PO ×2 (08:29→20:29)
[2022-12-02] MEDS: Diclofenac 1% Gel 100 GM TUBE TP ×3 (08:30→15:37)
[2022-12-02] MEDS: Furosemide 40 MG TAB PO (08:30)
[2022-12-02] MEDS: Sertraline 50 MG TAB 100 MG PO (08:30)
[2022-12-02] MEDS: Pantoprazole 40 MG TABCR PO (08:30)
[2022-12-02] MEDS: Metoprolol CR 25 MG TABCR PO (08:30)
[2022-12-02] MEDS: Psyllium PKT 1 EACH PO ×2 (08:30→20:29)
[2022-12-02] MEDS: Spironolactone 25 MG TAB PO (08:30)
[2022-12-02] MEDS: Apixaban 5 MG TAB PO ×2 (08:30→20:30)
[2022-12-02] MEDS: Magnesium Oxide 400 MG TAB PO ×2 (08:30→20:30)
[2022-12-02] MEDS: Fluconazole 100 MG TAB PO (08:30)
--- NOTE | 2022-12-02 09:25 | W.PM.PROGNOT ---
Date of Service Date of service: 12/02/22 Time of Service: 09:25 Assessment and Plan Assessment and plan (1) S/P exploratory laparotomy: Status: Acute Assessment and plan: Her labs look great, and she seems to be doing well after her antibiotics were stopped. She does have a bit of bilateral upper extremity edema this slowly improving with time. Also, the left upper extremity had an infiltration in the IV, and there are some ecchymosis and swelling over the antecubital fossa. There is no signs of infection at this point. Compartments are soft, and there are no clinical features of compartment syndrome. We talked about the importance of nutrition, especially as it regards her wound healing, mobility. Double check to make sure that she has some protein supplementation. We will also continue with basic midline wound dressings. Using wet to dry gauze at this point with regards to the left arm, I encouraged her to try to keep it elevated little bit while in bed. Hopefully, her anasarca will improve a bit as her mobility increases. Subjective Subjective Interval history since last seen: Had some challenges with the Garcia Strap dressings yesterday, but the wound has been repacked and redressed, and tape is being used to affix the bandaging in place. This seems to be working okay. Otherwise she felt fine through the day. Nutrition assessment indicates approximately 50% of caloric needs being met. Otherwise, no major events. Exam GI Other: Abdomen soft and nondistended. Stoma looks great. Objective Last Vital Signs Temp 97.2 F L 12/02/22 06:57 Pulse 84 12/02/22 06:57 Resp 18 12/02/22 06:57 BP 111/70 12/02/22 06:57 Pulse Ox 95 12/02/22 06:57 Laboratory Results - last 24 hr 12/02/22 12/02/22 06:28 06:28 WBC 10.27 RBC 2.79 L Hgb 8.6 L Hct 26.2 L MCV 94 MCH 30.8 MCHC 32.8 RDW 15.3 H Plt Count 583 H MPV 9.0 Sodium 132 L Potassium 4.4 Chloride 97 L Carbon Dioxide 31.0 Anion Gap 4.0 BUN 17 Creatinine 0.7 Est GFR (CKD-EPI 2020) 85.23 Glucose 88 Calcium 9.3 Magnesium 2.1 Time Spent with Patient Time Spent with Patient: 25-34 minutes Time was spent: preparing to see the patient(eg.review tests), indepentently interpreting results and counseling the patient
[2022-12-02] MEDS: HYDROmorphone 2 MG/ML SYR IVP (13:03)
--- NOTE | 2022-12-02 14:03 | PT.INNT ---
Date of service: 12/02/22 Time of Service: 09:53 PT Notes Visit Reasons: Bowel Obstruction Patient refused therapy at 9:53 and 13:59 stating she is too tired, doesn't feel up for it, needs rest.
--- NOTE | 2022-12-02 15:55 | W.NUTRFU ---
Date of service: 12/02/22 Time of Service: 15:55 Nutrition Note NOTE: Ms. Salas had 680 calories and 43 grams of protein in the past 24 hours which again is about half of her estimated nutritional needs. She does not like any of the liquid nutritional supplements like CIB, Ensure, Ensure clear etc. She does like animal proteins which is helpful so we have been encouraging them at each meal. Would consider adding 1 oz. liquid protein twice or three times daily to the MAR to help her meet her protein needs. Will continue to monitor weight, PO, and encourage nutrient dense meals. Time Spent in Nutritional Counseling and Treatment: 15 minutes
[2022-12-02] MEDS: Acetaminophen 325 MG TAB 650 MG PO (20:30)
--- NOTE | 2022-12-03 | DI.US_ITS ---
Exam(s) US UPPER EXTREMITY VENOUS LT EXAM: US UPPER EXTREMITY VENOUS LT CLINICAL HISTORY: IV infiltrated LUE. Red/ swollen painful.. TECHNIQUE: Ultrasound examination of the left upper extremity venous system(s) is performed using gr ayscale, color-flow, and spectral Doppler analysis. COMPARISON: No exams were available for comparison FINDINGS: The left internal jugular, axillary, subclavian, cephalic, basilic, brachial, radial, and ulnar veins are patent without evidence of thrombosis. IMPRESSION: No DVT. DATA REPOSITORY:
[2022-12-03 03:00] VITALS: BP 110/70; PULSE 84; RESP 18; TEMP 36; O2SAT 99
[2022-12-03 07:58] VITALS: BP 113/62; PULSE 81; RESP 17; TEMP 36.5; O2SAT 94
[2022-12-03] MEDS: Potassium Chloride Liquid 20 MEQ PKT PO ×2 (08:23→21:26)
[2022-12-03] MEDS: Psyllium PKT 1 EACH PO ×2 (08:23→21:26)
[2022-12-03] MEDS: Fluconazole 100 MG TAB PO (08:25)
[2022-12-03] MEDS: Furosemide 40 MG TAB PO (08:25)
[2022-12-03] MEDS: Apixaban 5 MG TAB PO ×2 (08:27→21:25)
[2022-12-03] MEDS: Spironolactone 25 MG TAB PO (08:27)
[2022-12-03] MEDS: Pantoprazole 40 MG TABCR PO (08:27)
[2022-12-03] MEDS: Magnesium Oxide 400 MG TAB PO ×2 (08:27→21:25)
[2022-12-03] MEDS: Sertraline 50 MG TAB 100 MG PO (08:28)
[2022-12-03] MEDS: Metoprolol CR 25 MG TABCR PO ×2 (08:32→21:25)
[2022-12-03 09:00] VITALS: BP 135/82
--- NOTE | 2022-12-03 09:58 | OT.INNT ---
Occupational Therapy Notes 12/03/22 OT consult received and pts chart was reviewed. Pt refused OT consult for this morning and OT will attempt to resume tomorrow. Mattie Rodríguez, OTR/L
--- NOTE | 2022-12-03 10:00 | PDOC.CMPRO ---
Date of service: 12/03/22 Time of Service: 10:00 Care Management Progress Note Progress Note Text Progress Note Text: S/O: Kaila was lying in bed when CM met with her. She engages in conversation with this entry writer who knows Kaila well from past clinical encounters. Kaila shares that she was was ready to give up this morning. She shared that misses her and she's 86 years old and tired. She doesn't want to be a burden on her children. She notes that her Daughter Lesvia knows how she feels and tells her she can't give up. Kaila admits that she's depressed and feels like she's lost her motivation. Kaila is agreeable to go to SNF and has been accepted to [facility] tomorrow, if medically ready. Kaila is also planning on talking to her daughter about LTM and in the event that she requires assisted living penitentiary. CM reviewed with her Daughter Lesvia and she and her sister Ney plan to help Kaila with the application. CM will follow. A: Kaila is an 86 year old female admitted to [facility] on 11/14/22 for a bowel obstruction. P: Kaila will go to short term rehab at [facility], where she has been accepted for admission, pending medical clearance. She will transport via facility w/c van. She will follow up with her PCP and discharge plan of care. CM will continue to follow.
[2022-12-03 11:35] VITALS: BP 103/82; PULSE 82; RESP 17; TEMP 36.8; O2SAT 97
--- NOTE | 2022-12-03 12:47 | PGE_ITS ---
Date of Service Date of service: 12/03/22 Time of Service: 11:45 Assessment and Plan Assessment and plan (1) Protein calorie malnutrition: Status: Acute Assessment and plan: Long discussion with Kaila regarding the importance of her eating high-protein food. We discussed things that she likes. She likes cheese and crackers and peanut butter and crackers. Encouraged her to eat a lot of snacks throughout the day. We also discussed the importance of her working with physical therapy again as this is the only thing that can help get her stronger and get her home. Patient is quite depressed and feels like giving up. I tried to reassure the patient that everything she is going through is quite normal after all the surgery she has been through. I tried to point out the positives of her still being alive that her ostomy is working her midline wound is healing and really at this point it is just a matter of her getting stronger. Her antidepressant has been increased about 3 to 4 days ago. From a medical standpoint she is ready for rehab but they will not take her unless she participates with physical therapy. We will continue to encourage her every day to get up and work with physical therapy. No changes to her therapies at this time. 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 She feels like she wants to give up. She does not want to work with PT or OT at this point. She is only eating about half of her needed calories. Her ostomy is working well and ostomy appliances are not leaking. Her midline wound looks healthy. She is afebrile. Exam Const General: cooperative, comfortable and no acute distress Nutritional Appearance: malnourished Orientation: alert and oriented x3 Limitations: other limitations (depression) [facility] Head: normocephalic and atraumatic Resp Effort & Inspection: normal respiratory effort Auscultation: clear to auscultation bilaterally Cardio Rate: regular rate Rhythm: regular rhythm GI Other: ostomy is healthy- stool is formed but soft midline incision- healthy Objective Last Vital Signs Temp 98.2 F 12/03/22 11:35 Pulse 82 12/03/22 11:35 Resp 17 12/03/22 11:35 BP 103/82 12/03/22 11:35 Pulse Ox 97 12/03/22 11:35 Time Spent with Patient Time Spent with Patient: 25-34 minutes Time was spent: counseling the patient
[2022-12-03] MEDS: HYDROmorphone 2 MG/ML SYR 0.5 MG IVP (13:16)
[2022-12-03 16:00] VITALS: BP 118/65; PULSE 95; TEMP 36.4; O2SAT 95
--- NOTE | 2022-12-03 16:00 | PTTR_ITS ---
Date of service: 12/03/22 Time of Service: 15:42 PT Notes Visit Reasons: Bowel Obstruction Inpatient Physical Therapy Treatment Note [facility] Date: 12/03/22 PRECAUTIONS: Fall, standard, activity as tolerated. SUBJECTIVE: Patient reports not feeling up to much. Reports extreme fatigue. OBJECTIVE: Patient supine in bed, agreeable to therapy, agreeable to sit EOB. ? PAIN: yes, 6/10 at incision site, worse with movement. VITALS: monitored by nursing staff. ? BED MOBILITY/TRANSFERS? Rolling L/R: SBA with verbal cues Supine-sit: mod assist ? Sit-supine: min assist ? Therapeutic Exercises (22151g2): Direct one-on-one instruction in therapeutic exercises to develop strength, endurance, range of motion and flexibility. ? Exercises: * LAQ 2x10 * heel raises 2x10 * toe raises 2x10 * supine heel slides x10 * supine bridges 2x5 ? Provided skilled instruction in proper exercise performance Provided skilled manual cues to facilitate proper muscle recruitment and/or form: cued glute activation during bridges. ASSESSMENT:? Patient tolerates therapy well, reports muscle fatigue in both legs at end of treatment. Returns to resting supine in bed, call vines in easy reach. PLAN: Continue global strength and conditioning until patient is medically cleared to discharge to a SNF. TREATMENT CODE/TIME: 16 minutes beginning at 15:42
[2022-12-03 21:21] VITALS: BP 108/69; PULSE 90; RESP 18; TEMP 37; O2SAT 95
[2022-12-03] MEDS: Acetaminophen 325 MG TAB 650 MG PO (21:27)
[2022-12-04 03:23] VITALS: BP 103/63; PULSE 71; RESP 16; TEMP 36.7; O2SAT 96
[2022-12-04 07:10] VITALS: BP 118/75; PULSE 88; RESP 16; TEMP 36.5; O2SAT 95
[2022-12-04] MEDS: Fluconazole 100 MG TAB PO (07:36)
[2022-12-04] MEDS: Magnesium Oxide 400 MG TAB PO ×2 (07:36→21:09)
[2022-12-04] MEDS: Psyllium PKT 1 EACH PO ×2 (07:36→21:11)
[2022-12-04] MEDS: Sertraline 50 MG TAB 100 MG PO (07:36)
[2022-12-04] MEDS: Pantoprazole 40 MG TABCR PO (07:36)
[2022-12-04] MEDS: Metoprolol CR 25 MG TABCR PO ×2 (07:37→21:11)
[2022-12-04] MEDS: Furosemide 40 MG TAB PO (07:37)
[2022-12-04] MEDS: Normal Saline Flush 10 ML SYR IVP (07:37)
[2022-12-04] MEDS: Apixaban 5 MG TAB PO ×2 (07:37→21:09)
[2022-12-04] MEDS: Spironolactone 25 MG TAB PO (07:37)
[2022-12-04] MEDS: Potassium Chloride Liquid 20 MEQ PKT PO ×2 (07:37→21:10)
[2022-12-04] MEDS: Diclofenac 1% Gel 100 GM TUBE TP (07:38)
--- NOTE | 2022-12-04 08:07 | PGE_ITS ---
Date of Service Date of service: 12/04/22 Time of Service: 08:07 Assessment and Plan Assessment and plan (1) Protein calorie malnutrition: Status: Acute Assessment and plan: Strongly encouraged participating in PT and OT today to work on increasing her strength, activity tolerance and independence with ADLs and transfers. Continue high calorie, high protein diet Emphasized the importance of being engaged and participating in colostomy care. Kaila is struggling with having a colostomy and will need help fostering her participation. She should be sitting in the chair for all meals, ambulating and activity several times a day. In addition to PT and OT. Continue with increasing PO intake, strength and activity tolerance. Patient seen and examined this afternoon at around 12:00. She is sitting in her chair and eating lunch. She tells me that she has tried the protein shake I brought her and one of the high protein cookies and they taste good. Her demeanor is much brighter today. She has worked with both PT and OT [facility], OT and wound care. 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 Kaila say's that she never wanted a colostomy and she is 86 y/o and she s houldn't have to learn new things. She describes that she was very tired yesterday and didn't do much, I just gave up. Exam Const General: cooperative, healthy appearing and comfortable Orientation: alert and oriented x3 Resp Effort & Inspection: normal respiratory effort, no audible wheezes and no cough GI Inspection: normal to inspection Palpation: soft and no guarding Other: Colostomy with liquid brown stool Midline dressing in place. Objective Last Vital Signs Temp 36.5 C 12/04/22 07:10 Pulse 88 12/04/22 07:10 Resp 16 12/04/22 07:10 BP 118/75 12/04/22 07:10 Pulse Ox 95 12/04/22 07:10 Time Spent with Patient Time Spent with Patient: 25-34 minutes Time was spent: preparing to see the patient(eg.review tests), obtaining and/or reviewing separately otained hiistory, ordering medications,tests, procedures, indepentently interpreting results and counseling the patient
--- NOTE | 2022-12-04 08:52 | OTIE_ITS ---
Occupational Therapy Notes Inpatient Occupational Therapy Evaluation Date: 12/04/22 Referring Doctor: EFREN MERCADO OT Orders: Non urgent Precautions: Fall, standard, DNR/DNI PATIENT PROFILE/ADMITTING DIAGNOSIS: Pt is an 86 year old female who was admitted on 11/20/22 and has had multiple surgeries since her admission. She is admitted to Med surg with the following dx of Hypervolemia, high risk for skin breakdown, protein calorie malnutrition, muscular deconditioning, swelling of (R) UE, wound infection after surgery, hypophosphatremia, hypomagnesemia, colostomy in place, bowel obstruction. 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 Biopsy of breast (~1989) LEFTCholecystectomy (~1980) Colonoscopy - MAC (08/16/17) EGD - MAC (08/16/17) Status post breast biopsy Social History/Home Situation: Pt states that she lives in a private home, she gets meals on wheels and friends and family bring meals as well. She notes that at her baseline level of function she is (I) with her ADL/IADL routines. She does have some back pain at baseline which affects her standing tolerance. Equipment owned/DME: Ramp, FWW, cane SUBJECTIVE: Pt was sitting in bed when OT arrived. She notes that she hasn't felt good over the past couple days but is agreeable to OT session. OBJECTIVE: General Observation: Pleasant, IV in (R) UE, rodriguez in place, colostomy in place Mental Status: A&Ox4 Pain: c/o pain under breasts d/t sores ROM: RUE AROM WFL L UE AROM WFL STRENGTH: RUE Shoulder flexion 4-/5, bicep/tricep 4+/5, document control coordinator 4/5 LUE Shoulder flexion 3+/5, bicep/tricep 4+/5, document control coordinator 4/5 FUNCTIONAL MOBILITY/ADLS: BATHING max (A) set up/clean up Bathing UE (I) face, (I) with using (R) UE to wash her (L), requires mod (A) to wash her (L) UE Bathing LE NT as pt states that she did get washed up yesterday DRESSING Dressing UE seated in bed mod (A) with [facility] gown GROOMING Max (A) with oral hygiene TOILETING Rodriguez in place and Colostomy in place- pt notes that she is incontinent at baseline EATING NT with OT BALANCE: Static sitting Normal Dynamic Sitting Normal SPECIAL TESTS: Daily Activity Limitations Standardized Measure [facility] AM -PAC ?6 clicks? Daily Activity Inpatient Short Form: Raw score: 14 Standardized score: 33.59 CMS score: 59.67% INFORMED CONSENT/EDUCATION: Pt instructed in purpose of OT Consult and plan of care. ASSESSMENT: Patient is a 86-year-old female referred to occupational therapy services with diagnosis of Hypervolemia, high risk for skin breakdown, protein calorie malnutrition, muscular deconditioning, swelling of (R) UE, wound infection after surgery, hypophosphatremia, hypomagnesemia, colostomy in place, bowel obstruction. Patient presents with clinical signs and symptoms consistent with dx, as demonstrated by the following impairment level findings/functional limitations: Impairments in ADL/IADL and leisure activities, decreased gross and fine motor control, decreased functional activity tolerance, decreased functional (I) in ADL/IADL routines, decreased standing tolerance. AMPAC score 14 Patient is assessed as a Moderate [id number] complexity based on the following: History: see above Examination: see functional limitations as noted above Presentation: evolving Decision Making: AMPAC score 14 GOALS Goals x1 week 1. Grooming seated in chair (I) with oral hygiene 2. Dressing seated (I) 3. Bathing seated with max (A) set up/clean up and min vc (I) 4. Eating seated in chair (I) PLAN OF CARE/TREATMENT PLAN: 1x/day, 5 days/ week x 1week Initiate Occupational Therapy Services for bathing, dressing, grooming, toileting, eating, transfer training. DISCHARGE RECOMMENDATIONS OT recommends SNF when medically cleared per MD. TREATMENT TIME/MINUTES/CODES 96245, [id number], 35 minutes Mattie Rodríguez OTR/[facility] [place], [place]
--- NOTE | 2022-12-04 09:37 | PTTR_ITS ---
Date of service: 12/04/22 Time of Service: 09:13 PT Notes Visit Reasons: Bowel Obstruction Inpatient Physical Therapy Treatment Note [facility] Date: 12/04/22 PRECAUTIONS: Fall, standard, activity as tolerated. SUBJECTIVE: Patient reports that residential refused to take her and she states she doesn't care. OBJECTIVE: Patient supine in bed, agreeable to try therapy. ? PAIN: 10/15 in area of incision VITALS: ? Pre-Treatment: HR 90, SaO2 98% ? Post-Treatment: Hr 104, SaO2 98%. Patient reports feeling as though she is having difficulty breathing. ? Therapeutic Activities ([id number]): Direct one-on-one instruction in dynamic activities to improve functional performance. ? BED MOBILITY/TRANSFERS? Rolling L/R: SBA with verbal cues Supine-sit: min assist with verbal cues to roll first, for limb position, for movement sequence. ? Sit-supine: Min assist with verbal cues ? Sit-stand: Mod assist of 1 from low bed. ? Stand-sit: CGA with verbal cues to reach back. ? Bed-Chair: CGA?with FWW? Chair-bed: CGA with FWW Provided skilled cues and instruction on performance and technique throughout. Gait Training ([id number]): Direct one-on-one instruction and skilled instruction in: [x] employing an assistive device [x] movement sequencing [x] turning and movement with proper form [x] Provided verbal cues for equipment management and technique [x] Patient education regarding pacing and breathing techniques to maximize activity tolerance? GAIT? Assistive Device: FWW ? Weight bearing: full Assist: CGA, wheelchair follow? Distance:? 12 feet, seated rest x2? Deviation: reduced step height, reduced step length, Trendelenburg sign present right side, patient becomes extremely short of breath with HR 127, SaO2 96% ? ASSESSMENT:? Patient tolerates therapy well this morning, but reports not feeling any sense of accomplishment. Is frustrated with her progress. Chooses to sit up in her recliner at end of treatment, resting comfortably with call vines in easy reach. PLAN: Continue global strengthening per plan of care until patient is a) acce pted to a SNF or b) strong enough to safely return home. TREATMENT CODE/TIME: morning 23 minutes beginning at 9:13
[2022-12-04] MEDS: HYDROmorphone 2 MG/ML SYR 0.5 MG IVP (13:02)
[2022-12-04 14:48] VITALS: BP 123/83; PULSE 87; RESP 16; TEMP 36.5; O2SAT 97
--- NOTE | 2022-12-04 14:51 | PT.INTREAT ---
PT Notes Visit Reasons: Bowel Obstruction Inpatient Physical Therapy Treatment Note [facility] Date: 12/04/22 SUBJECTIVE: Kaila states that she is leaving to go to rehab at some point today. States her knees hurt and she isn't ready to walk. OBJECTIVE: []? BED MOBILITY/TRANSFERS? Sit-stand:max A of 1 ? Stand-sit:min A/CGA of 1.? Provided skilled cues and instruction on performance and technique throughout. ? Therapeutic Exercises ([id number]): Direct one-on-one instruction in therapeutic exercises to develop strength, endurance, range of motion and flexibility. ? Exercises LAQ 2x10 seated march x 10 without support SLR x10 ea hip AB/ADD x10 AP x15 ?Ambulation ? Assistive Device: FWW? Weight bearing: full Assist:CGA? Distance:? approx 15' and 20' ? Deviation: seated rest x 2-3 min with deep breathing. ? Provided skilled instruction in proper exercise performance ASSESSMENT:?significant anxiety noted with walking, or even the thought of walking. She c/o B knee pain. Is quick to say I can't Puts in minimal effort due to fear and anxiety. Does well with encouragement, and keeping her mind calm. PLAN: pt will be transferred to [facility] at some point later today. TREATMENT CODE/TIME:27 min [id number]
--- NOTE | 2022-12-04 14:54 | CMPROGNOTE_ITS ---
Date of service: 12/04/22 Time of Service: 14:54 Care Management Progress Note Progress Note Text Progress Note Text: S/O:? Kaila was sitting in her recliner when CM met with her. She is pleasant and easily engages in conversation today. Kaila shares that she is feeling better today and she thinks the new depression medication is starting to work. She's been working with PT/OT since last night and appears more motivated to regain her strength and mobility. Kaila is medically ready for discharge per Dr. Garcia and is accepted to [facility]. CM faxed colostomy information to as requested, an Rossana is currently in the process of reviewing it. CM will fo llow and is hopeful she will be able to discharge to SNF for STR tomorrow. A: Kaila is an 86 year old female admitted to [facility] on 11/14/22 for a bowel obstruction. P: Kaila will go to short term rehab at [facility], where she has been accepted for admission, pending medical clearance. She will transport via facility w/c van. She will follow up with her PCP and discharge plan of care . CM will continue to follow.
[2022-12-04 19:40] VITALS: BP 107/70; PULSE 87; RESP 16; TEMP 36.7; O2SAT 95
[2022-12-04] MEDS: Acetaminophen 325 MG TAB 650 MG PO (21:08)
[2022-12-04 21:18] VITALS: BP 129/77; PULSE 87; RESP 16; TEMP 37; O2SAT 95
[2022-12-05 02:11] VITALS: BP 105/51; PULSE 87; RESP 16; TEMP 36.1; O2SAT 96
[2022-12-05] MEDS: Pantoprazole 40 MG TABCR PO (07:24)
--- NOTE | 2022-12-05 07:27 | W.PM.PROGNOT ---
Date of Service Date of service: 12/05/22 Time of Service: 07:27 Assessment and Plan Assessment and plan (1) Protein calorie malnutrition: Status: Acute Assessment and plan: Continue with participating in PT and OT today to work on increasing her strength, activity tolerance and independence with ADLs and transfers. Continue high calorie, high protein diet Emphasized the importance of being engaged and participating in colostomy care. Kaila is struggling with having a colostomy and will need help fostering her participation. She should be sitting in the chair for all meals, ambulating and activity several times a day. In addition to PT and OT. Encouragement was provided, unfortunately Kaila has had a very lengthy hospital course. Reassurance was provided that she is doing well now from a surgical stand point and moving forward will continue to focus on her nutrition and participation in PT and OT to regain her independence. P// D/C to Rehab later today. (2) Muscular deconditioning: Status: Acute (3) Colostomy in place: Status: Chronic Subjective Subjective Interval history since last seen: Kaila states that she is just not having a good day, I am ready to give up. This is not the quality of life that I want. This bag keeps leaking and its too much. She further expresses that she is feeling nervous about going to the rehab and what will happen after that. Exam Const General: cooperative, healthy appearing and comfortable Resp Effort & Inspection: normal respiratory effort, no audible wheezes and no cough GI Palpation: soft and no guarding Objective Last Vital Signs Temp 36.1 C L 12/05/22 02:11 Pulse 87 12/05/22 02:11 Resp 16 12/05/22 02:11 BP 105/51 L 12/05/22 02:11 Pulse Ox 96 12/05/22 02:11 Time Spent with Patient Time Spent with Patient: <25 minutes Time was spent: counseling the patient
[2022-12-05 07:41] VITALS: BP 118/64; PULSE 75; TEMP 36.1; O2SAT 95
[2022-12-05] MEDS: Furosemide 40 MG TAB PO (08:42)
[2022-12-05] MEDS: Fluconazole 100 MG TAB PO (08:42)
[2022-12-05] MEDS: Spironolactone 25 MG TAB PO (08:42)
[2022-12-05] MEDS: Magnesium Oxide 400 MG TAB PO (08:43)
[2022-12-05] MEDS: Apixaban 5 MG TAB PO (08:43)
[2022-12-05] MEDS: Metoprolol CR 25 MG TABCR PO (08:43)
[2022-12-05] MEDS: Sertraline 50 MG TAB 100 MG PO (08:43)
[2022-12-05] MEDS: Psyllium PKT 1 EACH PO (08:43)
[2022-12-05] MEDS: Diclofenac 1% Gel 100 GM TUBE TP (08:44)
[2022-12-05] MEDS: Potassium Chloride Liquid 20 MEQ PKT PO (08:44)
--- NOTE | 2022-12-05 09:30 | OT.INNT ---
Occupational Therapy Notes 12/05/22 OT went in to see pt and pt and her daughter are in the room. Pts daughter notes that today is not a great day. Pt is not feeling well. They are wondering when pt will transfer and what this will look like. OT did message CM about speaking with the family in hopes to answer some of their questions. OT will attempt to resume services tomorrow. Mattie Rodríguez, OTR/[facility] [place], [place]
[2022-12-05] MEDS: Acetaminophen 325 MG TAB 650 MG PO (10:48)
[2022-12-05 11:17] VITALS: BP 95/60; PULSE 83; TEMP 36.4; O2SAT 95
--- NOTE | 2022-12-05 12:09 | DSE_ITS ---
Date of service: 12/05/22 Time of Service: 12:09 DS: Diagnosis Discharge Diagnosis (1) Protein calorie malnutrition: Status: Acute (2) Muscular deconditioning: Status: Acute (3) Colostomy in place: Status: Chronic Discharge Plan Disposition Patient Disposition: [facility] Facility(SNF) Condition: Fair Discharge Details Reason For Visit: Bowel Obstruction Admit Date/Time: 11/14/22 09:20 Admit Provider: Eb Jiang Attending Provider: Eb Jiang Primary Care Provider: Lorraine UgarteSridhar Hospital Course Hospital Course: Is an 86-year-old woman who came to the hospital with abdominal pain and nausea. CAT scan showed a rectosigmoid obstruction. She was brought to the operating room and underwent exploratory laparotomy. Definitive resection was impossible, and she underwent a diverting loop colostomy. Her postoperative course was complicated by stoma dehiscence and retraction. She was brought back to the operating room and had revision of the colostomy. Unfortunately, her recovery was further complicated by midline surgical site infection and dehiscence requiring another operation, washout, and mass abdominal wall closure with retention sutures. She was maintained on antibiotics, and total parenteral nutrition was used to supplement her diet as she was fairly malnourished. She made modest improvement afterwards, with increasing activity, and ability to tolerate diet with protein supplementation. She was discharged to rehabilitation on the . Home Meds and New Rx's Prescriptions: New spironolactone 25 mg Tablet 25 mg PO DAILY Qty: 30 0RF potassium chloride 20 mEq Packet 20 meq PO BID Qty: 50 1RF Metamucil Sugar-Free (aspart) 3.4 gram/5.8 gram Powder 1 pwd PO BID Qty: 1040 0RF Rx Instructions: Take 1 tablespoon mixed with the liquid of your choice every morning Continued diclofenac sodium [Arthritis Pain (diclofenac)] 1 % gel 4 g topical QID Qty: 100 12RF Patient Comments: does not take anymore Rx Instructions: apply to knees apixaban 5 mg tablet 5 mg PO BID Qty: 180 3RF acetaminophen 325 mg capsule 325 mg PO BID PRN Slow Release Iron 250 mg (50 mg iron) tablet extended release 250 mg PO DAILY Qty: 30 0RF metoprolol succinate 25 mg tablet extended release 24 hr 25 mg PO DAILY Qty: 90 3RF pantoprazole [Protonix] 40 mg tablet,delayed release (DR/EC) 40 mg PO BID Qty: 180 4RF sertraline 25 mg tablet 25 mg PO DAILY Qty: 90 4RF Discharge Instructions Additional Instructions: Kaila, you are making quite a bit of progress, and we are optimistic that with some more rehabilitation and physical therapy you are well on your weight at home. We have made an appointment with you to follow-up in our office on December 17 at 1:[address] Malagon. If you have any questions at all in the meantime, please do not hesitate to call. Referrals: Angely Malagon DO [OSTEOPATHIC DOCTOR] - (December 17 at 1:30 PM) Activity:: Activity as Tolerated Equipment/Supplies:: Colostomy devices Diet:: As Tolerated DS: Summary Time Spent with Patient providing and/or coordinating discharge services: Greater than 30 minutes Status at Discharge Functional status at discharge: uses cane/walker Overall status at discharge: patient is progressing back to baseline Mental Status: mental status grossly normal Speech and Movement: speech and movement normal Mood: congruent mood Affect: normal affect Exam GI Other: Abdomen soft and nondistended. Ostomy looks fine. Dressings are clean Psych Mental Status: mental status grossly normal Speech and Movement: speech and movement normal Mood: congruent mood Affect: normal affect DS: Data Vitals/I&O Vitals and I&O: Vital Signs Temperature 97.5 F L 12/05/22 11:17 Temperature Source Tympanic 12/05/22 11:17 Pulse 83 12/05/22 11:17 Pulse Rhythm Irregular 12/05/22 09:30 Pulse 81 11/28/22 04:01 Respiratory Rate 16 12/05/22 02:11 Respiratory Effort Normal, Non-Labored 12/05/22 09:30 Respiratory Depth Normal 12/05/22 09:30 Respiratory Pattern Normal 12/05/22 09:30 Blood Pressure 95/60 L 12/05/22 11:17 Blood Pressure Mean 65 11/28/22 04:01 Blood Pressure Position Supine 11/26/22 08:00 Pulse Oximetry 95 12/05/22 11:17 Respiratory End-tidal CO2 22 11/15/22 18:05 Oxygen Delivery Method Room Air 12/05/22 11:17 Oxygen Flow Rate 0 12/05/22 11:17 Pain Level 0 12/05/22 11:17 Comment nurse notified of BP. 12/02/22 03:39 Intake & Output 12/04/22 12/05/22 12/05/22 23:59 11:59 23:59 Intake Total 700 / 700 370 / 370 Output Total 350 / 2175 400 / 400 Balance 350 / -1475 -30 30 Weight 229 lb 15.074 oz Intake: IV Oral 700 / 700 360 / 360 Output: Urine 350 / 1975 Stool 400 / 400 Other: Urine Color Yellow Urine Appearance Clear Clear Urine Odor None Comment pt voided 100 ml naturally with 0 ml in her bladder at this time Stool Size Moderate Stool Characteristics Liquid Voiding Methods Incontinent Diaper Incontinent PFSH All Active Problems Hypervolemia (Acute) At high risk for skin breakdown (Acute) Protein calorie malnutrition (Acute) Muscular deconditioning (Acute) Swelling of right upper extremity (Acute) Wound infection after surgery (Acute) DVT prophylaxis (Acute) Colostomy in place (Chronic) S/P exploratory laparotomy (Acute) Hypoproteinemia (Acute) Hypoalbuminemia (Acute) Leukocytosis (Acute) Hypovolemia (Acute) Hypotension (Acute) Colostomy malfunction (Acute) Nausea and vomiting (Acute) Bowel obstruction (Acute) Obesity (BMI 30-39.9) (Acute) Anxiety (Chronic 03/03/12) Depressive disorder (Chronic 02/11/12) Essential hypertension (Chronic 02/11/12) Iron deficiency anemia, unspecified (Chronic 08/13/17) Gastroesophageal reflux disease (Chronic 03/03/12) Osteoarthritis (Chronic 03/03/12) hands; knees Vitamin B12 deficiency (Chronic) Advanced directives, counseling/discussion (Chronic) Hiatal hernia (Chronic) Atrial fibrillation by electrocardiogram (Chronic 08/06/17) By EKG 07/25/17 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 Grandmother Neoplasm BREAST/LIVER Grandmother No problems noted. MATERNAL AUNT Neoplasm BREAST Other Family history of GI malignancy Family hx-breast malignancy Social History Smoking/Tobacco Use Status: Former Tobacco Use tobacco type: cigarettes Quit Date: 04/08/59 Second Hand Exposure: Yes Smoking risk assessment performed?: Yes Alcohol Intake: never Drug use: Never Substance use type: does not use Household members: none Housing: house Do you need help understanding health information?: Never Pets and animals: No Sexually active: No Do you think of yourself as: straight/heterosexual Current gender identity: female What is your relationship status?: How often do you talk on the phone with friends or family?: three or more times per week How often do you get together with friends or relatives?: once per week How often do you attend spiritism or denominational services?: decline to answer Do you belong to any clubs or organized social groups?: no Panel score (0-1 are the most socially isolated patients): 1 What type of physical activity do you participate in: none Caroline/Christianity: Mandaeism Special caroline needs: No Seatbelt use: always Drive intox or ride w/intox class b truck driver: No Do you feel safe at home: Yes Do you feel safe in your relationship?: Yes Time Spent with Patient Time Spent with Patient: 45-69 minutes Time was spent: preparing to see the patient(eg.review tests), ordering medications,tests, procedures, referring, communicating with other health campground caretaker and care coordination
--- NOTE | 2022-12-05 12:16 | CMDISCH_ITS ---
Date of service: 12/05/22 Time of Service: 12:16 LACE Index Scoring Tool Questions: Length of Stay (in days): 14 or more Was the patient admitted via the E.D.?: Yes E.D. Visits: 1 Answers: Total Score: 11 Risk of Readmission: High Risk Care Management Discharge Plan Reason for Hospitalization: Bowel Obstruction, Weakness Discharge Plan: Plan is for Kaila to discharge to [facility] for STR, prior to returning home. Transportation is via scheduled with facility w/c van. She will follow up with facility/community providers and discharge plan of care as instructed. Kaila will be sent with a small supply of Ostomy supplies to allow SNF time to order appropriate products. Patient/Family Education Needs: Review discharge instructions, limitations and plan for outpatient follow up and care. Discuss ask me three. Services Needed at Discharge: Halfway Facility ([facility] for STR, coordinated by [facility])
--- NOTE | 2022-12-06 09:07 | OT.INDS ---
Occupational Therapy Notes Occupational Therapy Inpatient Discharge Summary Date: 12/06/22 Dates of Service: 12/04-12/05 Referring Doctor:EFREN LIM OT Orders: Non urgent Precautions: Fall, standard, DNR/DNI *This document serves as a summary of care, no skilled OT services were provided for this documentation or on this date* PATIENT PROFILE/ADMITTING DIAGNOSIS: Pt is an 86 year old female who was admitted on 11/20/22 and has had multiple surgeries since her admission. She is admitted to Med surg with the following dx of Hypervolemia, high risk for skin breakdown, protein calorie malnutrition, muscular deconditioning, swelling of (R) UE, wound infection after surgery, hypophosphatremia, hypomagnesemia, colostomy in place, bowel obstruction. 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 Biopsy of breast (~1989) LEFTCholecystectomy (~1980) Colonoscopy - MAC (08/16/17) EGD - MAC (08/16/17) Status post breast biopsy Social History/Home Situation: Pt states that she lives in a private home, she gets meals on wheels and friends and family bring meals as well. She notes that at her baseline level of function she is (I) with her ADL/IADL routines. She does have some back pain at baseline which affects her standing tolerance. Equipment owned/DME: Ramp, FWW, cane SUBJECTIVE:?NT OBJECTIVE:? ROM: RUE AROM WFL L UE AROM WFL STRENGTH: RUE Shoulder flexion 4-/5, bicep/tricep 4+/5, billiard parlor manager 4/5 LUE? Shoulder flexion 3+/5, bicep/tricep 4+/5, billiard parlor manager 4/5 FUNCTIONAL MOBILITY/ADLS:? BATHING max (A) set up/clean up Bathing UE (I) face, (I) with using (R) UE to wash her (L), requires mod (A) to wash her (L) UE Bathing LE NT as pt states that she did get washed up yesterday DRESSING Dressing UE seated in bed mod (A) with [facility] gown GROOMING Max (A) with oral hygiene TOILETING Baugh in place and Colostomy in place- pt notes that she is incontinent at baseline EATING NT with OT BALANCE: Static sitting Normal Dynamic Sitting Normal ASSESSMENT:?? Patient is a 86-year-old female referred to occupational therapy services with diagnosis of Hypervolemia, high risk for skin breakdown, protein calorie malnutrition, muscular deconditioning, swelling of (R) UE, wound infection after surgery, hypophosphatremia, hypomagnesemia, colostomy in place, bowel obstruction. Patient was receptive to wanting to be more (I). She did require (A) with her ADLs. GOALS- Not met as pt was seen for OT consult only and refused next day services d/t not feeling well. 1.? Grooming seated in chair (I) with oral hygiene 2.? Dressing seated (I) 3.? Bathing seated with max (A) set up/clean up and min vc (I) 4.? Eating seated in chair (I) PLAN OF CARE/TREATMENT PLAN: Discharged to SNF on 12/05/22 DISCHARGE RECOMMENDATIONS OT recommends SNF when medically cleared per MD. TREATMENT TIME/MINUTES/CODES N/A Mattie Rodríguez OTR/L [facility] [place], [place]
== END 2022-12-05 14:57 | disposition skilled nursing facility (03) | DRG 330 ==
LOC: ER 09:38 → MS 10:33 → ICU 11-15 18:32 → MS 11-16 15:53 → ICU 11-18 03:13 → MS 12-02 15:50
PROVIDERS: Family Medicine; Internal Medicine; Nurse Anesthetist, Certified Registered; Surgery; Admitting Provider Surgery; Emergency Provider Emergency Medicine; PCP Nurse Practitioner Family; Visit Provider Surgery
PROC: 0D1M0Z4 Bypass Descending Colon to Cutaneous, Open Approach (ICD-10-PCS; CPT 49000; principal; 2022-11-15 15:15)
PROC: (CPT 49000; principal; 2022-11-17 23:55)
PROC: 0WQF0ZZ Repair Abdominal Wall, Open Approach (ICD-10-PCS; CPT 49002; principal; 2022-11-25 09:05)
DX: K56.51 Intestinal adhesions [bands], with partial obstruction (principal); E46 Unspecified protein-calorie malnutrition; K91.89 Other postprocedural complications and disorders of digestive system; K94.03 Colostomy malfunction; T81.49XA Infection following a procedure, other surgical site, initial encounter; T81.31XA Disruption of external operation (surgical) wound, not elsewhere classified, initial encounter; E66.9 Obesity, unspecified; Z68.35 Body mass index [BMI] 35.0-35.9, adult; F41.9 Anxiety disorder, unspecified; F32.A Depression, unspecified; I10 Essential (primary) hypertension; D50.9 Iron deficiency anemia, unspecified; K21.9 Gastro-esophageal reflux disease without esophagitis; M17.0 Bilateral primary osteoarthritis of knee; E53.8 Deficiency of other specified B group vitamins; K44.9 Diaphragmatic hernia without obstruction or gangrene; I48.91 Unspecified atrial fibrillation; Z80.0 Family history of malignant neoplasm of digestive organs; K64.8 Other hemorrhoids; Z87.891 Personal history of nicotine dependence; M19.042 Primary osteoarthritis, left hand; M19.041 Primary osteoarthritis, right hand; R11.2 Nausea with vomiting, unspecified; K56.7 Ileus, unspecified; I95.9 Hypotension, unspecified; E86.0 Dehydration; E87.6 Hypokalemia; E86.1 Hypovolemia; E88.09 Other disorders of plasma-protein metabolism, not elsewhere classified; E83.42 Hypomagnesemia; E83.39 Other disorders of phosphorus metabolism; R53.81 Other malaise; B36.8 Other specified superficial mycoses; B96.20 Unspecified Escherichia coli [E. coli] as the cause of diseases classified elsewhere; E87.79 Other fluid overload
CPT/HCPCS: 44320; 44345; 36573; 49002; 49900; 44340; 11043; 36410; 36415; 36430; 36592; 71045; 80048; 80053; 84145; 85027; 86850; 86900; 86901; 86920; 87040; 87077; 87493; 93005; 93308; 96361; 96374; 97110; 97116; 97162; 97166; 97530; 97535; 99222; 99232; 99285; 74018; 74176; 74177; 81003; 81015; 82728; 83540; 83550; 83735; 84100; 84132; 84484; 85025; 85610; 86140; 87070; 87075; 87086; 87186; 87205; 93010; 93971; 99233; 99284; 99291; J0131; J0690; J0780; J1100; J1170; J1450; J1644; J1650; J1756; J1885; J1940; J1941; J2001; J2270; J2371; J2405; J2543; J2704; J3475; J3480; J3490; P9016; Q9967

== ENCOUNTER 2022-12-14 14:08 | Outpatient (REF) | payer MEDICARE, SELFPAY ==
[2022-12-14 16:42] LABS: Anion Gap 12.7 mmol/L (3-11); BUN 13 mg/dL (7-18); CO2 22.3 mmol/L (21.0-32.0); CREATININE 0.7 mg/dL (0.55-1.02); Calcium 9.2 mg/dL (8.5-10.1); Chloride 101 mmol/L (98-107); Estimated GFR 85.23 (mL/min/1.73m2); Glucose 85 mg/dL (74-106); Potassium 5.2 mmol/L (3.5-5.1); Sodium 136 mmol/L (136-145)
== END 2022-12-14 14:09 | disposition home or self-care (01) ==
LOC: LBN 14:08
PROVIDERS: PCP Nurse Practitioner Family; Visit Provider Physician Assistant
DX: E46 Unspecified protein-calorie malnutrition (principal); K56.600 Partial intestinal obstruction, unspecified as to cause; D50.9 Iron deficiency anemia, unspecified; E87.6 Hypokalemia; I10 Essential (primary) hypertension
CPT/HCPCS: 80048

== ENCOUNTER → 2022-12-17 11:26 | Outpatient (BNVA) | payer MEDICARE, SELFPAY | PROVIDERS: PCP Nurse Practitioner Family; Referring Provider Nurse Practitioner Family; Visit Provider Surgery | DX: T81.31XA Disruption of external operation (surgical) wound, not elsewhere classified, initial encounter (principal); K57.32 Diverticulitis of large intestine without perforation or abscess without bleeding; K44.9 Diaphragmatic hernia without obstruction or gangrene; Z93.3 Colostomy status | CPT/HCPCS: 11042 ==

== ENCOUNTER → 2022-12-24 10:01 | Outpatient (BNVA) | payer MEDICARE, SELFPAY | PROVIDERS: PCP Nurse Practitioner Family; Referring Provider Nurse Practitioner Family; Visit Provider Surgery | DX: T81.31XD Disruption of external operation (surgical) wound, not elsewhere classified, subsequent encounter (principal) ==

== ENCOUNTER → 2022-12-31 10:48 | Outpatient (BNVA) | payer MEDICARE, SELFPAY | PROVIDERS: PCP Nurse Practitioner Family; Referring Provider Nurse Practitioner Family; Visit Provider Surgery | DX: T81.31XA Disruption of external operation (surgical) wound, not elsewhere classified, initial encounter (principal) ==

== ENCOUNTER 2023-01-06 15:10 | Outpatient (REF) | payer MEDICARE, SELFPAY ==
[2023-01-06 15:45] LABS: ALT 11 U/L (14-59); AST 10 U/L (15-37); Albumin 3.1 g/dL (3.4-5.0); Alkaline Phosphatase 89 U/L (46-116); Anion Gap 9.6 mmol/L (3-11); BUN 14 mg/dL (7-18); Bilirubin, Total 0.3 mg/dL (0.2-1.0); CO2 23.4 mmol/L (21.0-32.0); CREATININE 0.9 mg/dL (0.55-1.02); Calcium 9.5 mg/dL (8.5-10.1); Chloride 106 mmol/L (98-107); Estimated GFR 62.65 (mL/min/1.73m2); Glucose 118 mg/dL (74-106); Potassium 4.8 mmol/L (3.5-5.1); Sodium 139 mmol/L (136-145); Total Protein 6.4 g/dL (6.4-8.2)
[2023-01-06 15:57] LABS: HCT 37.1 % (36.0-46.0); HGB 11.5 g/dL (11.2-15.7); MCH 30.6 pg (27.0-33.0); MCV 99 fL (80-95); MPV 10.6 fL (8.0-11.0); Platelet Count 316 10^3/uL (130-400); RBC 3.76 10^6/uL (3.93-5.22); RDW 15.9 % (11.7-14.6); RDW-SD 58.1 fL; WBC 6.19 10^3/uL (4.4-10.8)
== END 2023-01-06 15:11 | disposition home or self-care (01) ==
LOC: LBN 15:10
PROVIDERS: PCP Nurse Practitioner Family; Visit Provider Family Medicine
DX: E46 Unspecified protein-calorie malnutrition (principal); E87.70 Fluid overload, unspecified; I10 Essential (primary) hypertension; R79.89 Other specified abnormal findings of blood chemistry
CPT/HCPCS: 80053; 85027

== ENCOUNTER → 2023-01-17 13:47 | Outpatient (BNVA) | payer MEDICARE, SELFPAY | PROVIDERS: PCP Nurse Practitioner Family; Visit Provider Surgery | DX: S31.105A Unspecified open wound of abdominal wall, periumbilic region without penetration into peritoneal cavity, initial encounter (principal); X58.XXXA Exposure to other specified factors, initial encounter ==

== ENCOUNTER 2023-01-21 15:23 | Outpatient (REF) | payer MEDICARE, SELFPAY ==
[2023-01-21 14:24] LABS: Abs Immature Grans 0.02 10^3/uL (0.0-0.06); Absolute Basophil Count 0.04 10^3/uL (0.0-0.2); Absolute Eosinophil Count 0.27 10^3/uL (0.0-0.7); Absolute Lymphocyte Count 1.01 10^3/uL (1.2-3.4); Absolute Monocyte Count 0.47 10^3/uL (0.1-0.8); Absolute Neutrophil Count 5.24 10^3/uL (1.2-6.7); Basophils % 0.6; Eosinophils % 3.8; HCT 36.4 % (36.0-46.0); HGB 11.6 g/dL (11.2-15.7); Immature Grans % 0.3; Lymphocytes % 14.3; MCH 31.2 pg (27.0-33.0); MCHC 31.9 % (32.0-36.0); MCV 98 fL (80-95); MPV 11.1 fL (8.0-11.0); Monocytes % 6.7; Neutrophils % 74.3; Platelet Count 239 10^3/uL (130-400); RBC 3.72 10^6/uL (3.93-5.22); RDW 15.4 % (11.7-14.6); RDW-SD 55.1 fL; WBC 7.05 10^3/uL (4.4-10.8)
[2023-01-21 14:30] LABS: Anion Gap 9.4 mmol/L (3-11); BUN 15 mg/dL (7-18); CO2 21.6 mmol/L (21.0-32.0); CREATININE 0.8 mg/dL (0.55-1.02); Calcium 9.5 mg/dL (8.5-10.1); Chloride 106 mmol/L (98-107); Estimated GFR 72.16 (mL/min/1.73m2); Glucose 149 mg/dL (74-106); Potassium 4.5 mmol/L (3.5-5.1); Sodium 137 mmol/L (136-145)
== END 2023-01-21 15:24 | disposition home or self-care (01) ==
LOC: LBN 15:23
PROVIDERS: PCP Nurse Practitioner Family; Visit Provider Family Medicine
DX: M62.81 Muscle weakness (generalized) (principal)
CPT/HCPCS: 80048; 85025

== ENCOUNTER → 2023-02-08 10:14 | Outpatient (BNVA) | payer MEDICARE, SELFPAY | PROVIDERS: PCP Nurse Practitioner Family; Referring Provider Nurse Practitioner Family; Visit Provider Surgery | DX: T81.31XD Disruption of external operation (surgical) wound, not elsewhere classified, subsequent encounter (principal); X58.XXXD Exposure to other specified factors, subsequent encounter; Z93.3 Colostomy status | CPT/HCPCS: 99213 ==

== ENCOUNTER → 2023-02-25 09:56 | Outpatient (BNVA) | payer MEDICARE, SELFPAY | PROVIDERS: PCP Nurse Practitioner Family; Referring Provider Nurse Practitioner Family; Visit Provider Surgery | DX: S31.109D Unspecified open wound of abdominal wall, unspecified quadrant without penetration into peritoneal cavity, subsequent encounter (principal); X58.XXXD Exposure to other specified factors, subsequent encounter; Z93.3 Colostomy status | CPT/HCPCS: 11042; 11045 ==

== ENCOUNTER → 2023-03-19 02:16 | Outpatient (CLI) | payer MEDICARE, SELFPAY ==
--- NOTE | 2023-03-19 07:45 | DI.US_ITS ---
Exam(s) US BREAST LT COMPLETE EXAM: US BREAST LT COMPLETE CLINICAL HISTORY: Left breast mass LUOQ, pt cannot stand,N63.23 TECHNIQUE: Ultrasound left breast performed using standard protocol. COMPARISON: MG DIAGNOSTIC LEFT MAMMO DIGITAL from 01/12/2009 MG SCREENING EDMUNDO MAMMO W/CAD DIGI from 05/05/2010 MG SCREENING EDMUNDO MAMMO W/CAD DIGI from 04/09/2012 FINDINGS: There is a 2.1 x 2.4 x 1.9 cm hypoechoic mass at the 3 o'clock position of the left breast 6 cm from the nipple. It extends to the skin surface. It corresponds to the palpable abnormality. Sonographi dora benign-appearing lymph nodes are seen in the left axilla. IMPRESSION: 1. 2.1 x 2.4 x 1.9 cm hypoechoic mass at the 3 o'clock position of the left breast 6 cm from the nipp le. Neoplasm should be considered. Biopsy is recommended. 2. Findings were discussed with the patient's primary care team on 03/19/2023. BI-RADS Category 5 - Highly Suggestive of Malignancy: Biopsy recommended DATA REPOSITORY:
== END ==
PROVIDERS: PCP Nurse Practitioner Family; Visit Provider Surgery
DX: N63.23 Unspecified lump in the left breast, lower outer quadrant (principal)
CPT/HCPCS: 76642

== ENCOUNTER → 2023-03-25 10:23 | Outpatient (BNVA) | payer MEDICARE, SELFPAY | PROVIDERS: PCP Nurse Practitioner Family; Referring Provider Nurse Practitioner Family; Visit Provider Surgery | DX: Z93.3 Colostomy status (principal); I10 Essential (primary) hypertension; Z79.01 Long term (current) use of anticoagulants; N63.20 Unspecified lump in the left breast, unspecified quadrant | CPT/HCPCS: 99213 ==

== ENCOUNTER → 2023-04-02 09:48 | Outpatient (BNVA) | payer MEDICARE, SELFPAY | PROVIDERS: PCP Nurse Practitioner Family; Referring Provider Nurse Practitioner Family; Visit Provider Surgery | DX: D05.12 Intraductal carcinoma in situ of left breast (principal); F41.9 Anxiety disorder, unspecified; F32.9 Major depressive disorder, single episode, unspecified; Z80.3 Family history of malignant neoplasm of breast | CPT/HCPCS: 19100 ==

== ENCOUNTER 2023-04-02 10:26 | Outpatient (REF) | payer MEDICARE, SELFPAY ==
--- NOTE | 2023-04-02 10:35 | BREAST_PTH ---
PATIENT: Kaila Salas LOC: [facility] U#:[id number] AGE/SX: 87/F ROOM: RE04/02/[address]: Angely Malagon : 1935 BED: DIS: 04/02/2023 SPEC #: [id number] RECD: 04/02/23 13:03 STATUS: STEPHANIE REJasiel #: [id number] HANK: 04/02/23 10:[address]: Angely Malagon DEPT: Surgical Specimen RECD BY: Blanche Paige ENTERED: 04/02/23 13:03 SP TYPE: Breast OTHR DR: Sridhar Charles, KATERINE Tissues: 1 - BREAST BX NEEDLE Procedures: GROSS AND MICRO LEVEL 4 [id number] IPEX ESTROGEN/PROGESTERONE RECEPTOR IPEX STAIN Comments: [id number]
== END 2023-04-02 10:27 | disposition home or self-care (01) ==
LOC: LBN 10:26
PROVIDERS: PCP Nurse Practitioner Family; Visit Provider Surgery
DX: C50.412 Malignant neoplasm of upper-outer quadrant of left female breast (principal); Z17.0 Estrogen receptor positive status [ER+]
CPT/HCPCS: 88305; 88360

== ENCOUNTER → 2023-04-15 13:56 | Outpatient (BNVA) | payer MEDICARE, SELFPAY | PROVIDERS: PCP Nurse Practitioner Family; Referring Provider Nurse Practitioner Family; Visit Provider Surgery | DX: K94.13 Enterostomy malfunction (principal); K94.03 Colostomy malfunction; K57.32 Diverticulitis of large intestine without perforation or abscess without bleeding; C50.912 Malignant neoplasm of unspecified site of left female breast; L30.8 Other specified dermatitis; E66.9 Obesity, unspecified | CPT/HCPCS: 99215 ==

== ENCOUNTER 2023-04-23 14:16 | Outpatient (REF) | payer MEDICARE, SELFPAY ==
[2023-04-23 14:31] LABS: Anion Gap 3.4 mmol/L (3-11); BUN 14 mg/dL (7-18); CO2 28.6 mmol/L (21.0-32.0); CREATININE 0.9 mg/dL (0.55-1.02); Calcium 9.3 mg/dL (8.5-10.1); Chloride 106 mmol/L (98-107); Estimated GFR 62.65 (mL/min/1.73m2); Glucose 86 mg/dL (74-106); Magnesium 1.9 mg/dL (1.8-2.4); Sodium 138 mmol/L (136-145); Vitamin B12 157 pg/mL (193-986)
== END 2023-04-23 14:17 | disposition home or self-care (01) ==
LOC: NCHCN 14:16
PROVIDERS: PCP Nurse Practitioner Family; Visit Provider Nurse Practitioner Family
DX: Z51.81 Encounter for therapeutic drug level monitoring (principal)
CPT/HCPCS: 80048; 82607; 83735

== ENCOUNTER → 2023-05-20 09:40 | Outpatient (BNVA) | payer MEDICARE, SELFPAY | PROVIDERS: PCP Nurse Practitioner Family; Referring Provider Nurse Practitioner Family; Visit Provider Surgery | DX: C50.912 Malignant neoplasm of unspecified site of left female breast (principal); K94.13 Enterostomy malfunction; L30.8 Other specified dermatitis | CPT/HCPCS: 99213 ==

== ENCOUNTER → 2023-06-06 04:37 | Outpatient (CLI) | payer MEDICARE, SELFPAY ==
--- NOTE | 2023-06-06 08:30 | DI.DEXA_ITS ---
Exam(s) XR DEXA BONE DENSITY W/WO SANDRA EXAM: XR DEXA BONE DENSITY W/WO SANDRA CLINICAL HISTORY: history of osteoporosis, recently aromatase inhibitor use, Z79.811, M81.0 TECHNIQUE: COMPARISON: None. FINDINGS: Lateral Spine Image: Unremarkable. No compression deformities identified. Mild anterior wedging of t he T12 vertebral body. Left hip: Total T-Score: -3.3 Total Z-Score: -1.0 T- and Z-scores: Findings are consistent with osteoporosis. Lumbar Spine: Total T-Score: -1.1 Total Z-Score: 1.8 T- and Z-scores: Findings consistent with osteopenia. Note is made of osteoporosis in the right forearm with a total T-score of -3.6. IMPRESSION: Osteoporosis in the left hip in the right forearm.
== END ==
PROVIDERS: PCP Nurse Practitioner Family; Visit Provider Surgery
DX: Z79.811 Long term (current) use of aromatase inhibitors (principal); M81.0 Age-related osteoporosis without current pathological fracture; Z13.820 Encounter for screening for osteoporosis
CPT/HCPCS: 77080

== ENCOUNTER → 2023-08-19 09:54 | Outpatient (BNVA) | payer MEDICARE, SELFPAY | PROVIDERS: PCP Nurse Practitioner Family; Referring Provider Nurse Practitioner Family; Visit Provider Surgery | DX: Z93.3 Colostomy status (principal); M81.0 Age-related osteoporosis without current pathological fracture; E66.9 Obesity, unspecified; I48.91 Unspecified atrial fibrillation; K21.9 Gastro-esophageal reflux disease without esophagitis; C50.912 Malignant neoplasm of unspecified site of left female breast; K43.9 Ventral hernia without obstruction or gangrene | CPT/HCPCS: 99214 ==

== ENCOUNTER → 2023-11-25 08:59 | Outpatient (BNVA) | payer MEDICARE, SELFPAY | PROVIDERS: PCP Nurse Practitioner Family; Visit Provider Surgery ==

== ENCOUNTER 2023-11-25 15:21 | Outpatient (CLI) | payer MEDICARE, SELFPAY ==
[2023-11-25 10:20] LABS: HCT 40.6 % (36.0-46.0); HGB 12.8 g/dL (11.2-15.7)
[2023-11-25 11:34] LABS: ALT 19 U/L (14-59); AST 14 U/L (15-37); Albumin 3.6 g/dL (3.4-5.0); Alkaline Phosphatase 98 U/L (46-116); Bilirubin, Total 0.38 mg/dL (0.2-1.0); Ferritin 330 ng/mL (8-252); Total Protein 7.4 g/dL (6.4-8.2)
[2023-11-25 11:37] LABS: Vitamin D 25 Total < 5 ng/mL (30-100)
[2023-11-25 11:46] LABS: Bilirubin, Direct 0.1 mg/dL (0.0-0.2)
== END 2023-11-25 15:22 | disposition home or self-care (01) ==
LOC: LBO 12-04 15:21
PROVIDERS: PCP Nurse Practitioner Family; Visit Provider Surgery
DX: M85.80 Other specified disorders of bone density and structure, unspecified site (principal); Z79.811 Long term (current) use of aromatase inhibitors; M81.0 Age-related osteoporosis without current pathological fracture; E66.9 Obesity, unspecified; D50.9 Iron deficiency anemia, unspecified; I10 Essential (primary) hypertension; I48.91 Unspecified atrial fibrillation; E78.2 Mixed hyperlipidemia; K21.9 Gastro-esophageal reflux disease without esophagitis; K56.699 Other intestinal obstruction unspecified as to partial versus complete obstruction; K94.03 Colostomy malfunction; K94.13 Enterostomy malfunction; K44.9 Diaphragmatic hernia without obstruction or gangrene; E88.09 Other disorders of plasma-protein metabolism, not elsewhere classified; C50.912 Malignant neoplasm of unspecified site of left female breast; M19.90 Unspecified osteoarthritis, unspecified site; K43.6 Other and unspecified ventral hernia with obstruction, without gangrene; D50.8 Other iron deficiency anemias
CPT/HCPCS: 36415; 80076; 82306; 99213; 82728; 85014; 85018

== ENCOUNTER 2024-01-28 19:34 | Outpatient (REF) | payer MEDICARE, SELFPAY ==
[2024-01-28 16:31] LABS: Vitamin D 25 Total 11.4 ng/mL (30-100)
== END 2024-01-28 19:35 | disposition home or self-care (01) ==
LOC: LBN 19:34
PROVIDERS: PCP Nurse Practitioner Family; Visit Provider Surgery
DX: E55.9 Vitamin D deficiency, unspecified (principal)
CPT/HCPCS: 82306

== ENCOUNTER 2024-04-15 18:26 | Outpatient (REF) | payer MEDICARE, SELFPAY ==
[2024-04-15 18:52] LABS: Vitamin D 25 Total 15.6 ng/mL (30-100)
== END 2024-04-15 18:27 | disposition home or self-care (01) ==
LOC: LBN 18:26
PROVIDERS: PCP Nurse Practitioner Family; Visit Provider Surgery
DX: E55.9 Vitamin D deficiency, unspecified (principal)
CPT/HCPCS: 82306

== ENCOUNTER 2024-05-22 09:29 | Outpatient (CLI) | payer MEDICARE, SELFPAY ==
[2024-05-22 09:59] LABS: Anion Gap 4.5 mmol/L (3-11); BUN 16 mg/dL (7-18); CO2 29.5 mmol/L (21.0-32.0); CREATININE 1.1 mg/dL (0.55-1.02); Chloride 103 mmol/L (98-107); Estimated GFR 48.94 (mL/min/1.73m2); Glucose 106 mg/dL (74-106); Potassium 5.1 mmol/L (3.5-5.1); Sodium 137 mmol/L (136-145)
[2024-05-22 10:27] LABS: Vitamin D 25 Total 19.3 ng/mL (30-100)
== END 2024-05-22 09:30 | disposition home or self-care (01) ==
LOC: LBO 09:30
PROVIDERS: Surgery; PCP Nurse Practitioner Family; Visit Provider Nurse Practitioner Family
DX: M81.0 Age-related osteoporosis without current pathological fracture (principal); Z79.811 Long term (current) use of aromatase inhibitors; E88.09 Other disorders of plasma-protein metabolism, not elsewhere classified; R29.898 Other symptoms and signs involving the musculoskeletal system; E55.9 Vitamin D deficiency, unspecified
CPT/HCPCS: 36415; 80048; 82306

== ENCOUNTER 2024-07-13 03:32 | Outpatient (CLI) | payer MEDICARE, SELFPAY ==
[2024-07-13 11:55] LABS: Anion Gap 6.1 mmol/L (3-11); BUN 16 mg/dL (7-18); CO2 27.9 mmol/L (21.0-32.0); CREATININE 0.9 mg/dL (0.55-1.02); Chloride 100 mmol/L (98-107); Estimated GFR 62.26 (mL/min/1.73m2); Glucose 78 mg/dL (74-106); Potassium 5.1 mmol/L (3.5-5.1); Sodium 134 mmol/L (136-145); Vitamin B12 906 pg/mL (193-986); Vitamin D 25 Total 23 ng/mL (30-100)
== END 2024-07-13 03:33 | disposition home or self-care (01) ==
LOC: LBO 03:32
PROVIDERS: PCP Nurse Practitioner Family; Visit Provider Nurse Practitioner Family
DX: M81.0 Age-related osteoporosis without current pathological fracture (principal); E53.8 Deficiency of other specified B group vitamins; K21.9 Gastro-esophageal reflux disease without esophagitis; I25.10 Atherosclerotic heart disease of native coronary artery without angina pectoris
CPT/HCPCS: 36415; 80048; 82306; 82607; 83735

== ENCOUNTER 2024-08-18 13:04 | Emergency (ER) | payer MEDICARE, SELFPAY ==
[2024-08-18 13:06] VITALS: BP 144/81; PULSE 85; RESP 16; TEMP 37.1; O2SAT 93
--- NOTE | 2024-08-18 13:06 | W.ED.GENAD ---
Discharge Plan Discharge Details Chief Complaint: Abd Prob Clinical Impression: Elevated LFTs, Hyperbilirubinemia, Leukocytosis Primary Care Provider: Bhavna Pearce ED Provider: Alexis Armstrong [place] Meds and New Rx's Prescriptions: No Action apixaban 5 mg tablet 5 mg PO BID Qty: 180 3RF acetaminophen 325 mg capsule 325 mg PO BID PRN Slow Release Iron 250 mg (50 mg iron) tablet extended release 250 mg PO DAILY Qty: 30 0RF metoprolol succinate 25 mg tablet extended release 24 hr 25 mg PO DAILY Qty: 90 3RF pantoprazole [Protonix] 40 mg tablet,delayed release (DR/EC) 40 mg PO BID Qty: 180 4RF sertraline 25 mg tablet 25 mg PO DAILY Qty: 90 4RF nystatin 100,000 unit/gram powder 1 applic topical DAILY Qty: 60 0RF Rx Instructions: w/ostomy change nystatin 100,000 unit/gram ointment 1 applic topical DAILY PRN (Reason: yeast) Qty: 30 12RF cholecalciferol (vitamin D3) 50 mcg (2,000 unit) capsule 6,000 unit PO .COMPLEX Qty: 90 11RF Rx Instructions: 6,000 units orally twice a week letrozole 2.5 mg tablet See Rx Instructions .ROUTE .COMPLEX Qty: 30 10RF Dose Instruction: 1 TAB BY MOUTH DAILY Rx Instructions: 1 TAB BY MOUTH DAILY spironolactone 25 mg Tablet 25 mg PO DAILY Qty: 30 0RF potassium chloride 20 mEq Packet 20 meq PO BID Qty: 50 1RF Metamucil Sugar-Free (aspart) 3.4 gram/5.8 gram Powder 1 pwd PO BID Qty: 1040 0RF Rx Instructions: Take 1 tablespoon mixed with the liquid of your choice every morning magnesium hydroxide [Milk of Magnesia] 400 mg/5 mL suspension 30 ml PO DAILY PRN polyethylene glycol 3350 [ClearLax] 17 gram/dose powder 17 g PO DAILY PRN HPI General Date/Time Provider Initiated Documentation: 08/18/24 13:06. HPI Narrative: MDM This is an overall well-appearing normothermic and not tachycardic 89-year-old female with history of ostomy and upper abdominal pain concern for multiple etiologies. Will obtain ECG and troponin to assess for myocardial injury and ACS. No pain or proportion to suggest mesenteric ischemia. No right lower quadrant tenderness to suggest appendicitis. No left lower quadrant tenderness to suggest diverticulitis. The patient has not been vomiting to suggest small bowel obstruction. No dysuria or frequency making my suspicion low for UTI. She is not short of breath or having chest pain so I did not order D-dimer that I was not suspicious for PE. No rash to abdomen to suggest zoster. Given elevated BMI will obtain lipase to assess for pancreatitis. No recent antibiotics or fevers to suggest C. difficile infection. Candidal rash underneath breasts being treated with nystatin powder. 3:30 PM Comprehensive metabolic panel showing very mild hyper kalemia with a serum potassium of 5.3. No QRS widening nor QTc prolongation. New hyperbilirubinemia with elevated LFTs compared to prior assessment last year. Initial troponin within normal limits. Reassuring lipase. No CONNER. Will treat with 500 cc fluid bolus and provide calcium gluconate.CBC shows leukocytosis but no anemia. No thrombocytopenia. 5 PM Initial troponin reassuring. I signed patient out to Dr. Farah pending repeat troponin, repeat chemistry, and final read on CT scan. I updated the patient and her daughters. Given cold symptoms will swab for COVID. HPI The patient presents for evaluation of abdominal pain. She began experiencing abdominal discomfort around 10:30 this morning, which she describes as radiating to her back. She reports no associated nausea or diarrhea. She has an ostomy bag in place, and reportedly she has had slightly hard output yesterday, but a return to normal consistency today. The ostomy bag was checked again prior to the visit, and the output was of normal color. Over the past few days, there has been increased air in the bag, necessitating frequent burping. She reports no rashes on her abdomen, chest pain, respiratory distress, cough, or fevers. She does have a cold. She also reports no dysuria. She recalls a similar episode in the distant past that was alleviated by vomiting. She has a history of a hernia at the site of her colostomy, which was performed on 11/14/2022 due to a blockage. The initial colostomy failed, requiring a loop colostomy. Within 10 days, she underwent another surgery to remove the rest of the blockage. She has had three major surgeries in total. Exam General: Well-appearing in no acute distress speaking in complete sentences. Head: Normocephalic, atraumatic. Eye: Extraocular eye movements intact. No conjunctival injection. No scleral icterus. Ear, nose, mouth, throat: Grossly normal inspection. Normal voice, handling secretions normally. Neck: Trachea midline. Cardiovascular: Well-perfused distal extremities. Respiratory: Nonlabored respiration. Gastrointestinal: Nondistended abdomen. Soft. Minimal epigastric tenderness. No rebound. No guarding. No right lower quadrant nor left lower quadrant tenderness. Small soft hernia on the medial side of the left sided ostomy bag which has some output. Did not takedown ostomy bag. Underneath patient's breast bilaterally there is mild erythematous areas. Patient notes that she is on nystatin powder daily. Musculoskeletal: No edema. Moving all 4 extremities spontaneously. Skin: Normal for age and race, grossly normal temperature and turgor. No acute rash. Neurologic: Alert and appropriate, no apparent acute deficits. Psychiatric: Mood and manner are appropriate. Grooming and personal hygiene are appropriate. Related Data Home Medications ?Medication ?Instructions ?Recorded ?Confirmed acetaminophen 325 mg capsule 325 mg PO BID PRN 06/08/19 08/18/24 ferrous sulfate 250 mg (50 mg 250 mg PO DAILY #30 tabs 03/12/22 08/18/24 iron) tablet,extended release (Slow Release Iron) metoprolol succinate 25 mg 25 mg PO DAILY #90 tabs 03/12/22 08/18/24 tablet,extended release 24 hr pantoprazole 40 mg tablet,delayed 40 mg PO BID #180 tabs 03/12/22 08/18/24 release (Protonix) sertraline 25 mg tablet 25 mg PO DAILY #90 tab-caps 03/12/22 08/18/24 apixaban 5 mg tablet 5 mg PO BID #180 tabs 04/17/22 08/18/24 potassium chloride 20 mEq oral 20 meq PO BID #50 ea 12/05/22 08/18/24 packet psyllium husk 3.4 gram/5.8 gram 1 pwd PO BID #1,040 grams 12/05/22 08/18/24 oral powder (Metamucil Sugar-Free (aspartame)) spironolactone 25 mg tablet 25 mg PO DAILY #30 tabs 12/05/22 08/18/24 nystatin 100,000 unit/gram topical 1 applic topical DAILY #60 grams 01/29/23 08/18/24 powder nystatin 100,000 unit/gram topical 1 applic topical DAILY PRN yeast 03/04/23 08/18/24 ointment #30 grams cholecalciferol (vitamin D3) 50 6,000 unit PO .COMPLEX #90 caps 04/24/24 08/18/24 mcg (2,000 unit) capsule letrozole 2.5 mg tablet See Rx Instructions .Route 04/29/24 08/18/24 .COMPLEX #30 tabs magnesium hydroxide 400 mg/5 mL 30 ml PO DAILY PRN 08/18/24 08/18/24 oral suspension (Milk of Magnesia) polyethylene glycol 3350 17 17 g PO DAILY PRN 08/18/24 08/18/24 gram/dose oral powder (ClearLax) Previous Rx's ?Medication ?Instructions ?Recorded ferrous sulfate 250 mg (50 mg 250 mg PO DAILY #30 tabs 03/12/22 iron) tablet,extended release (Slow Release Iron) metoprolol succinate 25 mg 25 mg PO DAILY #90 tabs 03/12/22 tablet,extended release 24 hr pantoprazole 40 mg tablet,delayed 40 mg PO BID #180 tabs 03/12/22 release (Protonix) sertraline 25 mg tablet 25 mg PO DAILY #90 tab-caps 03/12/22 apixaban 5 mg tablet 5 mg PO BID #180 tabs 04/17/22 potassium chloride 20 mEq oral 20 meq PO BID #50 ea 12/05/22 packet psyllium husk 3.4 gram/5.8 gram 1 pwd PO BID #1,040 grams 12/05/22 oral powder (Metamucil Sugar-Free (aspartame)) spironolactone 25 mg tablet 25 mg PO DAILY #30 tabs 12/05/22 nystatin 100,000 unit/gram topical 1 applic topical DAILY #60 grams 01/29/23 powder nystatin 100,000 unit/gram topical 1 applic topical DAILY PRN yeast 03/04/23 ointment #30 grams cholecalciferol (vitamin D3) 50 6,000 unit PO .COMPLEX #90 caps 04/24/24 mcg (2,000 unit) capsule letrozole 2.5 mg tablet See Rx Instructions .Route 04/29/24 .COMPLEX #30 tabs Allergies Allergy/AdvReac Type Severity Reaction Status Date / Time cyanocobalamin (vitamin B12) AdvReac Intermediate heart Verified 08/18/24 13:11 racing caffeine AdvReac heart Verified 08/18/24 13:11 races, feels shaky General GEORGE: 3 Medical Decision Making Quality:SDOH Health Related Social Needs: No Data to Display PFSH All Active Problems (Updated 08/18/24 @ 15:35 by Alexis Armstrong MD) Leukocytosis (Acute) Hyperbilirubinemia (Acute) Elevated LFTs (Acute) Vitamin D deficiency (Acute) Ventral hernia (Acute) Ventral hernia with bowel obstruction (Acute) Use of letrozole (Femara) (Acute) Osteoporosis (Chronic) Aromatase inhibitor use (Acute) Peristomal dermatitis associated with moisture (Acute) Diverticular stricture (Acute) Breast cancer greater than or equal to 2 cm in greatest dimension (Acute) Patient does not want any surgery or chemotherapy. 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; knees Vitamin B12 deficiency (Chronic) Advanced directives, counseling/discussion (Chronic) Hiatal hernia (Chronic) Atrial fibrillation by electrocardiogram (Chronic 08/06/17) By EKG 07/25/17 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) Medical History (Updated 08/18/24 @ 15:35 by Alexis Armstrong MD) Colostomy and enterostomy malfunction Open abdominal wall wound Wound dehiscence, surgical Protein calorie malnutrition Breast lump History of tobacco use Family hx-breast malignancy (03/03/12) Family history of GI malignancy (03/03/12) Hemorrhoids GERD (gastroesophageal reflux disease) Anemia Essential hypertension Surgical History Status post breast biopsy EGD - MAC (08/16/17) Colonoscopy - MAC (08/16/17) Cholecystectomy (~1980) Biopsy of breast (~1989) LEFT Family History Mother Diabetes Father Neoplasm COLON Brother Stroke Grandfather Heart disease Grandfather No problems noted. Grandmother Neoplasm BREAST/LIVER Grandmother No problems noted. MATERNAL AUNT Neoplasm BREAST Other Family history of GI malignancy Family hx-breast malignancy Social History Smoking/Tobacco Use Status: Former Tobacco Use tobacco type: cigarettes Quit Date: 04/08/59 Second Hand Exposure: Yes Smoking risk assessment performed?: Yes Alcohol Intake: never Drug use: Never Substance use type: does not use Household members: none Housing: house Do you need help understanding health information?: Never Pets and animals: No Sexually active: No Do you think of yourself as: straight/heterosexual Current gender identity: female What is your relationship status?: How often do you talk on the phone with friends or family?: three or more times per week How often do you get together with friends or relatives?: once per week How often do you attend spiritism or spiritism services?: decline to answer Do you belong to any clubs or organized social groups?: no Panel score (0-1 are the most socially isolated patients): 1 What type of physical activity do you participate in: none Caroline/Yazidism: Nondenominational Special caroline needs: No Seatbelt use: always Drive intox or ride w/intox ross carrier driver: No Do you feel safe at home: Yes Do you feel safe in your relationship?: Yes
--- NOTE | 2024-08-18 14:00 | RT.EKG_ITS ---
APPROVED REPORT Exam: Resting ECG Reason for Exam: Chest pain Patient Location: E HR:77 bpm ECG Measurements Heart Rate 77 AXIS SD [id number] P [id number] QRSd 89 QRS 18 QT 390 T 3 QTc 442 Conclusion Atrial fibrillation...V-rate 65- 94, irreg A-activity No Occlusion LA
--- NOTE | 2024-08-18 14:23 | DI.CT_ITS ---
Exam(s) CT ABDOMEN PELVIS W EXAM: CT ABDOMEN PELVIS W CLINICAL HISTORY: Upper abdominal pain ostomy. TECHNIQUE: Imaging Protocol: Axial computed tomography images with coronal and sagittal reformatted images were created and reviewed CONTRAST MATERIAL: Intravenous: Omnipaque-350 100cc Oral: None COMPARISON: CT CT ABDOMEN PELVIS W from 11/24/2022 FINDINGS: VISUALIZED LUNG BASES: No nodules nor pleural effusions evident. ABDOMEN: GI/ANTERIOR ABDOMINAL WALL: Large retrocardiac hiatal hernia is again noted. When compared to 11/24/2022 there is again noted a left-sided colostomy.. However, there is also her niated bowel loops within the colostomy, possibly significant. There does not appear to be a high-gr neri bowel obstruction and there is no fluid in the hernia sac. There is a larger central-right sided wide neck hernia which contains both large and small bowel loops. It also contains the cecum and no rmal appear appendix. There is abundant fecal material in the rectum and sigmoid. Extensive sigmoid diverticulosis without obvious acute diverticulitis. LIVER: There are no significant focal hepatic lesions evident. No dilated intrahepatic ducts. GALLBLADDER/BILIARY: Gallbladder surgically absent. CBD is not dilated. PANCREAS: No evidence of pancreatic mass nor dilatation of the pancreatic duct. SPLEEN: Spleen is not enlarged. No obvious intrasplenic lesions. Splenic and portal veins are paten t. ADRENALS: There are no significant adrenal masses. KIDNEYS:Tiny benign sub cm cysts in the right kidney are noted. There is a 1.1 x 1.0 cm benign-appea ring septated cyst in the left kidney noted. No solid renal masses. No calculi. No hydronephrosis. No hydroureter.. ABDOMINAL AORTA: Abdominal aorta is not enlarged. LYMPH NODES:There is no retroperitoneal nor paraaortic adenopathy. PELVIS: GI: No evidence of appendicitis.No evidence of acute sigmoid diverticulitis. LYMPH NODES: There is no intrapelvic nor inguinal adenopathy. REPRODUCTIVE: Uterus and adnexal regions are age-appropriate. There are no abnormal adnexal masses n or free fluid within the pelvis. URINARY BLADDER: No calculi nor obvious masses evident OSSEOUS: T11 chronic compression fracture again noted, unchanged. No acute fractures and no signific ant osseous lesions. IMPRESSION: 1. Left-sided colostomy with herniated bowel loops within the colostomy but no high-grade bowel obstr uction, free air, nor abscess. 2. There is also a larger central-right sided wide neck anterior abdominal hernia which contains both large and small bowel loops including the cecum and normal appearing appendix. 3. There is abundant fecal material noted in the standing rock rectum and sigmoid 4. Previous cholecystectomy again noted. CBD is not dilated. Report called by myself to ER provider 08/18/2024 at 5:30 p.m. RADIATION DOSE DELIVERED: 868.64mGy.cm Total DLP DATA REPOSITORY: All CT scans at this facility are submitted to the National Radiology Data Registry (NRDR) Dose Index Registry (DIR) with the [employer] (ACR). RADIATION OPTIMIZATION: All CT scans at this facility use at least one of these dose optimization te chniques: automated exposure control; mA and/or kV adjustment per patient size (includes targeted exa ms where dose is matched to clinical indication); or iterative reconstruction.
[2024-08-18 15:00] LABS: Abs Immature Grans 0.03 10^3/uL (0.0-0.06); Absolute Basophil Count 0.03 10^3/uL (0.0-0.2); Absolute Eosinophil Count 0.03 10^3/uL (0.0-0.7); Absolute Lymphocyte Count 0.71 10^3/uL (1.2-3.4); Absolute Monocyte Count 1.12 10^3/uL (0.1-0.8); Basophils % 0.3 %; Eosinophils % 0.3 %; HCT 35.9 % (36.0-46.0); HGB 11.6 g/dL (11.2-15.7); Immature Grans % 0.3 %; Lymphocytes % 6.5 %; MCH 30.9 pg (27.0-33.0); MCHC 32.3 % (32.0-36.0); MCV 96 fL (80-95); MPV 9.3 fL (8.0-11.0); Monocytes % 10.3 %; Neutrophils % 82.3 %; Platelet Count 343 10^3/uL (130-400); RBC 3.75 10^6/uL (3.93-5.22); RDW 12.7 % (11.7-14.6); RDW-SD 44.5 fL; WBC 10.88 10^3/uL (4.4-10.8)
[2024-08-18 15:03] LABS: Absolute Neutrophil Count 8.95 10^3/uL (1.2-6.7)
[2024-08-18 15:20] LABS: ALT 103 U/L (14-59); AST 204 U/L (15-37); Albumin 3.5 g/dL (3.4-5.0); Alkaline Phosphatase 234 U/L (46-116); BUN 13 mg/dL (7-18); Bilirubin, Total 1.1 mg/dL (0.2-1.0); CREATININE 0.9 mg/dL (0.55-1.02); Chloride 94 mmol/L (98-107); Estimated GFR 62.26 (mL/min/1.73m2); Glucose 113 mg/dL (74-106); Lipase 33 U/L (<78); Potassium 5.3 mmol/L (3.5-5.1); Sodium 127 mmol/L (136-145); Troponin I 6 ng/L (<or=51)
[2024-08-18] MEDS: Calcium Gluconate 4.65 MEQ/10 ML VIAL 4.65 MG IVP (16:07)
[2024-08-18] MEDS: Normal Saline 500 ML 1000 ML IV (16:08)
[2024-08-18 16:38] LABS: Troponin I 4 ng/L (<or=51)
[2024-08-18 16:39] VITALS: BP 139/82; RESP 20; O2SAT 97
[2024-08-18] MEDS: Omnipaque 350 MG/ML 100 ML BTL IJ (16:43)
[2024-08-18 17:33] LABS: Anion Gap 3.3 mmol/L (3-11); BUN 13 mg/dL (7-18); CO2 28.7 mmol/L (21.0-32.0); CREATININE 0.9 mg/dL (0.55-1.02); Calcium 9.6 mg/dL (8.5-10.1); Chloride 95 mmol/L (98-107); Estimated GFR 62.26 (mL/min/1.73m2); Glucose 101 mg/dL (74-106); Potassium 5.1 mmol/L (3.5-5.1); Sodium 127 mmol/L (136-145)
[2024-08-18 17:42] LABS: Troponin I 6 ng/L (<or=51)
--- NOTE | 2024-08-18 17:58 | ED.PROG_ITS ---
Date of service: 08/18/24 Time of Service: 17:00 Medical Decision Making In brief, this is an 88-year-old female patient with a history of colostomy, diverticular stricture, ventral hernia, hiatal hernia, hypertension and hyperlipidemia who presented to care with epigastric pain. At the time that I took over her care, her disposition was pending CT imaging of her abdomen and pelvis. She did have new transaminitis, though her abdominal pain has resolved entirely and she has a benign abdominal exam at the time of my taking over her care. I reviewed the patient's CT and discussed the findings with radiology, she does have 2 ventral hernias and a hiatal hernia, none of which show evidence of strangulation or bowel obstruction. She does not have any changes to the parenchyma of her liver, status post cholecystectomy and is otherwise without acute findings to explain her laboratory abnormalities and her pain. Given the patient's resolution of pain, her reassuring abdominal examination and her ability to tolerate oral intake, I recommended that she follow-up with her outpatient providers for repeat laboratory studies. She did have a recent cold/cough for the last 8 days, and this certainly could be due to her recent viral infection. Given the duration of symptoms I do not see that this patient would require viral testing as she is out of the window for Paxlovid or Tamiflu. At this time, the patient has had a full medical evaluation and is safe for discharge to home. They are hemodynamically stable, ambulatory, and tolerating PO. They are understanding of the follow-up plan and return precautions. They left our facility without incident. Lanny Farah MD Medical Records Medical records reviewed: Yes I reviewed the patient's medical records. Lab Data Lab results reviewed: Yes I reviewed the patient's lab results. Quality:SDOH Health Related Social Needs: No Data to Display Discharge Plan Disposition Patient Disposition: Home Condition: Stable Discharge Details Clinical Impression: Elevated LFTs, Hyperbilirubinemia, Leukocytosis, Hiatal hernia, Colostomy in place, Ventral hernia, Abdominal pain of unknown etiology Primary Care Provider: Bhavna Pearce ED Provider: Lanny Farah Home Meds and New Rx's Prescriptions: No Action apixaban 5 mg tablet 5 mg PO BID Qty: 180 3RF acetaminophen 325 mg capsule 325 mg PO BID PRN Slow Release Iron 250 mg (50 mg iron) tablet extended release 250 mg PO DAILY Qty: 30 0RF metoprolol succinate 25 mg tablet extended release 24 hr 25 mg PO DAILY Qty: 90 3RF pantoprazole [Protonix] 40 mg tablet,delayed release (DR/EC) 40 mg PO BID Qty: 180 4RF sertraline 25 mg tablet 25 mg PO DAILY Qty: 90 4RF nystatin 100,000 unit/gram powder 1 applic topical DAILY Qty: 60 0RF Rx Instructions: w/ostomy change nystatin 100,000 unit/gram ointment 1 applic topical DAILY PRN (Reason: yeast) Qty: 30 12RF cholecalciferol (vitamin D3) 50 mcg (2,000 unit) capsule 6,000 unit PO .COMPLEX Qty: 90 11RF Rx Instructions: 6,000 units orally twice a week letrozole 2.5 mg tablet See Rx Instructions .ROUTE .COMPLEX Qty: 30 10RF Dose Instruction: 1 TAB BY MOUTH DAILY Rx Instructions: 1 TAB BY MOUTH DAILY spironolactone 25 mg Tablet 25 mg PO DAILY Qty: 30 0RF potassium chloride 20 mEq Packet 20 meq PO BID Qty: 50 1RF Metamucil Sugar-Free (aspart) 3.4 gram/5.8 gram Powder 1 pwd PO BID Qty: 1040 0RF Rx Instructions: Take 1 tablespoon mixed with the liquid of your choice every morning magnesium hydroxide [Milk of Magnesia] 400 mg/5 mL suspension 30 ml PO DAILY PRN polyethylene glycol 3350 [ClearLax] 17 gram/dose powder 17 g PO DAILY PRN Discharge Instructions Instructions: Abdominal Pain, Adult ED Additional Instructions: You were seen in the emergency department today for evaluation of abdominal pain. In our department you had a full physical examination performed, had laboratory studies that showed that your liver enzymes were slightly elevated. We are not certain the reason for this finding, and you need to have these laboratory studies rechecked by your primary care provider at your next visit. You have a CT scan that redemonstrated your known hernias, none of which appear obstructed, and did not show any other new or significant abnormality which explains your symptoms. At this time, it is safe for you to go home and follow- up with your outpatient providers, continue to use Tylenol as needed for pain, and you should return to the emergency department if you have evidence of bowel obstruction (not passing stool or gas, nausea or vomiting, fever) or any other symptoms that cause you significant concern. Thank you for allowing us to be part of your care.
[2024-08-18 18:25] VITALS: BP 129/78; PULSE 82; RESP 23; O2SAT 97
== END 2024-08-18 18:26 | disposition home or self-care (01) ==
PROVIDERS: Emergency Medicine; Emergency Provider Emergency Medicine; PCP Nurse Practitioner Family
DX: R10.11 Right upper quadrant pain (principal); R10.12 Left upper quadrant pain; Z87.19 Personal history of other diseases of the digestive system
CPT/HCPCS: 99284; 99285; 96374; 36415; 00123; 80048; 80053; 83690; 87637; 93005; 74177; 84484; 85025; 93010; J0612; J3490

== ENCOUNTER 2024-09-03 09:56 | Emergency (ER) | payer MEDICARE, SELFPAY ==
[2024-09-03 09:59] VITALS: BP 131/67; PULSE 81; TEMP 36.7; O2SAT 93
--- NOTE | 2024-09-03 10:15 | DI.CT_ITS ---
Exam(s) CT ABDOMEN PELVIS W EXAM: CT ABDOMEN PELVIS W CLINICAL HISTORY: LLQ, hip, and flank pain, on eliquis. TECHNIQUE: Imaging Protocol: Axial computed tomography images with coronal and sagittal reformatted images were created and reviewed CONTRAST MATERIAL: Intravenous: Omnipaque-350 100cc Oral: None COMPARISON: CT CT ABDOMEN PELVIS W from 08/18/2024 FINDINGS: VISUALIZED LUNG BASES: No nodules nor pleural effusions evident. ABDOMEN: Large retrocardiac hiatal hernia is again noted. Large anterior abdominal hernia Again noted extending down into the pannus. There is also a separate hernia anterior left pelvic wal l at the colostomy site again noted, similar to previous. LIVER: There are no focal hepatic lesions evident. No dilated intrahepatic ducts. GALLBLADDER/BILIARY: Gallbladder is again noted be surgically absent. CBD is not dilated. PANCREAS: No evidence of pancreatic mass nor dilatation of the pancreatic duct. SPLEEN: Spleen is not enlarged. No obvious intrasplenic lesions. Splenic and portal veins are paten t. ADRENALS: There are no significant adrenal masses. KIDNEYS:There are few small benign cysts in the kidneys which do not require further workup. No lissa d renal masses nor calculi nor hydronephrosis.. ABDOMINAL AORTA: Calcified but not enlarged. Iliac arteries also calcified but not enlarged. LYMPH NODES:There is no retroperitoneal nor paraaortic adenopathy. THE ABDOMINAL WALL/GI : There is abundant fecal material again noted in the rectum. rectal diameter is 8.7 cm. there is diverticulosis of the sigmoid without evidence of acute diverticulitis. the lar ge right-sided anterior abdominal hernia contains right side of the colon and cecum and appendix. co ntains abundant fecal material. no evidence of appendicitis. no small bowel obstruction. terminal ileum appears unremarkable. PELVIS: LYMPH NODES: There is no intrapelvic nor inguinal adenopathy. REPRODUCTIVE: Age-appropriate URINARY BLADDER: No calculi nor obvious masses evident OSSEOUS: Nonacute appearing T11 compression fracture again noted. No acute fractures nor osseous les ions. Multilevel chronic degenerative disc disease. IMPRESSION: 1. Compared to the prior CT scan of 08/18/2024 there is again noted a large retrocardiac hiatal herni a. Again noted is a left-sided colostomy which also is hernia at this level which contains some non edematous and nonobstructed bowel loops. The larger previously described central right-sided herniat ion again noted to contain both large and small bowel loops as well as the cecum and normal appearing appendix. There is abundant fecal material throughout the colon again noted and extensive sigmoid d iverticulosis without evidence of obvious acute diverticulitis. Abundant fecal material again noted in the rectum. 2. No evidence of bowel obstruction, free air, nor abscess. 3. Previous cholecystectomy. The CBD is not dilated. 4. No evidence of ascites nor retroperitoneal hemorrhage, as per request. Report called by myself to ER provider 09/03/2024 at 12:55 p.m. RADIATION DOSE DELIVERED: 888.98mGy.cm Total DLP DATA REPOSITORY: All CT scans at this facility are submitted to the National Radiology Data Registry (NRDR) Dose Index Registry (DIR) with the [employer] (ACR). RADIATION OPTIMIZATION: All CT scans at this facility use at least one of these dose optimization te chniques: automated exposure control; mA and/or kV adjustment per patient size (includes targeted exa ms where dose is matched to clinical indication); or iterative reconstruction.
[2024-09-03 10:54] LABS: Abs Immature Grans 0.02 10^3/uL (0.0-0.06); Absolute Basophil Count 0.04 10^3/uL (0.0-0.2); Absolute Eosinophil Count 0.04 10^3/uL (0.0-0.7); Absolute Lymphocyte Count 0.71 10^3/uL (1.2-3.4); Absolute Monocyte Count 1.02 10^3/uL (0.1-0.8); Absolute Neutrophil Count 6.45 10^3/uL (1.2-6.7); Basophils % 0.5 %; Eosinophils % 0.5 %; HCT 31.7 % (36.0-46.0); HGB 10.3 g/dL (11.2-15.7); Immature Grans % 0.2 %; Lymphocytes % 8.6 %; MCHC 32.5 % (32.0-36.0); MCV 96 fL (80-95); MPV 9.5 fL (8.0-11.0); Monocytes % 12.3 %; Neutrophils % 77.9 %; Platelet Count 383 10^3/uL (130-400); RBC 3.32 10^6/uL (3.93-5.22); RDW-SD 45.8 fL; WBC 8.28 10^3/uL (4.4-10.8)
[2024-09-03 11:16] LABS: ALT 13 U/L (14-59); AST 12 U/L (15-37); Albumin 3.1 g/dL (3.4-5.0); Alkaline Phosphatase 154 U/L (46-116); Anion Gap 5.9 mmol/L (3-11); BUN 18 mg/dL (7-18); Bilirubin, Total 0.5 mg/dL (0.2-1.0); CO2 28.1 mmol/L (21.0-32.0); Calcium 9.5 mg/dL (8.5-10.1); Chloride 98 mmol/L (98-107); Estimated GFR 54.87 (mL/min/1.73m2); Glucose 103 mg/dL (74-106); Lipase 38 U/L (<78); Potassium 5.2 mmol/L (3.5-5.1); Sodium 132 mmol/L (136-145)
[2024-09-03 11:35] LABS: Bilirubin Negative (Negative); Blood Negative (Negative); Clarity Clear (Clear); Glucose Negative (Negative); Ketones Negative (Negative); Leukocyte Esterase Trace (Negative); Nitrite Negative (Negative); Urobilinogen 0.2 mg/dL (Up to 0.2)
[2024-09-03 11:45] LABS: Bacteria Rare HPF (Negative); C & S Indicated? No; Casts Negative LPF (Negative); Crystals Negative HPF (Negative); Epithelial Cells Moderate HPF (Negative); Mucus Negative (Negative); Other Cells Few Renal (Negative); RBC Negative HPF (0-2)
[2024-09-03 12:26] VITALS: BP 114/56; PULSE 71; TEMP 36.9; O2SAT 96
[2024-09-03 13:04] VITALS: BP 136/77; PULSE 68; RESP 18; O2SAT 96
[2024-09-03] MEDS: Dexamethasone 4 MG TAB PO (13:23)
[2024-09-03] MEDS: MORPHine IR 15 MG TAB 7.5 MG PO (13:24)
[2024-09-03] MEDS: MORPHine IR 15 MG TAB, 4 TABS/BTL PO (14:04)
[2024-09-03 14:19] VITALS: BP 105/87; PULSE 69; RESP 18; O2SAT 94
--- NOTE | 2024-09-03 14:39 | W.ED.GENAD ---
Discharge Plan Disposition Patient Disposition: Home Discharge Details Clinical Impression: Acute pain of left hip, Acute hyperkalemia Primary Care Provider: Bhavna Pearce ED Provider: Blanche Osborne Home Meds and New Rx's Prescriptions: New prednisone 20 mg tablet 40 mg PO ONCE Qty: 10 0RF Continued apixaban 5 mg tablet 5 mg PO BID Qty: 180 3RF acetaminophen 325 mg capsule 325 mg PO BID PRN Slow Release Iron 250 mg (50 mg iron) tablet extended release 250 mg PO DAILY Qty: 30 0RF metoprolol succinate 25 mg tablet extended release 24 hr 25 mg PO DAILY Qty: 90 3RF pantoprazole [Protonix] 40 mg tablet,delayed release (DR/EC) 40 mg PO BID Qty: 180 4RF sertraline 25 mg tablet 25 mg PO DAILY Qty: 90 4RF nystatin 100,000 unit/gram powder 1 applic topical DAILY Qty: 60 0RF Rx Instructions: w/ostomy change nystatin 100,000 unit/gram ointment 1 applic topical DAILY PRN (Reason: yeast) Qty: 30 12RF cholecalciferol (vitamin D3) 50 mcg (2,000 unit) capsule 6,000 unit PO .COMPLEX Qty: 90 11RF Rx Instructions: 6,000 units orally twice a week letrozole 2.5 mg tablet See Rx Instructions .ROUTE .COMPLEX Qty: 30 10RF Dose Instruction: 1 TAB BY MOUTH DAILY Rx Instructions: 1 TAB BY MOUTH DAILY tamoxifen 20 mg tablet 20 mg PO DAILY spironolactone 25 mg Tablet 25 mg PO DAILY Qty: 30 0RF potassium chloride 20 mEq Packet 20 meq PO BID Qty: 50 1RF Metamucil Sugar-Free (aspart) 3.4 gram/5.8 gram Powder 1 pwd PO BID Qty: 1040 0RF Rx Instructions: Take 1 tablespoon mixed with the liquid of your choice every morning magnesium hydroxide [Milk of Magnesia] 400 mg/5 mL suspension 30 ml PO DAILY PRN polyethylene glycol 3350 [ClearLax] 17 gram/dose powder 17 g PO DAILY PRN Discharge Instructions Instructions: Hip Pain ED Additional Instructions: Discontinue the potassium for the next 2 days and then decrease to 20 mg daily Have your potassium rechecked next week Your potassium today was 5.[address] and labs do not show any other additional abnormalities I recommend taking the prednisone for the next several days to decrease your discomfort I recommend physical therapy assessment You may take 1/2 tablet of morphine every 8 hours as needed for discomfort Please be reevaluated should you have new or worsening complaints please have assistance with ambulation at this time Referrals: Bhavna Pearce [Primary Care Provider] - 2 days HPI General Date/Time Provider Initiated Documentation: 09/03/24 10:08. HPI Narrative: The patient is an 88-year-old female from [place] with left hip pain starting 2 days ago, without trauma. History includes atrial fibrillation on anticoagulation, breast cancer on tamoxifen, hypertension, hyperlipidemia, and colostomy (unchanged, no blood in stool). Pain worsens with toe touch weightbearing, manageable at rest. Related Data Home Medications ?Medication ?Instructions ?Recorded ?Confirmed acetaminophen 325 mg capsule 325 mg PO BID PRN 06/08/19 09/03/24 ferrous sulfate 250 mg (50 mg 250 mg PO DAILY #30 tabs 03/12/22 09/03/24 iron) tablet,extended release (Slow Release Iron) metoprolol succinate 25 mg 25 mg PO DAILY #90 tabs 03/12/22 09/03/24 tablet,extended release 24 hr pantoprazole 40 mg tablet,delayed 40 mg PO BID #180 tabs 03/12/22 09/03/24 release (Protonix) sertraline 25 mg tablet 25 mg PO DAILY #90 tab-caps 03/12/22 09/03/24 apixaban 5 mg tablet 5 mg PO BID #180 tabs 04/17/22 09/03/24 potassium chloride 20 mEq oral 20 meq PO BID #50 ea 12/05/22 09/03/24 packet psyllium husk 3.4 gram/5.8 gram 1 pwd PO BID #1,040 grams 12/05/22 09/03/24 oral powder (Metamucil Sugar-Free (aspartame)) spironolactone 25 mg tablet 25 mg PO DAILY #30 tabs 12/05/22 09/03/24 nystatin 100,000 unit/gram topical 1 applic topical DAILY #60 grams 01/29/23 09/03/24 powder nystatin 100,000 unit/gram topical 1 applic topical DAILY PRN yeast 03/04/23 09/03/24 ointment #30 grams cholecalciferol (vitamin D3) 50 6,000 unit PO .COMPLEX #90 caps 01/17/25 05/29/25 mcg (2,000 unit) capsule letrozole 2.5 mg tablet See Rx Instructions .Route 04/29/24 09/03/24 .COMPLEX #30 tabs magnesium hydroxide 400 mg/5 mL 30 ml PO DAILY PRN 08/18/24 09/03/24 oral suspension (Milk of Magnesia) polyethylene glycol 3350 17 17 g PO DAILY PRN 08/18/24 09/03/24 gram/dose oral powder (ClearLax) prednisone 20 mg tablet 40 mg (2 x 20 mg) PO ONCE #10 tabs 09/03/24 tamoxifen 20 mg tablet 20 mg PO DAILY 09/03/24 09/03/24 Previous Rx's ?Medication ?Instructions ?Recorded ferrous sulfate 250 mg (50 mg 250 mg PO DAILY #30 tabs 03/12/22 iron) tablet,extended release (Slow Release Iron) metoprolol succinate 25 mg 25 mg PO DAILY #90 tabs 03/12/22 tablet,extended release 24 hr pantoprazole 40 mg tablet,delayed 40 mg PO BID #180 tabs 03/12/22 release (Protonix) sertraline 25 mg tablet 25 mg PO DAILY #90 tab-caps 03/12/22 apixaban 5 mg tablet 5 mg PO BID #180 tabs 04/17/22 potassium chloride 20 mEq oral 20 meq PO BID #50 ea 12/05/22 packet psyllium husk 3.4 gram/5.8 gram 1 pwd PO BID #1,040 grams 12/05/22 oral powder (Metamucil Sugar-Free (aspartame)) spironolactone 25 mg tablet 25 mg PO DAILY #30 tabs 12/05/22 nystatin 100,000 unit/gram topical 1 applic topical DAILY #60 grams 01/29/23 powder nystatin 100,000 unit/gram topical 1 applic topical DAILY PRN yeast 03/04/23 ointment #30 grams cholecalciferol (vitamin D3) 50 6,000 unit PO .COMPLEX #90 caps 04/24/24 mcg (2,000 unit) capsule letrozole 2.5 mg tablet See Rx Instructions .Route 04/29/24 .COMPLEX #30 tabs prednisone 20 mg tablet 40 mg (2 x 20 mg) PO ONCE #10 tabs 09/03/24 Allergies Allergy/AdvReac Type Severity Reaction Status Date / Time cyanocobalamin (vitamin B12) AdvReac Intermediate heart Verified 09/03/24 10:01 racing caffeine AdvReac heart Verified 09/03/24 10:01 races, feels shaky General Stated Complaint: Orthopedic GEORGE: 3 Exam Narrative Exam Narrative: General Appearance: Fully alert and oriented, no acute distress. Vital signs: Within normal limits. HEENT: Within normal limits. Respiratory: Within normal limits. Skin: Warm and dry, no rash. Neurological: Normal. Other observations: Ambulatory with antalgic but steady gait. Course Vital Signs Vital signs: Vital Signs Temperature 36.7 C 09/03/24 09:59 Pulse 81 09/03/24 09:59 Blood Pressure 131/67 09/03/24 09:59 Pulse Oximetry 93 09/03/24 09:59 Temperature 36.9 C 09/03/24 12:26 Temperature Source Tympanic 09/03/24 12:26 Pulse 69 09/03/24 14:19 Respiratory Rate 18 09/03/24 14:19 Respiratory Effort Normal, Non-Labored 09/03/24 13:04 Respiratory Depth Normal 09/03/24 13:04 Respiratory Pattern Normal 09/03/24 13:04 Blood Pressure 105/87 09/03/24 14:19 Blood Pressure Mean 96 09/03/24 13:04 Blood Pressure Position Sitting 09/03/24 13:04 Pulse Oximetry 94 09/03/24 14:19 Oxygen Delivery Method Room Air 09/03/24 13:04 Oxygen Flow Rate 0 09/03/24 13:04 Pain Level 5 09/03/24 12:26 Lab/Test Results Lab/Test Results: Laboratory Tests Range/Units 09/03/24 09/03/24 10:43 11:30 WBC (4.4-10.8) 10^3/uL 8.28 RBC (3.93-5.22) 10^6/uL 3.32 L Hgb (11.2-15.7) g/dL 10.3 L Hct (36.0-46.0) % 31.7 L MCV (80-95) fL 96 H MCH (27.0-33.0) pg 31.0 MCHC (32.0-36.0) % 32.5 RDW (11.7-14.6) % 13.0 Plt Count (130-400) 10^3/uL 383 MPV (8.0-11.0) fL 9.5 Immature Gran % % 0.2 Neutrophils % % 77.9 Lymphocytes % % 8.6 Monocytes % % 12.3 Eosinophils % % 0.5 Basophils % % 0.5 Nucleated RBC % (0.0-0.3) % 0.0 Absolute Neutrophils (1.2-6.7) 10^3/uL 6.45 Absolute Lymphocytes (1.2-3.4) 10^3/uL 0.71 L Absolute Monocytes (0.1-0.8) 10^3/uL 1.02 H Absolute Eosinophils (0.0-0.7) 10^3/uL 0.04 Absolute Basophils (0.0-0.2) 10^3/uL 0.04 Sodium (136-145) mmol/L 132 L Potassium (3.5-5.1) mmol/L 5.2 H Chloride (98-107) mmol/L 98 Carbon Dioxide (21.0-32.0) mmol/L 28.1 Anion Gap (3-11) mmol/L 5.9 BUN (7-18) mg/dL 18 Creatinine (0.55-1.02) mg/dL 1.0 Est GFR (CKD-EPI 2020) (mL/min/1.73m2) 54.87 Glucose (74-106) mg/dL 103 Calcium (8.5-10.1) mg/dL 9.5 Total Bilirubin (0.2-1.0) mg/dL 0.5 AST (15-37) U/L 12 L ALT (14-59) U/L 13 L Alkaline Phosphatase (46-116) U/L 154 H Total Protein (6.4-8.2) g/dL 7.0 Albumin (3.4-5.0) g/dL 3.1 L Lipase (<78) U/L 38 Urine Color (Yellow) Yellow Urine Clarity (Clear) Clear Urine pH (5-8) 7.0 Ur Specific [place] (1.005-1.025) 1.020 Urine Protein (Neg-Trace) mg/dL Negative Urine Ketones (Negative) mg/dL Negative Urine Blood (Negative) Negative Urine Nitrite (Negative) Negative Urine Bilirubin (Negative) Negative Urine Urobilinogen (Up to 0.2) mg/dL 0.2 Ur Leukocyte Esterase (Negative) Trace H Urine RBC (0-2) HPF Negative Urine WBC (0-5) HPF 3-5 Ur Epithelial Cells (Negative) HPF Moderate Urine Crystals (Negative) HPF Negative Urine Bacteria (Negative) HPF Rare Urine Casts (Negative) LPF Negative Urine Mucus (Negative) Negative Urine Other (Negative) Few Renal Ur Culture Indicated? No Urine Glucose (Negative) mg/dL Negative Medical Decision Making Laboratory: Hemoglobin stable, no leukocytosis, Na 132, K 5.2. Imaging: CT abdomen/pelvis shows degenerative changes in left hip, no acute abnormality. Initial Assessment: 88-year-old female presents with left hip pain, started 2 days ago, atraumatic, worse with toe touch weightbearing, manageable at rest. ED Course: - CT abdomen and pelvis read by me: no acute abnormality, degenerative changes to left hip. - Given morphine 7.5 mg and prednisone. - Urinalysis reassuring. - Recommend physical therapy, walker, and assistance for several days. - Return precautions reviewed and patient expressed understanding. Final Assessment: Patient with left hip pain, degenerative changes noted on CT, treated with morphine and prednisone, recommended physical therapy and walker. Electrolyte imbalance managed with adjustment of potassium intake. Clinical Impression: - Left hip pain - Atrial fibrillation - Breast cancer - Hypertension - Hyperlipidemia - Colostomy - Electrolyte imbalance Disposition: - Discharge: Patient discharged back to [facility] in. MDM Components Evaluation: - Number of Differential Diagnoses or Management Options: Left hip pain, atrial fibrillation, breast cancer, hypertension, hyperlipidemia, colostomy, electrolyte imbalance. - Amount and Complexity of Data Reviewed: CT abdomen and pelvis, urinalysis. - Risk of Complication and Morbidity or Mortality: Managed chronic conditions including atrial fibrillation and breast cancer, monitored electrolyte levels, provided pain management and mobility assistance. Quality:[facility] Health Related Social Needs: No Data to Display PFSH All Active Problems (Updated 09/03/24 @ 13:52 by RICCARDO Kincaid) Acute hyperkalemia (Acute) Acute pain of left hip (Acute) Abdominal pain of unknown etiology (Acute) Leukocytosis (Acute) Hyperbilirubinemia (Acute) Elevated LFTs (Acute) Vitamin D deficiency (Acute) Ventral hernia (Acute) Ventral hernia with bowel obstruction (Acute) Use of letrozole (Femara) (Acute) Osteoporosis (Chronic) Aromatase inhibitor use (Acute) Peristomal dermatitis associated with moisture (Acute) Diverticular stricture (Acute) Breast cancer greater than or equal to 2 cm in greatest dimension (Acute) Patient does not want any surgery or chemotherapy. 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; knees Vitamin B12 deficiency (Chronic) Advanced directives, counseling/discussion (Chronic) Hiatal hernia (Chronic) Atrial fibrillation by electrocardiogram (Chronic 08/06/17) By EKG 07/25/17 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) Medical History (Updated 09/03/24 @ 13:52 by RICCARDO Kincaid) Colostomy and enterostomy malfunction Open abdominal wall wound Wound dehiscence, surgical Protein calorie malnutrition Breast lump History of tobacco use Family hx-breast malignancy (03/03/12) Family history of GI malignancy (03/03/12) Hemorrhoids GERD (gastroesophageal reflux disease) Anemia Essential hypertension Surgical History Status post breast biopsy EGD - MAC (08/16/17) Colonoscopy - MAC (08/16/17) Cholecystectomy (~1980) Biopsy of breast (~1989) LEFT Family History Mother Diabetes Father Neoplasm COLON Brother Stroke Grandfather Heart disease Grandfather No problems noted. Grandmother Neoplasm BREAST/LIVER Grandmother No problems noted. MATERNAL AUNT Neoplasm BREAST Other Family history of GI malignancy Family hx-breast malignancy Social History Smoking/Tobacco Use Status: Former Tobacco Use tobacco type: cigarettes Quit Date: 04/08/59 Second Hand Exposure: Yes Smoking risk assessment performed?: Yes Alcohol Intake: never Drug use: Never Substance use type: does not use Household members: none Housing: house Do you need help understanding health information?: Never Pets and animals: No Sexually active: No Do you think of yourself as: straight/heterosexual Current gender identity: female What is your relationship status?: How often do you talk on the phone with friends or family?: three or more times per week How often do you get together with friends or relatives?: once per week How often do you attend protestant or adventism services?: decline to answer Do you belong to any clubs or organized social groups?: no Panel score (0-1 are the most socially isolated patients): 1 What type of physical activity do you participate in: none Caroline/Bahai: Adventist Special caroline needs: No Seatbelt use: always Drive intox or ride w/intox driver education road instructor: No Do you feel safe at home: Yes Do you feel safe in your relationship?: Yes
== END 2024-09-03 14:19 | disposition home or self-care (01) ==
PROVIDERS: Emergency Provider Physician Assistant; PCP Nurse Practitioner Family
DX: M25.552 Pain in left hip (principal); E87.5 Hyperkalemia; I10 Essential (primary) hypertension; E78.5 Hyperlipidemia, unspecified; I48.91 Unspecified atrial fibrillation; Z93.3 Colostomy status; Z79.01 Long term (current) use of anticoagulants; Z85.3 Personal history of malignant neoplasm of breast; Z79.810 Long term (current) use of selective estrogen receptor modulators (SERMs)
CPT/HCPCS: 36415; 80053; 83690; 99285; 74177; 81003; 81015; 85025; 99284; J8540

== ENCOUNTER 2024-09-14 09:57 | Inpatient (IN) | payer MEDICARE, SELFPAY ==
[2024-09-14] VITALS (7 sets, daily range): BP systolic 95–143; BP diastolic 48–89; PULSE 64–85; RESP 14–16; TEMP 36–36.8; O2SAT 94–98
[2024-09-14] MEDS: oxyCODONE 5 MG TAB PO ×2 (10:28→14:56)
[2024-09-14] MEDS: Lidocaine 5% Patch 1 PATCH TP (10:28)
--- NOTE | 2024-09-14 10:34 | W.ED.GENAD ---
Discharge Plan Disposition Patient Disposition: Admit to [facility] Discharge Details Primary Care Provider: Bhavna Pearce ED Provider: Chelita Ramirez Waelder Meds and New Rx's Prescriptions: No Action apixaban 5 mg tablet 5 mg PO BID Qty: 180 3RF acetaminophen 325 mg capsule 325 mg PO BID PRN Slow Release Iron 250 mg (50 mg iron) tablet extended release 250 mg PO DAILY Qty: 30 0RF metoprolol succinate 25 mg tablet extended release 24 hr 25 mg PO DAILY Qty: 90 3RF pantoprazole [Protonix] 40 mg tablet,delayed release (DR/EC) 40 mg PO BID Qty: 180 4RF sertraline 25 mg tablet 25 mg PO DAILY Qty: 90 4RF nystatin 100,000 unit/gram powder 1 applic topical DAILY Qty: 60 0RF Rx Instructions: w/ostomy change nystatin 100,000 unit/gram ointment 1 applic topical DAILY PRN (Reason: yeast) Qty: 30 12RF cholecalciferol (vitamin D3) 50 mcg (2,000 unit) capsule 6,000 unit PO .COMPLEX Qty: 90 11RF Rx Instructions: 6,000 units orally twice a week letrozole 2.5 mg tablet See Rx Instructions .ROUTE .COMPLEX Qty: 30 10RF Dose Instruction: 1 TAB BY MOUTH DAILY Rx Instructions: 1 TAB BY MOUTH DAILY tamoxifen 20 mg tablet 20 mg PO DAILY prednisone 20 mg tablet 40 mg PO ONCE Qty: 10 0RF spironolactone 25 mg Tablet 25 mg PO DAILY Qty: 30 0RF potassium chloride 20 mEq Packet 20 meq PO BID Qty: 50 1RF Metamucil Sugar-Free (aspart) 3.4 gram/5.8 gram Powder 1 pwd PO BID Qty: 1040 0RF Rx Instructions: Take 1 tablespoon mixed with the liquid of your choice every morning magnesium hydroxide [Milk of Magnesia] 400 mg/5 mL suspension 30 ml PO DAILY PRN polyethylene glycol 3350 [ClearLax] 17 gram/dose powder 17 g PO DAILY PRN duloxetine 20 mg capsule,delayed release(DR/EC) 20 mg PO DAILY gabapentin 300 mg capsule 300 mg PO TID Patient Comments: just increased to TID today HPI General Mode of arrival: EMS. Date/Time Provider Initiated Documentation: 09/14/24 10:01. Limitations to Documentation: no limitations. Information obtained by: patient, family, RN/MD, EMS, RN notes reviewed and old records reviewed. HPI Narrative: 88-year-old female presents to the ER via EMS from [facility] in assisted living with a chief complaint of left hip and leg pain for the last 2 weeks which is progressively getting worse. She is now unable to bear weight. She is normally ambulatory. Does have a past medical history of essential hypertension GERD, hemorrhoids colostomy, cholecystectomy and breast biopsy. She denies any recent injuries or falls. On record review she does have a history of a chronic T11 compression fracture which has been there at least for the last 2 years. She does report some increased incontinence of urine. Denies any saddle anesthesia or constipation. Denies any chest pain abdominal pain nausea vomiting. Related Data Home Medications ?Medication ?Instructions ?Recorded ?Confirmed acetaminophen 325 mg capsule 325 mg PO BID PRN 06/08/19 09/14/24 ferrous sulfate 250 mg (50 mg 250 mg PO DAILY #30 tabs 03/12/22 09/14/24 iron) tablet,extended release (Slow Release Iron) metoprolol succinate 25 mg 25 mg PO DAILY #90 tabs 03/12/22 09/14/24 tablet,extended release 24 hr pantoprazole 40 mg tablet,delayed 40 mg PO BID #180 tabs 03/12/22 09/14/24 release (Protonix) sertraline 25 mg tablet 25 mg PO DAILY #90 tab-caps 03/12/22 09/14/24 apixaban 5 mg tablet 5 mg PO BID #180 tabs 04/17/22 09/14/24 potassium chloride 20 mEq oral 20 meq PO BID #50 ea 12/05/22 09/14/24 packet psyllium husk 3.4 gram/5.8 gram 1 pwd PO BID #1,040 grams 12/05/22 09/14/24 oral powder (Metamucil Sugar-Free (aspartame)) spironolactone 25 mg tablet 25 mg PO DAILY #30 tabs 12/05/22 09/14/24 nystatin 100,000 unit/gram topical 1 applic topical DAILY #60 grams 01/29/23 09/14/24 powder nystatin 100,000 unit/gram topical 1 applic topical DAILY PRN yeast 03/04/23 09/14/24 ointment #30 grams cholecalciferol (vitamin D3) 50 6,000 unit PO .COMPLEX #90 caps 04/24/24 09/14/24 mcg (2,000 unit) capsule letrozole 2.5 mg tablet See Rx Instructions .Route 04/29/24 09/14/24 .COMPLEX #30 tabs magnesium hydroxide 400 mg/5 mL 30 ml PO DAILY PRN 08/18/24 09/14/24 oral suspension (Milk of Magnesia) polyethylene glycol 3350 17 17 g PO DAILY PRN 08/18/24 09/14/24 gram/dose oral powder (ClearLax) prednisone 20 mg tablet 40 mg (2 x 20 mg) PO ONCE #10 tabs 09/03/24 09/14/24 tamoxifen 20 mg tablet 20 mg PO DAILY 09/03/24 09/14/24 duloxetine 20 mg capsule,delayed 20 mg PO DAILY 09/14/24 09/14/24 release gabapentin 300 mg capsule 300 mg PO TID 09/14/24 09/14/24 Previous Rx's ?Medication ?Instructions ?Recorded ferrous sulfate 250 mg (50 mg 250 mg PO DAILY #30 tabs 03/12/22 iron) tablet,extended release (Slow Release Iron) metoprolol succinate 25 mg 25 mg PO DAILY #90 tabs 03/12/22 tablet,extended release 24 hr pantoprazole 40 mg tablet,delayed 40 mg PO BID #180 tabs 03/12/22 release (Protonix) sertraline 25 mg tablet 25 mg PO DAILY #90 tab-caps 03/12/22 apixaban 5 mg tablet 5 mg PO BID #180 tabs 04/17/22 potassium chloride 20 mEq oral 20 meq PO BID #50 ea 12/05/22 packet psyllium husk 3.4 gram/5.8 gram 1 pwd PO BID #1,040 grams 12/05/22 oral powder (Metamucil Sugar-Free (aspartame)) spironolactone 25 mg tablet 25 mg PO DAILY #30 tabs 12/05/22 nystatin 100,000 unit/gram topical 1 applic topical DAILY #60 grams 01/29/23 powder nystatin 100,000 unit/gram topical 1 applic topical DAILY PRN yeast 03/04/23 ointment #30 grams cholecalciferol (vitamin D3) 50 6,000 unit PO .COMPLEX #90 caps 04/24/24 mcg (2,000 unit) capsule letrozole 2.5 mg tablet See Rx Instructions .Route 04/29/24 .COMPLEX #30 tabs prednisone 20 mg tablet 40 mg (2 x 20 mg) PO ONCE #10 tabs 09/03/24 Allergies Allergy/AdvReac Type Severity Reaction Status Date / Time cyanocobalamin (vitamin B12) AdvReac Intermediate heart Verified 09/03/24 10:01 racing caffeine AdvReac heart Verified 09/03/24 10:01 races, feels shaky General Stated Complaint: GenMedical GEORGE: 3 Review of Systems All systems reviewed & are unremarkable except as noted in HPI and below Constitutional Constitutional: Reports as per HPI and Denies frequent falls Gastrointestinal Gastrointestinal: Denies abdominal pain and Denies vomiting Musculoskeletal Musculoskeletal: Reports as per HPI, Reports abnormal gait, Reports back pain and Reports arthralgias Neurologic Neurologic: Reports abnormal gait and Denies frequent falls Exam Narrative Exam Narrative: Constitutional: Alert and oriented x3. Appears stated age. Obese body habitus. Head: Normocephalic, no trauma. Eyes: Pupils PERRL, Red reflex noted, EOM's intact. Eyelids symmetrical without lesions, discharge, or swelling. ENT: Bilateral TM's WNL, External ear normal to inspection, no mastoid TTP, swelling, or erythema, Nasal turbinates WNL, no nasal discharge. Normal dentition, Posterior pharynx WNL, no exudate. Chest: RRR, Normal S1, S2, distal pulses intact. Resp: Lungs clear to auscultation bilaterally, no wheezes, rales, or rhonchi. Abdomen: Soft, non-distended, vertical midline incision noted, colostomy noted left lower quadrant, soft brown stool noted in the bag, 40 normoactive bowel sounds all 4 quads. Musculoskeletal: Unable to assess gait, pain with palpation of the left hip, is able to bend her knee without difficulty, does have lower back pain with flexion and on attempt of standing, Skin: No suspicious rashes or lesions. Capillary refill less than 2 sec. Neurologic: Cranial nerves II-XII intact. Alert and oriented x 3. Pain lower back, sensory: Intact bilaterally all 4 extremities. Hematologic/Lymphatic: No ecchymosis, no lymphadenopathy. Course Vital Signs Vital signs: Vital Signs Temperature 36.4 C 09/14/24 09:56 Pulse 68 09/14/24 09:56 Respiratory Rate 14 09/14/24 09:56 Blood Pressure 143/48 H 09/14/24 09:56 Pulse Oximetry 95 09/14/24 09:56 Temperature 36.4 C 09/14/24 10:00 Temperature Source Oral 09/14/24 10:00 Pulse 64 09/14/24 10:00 Respiratory Rate 14 09/14/24 10:02 Respiratory Effort Normal, Non-Labored 09/14/24 10:02 Respiratory Depth Normal 09/14/24 10:02 Respiratory Pattern Normal 09/14/24 10:02 Blood Pressure 107/67 09/14/24 10:00 Blood Pressure Position Sitting 09/14/24 10:00 Pulse Oximetry 95 09/14/24 10:00 Oxygen Delivery Method Room Air 09/14/24 10:00 Oxygen Flow Rate 0 09/14/24 09:56 Pain Level 6 09/14/24 10:28 Medical Decision Making 88-year-old female presents to the ER via EMS from [facility] in assisted living with a chief complaint of left hip and leg pain for the last 2 weeks which is progressively getting worse. She is now unable to bear weight. She is normally ambulatory. Does have a past medical history of essential hypertension GERD, hemorrhoids colostomy, cholecystectomy and breast biopsy. She denies any recent injuries or falls. On record review she does have a history of a chronic T11 compression fracture which has been there at least for the last 2 years. She does report some increased incontinence of urine. Denies any saddle anesthesia or constipation. Denies any chest pain abdominal pain nausea vomiting. Patient does have tenderness with palpation to the lateral aspect of her left hip. Reports that radiates into her back. No abdominal pain. X-rays ordered of her lower spine and hip and pelvis. The RN did call from the [facility] and is requesting that we draw a potassium level so a BMP and a magnesium lab order was added on. Will give a lidocaine patch and 5 mg of oxycodone PO. X-ray shows no acute osseous abnormality in the hip. She does have some scoliosis in the L-spine x-ray, and multilevel chronic degenerative disease. She recently had a CT abdomen pelvis so I do not feel that CT imaging is not indicated at this time. However will consider if failed road test. BMP shows sodium 126 potassium 4.9 magnesium 1.9, Will attempt road test after the pain medications with a walker. Patient failed a road test with a walker reports 10 out of 10 pain despite the oxycodone tablet given earlier. She was just placed on gabapentin 3 times daily which is a new prescription. PT here at bedside for evaluation, patient reports 20 out of 10 pain upon sitting up. They were not able to attempt a road test with a walker at all. Patient denies any knee pain currently. Majority of her pain is in her lower back and worse with external rotation of her hips. An additional oxycodone 5 mg tablet ordered. Will discuss case with hospitalist. Spoke with [facility]PORATE RELATIONS MANAGER at [facility], they do not have lifts for patients and they have to be able to at least transfer into a chair with assistance, at this time, patient is not there. Rectal exam performed with nurse Welsh. Patient does have some soft stool that is felt in the rectal vault, no obvious rectal distention no hard stool noted. Patient did have some pressure with the rectal exam. She was able to roll on the stretcher with minimal assistance. She does have some output in her colostomy. Will consult with hospitalist regarding admission for pain control, and unable to ambulate. Spoke with Dr. Rico and reviewed with hospitalist team they graciously agreed to accept patient for admission for PT, pain control and enemas for stool impaction which is unusual for patient with a colostomy. Will give a fleets enema here in the ER. Informed patient and family on plan of care they verbalized understanding. This text was generated using [employer] dictation system, please disregard any oddities of phrase or misspellings. Medical Records Medical records reviewed: Yes I reviewed the patient's medical records. Lab Data Lab results reviewed: Yes I reviewed the patient's lab results. Labs: Laboratory Tests Range/Units 09/14/24 10:38 Sodium (136-145) mmol/L 126 L Potassium (3.5-5.1) mmol/L 4.9 Chloride (98-107) mmol/L 92 L Carbon Dioxide (21.0-32.0) mmol/L 30.8 Anion Gap (3-11) mmol/L 3.2 BUN (7-18) mg/dL 15 Creatinine (0.55-1.02) mg/dL 1.1 H Est GFR (CKD-EPI 2020) (mL/min/1.73m2) 48.94 Glucose (74-106) mg/dL 93 Calcium (8.5-10.1) mg/dL 9.4 Magnesium (1.8-2.4) mg/dL 1.9 Quality:SDOH Health Related Social Needs: No Data to Display PFSH All Active Problems Acute hyperkalemia (Acute) Acute pain of left hip (Acute) Abdominal pain of unknown etiology (Acute) Leukocytosis (Acute) Hyperbilirubinemia (Acute) Elevated LFTs (Acute) Vitamin D deficiency (Acute) Ventral hernia (Acute) Ventral hernia with bowel obstruction (Acute) Use of letrozole (Femara) (Acute) Osteoporosis (Chronic) Aromatase inhibitor use (Acute) Peristomal dermatitis associated with moisture (Acute) Diverticular stricture (Acute) Breast cancer greater than or equal to 2 cm in greatest dimension (Acute) Patient does not want any surgery or chemotherapy. 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; knees Vitamin B12 deficiency (Chronic) Advanced directives, counseling/discussion (Chronic) Hiatal hernia (Chronic) Atrial fibrillation by electrocardiogram (Chronic 08/06/17) By EKG 07/25/17 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) Medical History Colostomy and enterostomy malfunction Open abdominal wall wound Wound dehiscence, surgical Protein calorie malnutrition Breast lump History of tobacco use Family hx-breast malignancy (03/03/12) Family history of GI malignancy (03/03/12) Hemorrhoids GERD (gastroesophageal reflux disease) Anemia Essential hypertension Surgical History Status post breast biopsy EGD - MAC (08/16/17) Colonoscopy - MAC (08/16/17) Cholecystectomy (~1980) Biopsy of breast (~1989) LEFT Family History Mother Diabetes Father Neoplasm COLON Brother Stroke Grandfather Heart disease Grandfather No problems noted. Grandmother Neoplasm BREAST/LIVER Grandmother No problems noted. MATERNAL AUNT Neoplasm BREAST Other Family history of GI malignancy Family hx-breast malignancy Social History Smoking/Tobacco Use Status: Former Tobacco Use tobacco type: cigarettes Quit Date: 04/08/59 Second Hand Exposure: Yes Smoking risk assessment performed?: Yes Alcohol Intake: never Drug use: Never Substance use type: does not use Household members: none Housing: house Do you need help understanding health information?: Never Pets and animals: No Sexually active: No Do you think of yourself as: straight/heterosexual Current gender identity: female What is your relationship status?: How often do you talk on the phone with friends or family?: three or more times per week How often do you get together with friends or relatives?: once per week How often do you attend zoroastrian or anglican services?: decline to answer Do you belong to any clubs or organized social groups?: no Panel score (0-1 are the most socially isolated patients): 1 What type of physical activity do you participate in: none Caroline/Pentecostal: Mormon Special caroline needs: No Seatbelt use: always Drive intox or ride w/intox belly dump driver: No Do you feel safe at home: Yes Do you feel safe in your relationship?: Yes
[2024-09-14 11:12] LABS: Anion Gap 3.2 mmol/L (3-11); BUN 15 mg/dL (7-18); CO2 30.8 mmol/L (21.0-32.0); CREATININE 1.1 mg/dL (0.55-1.02); Calcium 9.4 mg/dL (8.5-10.1); Chloride 92 mmol/L (98-107); Estimated GFR 48.94 (mL/min/1.73m2); Glucose 93 mg/dL (74-106); Magnesium 1.9 mg/dL (1.8-2.4); Potassium 4.9 mmol/L (3.5-5.1); Sodium 126 mmol/L (136-145)
--- NOTE | 2024-09-14 11:42 | DI.RAD_ITS ---
Exam(s) XR HIP LT COMPLETE AP PELVIS EXAM: XR HIP LT COMPLETE AP PELVIS CLINICAL HISTORY: Left hip pain. TECHNIQUE: 2D digital imaging was performed. COMPARISON: No exams were available for comparison FINDINGS: 3 views No evidence of pelvic nor hip fracture. No significant hip joint space narrowing. Sacroiliac joints unremarkable. Abundant fecal material noted in the rectum. IMPRESSION: Acute osseous findings in the pelvis-hips. DATA REPOSITORY: RADIATION DOSE DELIVERED:
--- NOTE | 2024-09-14 11:42 | DI.RAD_ITS ---
Exam(s) XR LUMBAR SPINE COMPLETE EXAM: XR LUMBAR SPINE COMPLETE CLINICAL HISTORY: Back pain, Left hip pain. TECHNIQUE: 2D digital imaging was performed. COMPARISON: CR XR DEXA BONE DENSITY W/WO SANDRA from 06/06/2023 FINDINGS: Six views Mild scoliosis convex left. No evidence of acute fracture or listhesis. Advanced disc space narrowing noted at each level. No osseous lesions. Sacroiliac joints unremarkab le. Incidentally noted is abundant fecal material in the rectum. Also clips from previous cholecyst ectomy. IMPRESSION: Multilevel chronic degenerative disc disease. Mild scoliosis. No obvious fractures evident. DATA REPOSITORY: RADIATION DOSE DELIVERED:
--- NOTE | 2024-09-14 13:00 | DI.RAD_ITS ---
Exam(s) XR FEMUR LT EXAM: XR FEMUR LT CLINICAL HISTORY: Pain. TECHNIQUE: 2D digital imaging was performed of the left femur. Five images were obtained. AP and lat eral views were obtained. COMPARISON: No exams were available for comparison FINDINGS: BONES: No acute fracture is present. No bony destructive lesion is seen. Tricompartment degenerative changes are seen in the left knee characterized by joint space narrowing and osteophytes. SOFT TISSUE: Atherosclerotic calcification is present. IMPRESSION: 1. No acute fracture or dislocation. 2. Moderately severe osteoarthritis of the left knee. DATA REPOSITORY: RADIATION DOSE DELIVERED:
--- NOTE | 2024-09-14 14:17 | IN_ITS ---
PT Notes Visit Reasons: [place]/ hip pain Physical Therapy Inpatient Initial Evaluation Date: 09/14/24 Referring Doctor: Chelita Ramirez NP PT Orders: PT CONSULT: Safety Consult for D/C. L hip pain, negative imaging, received Oxycodone and Gabapentin, walker Precautions: Fall. Standard. Ostomy in place. Activity as tolerated. Patient Profile/Admitting Diagnosis:? Patient is an 88-year-old female with past medical history significant for anxiety, physical deconditioning, breast CA, and S/P exporatory laparotomoy and loop colostomy revision on 11/18/2022 and S/P exploratory laparotomoy and creation of descending loop colostomy on 11/15/2022 due to large bowel obstruction who presented to the ED today due to L hip and leg pain that has started since Saturday which made patient unable to walk at the [facility] she has been residing in. X-ray of the L femur showed no acute fracture nor disclocation. Lumbar spine radiographs showed multi-level DJD of the joints as well as mild scoliosis. L hip x-ray showed no evidence of pelvis nor hip fracture. PMHX: All Active Problems (Updated 09/03/24 @ 13:52 by RICCARDO Kincaid) Acute hyperkalemia (Acute) Acute pain of left hip (Acute) Abdominal pain of unknown etiology (Acute) Leukocytosis (Acute) Hyperbilirubinemia (Acute) Elevated LFTs (Acute) Vitamin D deficiency (Acute) Ventral hernia (Acute) Ventral hernia with bowel obstruction (Acute) Use of letrozole (Femara) (Acute) Osteoporosis (Chronic) Aromatase inhibitor use (Acute) Peristomal dermatitis associated with moisture (Acute) Diverticular stricture (Acute) Breast cancer greater than or equal to 2 cm in greatest dimension (Acute) Patient does not want any surgery or chemotherapy. 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; knees Vitamin B12 deficiency (Chronic) Advanced directives, counseling/discussion (Chronic) Hiatal hernia (Chronic) Atrial fibrillation by electrocardiogram (Chronic 08/06/17) By EKG 07/25/17 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) Medical History (Updated 09/03/24 @ 13:52 by RICCARDO Kincaid) Colostomy and enterostomy malfunction Open abdominal wall wound Wound dehiscence, surgical Protein calorie malnutrition Breast lump History of tobacco use Family hx-breast malignancy (03/03/12) Family history of GI malignancy (03/03/12) Hemorrhoids GERD (gastroesophageal reflux disease) Anemia Essential hypertension Surgical History Status post breast biopsy EGD - MAC (08/16/17) Colonoscopy - MAC (08/16/17) Cholecystectomy (~1980) Biopsy of breast (~1989) LEFT Colonoscopy - MAC (08/16/17) Social History/Home Situation: [facility] resident[facility] Equipment Owned/DME: [facility] Subjective:? Very anxious. Anticipated pain. Only was willing to partially sit up and refused to do anything more despite help given by PT and STEVEN Bermeo, patient complainingn of 20/10 pain in her L hip that spreads down L mid thigh at the back up to the knee sometimes. Complained of tenderness in the left area overlying piriformis gluteus medius to palpation. Groaned in pain in same area with opposite hip knee to chest. Objective:? General Observation: Colostomy in place. High BMI. Highly anxious about putting weight and sitting at egde of bed. Mental Status: Alert and oriented x 4 Pain: Moderate to severe pain with high anxiety level ROM: Right Lower Extremity: Hip flexion allowed up to 100 degrees AROM. Hip ER WFL. Hip IR WFL. Hip abduction WFL. Knee flexion WFL. Ankle dorsiflexion WFL. Ankle plantarflexion WFL. Left Lower Extremity: Hip flexion allowed up to 90 degrees AROM. Hip abduction WFL. Hip ER 45 degrees. Hip IR unable past midline with tight end feel and report of moderate to severe pain in L gluteal area. Knee flexion 45 degress - 90 degrees. Knee extension -45 degrees. Ankle dorsiflexion WFL. Ankle plantarflexion WFL. Strength: Right Lower Extremity: Hip flexors 3-/5. Hip abductors 3-/5. Hip ER 4-/5. Hip IR 3-/5. Knee flexors 4-/5. Knee extensors 4-/5. Ankle dorsiflexors 4-/5. Ankle plantarflexors 4/5. Left Lower Extremity: Hip flexors 3-/5. Hip abductors 3-/5. Knee flexors 3-/5. Knee extensors 3-/5. Ankle dorsiflexors 4-/5. Ankle plantarflexors 4/5. Sensation:? Intact as to pain and pressure on bilateral lower extremities. Bed Mobility/Transfers: Moderate cueing provided for use of B hands as needed for support, movement sequence, AD management, and posture to reduce fall risk and minimize pain report Supine to sit: maximal assit of 2 with pain and anxiety exponentially increased with movement Sit to stand: unable to test due to severity of pain and patient's anxiety level Stand to sit: unable to test due to severity of pain and patient's anxiety level bed to chair: unable to test due to severity of pain and patient's anxiety level Gait:? Unable to test due to severity of pain and patient's anxiety level. Balance:? Static Sitting: Poor Dynamic Sitting: Unable to test Static Standing: Unable to test Dynamic Standing: Unable to test Special Tests: Mobility Limitations Standardized Measure [facility] AM-PAC 6 clicks Basic Mobility Inpatient Short Form: Raw Score: 8 ? CMS Score: 87% deficit Laseque's test: Positive Hip flexion on opposite side/R: Increased pain felt in L hip and mid posterior thigh Informed Consent/Education:? Informed Consent/Education: Patient instructed in purpose of PT consult and plan of care. Agreeable to proceed with established PT POC to achieve personal goals. Assessment: 88-year-old female patient with acute piriformis sydrome combined with multilevel DJD of spine. Deconditioning and high BMI compounds the issue. Mobility assessment today was limited by severe pain level and high anxiety level. Patient presents with clinical signs and symptoms consistent with current/admitting diagnoses that have resulted to mobility limitations, gait instability, generalized weakness, and impairment of motor control as demonstrated by the following impairment level findings: 1. Decreased strength to B trunk and B LE major muscle grous 2. Impaired sitting/standing balance 3. Impaired activity tolerance 4. High pain leve 5. High anxiety level 6. High BMI Impairments are contributing to the following functional limitations: 1. Dependent bed mobility skills 2. Increased dependence with transfers 3. Inability to safely ambulate due to pain 4. Increase completion time for mobility ADL performance 5. Increased fall risk Patient is assessed as a 31011 moderate complexity based on the following: History: 88 year old female with impairment level findings, functional limitations, and past medical history as indicated above Examination: Demonstrable impairment in strength, balance, and mobility level with underlying impairments and functional limitations as documented above Presentation: Evolving Decision Making: Moderate complexity Goals X1 week 1. Supine-Sit independent 2. Sit-Supine independent 3. Sit-Stand independent 4. Stand-Sit independent with 4WW 5. Bed-Chair independent with 4WW 6. Chair-Bed independent with 4WW 7. Independent gait on level surface with use of 4WW for at least 150 feet without report of pain nor dyspnea 8. Independent with home exercise program 9. Good static and dynamic standing balance/tolerance Plan of Care/Treatment Plan: 1-2x/day, 7 days/week x1 week. Plan of care has been reviewed with the [facility]ICE MANAGER providing the service under Physical Therapy direction. Initiate Physical Therapy intervention for strengthening, bed mobility, transfers, gait, stairs, balance training, and use of assistive device. Discharge Plan DISCHARGE RECOMMENDATIONS: Home with Home Health PT versus short-term SNF depending on mobility progression under acute level of care TREATMENT CODE/TIME: 40529 x 20 minutes (1 unit), 55577 x 10 minutes( 1 unit) beginning (17- 14:47). Thank you for the opportunity to participate in the care of this patient. Jesika Abarca PT, DPT, CLT [facility] [place], [place]
[2024-09-14] MEDS: Na Phosphate Enema-Adult 133 ML BTL PR (14:57)
--- NOTE | 2024-09-14 15:23 | HPE_ITS ---
Date of service: 09/14/24 Time of Service: 15:23 Assessment and Plan Assessment and plan (1) Acute pain of left hip: Status: Acute Assessment and plan: Imaging negative for fractures or acute injury Glucometer noticed below calcium levels Enema given and somewhat effective Pain management with schedule acetaminophen, as needed low-dose hydromorphone Physical therapy consult (2) Hyponatremia: Status: Acute Assessment and plan: Fluid restriction Slow IV hydration with LR at 50 cc an hour Labs in a.m. (3) Essential hypertension: Status: Chronic Assessment and plan: Continue home meds (4) Hyperlipidemia: Status: Resolved Assessment and plan: Not on statin (5) Gastroesophageal reflux disease: Status: Chronic Assessment and plan: Continue home dose PPI (6) Depression: Status: Chronic Assessment and plan: Continue home medicine regimen (7) Atrial fibrillation: Status: Chronic Assessment and plan: This is a chronic condition?continue home dose beta-nena and apixaban Discussed with Dr. Bowles History of Present Illness History of Present Illness Chief Complaint: Left hip pain Narrative: This 88-year-old female patient with a history of colostomy,chronic T11 compression fracture. GERD, hemorrhoids diverticular stricture and bowel obstruction, ventral hernia, hiatal hernia, hypertension and hyperlipidemia who presented to care with Left hip pain causing inability to ambulate at [facility] where she lives. Workup in the ED showed mild stable anemia, hyponatremia with sodium 126, minimally elevated Cr at 1.1; otherwise labs were unremarkable. Lumbar spine imaging showed mild left convex scoliosis without fracture; but abnormal fecal material was noticeable in the rectum as per x-ray and the abdomen/ pelvic CT without no new acute findings. The patient continued to have in the ED he was unable to ambulate with physical therapy despite administration of pain medicine. The patient was admitted to the medical surgical floor for ongoing pain management and physical therapy. An enema was administered in the ED without resolution of pain. DNR/DNI confirmed. The patient denied headache, chills, fever dizziness, change in vision, chest pain, abdominal pain, nausea, vomiting, constipation, diarrhea, or dysuria. The patient reported left hip pain with mobilization mostly when standing up, new onset of nausea on the floor. Review of Systems All systems reviewed & are unremarkable except as noted in HPI and below PFSH All Active Problems (Updated 09/14/24 @ 19:22 by Nette Reynolds APRN) Depression (Chronic) Atrial fibrillation (Chronic) Hyponatremia (Acute) Acute hyperkalemia (Acute) Acute pain of left hip (Acute) Abdominal pain of unknown etiology (Acute) Leukocytosis (Acute) Hyperbilirubinemia (Acute) Elevated LFTs (Acute) Vitamin D deficiency (Acute) Ventral hernia (Acute) Ventral hernia with bowel obstruction (Acute) Use of letrozole (Femara) (Acute) Osteoporosis (Chronic) Aromatase inhibitor use (Acute) Peristomal dermatitis associated with moisture (Acute) Diverticular stricture (Acute) Breast cancer greater than or equal to 2 cm in greatest dimension (Acute) Patient does not want any surgery or chemotherapy. 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; knees Vitamin B12 deficiency (Chronic) Advanced directives, counseling/discussion (Chronic) Hiatal hernia (Chronic) Atrial fibrillation by electrocardiogram (Chronic 08/06/17) By EKG 07/25/17 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) Medical History Colostomy and enterostomy malfunction Open abdominal wall wound Wound dehiscence, surgical Protein calorie malnutrition Breast lump History of tobacco use Family hx-breast malignancy (03/03/12) Family history of GI malignancy (03/03/12) Hemorrhoids GERD (gastroesophageal reflux disease) Anemia Essential hypertension Surgical History Status post breast biopsy EGD - MAC (08/16/17) Colonoscopy - MAC (08/16/17) Cholecystectomy (~1980) Biopsy of breast (~1989) LEFT Family History Mother Diabetes Father Neoplasm COLON Brother Stroke Grandfather Heart disease Grandfather No problems noted. Grandmother Neoplasm BREAST/LIVER Grandmother No problems noted. MATERNAL AUNT Neoplasm BREAST Other Family history of GI malignancy Family hx-breast malignancy Social History Smoking/Tobacco Use Status: Former Tobacco Use tobacco type: cigarettes Quit Date: 04/08/59 Second Hand Exposure: Yes Smoking risk assessment performed?: Yes Alcohol Intake: never Drug use: Never Substance use type: does not use Household members: none Housing: assisted living facility Do you need help understanding health information?: Never Pets and animals: No Sexually active: No Do you think of yourself as: straight/heterosexual Current gender identity: female What is your relationship status?: How often do you talk on the phone with friends or family?: three or more times per week How often do you get together with friends or relatives?: once per week How often do you attend gnosticism or baptism services?: decline to answer Do you belong to any clubs or organized social groups?: no Panel score (0-1 are the most socially isolated patients): 1 What type of physical activity do you participate in: none Caroline/Yarsani: Judaism Special caroline needs: No Seatbelt use: always Drive intox or ride w/intox school bus driver/teacher assistant: No Do you feel safe at home: Yes Do you feel safe in your relationship?: Yes Meds Allergies and Home Medications Allergies Allergy/AdvReac Type Severity Reaction Status Date / Time cyanocobalamin (vitamin B12) AdvReac Intermediate heart Verified 09/03/24 10:01 racing caffeine AdvReac heart Verified 09/03/24 10:01 races, feels shaky Home Medications ?Medication ?Instructions ?Recorded ?Confirmed ?Type acetaminophen 325 mg capsule 325 mg PO BID PRN 06/08/19 09/14/24 History ferrous sulfate 250 mg (50 mg 250 mg PO DAILY #30 tabs 03/12/22 09/14/24 Rx iron) tablet,extended release (Slow Release Iron) metoprolol succinate 25 mg 25 mg PO DAILY #90 tabs 03/12/22 09/14/24 Rx tablet,extended release 24 hr pantoprazole 40 mg tablet,delayed 40 mg PO BID #180 tabs 03/12/22 09/14/24 Rx release (Protonix) sertraline 25 mg tablet 25 mg PO DAILY #90 tab-caps 03/12/22 09/14/24 Rx apixaban 5 mg tablet 5 mg PO BID #180 tabs 04/17/22 09/14/24 Rx potassium chloride 20 mEq oral 20 meq PO BID #50 ea 12/05/22 09/14/24 Rx packet psyllium husk 3.4 gram/5.8 gram 1 pwd PO BID #1,040 grams 12/05/22 09/14/24 Rx oral powder (Metamucil Sugar-Free (aspartame)) spironolactone 25 mg tablet 25 mg PO DAILY #30 tabs 12/05/22 09/14/24 Rx nystatin 100,000 unit/gram topical 1 applic topical DAILY #60 grams 01/29/23 09/14/24 Rx powder nystatin 100,000 unit/gram topical 1 applic topical DAILY PRN yeast 03/04/23 09/14/24 Rx ointment #30 grams cholecalciferol (vitamin D3) 50 6,000 unit PO .COMPLEX #90 caps 04/24/24 09/14/24 Rx mcg (2,000 unit) capsule letrozole 2.5 mg tablet See Rx Instructions .Route 04/29/24 09/14/24 Rx .COMPLEX #30 tabs magnesium hydroxide 400 mg/5 mL 30 ml PO DAILY PRN 08/18/24 09/14/24 History oral suspension (Milk of Magnesia) polyethylene glycol 3350 17 17 g PO DAILY PRN 08/18/24 09/14/24 History gram/dose oral powder (ClearLax) prednisone 20 mg tablet 40 mg (2 x 20 mg) PO ONCE #10 tabs 09/03/24 09/14/24 Rx tamoxifen 20 mg tablet 20 mg PO DAILY 09/03/24 09/14/24 History duloxetine 20 mg capsule,delayed 20 mg PO DAILY 09/14/24 09/14/24 History release gabapentin 300 mg capsule 300 mg PO TID 09/14/24 09/14/24 History Exam Narrative Exam Narrative: Obese appearing 88-year-old female patient in bed with no acute distress clear lungs bilaterally, S1-S2 irregular positive pulses to all 4 extremity abdomen is large, nondistended, soft, nontender, patent colostomy in place, no bladder distention?catheter placed in the ED in place, physical to move all 4 extremities in the bed without increased discomfort Results Labs 09/14/24 10:38 Labs: Laboratory Results - last 24 hr 09/14/24 10:38 Sodium 126 L Potassium 4.9 Chloride 92 L Carbon Dioxide 30.8 Anion Gap 3.2 BUN 15 Creatinine 1.1 H Est GFR (CKD-EPI 2020) 48.94 Glucose 93 Calcium 9.4 Magnesium 1.9 Last Vital Signs Temp 36.4 C 09/14/24 10:00 Pulse 64 09/14/24 10:00 Resp 14 09/14/24 10:02 BP 107/67 09/14/24 10:00 Pulse Ox 95 09/14/24 10:00 Time Spent Time spent with Patient: >75 minutes Time was spent: preparing to see the patient(eg.review tests), obtaining and/or reviewing separately otained hiistory, ordering medications,tests, procedures, referring, communicating with other health healthcare business analyst, indepentently interpreting results, counseling the patient and care coordination
[2024-09-14 16:24] LABS: Bilirubin Negative (Negative); Blood Negative (Negative); Clarity Clear (Clear); Glucose Negative (Negative); Ketones Negative (Negative); Leukocyte Esterase Negative (Negative); Nitrite Negative (Negative); Specific Gravity 1.015 (1.005-1.025); Urobilinogen 0.2 mg/dL (Up to 0.2)
--- NOTE | 2024-09-14 16:30 | W.PC.ACHO ---
Registration Status: Primary Language: Preferred Language: ED Information & Data Chief Complaint GenMedical 09/14/24 10:37 Triage Note patient presented to the ER 09/14/24 09:56 via [place] with history of left hip/leg pain for the past 2 weeks. Progressively gotten worst and now is unable to weight bear Medical / Surgical History (Last Reviewed 09/14/24 @ 10:36 by Chelita Ramirez NP) Colostomy and enterostomy malfunction Open abdominal wall wound Wound dehiscence, surgical Protein calorie malnutrition Breast lump History of tobacco use Family hx-breast malignancy (03/03/12) Family history of GI malignancy (03/03/12) Hemorrhoids GERD (gastroesophageal reflux disease) Anemia Essential hypertension (Last Reviewed 09/14/24 @ 10:36 by Chelita Ramirez NP) Status post breast biopsy EGD - MAC (08/16/17) Colonoscopy - MAC (08/16/17) Cholecystectomy (~1980) Biopsy of breast (~1989) Most Recent Vital Signs Temperature 36.4 C 09/14/24 10:00 Temperature Source Oral 09/14/24 10:00 Pulse 64 09/14/24 10:00 Respiratory Rate 14 09/14/24 10:02 Respiratory Effort Normal, Non-Labored 09/14/24 10:02 Respiratory Depth Normal 09/14/24 10:02 Respiratory Pattern Normal 09/14/24 10:02 Blood Pressure 107/67 09/14/24 10:00 Blood Pressure Position Sitting 09/14/24 10:00 Pulse Oximetry 95 09/14/24 10:00 Oxygen Delivery Method Room Air 09/14/24 10:00 Oxygen Flow Rate 0 09/14/24 09:56 Pain Level 10 09/14/24 14:56 Allergies cyanocobalamin (vitamin B12) Adverse Reaction (Intermediate, Verified 09/03/24 10:01) heart racing caffeine Adverse Reaction (Verified 09/03/24 10:01) heart races, feels shaky heart races, shakey, weak Diagnostics 09/14/24 09/14/24 Range/Units 16:17 10:38 Sodium 126 L (136-145) mmol/L Potassium 4.9 (3.5-5.1) mmol/L Chloride 92 L (98-107) mmol/L Carbon Dioxide 30.8 (21.0-32.0) mmol/L Anion Gap 3.2 (3-11) mmol/L BUN 15 (7-18) mg/dL Creatinine 1.1 H (0.55-1.02) mg/dL Est GFR (CKD-EPI 2020) 48.94 (mL/min/1.73m2) Glucose 93 (74-106) mg/dL Calcium 9.4 (8.5-10.1) mg/dL Magnesium 1.9 (1.8-2.4) mg/dL Urine Color Pending Urine Clarity Pending Urine pH Pending Ur Specific Nora Pending Urine Protein Pending Urine Ketones Pending Urine Blood Pending Urine Nitrite Pending Urine Bilirubin Pending Urine Urobilinogen Pending Ur Leukocyte Esterase Pending Urine Glucose Pending Intake and Output - 24 Hour Total 09/14/24 09:46 thru 09/14/24 16:20 Output Total 500 Balance -500 Weight 39.2 kg Output: Urine 500 Other: Urine Color Pale Yellow Urine Appearance Clear Falls Risk Assessment History of Falls No History 09/14/24 10:01 Contributing Factors No Factors 09/14/24 10:01 Ambulatory Aids Uses ambulatory device 09/14/24 10:01 Tubes/Lines None 09/14/24 10:01 Gait Evaluation No gait disturbance 09/14/24 10:01 Cognition No cognitive impairment 09/14/24 10:01 Fall Total Score 15 09/14/24 10:01 Level of Risk Standard/Low Risk 09/14/24 10:01 Problems (Last Reviewed 09/14/24 @ 10:36 by Chelita Ramirez NP) Acute pain of left hip (Acute) Abdominal pain of unknown etiology (Acute) v v v v v v v v v Sending and/or Receiving Nurses: Please use comment section below to note any information pertinent to the patient hand-off not included above. Information / Comments: Report received from:shai
[2024-09-14] MEDS: HYDROmorphone 2 MG/ML SYR 0.5 MG IVP (19:42)
[2024-09-14] MEDS: Psyllium PKT 1 EACH PO (19:43)
[2024-09-14] MEDS: Pantoprazole 40 MG TABCR PO (19:43)
[2024-09-14] MEDS: Gabapentin 300 MG CAP PO (19:43)
[2024-09-14] MEDS: Docusate Sodium 100 MG CAP PO (19:43)
[2024-09-14] MEDS: Apixaban 5 MG TAB PO (19:43)
[2024-09-14] MEDS: Lactated Ringers 1,000 ML 50 ML IV (19:44)
[2024-09-15] MEDS: Psyllium PKT 1 EACH PO ×2 (07:32→19:36)
[2024-09-15] MEDS: Pantoprazole 40 MG TABCR PO ×2 (07:32→19:38)
[2024-09-15] MEDS: Apixaban 5 MG TAB PO ×2 (07:32→19:37)
[2024-09-15] MEDS: Docusate Sodium 100 MG CAP PO ×3 (07:32→19:38)
[2024-09-15] MEDS: Gabapentin 300 MG CAP PO ×3 (07:32→19:38)
[2024-09-15] MEDS: Metoprolol CR 25 MG TABCR PO (07:37)
[2024-09-15] MEDS: Cholecalciferol (Vitamin D3) 1,000 UNIT TAB 6000 UNITS PO (07:37)
[2024-09-15] MEDS: DULoxetine 20 MG CAP PO (07:37)
[2024-09-15 07:41] VITALS: BP 103/58; PULSE 89; RESP 16; TEMP 36.7; O2SAT 94
--- NOTE | 2024-09-15 09:53 | INITIAL_ITS ---
Date of service: 09/15/24 Time of Service: 09:53 Care Management Initial Assmt Initial Assessment Reason for Hospitalization: Intractable left hip pain Functional Status/Living Situation Patient Presentation: Kaila was sitting up in bed when CM met with her. She reported that she is doing well today; she stated that her pain is better controlled and she was able to get up out of bed with PT, which is an improvement from yesterday. CM spoke with PT, who agreed that Kaila is already making good progress. Kaila reported that she has been living at [facility] since Feb 2023, and she enjoys it there. She stated that she has three daughters who are very supportive, six grandchildren and fourteen great grandchildren. CM discussed discharge planning considerations, including the possibility that short term rehab is recommended prior to returning to the [facility]. Kaila stated that she would prefer to directly return to , but that she would consider SNF as a back up option. She agreed to referrals for [facility] for [facility] and the [facility], which were sent. If her mobility improves by the time she is medically stable for discharge, she will likely return to [facility]. CM will continue to follow. Town of Residence: [facility] Resides with: Other ([facility]) Significant Other/Family: Local Natural Supports: Daughters Lesvia, Quyen and Mitzi- local and supportive Employment Status: Retired Instrumental Activities of Daily Living (ADLs): Independent Medications Medication Management: No Issues/Barriers identified Physical Functioning/Mobility Assistive Device: FWW Advance Directives Advance Directives: Do you have an Advance Directive: Y 12/23/18 16:43 AD On File at [facility]: Y 12/23/18 16:43 Date Asked 04/15/24 04/15/24 17:21 AD Date Reviewed 09/14/24 09/14/24 17:16 COLST On File at [facility] Yes 08/18/24 13:40 COLST Date Scanned 01/19/19 08/18/24 13:40 Code Status Resuscitation Status DNR/DNI Insurance Coverage/Financial Issues Insurance: [facility] Care Team Visit Care Team Role Provider Type Nette Reynolds APRN MD [facility] STAFF PHYSICIAN Bhavna Pearce Primary Care Provider ADV PRACTICE REGISTERED NURSE Feliz Moody Other Providers OTHER Chelita Ramirez NP Emergency Provider NURSE PRACTITIONER Alexis Jacobs Admit Provider [facility] STAFF PHYSICIAN Attending Provider Discharge Potential Discharge Needs: PCP F/U Appt Anticipated Barriers to Discharge: None Identified Patient/Family Education Needs: Review discharge instructions, discuss Ask Me Three Transportation: Private vehicle Plan: Kaila will likely return to the [facility], if she is able to ambulate independently prior to discharge. SNF referrals were sent to [facility] and [facility], in the event that she would benefit from additional rehab prior to returning to . She will transport via private vehicle by family. She will follow up with her PCP and discharge plan of care. CM will continue to follow. Social Determinants of Health Screening Social Determinants of health last assessed in clinic: 09/15/24 Will the Patient Participate in the Screening?: Yes Do you worry about having a steady place to live?: no Problems where you live: no known problems In the past 12 months, have you had to go without electric, gas, oil or water in your home?: no 1. Within the past 12 months, we worried whether our food would run out before we got money to buy more.: Never true 2. Within the past 12 months, the food we bought just didn't last and we didn't have money to get more.: Never true Has lack of transportation kept you from medical appointments or from doing things needed for daily living?: no Has anyone in your life made you feel unsafe or unsupported?: no How hard is it for you to pay for the very basics like food, housing, medical care, and heating? Would you say it is:: Not hard at all Do you want help finding or keeping work or a job?: I do not need or want help If for any reason you need help with day-to-day activities such as bathing, preparing meals, shopping, managing finances, etc., do you get the help you need?: I don?t need any help How often do you feel lonely or isolated from those around you?: Never Do you speak a language other than Ukrainian at home?: No PFSH All Active Problems (Updated 09/14/24 @ 19:22 by Nette Reynolds APRN) Depression (Chronic) Atrial fibrillation (Chronic) Hyponatremia (Acute) Acute hyperkalemia (Acute) Acute pain of left hip (Acute) Abdominal pain of unknown etiology (Acute) Leukocytosis (Acute) Hyperbilirubinemia (Acute) Elevated LFTs (Acute) Vitamin D deficiency (Acute) Ventral hernia (Acute) Ventral hernia with bowel obstruction (Acute) Use of letrozole (Femara) (Acute) Osteoporosis (Chronic) Aromatase inhibitor use (Acute) Peristomal dermatitis associated with moisture (Acute) Diverticular stricture (Acute) Breast cancer greater than or equal to 2 cm in greatest dimension (Acute) Patient does not want any surgery or chemotherapy. 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; knees Vitamin B12 deficiency (Chronic) Advanced directives, counseling/discussion (Chronic) Hiatal hernia (Chronic) Atrial fibrillation by electrocardiogram (Chronic 08/06/17) By EKG 07/25/17 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) Medical History Colostomy and enterostomy malfunction Open abdominal wall wound Wound dehiscence, surgical Protein calorie malnutrition Breast lump History of tobacco use Family hx-breast malignancy (03/03/12) Family history of GI malignancy (03/03/12) Hemorrhoids GERD (gastroesophageal reflux disease) Anemia Essential hypertension Surgical History Status post breast biopsy EGD - MAC (08/16/17) Colonoscopy - MAC (08/16/17) Cholecystectomy (~1980) Biopsy of breast (~1989) LEFT Family History Mother Diabetes Father Neoplasm COLON Brother Stroke Grandfather Heart disease Grandfather No problems noted. Grandmother Neoplasm BREAST/LIVER Grandmother No problems noted. MATERNAL AUNT Neoplasm BREAST Other Family history of GI malignancy Family hx-breast malignancy Social History Smoking/Tobacco Use Status: Former Tobacco Use tobacco type: cigarettes Quit Date: 04/08/59 Second Hand Exposure: Yes Smoking risk assessment performed?: Yes Alcohol Intake: never Drug use: Never Substance use type: does not use Household members: none Housing: assisted living facility Do you need help understanding health information?: Never Pets and animals: No Sexually active: No Do you think of yourself as: straight/heterosexual Current gender identity: female What is your relationship status?: How often do you talk on the phone with friends or family?: three or more times per week How often do you get together with friends or relatives?: once per week How often do you attend moravian or orthodox services?: decline to answer Do you belong to any clubs or organized social groups?: no Panel score (0-1 are the most socially isolated patients): 1 What type of physical activity do you participate in: none Caroline/Lutheran: Restorationist Special caroline needs: No Seatbelt use: always Drive intox or ride w/intox hyster driver: No Do you feel safe at home: Yes Do you feel safe in your relationship?: Yes
[2024-09-15] MEDS: Nystatin POWDER 15 GM JAR TP (10:26)
[2024-09-15] MEDS: Lactated Ringers 1,000 ML 50 ML IV (13:41)
--- NOTE | 2024-09-15 14:35 | PGE_ITS ---
Date of Service Date of service: 09/15/24 Time of Service: 14:36 Assessment and Plan Assessment and plan (1) Acute pain of left hip: Status: Acute Assessment and plan: Imaging negative for fractures or acute injury Stool collection noticed below colostomy - ( phantom pouch) Enema given and somewhat effective Pain management with schedule acetaminophen, as needed low-dose hydromorphone initially - transitioning to oral ultram Physical therapy consult ongoing (2) Hyponatremia: Status: Acute Assessment and plan: continue fluid restriction Despite slow IV hydration overnight - Na 126 Cl 92- will intiate NS at 100 cc/hr last LVEF 55-60% in 2019 Labs in a.m. (3) Essential hypertension: Status: Chronic Assessment and plan: Continue home meds (4) Hyperlipidemia: Status: Resolved Assessment and plan: Not on statin- last lipid panel in 2019 (5) Gastroesophageal reflux disease: Status: Chronic Assessment and plan: On home dose PPI (6) Depression: Status: Chronic Assessment and plan: Continue home medicine regimen- only on sertraline (7) Atrial fibrillation: Status: Chronic Assessment and plan: This is a chronic condition?continue home dose beta-nena and Eliquis Discussed with Dr. Zepeda Subjective Subjective Patient reports: feels better, tolerating liquids well, tolerating a regular diet, voiding w/o difficulty and bowel movement (colostomy is patent - stool still oozing from ( distal bowel phantom pouch ) s/p enema in the ED ); denies diarrhea, nausea, vomiting, shortness of breath or fever Exam Narrative Exam Narrative: Obese appearing 88-year-old female patient in bed with no acute distress clear lungs bilaterally, S1-S2 irregular , abdomen is large, nondistended, soft, nontender, patent colostomy in place, no bladder distention?Move all 4 extremities in the bed without increased discomfort , less c/o pain on ambulation Objective Last Vital Signs Temp 36.7 C 09/15/24 07:41 Pulse 89 09/15/24 07:41 Resp 16 09/15/24 07:41 BP 103/58 L 09/15/24 07:41 Pulse Ox 94 09/15/24 07:41 Laboratory Results - last 24 hr 09/14/24 16:17 Urine Color Yellow Urine Clarity Clear Urine pH 7.0 Ur Specific [place] 1.015 Urine Protein Negative Urine Ketones Negative Urine Blood Negative Urine Nitrite Negative Urine Bilirubin Negative Urine Urobilinogen 0.2 Ur Leukocyte Esterase Negative Urine Glucose Negative Time Spent with Patient Time Spent with Patient: >50 minutes Time was spent: preparing to see the patient(eg.review tests), obtaining and/or reviewing separately otained hiistory, ordering medications,tests, procedures, referring, communicating with other health patient care associate, indepentently interpreting results, counseling the patient and care coordination
[2024-09-15] MEDS: HYDROmorphone 2 MG/ML SYR 0.5 MG IVP (14:43)
--- NOTE | 2024-09-15 15:03 | PT.INTREAT ---
PT Notes Visit Reasons: Intractable left hip pain Physical Therapy Inpatient Treatment Note Date: 09/15/2024 Precautions: Fall. Standard. Ostomy in place. Activity as tolerated. Subjective:? Way less anxious about moving L LE. More motivated to get moving today. Daughters are so happy that she is able to do much more compared to yesterday. Objective:? General Observation: Colostomy in place. High BMI. Mental Status: Alert and oriented x 4 Pain: Moderate to severe pain with high anxiety level Bed Mobility/Transfers: Moderate cueing provided for use of B hands as needed for support, movement sequence, AD management, and posture to reduce fall risk and minimize pain report Supine to sit: stand by assist with HOB at 30 degrees Sit to stand: contact guard assist with FWW Stand to sit: contact guard assist with FWW Gait:? In the morning, was able to take 3 steps forward and 3 steps back using the FWW with no report of increased pain in the L hip or L gluteal area. Stand by assist of 2 for safety. In the afternoon with pre-medication for hydromorphone, patient was able to walk a total of 40 feet with FWW with stand by assist only and wheelchair follow with again no report of increased pain through L hip/gluteal area. Balance:? Static Sitting: Good Dynamic Sitting: Fair Static Standing: Fair Dynamic Standing: Fair THERA EX: Direct one-on-one guidance with correct execution and technique doing bed level exercises to gently activate low back and gluteal muscles: Gluteal sets 5 sh x 10 Bridging x 5, 2 sets Alternate knee to chest x 10, R side limited up to 90 degrees of flexion only Pelvic rock x 10 Assessment: Patient has responded well to pain management with hydromorphone which has allowed better tolerance and performance with transfers and short distance ambulation today. Anxiety remains to minimally limit her ability to move unlike yesterday when patient was highly favoring the L LE. Bending the R hip past 90 degrees continue to aggravate piriformis syndrome on L. Patient was able to tolerate exercises to relax low back and B hip muscles. Able to walk up to 40 feet inside her room and would have been able to walk farther had it not been for her anxiety. Able to roll from side to side now without undue pain. Plan of Care/Treatment Plan: 1-2x/day, 7 days/week x1 week. Continue to progress mobility level and address piriformis syndrome to regain prior mobility level using FWW Discharge Plan DISCHARGE RECOMMENDATIONS: Home with Home Health PT TREATMENT CODE/TIME: Session 1--41799 x 38 minutes for 3 units (08:18-08:29 and 11:38-12:05). Session 2--74902 x 23 minutes for 2 units (15;03-15:26).
[2024-09-15] MEDS: Acetaminophen 500 MG TAB 1000 MG PO (15:17)
[2024-09-15] MEDS: Normal Saline 1,000 ML 100 ML IV (15:17)
[2024-09-15 19:33] VITALS: BP 108/54; PULSE 86; RESP 18; TEMP 36.6; O2SAT 95
[2024-09-16] MEDS: Normal Saline 1,000 ML 100 ML IV (00:57)
[2024-09-16 07:32] VITALS: BP 100/58; PULSE 82; RESP 16; TEMP 36.7; O2SAT 94
[2024-09-16] MEDS: Spironolactone 25 MG TAB PO (07:55)
[2024-09-16] MEDS: Gabapentin 300 MG CAP PO ×3 (07:56→20:07)
[2024-09-16] MEDS: Metoprolol CR 25 MG TABCR PO (07:56)
[2024-09-16] MEDS: Apixaban 5 MG TAB PO ×2 (07:56→20:06)
[2024-09-16] MEDS: Sertraline 25 MG TAB PO (07:56)
[2024-09-16] MEDS: Pantoprazole 40 MG TABCR PO ×2 (07:56→20:06)
[2024-09-16] MEDS: Acetaminophen 500 MG TAB 1000 MG PO ×3 (07:56→23:41)
[2024-09-16] MEDS: Docusate Sodium 100 MG CAP PO ×3 (07:57→20:06)
[2024-09-16] MEDS: Psyllium PKT 1 EACH PO ×2 (07:58→20:06)
--- NOTE | 2024-09-16 11:38 | PT.INTREAT ---
PT Notes Visit Reasons: Intractable left hip pain Physical Therapy Inpatient Treatment Note Date: 09/16/2024 Precautions: Fall. Standard. Ostomy in place. Activity as tolerated. Subjective:? Perkier and more motivated to get moving today. Excited about how much she is able to do as of today. Pain in L hip diminishing. Objective:? General Observation: Colostomy in place. High BMI. Mental Status: Alert and oriented x 4 Pain: Minimal pain with decreasing anxiety level Bed Mobility/Transfers: Moderate cueing provided for use of B hands as needed for support, movement sequence, AD management, and posture to reduce fall risk and minimize pain report Supine to sit: stand by assist with HOB at 30 degrees Sit to stand: stand by assist with FWW Stand to sit: stand by assist with FWW Gait:? Tolerated up to about 80 feet of level surface ambulation using front-wheeled walker with increased gait speed and no report of pain with weight bearing. She did complain of fatigue and asked to walk back to her room after she reached the nurses's station. Balance:? Static Sitting: Good Dynamic Sitting: Fair Static Standing: Fair Dynamic Standing: Fair THERA EX: Direct one-on-one guidance with correct execution and technique doing bed level exercises to gently activate low back and gluteal muscles: Gluteal sets 5 sh x 10 Quads sets x 10 Heel slides x 10 Assessment: Patient continues to responded well to pain management with hydromorphone which has allowed better tolerance and performance with transfers and short distance ambulation today. Anxiety appears to be diminished today. Bending the R hip past 90 degrees continue to aggravate piriformis syndrome on L. Patient was able to tolerate exercises to relax low back and B hip muscles. Able to walk up to 80 feet inside her room and would have been able to walk farther had it not been for her anxiety. Able to roll from side to side now without undue pain. Plan of Care/Treatment Plan: 1-2x/day, 7 days/week x1 week. Continue to progress mobility level and address piriformis syndrome to regain prior mobility level using FWW Discharge Plan DISCHARGE RECOMMENDATIONS: Home with Home Health PT TREATMENT CODE/TIME: 21899 x 17 minutes for 1 unit11:38-11:55).
--- NOTE | 2024-09-16 13:34 | CHAPLAIN ---
Kaila was up in the chair in her room. She was pleasant and engaged in a conversation. She's in touch with family. I explained my role and offered support.
--- NOTE | 2024-09-16 13:39 | CMPROGNOTE_ITS ---
Date of service: 09/16/24 Time of Service: 13:39 Care Management Progress Note Progress Note Text Progress Note Text: Kaila was sitting up in the bedside chair when CM met with her today. She was pleasant, but not overly talkative. She stated that she worked with PT today, and is feeling pretty good. She does not want to go to SNF if she can help it, she would really prefer to return to the [facility], and is open to having PT HH services. Kaila is reportedly moving about better. She is receiving Tylenol RTC, but has not required any PRN meds to day. Discharge Potential Discharge Needs: PCP F/U Appt Anticipated Barriers to Discharge: None Identified Patient/Family Education Needs: Review discharge instructions, discuss Ask Me Three Transportation: Private vehicle (with family) Plan: Anticipate that Kaila will return to the [facility] in the next day or 2. She will have new services of HH PT. Kaila will f/u with her PCP and continue per her plan of care. Kaila will transport via private vehicle with her daughter. CM will continue to follow. Social Determinants of Health Screening Social Determinants of health last assessed in clinic: 09/16/24 Will the Patient Participate in the Screening?: Yes Do you worry about having a steady place to live?: no Problems where you live: no known problems In the past 12 months, have you had to go without electric, gas, oil or water in your home?: no 1. Within the past 12 months, we worried whether our food would run out before we got money to buy more.: Never true 2. Within the past 12 months, the food we bought just didn't last and we didn't have money to get more.: Never true Has lack of transportation kept you from medical appointments or from doing things needed for daily living?: no Has anyone in your life made you feel unsafe or unsupported?: no How hard is it for you to pay for the very basics like food, housing, medical care, and heating? Would you say it is:: Not hard at all Do you want help finding or keeping work or a job?: I do not need or want help If for any reason you need help with day-to-day activities such as bathing, preparing meals, shopping, managing finances, etc., do you get the help you need?: I don?t need any help How often do you feel lonely or isolated from those around you?: Never Do you speak a language other than Vietnamese at home?: No Anticipated HH Services Anticipated HH Services at Discharge [facility] Needed, PT Following Provider: Bhavna Pearce.
--- NOTE | 2024-09-16 15:11 | PT.INTREAT ---
PT Notes Visit Reasons: Intractable left hip pain Date: 09/16/2024 Precautions: Fall. Standard. Osteomy in place. Activity as tolerated. Subjective:?Pt reports she is waiting for her 2Pm pain meds so she would like to postpone her session to around 3pm, pt re approached at 3pm and was ready for PT session. Objective:? General Observation: Colostomy in place. High BMI. Pain: hip pain @ 6/10 pre meds, 4-5/10 post meds Bed Mobility/Transfers: Sit to supine: stand by assist with HOB at 30 degrees Sit to stand: contact guard assist with FWW Stand to sit: contact guard assist with FWW Gait:? 100' with FWW, CGA with pt reporting she would not like to take rest break to avoid sitting and having to stand again Assessment: pt tolerated activity well, pt reports it would have been much better if she waited longer to allow for the meds to take better effect but all in all was very happy with the way she participated with her gait training as well as transfers going back in bed with pt not requiring this therapist to assist with BLE elevation to get situated in bed. Plan of Care/Treatment Plan: 1-2x/day, 7 days/week x1 week. Continue to progress mobility level and address piriformis syndrome to regain prior mobility level using FWW Discharge Plan DISCHARGE RECOMMENDATIONS: Home with Home Health PT TREATMENT CODE/TIME: [id number] 15mins (3:00-3:15pm)
--- NOTE | 2024-09-16 16:00 | W.PM.PROGNOT ---
Date of Service Date of service: 09/16/24 Time of Service: 16:00 Assessment and Plan Assessment and plan (1) Acute pain of left hip: Status: Acute Assessment and plan: Imaging negative for fractures or acute injury Pain management with schedule acetaminophen, oral ultram and adjusting dosing PRN Continue physical therapy consult ongoing --progressing with ambulation with less pain - d/c back to [facility] if pain is controlled on Saturday CT imaging from 09/03 showed rectum dilation at 8.7 cm, not able to assess for fistula Stool collection noticed below colostomy - ( phantom pouch) Enema given in the ED was somewhat effective resulting on ongoing oozing of stool surgical consultation considered but s/p discussion with Dr Wyman, determination made that no completed colectomy made and that fecal material slowly accumulated distal to colostomy -Will disimpact and soap suds enema - Daily glycerin suppository (2) Hyponatremia: Status: Acute Assessment and plan: continue fluid restriction Na stable at 131 from 126 IVF discontinue Cr 1.5 max - now 1.0 Urine Na low- might have been diuretic induced coupled with GI loss s/p fleet enema BMP in AM (3) Abnormal finding on urinalysis: Status: Acute Assessment and plan: UA with nitrate and leuk est Will start ceftriaxone Urine Cx pending (4) Essential hypertension: Status: Chronic Assessment and plan: Ongoing home meds aldactone on old d/t Na 126 - will resume (5) Hyperlipidemia: Status: Resolved Assessment and plan: Not on statin- last lipid panel in 2019 (6) Gastroesophageal reflux disease: Status: Chronic Assessment and plan: home dose PPI (7) Depression: Status: Chronic Assessment and plan: home sertraline (8) Atrial fibrillation: Status: Chronic Assessment and plan: On home dose beta-nena and Eliquis (9) Discharge planning issues: Status: Acute Assessment and plan: From [facility] , unable to ambulate independently d/t pain to LLE when standing w/o acute osseous findings in the pelvis-hips as per imaging Referrals sent by CM but most likely to discharge on 09/18/24 to [facility], with nursing and new PT via Discussed with Dr. Zepeda Subjective Subjective Patient reports: feels better, tolerating liquids well, tolerating a regular diet, voiding w/o difficulty and bowel movement (colostomy is patent - stool still oozing from ( distal bowel phantom pouch ) s/p enema in the ED ); denies diarrhea, nausea, vomiting, shortness of breath or fever Exam Narrative Exam Narrative: Obese appearing 88-year-old female patient in bed with no acute distress clear lungs bilaterally, S1-S2 irregular , abdomen is large, nondistended, soft, nontender, patent colostomy in place, rectal exam completed and negative for mass, reduced sphincter tone, no hematochezia, no melena but positive for extensive stool collection in dilated rectal vault- no tenesmus. No bladder distention?Move all 4 extremities in the bed without increased discomfort , imrpoving pain on ambulation will try longer walk this PM Objective Last Vital Signs Temp 36.7 C 09/16/24 07:32 Pulse 82 09/16/24 07:32 Resp 16 09/16/24 07:32 BP 100/58 L 09/16/24 07:32 Pulse Ox 94 09/16/24 07:32 Time Spent with Patient Time Spent with Patient: >50 minutes Time was spent: preparing to see the patient(eg.review tests), obtaining and/or reviewing separately otained hiistory, ordering medications,tests, procedures, referring, communicating with other health career placement specialist, indepentently interpreting results, counseling the patient and care coordination
[2024-09-16 16:58] LABS: Anion Gap 6.2 mmol/L (3-11); BUN 28 mg/dL (7-18); CO2 27.8 mmol/L (21.0-32.0); CREATININE 1.5 mg/dL (0.55-1.02); Calcium 8.2 mg/dL (8.5-10.1); Chloride 97 mmol/L (98-107); Estimated GFR 33.73 (mL/min/1.73m2); Glucose 105 mg/dL (74-106); Sodium 131 mmol/L (136-145)
[2024-09-16] MEDS: traMADol 50 MG TAB PO (17:22)
[2024-09-16 19:18] VITALS: BP 94/70; PULSE 62; RESP 20; TEMP 36.8; O2SAT 94
[2024-09-16] MEDS: Normal Saline Flush 10 ML SYR IVP (20:07)
[2024-09-16] MEDS: traMADol 50 MG TAB 25 MG PO (23:41)
[2024-09-16 23:51] LABS: Bilirubin Negative (Negative); Blood Trace-intact (Negative); Clarity Clear (Clear); Glucose Negative (Negative); Ketones Negative (Negative); Leukocyte Esterase Small (Negative); Nitrite Positive (Negative); Specific Gravity 1.015 (1.005-1.025); Urobilinogen 0.2 mg/dL (Up to 0.2); pH 5.5 (5-8)
[2024-09-16 23:57] LABS: Sodium, Urine 6 mmol/L
[2024-09-17 00:02] LABS: Bacteria Moderate HPF (Negative); C & S Indicated? Yes; Casts Negative LPF (Negative); Crystals Negative HPF (Negative); Epithelial Cells Few HPF (Negative); Mucus Trace (Negative); Other Cells Rare Renal (Negative); RBC 0-2 HPF (0-2); WBC 20-50 HPF (0-5)
[2024-09-17 06:19] LABS: Abs Immature Grans 0.06 10^3/uL (0.0-0.06); Absolute Basophil Count 0.05 10^3/uL (0.0-0.2); Absolute Lymphocyte Count 0.73 10^3/uL (1.2-3.4); Basophils % 0.4 %; Eosinophils % 1.4 %; HCT 29.9 % (36.0-46.0); HGB 9.5 g/dL (11.2-15.7); Immature Grans % 0.5 %; Lymphocytes % 6.2 %; MCH 30.7 pg (27.0-33.0); MCHC 31.8 % (32.0-36.0); MCV 97 fL (80-95); MPV 9.7 fL (8.0-11.0); Neutrophils % 82.5 %; Platelet Count 289 10^3/uL (130-400); RBC 3.09 10^6/uL (3.93-5.22); RDW 13.2 % (11.7-14.6); RDW-SD 47.5 fL; WBC 11.73 10^3/uL (4.4-10.8)
[2024-09-17 06:40] LABS: Anion Gap 5.5 mmol/L (3-11); BUN 27 mg/dL (7-18); CO2 27.5 mmol/L (21.0-32.0); Calcium 8.9 mg/dL (8.5-10.1); Chloride 98 mmol/L (98-107); Estimated GFR 54.87 (mL/min/1.73m2); Glucose 95 mg/dL (74-106); Sodium 131 mmol/L (136-145)
[2024-09-17 07:06] LABS: Absolute Eosinophil Count 0.16 10^3/uL (0.0-0.7); Absolute Monocyte Count 1.06 10^3/uL (0.1-0.8); Absolute Neutrophil Count 9.68 10^3/uL (1.2-6.7)
[2024-09-17 07:31] VITALS: BP 109/51; PULSE 77; RESP 16; TEMP 36.1; O2SAT 99
[2024-09-17] MEDS: Psyllium PKT 1 EACH PO ×2 (08:10→21:20)
[2024-09-17] MEDS: Nystatin POWDER 15 GM JAR TP (08:10)
[2024-09-17] MEDS: traMADol 50 MG TAB 25 MG PO ×3 (08:10→21:21)
[2024-09-17] MEDS: Apixaban 5 MG TAB PO ×2 (08:11→21:22)
[2024-09-17] MEDS: Gabapentin 300 MG CAP PO ×3 (08:11→21:22)
[2024-09-17] MEDS: Pantoprazole 40 MG TABCR PO ×2 (08:11→21:22)
[2024-09-17] MEDS: Metoprolol CR 25 MG TABCR PO (08:11)
[2024-09-17] MEDS: Acetaminophen 500 MG TAB 1000 MG PO ×3 (08:11→21:22)
[2024-09-17] MEDS: Docusate Sodium 100 MG CAP PO ×3 (08:11→21:22)
[2024-09-17] MEDS: Sertraline 25 MG TAB PO (08:11)
--- NOTE | 2024-09-17 10:58 | PT.INTREAT ---
PT Notes Visit Reasons: Intractable left hip pain Date: 09/17/2024 Precautions: Fall. Standard. Osteomy in place. Activity as tolerated. Subjective:?Pt reports she is feeling much better today. She states she uses a 4WW at home and would like to try it today in case she goes home. Pt reports current chair in her room is not comfortable so she has been staying in bed. (Pt provided with shorter height recliner which pt felt was more comfortable) Objective:? General Observation: Colostomy in place. High BMI. supine in bed with her daughter visiting Pain: hip pain @ 2/10 (am/pm)Bed Mobility/Transfers: supine to sit with HOB at 25 degrees: independent Sit to supine: stand by assist Sit to stand: stand by assist with FWW Stand to sit: stand by assist with FWW Gait:? 70' with 4WW, SBA with pt reporting she became incontinent of bowel. Pt demonstrates ability to manage her 4WW without LOB during ambulation. Pt demonstrates brake management with cues. (am/pm)- ambulation 30 feet x 2 with 4WW SBA Assessment: Tolerated progression to 4WW with no increase in need of assistance. Pt able to rise with SBA from 18 seat height of recliner. Pt noted significant reduction in pain in her left hip and ability to tolerate OOB to new chair. Pt's daughter present for session and very pleased and encouraged by her improvement. (pm)Pt noted increased fatigue in the pm after having enema. She had one episode of pain in her left hip while turning toward the left while amb with the 4WW. with cue to stop and stand still the pain resolved and she was able to continue walking. Plan of Care/Treatment Plan: 1-2x/day, 7 days/week x1 week. Continue per POC DISCHARGE RECOMMENDATIONS: Return to [facility] with Home Health PT TREATMENT CODE/TIME: [id number]/ [id number]/ [id number]
--- NOTE | 2024-09-17 11:56 | TELEP.MEDREC ---
Date of service: 09/17/24 Time of Service: 11:57 Telepharmacy Home Med Rec Allergies Allergies: cyanocobalamin (vitamin B12) Adverse Reaction (Intermediate, Verified 09/03/24 10:01) heart racing caffeine Adverse Reaction (Verified 09/03/24 10:01) heart races, feels shaky Interview Person Interviewed: NATASHA from [facility] Quality Quality of Interview/Accuracy of Medication List: Excellent Sources Sources used to compile medication list: My Best Interest Medication List, NATASHA and [employer] Changes made to Home Medication List: ADDITIONS: None DELETIONS: None CHANGES: None Additional Notes Additional Notes: Medications per [facility] Recommended Changes Recommended Changes(reason for recommendation): None Attestation: The home medication list is now updated to the best of my knowledge and is ready to be reconciled by the provider. Please contact the TelePharmacy Medication Reconciliation Pharmacist at for any questions.
--- NOTE | 2024-09-17 12:34 | CMPROGNOTE_ITS ---
Date of service: 09/17/24 Time of Service: 12:34 Care Management Progress Note Progress Note Text Progress Note Text: Kaila was sitting up in the bedside chair when CM met with her today. She was pleasant and remembered CM from yesterday. She had an enema earlier today, and was feeling a little tired. CM mentioned that she might discharge tomorrow, and Kaila was pleased with that. Kaila stated that one of her kids would drive her home. CM notified staff at the [facility] of likely discharge tomorrow. Discharge Potential Discharge Needs: PCP F/U Appt Anticipated Barriers to Discharge: None Identified Patient/Family Education Needs: Review discharge instructions, discuss Ask Me Three Transportation: Private vehicle (with family) Plan: Anticipate that Kaila will discharge back to the [facility], likely tomorrow. She will continue with her HH RN and add PT services. Kaila will f/u with her PCP and continue per her plan of care. CM will continue to follow. Social Determinants of Health Screening Social Determinants of health last assessed in clinic: 09/17/24 Will the Patient Participate in the Screening?: Yes Do you worry about having a steady place to live?: no Problems where you live: no known problems In the past 12 months, have you had to go without electric, gas, oil or water in your home?: no 1. Within the past 12 months, we worried whether our food would run out before we got money to buy more.: Never true 2. Within the past 12 months, the food we bought just didn't last and we didn't have money to get more.: Never true Has lack of transportation kept you from medical appointments or from doing things needed for daily living?: no Has anyone in your life made you feel unsafe or unsupported?: no How hard is it for you to pay for the very basics like food, housing, medical care, and heating? Would you say it is:: Not hard at all Do you want help finding or keeping work or a job?: I do not need or want help If for any reason you need help with day-to-day activities such as bathing, preparing meals, shopping, managing finances, etc., do you get the help you need?: I don?t need any help How often do you feel lonely or isolated from those around you?: Never Do you speak a language other than Azerbaijani at home?: No
[2024-09-17] MEDS: Normal Saline Flush 10 ML SYR IVP ×2 (14:06→21:23)
[2024-09-17] MEDS: cefTRIAXone 1 GM/50 ML BAG IVPB (14:06)
[2024-09-17 19:13] VITALS: BP 99/52; PULSE 77; RESP 18; TEMP 36.1; O2SAT 97
[2024-09-18] MEDS: traMADol 50 MG TAB 25 MG PO ×2 (06:45→11:14)
[2024-09-18] MEDS: Acetaminophen 500 MG TAB 1000 MG PO (06:47)
[2024-09-18] MEDS: Pantoprazole 40 MG TABCR PO (07:19)
[2024-09-18 07:24] VITALS: BP 117/63; PULSE 70; RESP 16; TEMP 35.9; O2SAT 97
[2024-09-18] MEDS: Docusate Sodium 100 MG CAP PO (08:09)
[2024-09-18] MEDS: Sertraline 25 MG TAB PO (08:09)
[2024-09-18] MEDS: Psyllium PKT 1 EACH PO (08:09)
[2024-09-18] MEDS: Metoprolol CR 25 MG TABCR PO (08:09)
[2024-09-18] MEDS: Gabapentin 300 MG CAP PO (08:09)
[2024-09-18] MEDS: Cholecalciferol (Vitamin D3) 1,000 UNIT TAB 6000 UNITS PO (08:09)
[2024-09-18] MEDS: Apixaban 5 MG TAB PO (08:09)
[2024-09-18] MEDS: cefTRIAXone 1 GM/50 ML BAG IVPB (11:13)
--- NOTE | 2024-09-18 11:20 | W.PM.DS.N ---
Date of service: 09/18/24 Time of Service: 11:21 DS: Diagnosis Discharge Diagnosis (1) Acute pain of left hip: Status: Acute (2) Hyponatremia: Status: Acute (3) Abnormal finding on urinalysis: Status: Acute (4) Essential hypertension: Status: Chronic (5) Hyperlipidemia: Status: Resolved (6) Gastroesophageal reflux disease: Status: Chronic (7) Depression: Status: Chronic (8) Atrial fibrillation: Status: Chronic (9) Discharge planning issues: Status: Acute Discharge Plan Disposition Patient Disposition: Home Condition: Improving Discharge Details Reason For Visit: Intractable left hip pain Admit Date/Time: 09/14/24 15:37 Admit Provider: Alexis Jacobs Attending Provider: Alexis Jacobs Primary Care Provider: Bhavna Pearce [facility] Course Hospital Course: This 88-year-old female patient with a history of colostomy,chronic T11 compression fracture. GERD, hemorrhoids diverticular stricture and bowel obstruction, ventral hernia, hiatal hernia, hypertension and hyperlipidemia who presented to the ED on 09/18/24 with c/o Left hip pain causing inability to ambulate at [facility] where she lives. Workup in the ED showed mild stable anemia, hyponatremia with sodium 126, minimally elevated Cr at 1.1; otherwise labs were unremarkable. No fracture or acute finding on imaging, but a large quantity fecal material and rectal vault dilation at 8.7 cm seen. The patient continued to have in the ED he was unable to ambulate with physical therapy despite administration of pain medicine. The patient was admitted to the medical surgical floor for ongoing pain management and physical therapy. An enema was administered in the ED without resolution of pain but ongoing fecal incontinence/loss observed. . Urine grew E.coli with initial treament with ceftriaxone, to be followed by one dose of oral Fosfomycin on 09/20/2023. Hyponatremia improved s/p IVF and fluid restriction with Na remaining at 131. Fecal disimpaction completed as per discussion with surgery; slow fecal material in the rectum accumulation most likely to continue.S/p discussion with PCP duloxetine ordered on 09/11/24 was not initiated outpatient; will discontinue sertraline and continue duloxetine. The patient ambulated with physical therapy and will be discharged to [facility] with home health PT. The patient was afebrile and hemodynamically stable at the time of discharge. Recommendation for PCP follow-up: Consider repeating renal panel, urine Na and UA Consider Celebrex trial in the setting of DOAC Evaluate need for orthopedic consult :Moderately severe osteoarthritis of the left knee Re-evaluate need for disimpaction and daily suppository need Discussed with Dr. Zepeda Home Meds and New Rx's Prescriptions: New acetaminophen 500 mg Tablet 1,000 mg PO TID Qty: 40 0RF tramadol 50 mg Tablet 25 mg PO Q6H PRN PRNQty: 30 0RF glycerin (adult) Suppository 1 supp MD DAILY PRNQty: 12 0RF fosfomycin tromethamine 3 gram packet 1 packet PO ONCE Qty: 1 0RF Rx Instructions: Give total dose on 09/19/2024 AM Continued apixaban 5 mg tablet 5 mg PO BID Qty: 180 3RF metoprolol succinate 25 mg tablet extended release 24 hr 25 mg PO DAILY Qty: 90 3RF pantoprazole [Protonix] 40 mg tablet,delayed release (DR/EC) 40 mg PO BID Qty: 180 4RF nystatin 100,000 unit/gram powder 1 applic topical DAILY Qty: 60 0RF Rx Instructions: w/ostomy change cholecalciferol (vitamin D3) 50 mcg (2,000 unit) capsule 6,000 unit PO .COMPLEX Qty: 90 11RF Patient Comments: takes tu and sat Rx Instructions: 6,000 units orally twice a week tamoxifen 20 mg tablet 20 mg PO DAILY@1200 spironolactone 25 mg Tablet 25 mg PO DAILY Qty: 30 0RF polyethylene glycol 3350 [ClearLax] 17 gram/dose powder 17 g PO DAILY duloxetine 20 mg capsule,delayed release(DR/EC) 20 mg PO DAILY Patient Comments: on med list from detention but has not gotten any doses? gabapentin 300 mg capsule 300 mg PO TID Patient Comments: just increased to TID today cyanocobalamin (vitamin B-12) 1,000 mcg/mL solution 1,000 mcg IM QMONTH Patient Comments: next dose due 10/02/24 sennosides [senna] 8.6 mg tablet 8.6 mg PO HS Metamucil Sugar-Free (aspart) 3.4 gram/5.8 gram Powder 1 pwd PO DAILY Rx Instructions: Take 1 tablespoon mixed with the liquid of your choice every morning Discontinued sertraline 25 mg tablet 25 mg PO DAILY Qty: 90 4RF acetaminophen 500 mg capsule 500 mg PO TID Discharge Instructions Referrals: Bhavna Pearce [Primary Care Provider, Medicine] Referral Note: Follow-up within 7 days of discharge please Activity:: Activity as Tolerated Equipment/Supplies:: Walker Diet:: heart healthy DS: Summary Time Spent with Patient providing and/or coordinating discharge services: Greater than 30 minutes Status at Discharge Functional status at discharge: uses cane/walker Overall status at discharge: patient is progressing back to baseline Mental Status: mental status grossly normal Speech and Movement: speech and movement normal Mood: congruent mood Affect: normal affect and sad Exam Narrative Exam Narrative: Obese appearing 88-year-old female patient in bed with no acute distress clear lungs bilaterally, S1-S2 irregular , abdomen is large, nondistended, soft, nontender, patent colostomy in place, No bladder distention?moves all 4 extremities. Psych Mental Status: mental status grossly normal Speech and Movement: speech and movement normal Mood: congruent mood Affect: normal affect and sad DS: Data Vitals/I&O Vitals and I&O: Vital Signs Temperature 35.9 C L 09/18/24 07:24 Temperature Source Temporal Artery Scan 09/18/24 07:24 Pulse 70 09/18/24 07:24 Pulse Rhythm Irregular 09/14/24 17:25 Respiratory Rate 16 09/18/24 07:24 Respiratory Effort Normal 09/14/24 17:25 Respiratory Depth Normal 09/14/24 17:25 Respiratory Pattern Normal 09/14/24 17:25 Blood Pressure 117/63 09/18/24 07:24 Blood Pressure Mean 81 09/18/24 07:24 Blood Pressure Position Sitting 09/14/24 10:00 Pulse Oximetry 97 09/18/24 07:24 Oxygen Delivery Method Room Air 09/18/24 07:24 Oxygen Flow Rate 0 09/18/24 07:24 Pain Level 6 09/18/24 08:22 Comment nurse notified 09/17/24 19:13 Intake & Output 09/17/24 09/17/24 09/18/24 11:59 23:59 11:59 Intake Total 300 / 970 670 / 970 480 / 480 Output Total 300 / 300 50 / 50 Balance 300 / 670 370 / 670 430 / 430 Intake: IV 60 / 60 Oral 300 / 910 610 / 910 480 / 480 Output: Stool 300 / 300 50 / 50 Other: Urine Color Yellow Yellow Urine Odor Normal Comment Pt reports voiding in toilet Pt reports voiding in toilet Pt dry at this time. Stool Size Smear Moderate Small Stool Characteristics Brown Soft Liquid Brown Brown Data Completed and Pending Labs on day of discharge: Preliminary micro results at discharge 09/16/24 23:35 Urine - Reflex from Ua Urine Culture - Preliminary Escherichia coli PFSH All Active Problems (Updated 09/18/24 @ 00:02 by INDRA CHOUDHARY) Abnormal finding on urinalysis (Acute) Discharge planning issues (Acute) Depression (Chronic) Atrial fibrillation (Chronic) Hyponatremia (Acute) Acute hyperkalemia (Acute) Acute pain of left hip (Acute) Vitamin D deficiency (Acute) Ventral hernia (Acute) Ventral hernia with bowel obstruction (Acute) Use of letrozole (Femara) (Acute) Osteoporosis (Chronic) Aromatase inhibitor use (Acute) Peristomal dermatitis associated with moisture (Acute) Diverticular stricture (Acute) Breast cancer greater than or equal to 2 cm in greatest dimension (Acute) Patient does not want any surgery or chemotherapy. 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; knees Vitamin B12 deficiency (Chronic) Advanced directives, counseling/discussion (Chronic) Hiatal hernia (Chronic) Atrial fibrillation by electrocardiogram (Chronic 08/06/17) By EKG 07/25/17 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) Medical History Colostomy and enterostomy malfunction Open abdominal wall wound Wound dehiscence, surgical Protein calorie malnutrition Breast lump History of tobacco use Family hx-breast malignancy (03/03/12) Family history of GI malignancy (03/03/12) Hemorrhoids GERD (gastroesophageal reflux disease) Anemia Essential hypertension Surgical History Status post breast biopsy EGD - MAC (08/16/17) Colonoscopy - MAC (08/16/17) Cholecystectomy (~1980) Biopsy of breast (~1989) LEFT Family History Mother Diabetes Father Neoplasm COLON Brother Stroke Grandfather Heart disease Grandfather No problems noted. Grandmother Neoplasm BREAST/LIVER Grandmother No problems noted. MATERNAL AUNT Neoplasm BREAST Other Family history of GI malignancy Family hx-breast malignancy Social History Smoking/Tobacco Use Status: Former Tobacco Use tobacco type: cigarettes Quit Date: 04/08/59 Second Hand Exposure: Yes Smoking risk assessment performed?: Yes Alcohol Intake: never Drug use: Never Substance use type: does not use Household members: none Housing: assisted living facility Do you need help understanding health information?: Never Pets and animals: No Sexually active: No Do you think of yourself as: straight/heterosexual Current gender identity: female What is your relationship status?: How often do you talk on the phone with friends or family?: three or more times per week How often do you get together with friends or relatives?: once per week How often do you attend moravian or advent services?: decline to answer Do you belong to any clubs or organized social groups?: no Panel score (0-1 are the most socially isolated patients): 1 What type of physical activity do you participate in: none Caroline/Pentecostal: Gnosticist Special caroline needs: No Seatbelt use: always Drive intox or ride w/intox double bottom driver: No Do you feel safe at home: Yes Do you feel safe in your relationship?: Yes Time Spent with Patient Time Spent with Patient: 70-84 minutes4 Time was spent: preparing to see the patient(eg.review tests), obtaining and/or reviewing separately otained hiistory, ordering medications,tests, procedures, referring, communicating with other health hourly caregiver, indepentently interpreting results, counseling the patient and care coordination
--- NOTE | 2024-09-18 11:53 | PT.INTREAT ---
PT Notes Visit Reasons: Intractable left hip pain Date: 09/18/2024 Precautions: Fall. Standard. colostomy in place. Activity as tolerated. Subjective:?Pt reports she is having more right knee pain and instability Objective:? General Observation: Colostomy in place. High BMI. supine in bed with her daughter visiting Pain: right knee and left hip 07/16 after Ultram. Bed Mobility/Transfers: supine to sit with HOB at 25 degrees: independent Sit to supine: stand by assist Sit to stand: stand by assist with FWW Stand to sit: from chair and toilet stand by assist with FWW cue to reach back ambulated 18 feet x 2 with 4WW with CGA (+) crepitus right knee and right knee instability /buckling noted. Assessment: Pt demonstrates instability of right knee this sessions this am. Pt noting increase discomfort despite ultram given priro to second session Plan of Care/Treatment Plan: 1-2x/day, 7 days/week x1 week. Continue per POC DISCHARGE RECOMMENDATIONS: Return to [facility] with Home Health PT TREATMENT CODE/TIME: [id number], [id number]
--- NOTE | 2024-09-18 12:48 | PDOC.HHF2F ---
Home Health Referral Home Health Orders Clinical synopsis of why skilled professionals are needed: This 88-year-old female patient with a history of colostomy,chronic T11 compression fracture. GERD, hemorrhoids diverticular stricture and bowel obstruction, ventral hernia, hiatal hernia, hypertension and hyperlipidemia who presented to the ED on 09/18/24 with c/o Left hip pain causing inability to ambulate at [facility] where she lives. Workup in the ED showed mild stable anemia, hyponatremia with sodium 126, minimally elevated Cr at 1.1; otherwise labs were unremarkable. No fracture or acute finding on imaging, but a large quantity fecal material and rectal vault dilation at 8.7 cm seen. The patient continued to have in the ED he was unable to ambulate with physical therapy despite administration of pain medicine. The patient was admitted to the medical surgical floor for ongoing pain management and physical therapy. An enema was administered in the ED without resolution of pain but ongoing fecal incontinence/loss observed. . Urine grew E.coli with initial treament with ceftriaxone, to be followed by one dose of oral Fosfomycin on 09/20/2023. Hyponatremia improved s/p IVF and fluid restriction with Na remaining at 131. Fecal disimpaction completed as per discussion with surgery; slow fecal material in the rectum accumulation most likely to continue.S/p discussion with PCP duloxetine ordered on 09/11/24 was not initiated outpatient; will discontinue sertraline and continue duloxetine. The patient ambulated with physical therapy and will be discharged to [facility] with home health PT. The patient was afebrile and hemodynamically stable at the time of discharge. Recommendation for PCP follow-up: Consider repeating renal panel, urine Na and UA Consider Celebrex trial in the setting of DOAC Evaluate need for orthopedic consult :Moderately severe osteoarthritis of the left knee Re-evaluate need for disimpaction and daily suppository need Discussed with Dr. Zepeda Physical Therapist: Check all that apply Increase strength & endurance for safe mobility at home: Ordered To design/establish home maintenance program: Ordered Fall reduction therapy program for patient with history of frequent falls: Ordered Home safety evaluation and teaching/gait training including stair management (if applicable): Ordered Encounter Date and Reason: I certify that a FTF encounter for this patient was performed on September 18, 2024 and that such encounter was related to the primary reason the patient requires home health services. The encounter was conducted in the following manner: By me as the certifying physician, CHILD ATTENDANT, PA or By an inpatient physician, CHILD ATTENDANT or PA during an inpatient stay who communicated findings to me, Certification And Authentication I certify that I composed the above information based on my clinical judgment relating to this patient's medical condition and, if applicable, clinical findings communicated to me by the NPP or inpatient physician who performed the FTF encounter. Name of Provider that will be monitoring home health services: Bhavna Pearce
--- NOTE | 2024-09-18 13:04 | PGE_ITS ---
Date of Service Date of service: 09/17/24 Time of Service: 13:05 Assessment and Plan Assessment and plan (1) Acute pain of left hip: Status: Acute Assessment and plan: Imaging negative for fractures or acute injury Pain management with schedule acetaminophen, oral ultram and adjusting dosing PRN Continue physical therapy consult ongoing --progressing with ambulation with less pain - d/c back to [facility] if pain is controlled on Saturday CT imaging from 09/03 showed rectum not able to assess for fistula Stool collection noticed below colostomy - ( phantom pouch) Enema given in the ED but ongoing stool retention As per discussion with surgery Dr Wyman, proceeded today to disimpaction s/p negative rectal exam , - Daily glycerin suppository and PCP f/u (2) Hyponatremia: Status: Acute Assessment and plan: continue fluid restriction Na stable at 131 from 126 IVF discontinue Cr 1.0 Urine Na low- might have been diuretic induced coupled with GI loss s/p fleet enema Outpatient f/u (3) Abnormal finding on urinalysis: Status: Acute Assessment and plan: UA with nitrate and leuk est On ceftriaxone Urine Cx pending (4) Essential hypertension: Status: Chronic Assessment and plan: Ongoing home meds aldactone on old d/t Na 126 - will resume (5) Hyperlipidemia: Status: Resolved Assessment and plan: Not on statin- last lipid panel in 2019 (6) Gastroesophageal reflux disease: Status: Chronic Assessment and plan: home dose PPI (7) Depression: Status: Chronic Assessment and plan: home sertraline dose , duloxetine lsited on verified PCP med list but still on sertraline at (8) Atrial fibrillation: Status: Chronic Assessment and plan: Ongoing beta-nena and Eliquis (9) Discharge planning issues: Status: Acute Assessment and plan: From [facility] , unable to ambulate independently d/t pain to LLE when standing w/o acute osseous findings in the pelvis-hips as per imaging Referrals sent by CM but most likely to discharge on 09/18/24 to [facility], with new PT via Discussed with Dr. Zepeda Subjective Subjective Patient reports: pain is less, tolerating liquids well, tolerating a regular diet, voiding w/o difficulty (incontinent ), bowel movement (colostomy) and afebrile; denies blood in stool, nausea, vomiting, shortness of breath or fever Exam Narrative Exam Narrative: Obese appearing 88-year-old female patient in bed with no acute distress clear lungs bilaterally, S1-S2 irregular , abdomen is large, nondistended, soft, no ntender, patent colostomy in place, rectal exam completed and negative for mass, reduced sphincter tone, no hematochezia, no melena but positive for extensive stool collection in dilated rectal vault- no tenesmus. No bladder distention?Move all 4 extremities in the bed without increased discomfort , improving pain on ambulation Objective Last Vital Signs Temp 35.9 C L 09/18/24 07:24 Pulse 70 09/18/24 07:24 Resp 16 09/18/24 07:24 BP 117/63 09/18/24 07:24 Pulse Ox 97 09/18/24 07:24 Time Spent with Patient Time Spent with Patient: >50 minutes Time was spent: preparing to see the patient(eg.review tests), obtaining and/or reviewing separately otained hiistory, ordering medications,tests, procedures, referring, communicating with other health health care facilities inspector, indepentently interpreting results, counseling the patient and care coordination
--- NOTE | 2024-09-18 13:17 | TELEFU_ITS ---
Date of service: 09/18/24 Time of Service: 13:17 Nutrition Note NOTE: 88yo female admitted from [facility] living fac with abnormal urinalysis. Also c/o sig left hip pain. Sodium lab improved up to 131 yesterday. Good po on regular diet with normal consistencies. Albumin slightly low at 3.1 and total protein lab same day wnl - would suggest CRP to define more clearly. Pt assessed at lower nutrition risk at this time. Anticipate discharge later today. Will continue to monitor intake. labs weight. Time Spent in Nutritional Counseling and Treatment: 5 min
--- NOTE | 2024-09-18 13:18 | PTTR_ITS ---
PT Notes Visit Reasons: Intractable left hip pain Physical Therapy Inpatient Treatment Note Date: 09/18/2024 Precautions: Fall. Standard. Ostomy in place. Activity as tolerated. Subjective:? Hopeful about going home as soon as she is cleared. Glad about how much she is able to walk now--almost as far as the dining room area to her bedroom at the [facility]. Objective:? General Observation: Colostomy in place. High BMI. Mental Status: Alert and oriented x 4 Pain: Minimal pain with decreasing anxiety level Bed Mobility/Transfers: Moderate cueing provided for use of B hands as needed for support, movement sequence, AD management, and posture to reduce fall risk and minimize pain report Supine to sit: stand by assist with HOB at 30 degrees Sit to stand: stand by assist with FWW Stand to sit: stand by assist with FWW Gait:? Tolerated up to about 100 feet of level surface ambulation using front-wheeled walker with increased gait speed and no report of pain with weight bearing. Decreased step height and length. Complained of pain in knees with turning. Balance:? Static Sitting: Good Dynamic Sitting: Fair Static Standing: Fair Dynamic Standing: Fair THERA EX: Direct one-on-one guidance with correct execution and technique doing bed level exercises to gently activate low back and gluteal muscles: B LAQs 5 sh x 10 DBE with chest expansion exercises x 5 Seated marches x 10 DBE with chest expansion exercises x 5 Chair push ups x 10 Assessment: Performed more and better today. R hip flexion past 90 still causes pain in the opposite posterior hip, albeit of less intensity. Palpation to L posterior hip did not trigger as much tenderness as it was on day of admission. Plan of Care/Treatment Plan: 1-2x/day, 7 days/week x1 week. Continue to progress mobility level and address piriformis syndrome to regain prior mobility level using FWW Discharge Plan DISCHARGE RECOMMENDATIONS: Home with Home Health PT TREATMENT CODE/TIME: 67145 x 15 minutes for 1 unit, 14654 x 11 minutes for 1 unit (13:18-13:44).
--- NOTE | 2024-09-18 14:40 | PDOC.CMDIS ---
Date of service: 09/18/24 Time of Service: 14:41 LACE Index Scoring Tool Questions: Length of Stay (in days): 4 - 6 Was the patient admitted via the E.D.?: Yes Comorbidities: Any Tumor E.D. Visits: 3 Answers: Total Score: 12 Risk of Readmission: High Risk Care Management Discharge Plan Reason for Hospitalization: hip pain Discharge Plan: Kaila is being discharged back to the [facility] where she resides. She will have new services of HH PT. Her daughters will transport her. Kaila will f/u with her PCP, have new services of HH PT and continue per her plan of care. Patient/Family Education Needs: Review of discharge instructions, activity, limitations, and discuss Ask me 3. Services Needed at Discharge: Home Health Care Services (PT)
== END 2024-09-18 15:00 | disposition home or self-care (01) | DRG 556 ==
LOC: ER 15:27 → MS 17:16
PROVIDERS: Admitting Provider Family Medicine; Emergency Provider Registered Nurse Emergency; PCP Nurse Practitioner Family; Responsible Provider Nurse Practitioner Acute Care; Visit Provider Family Medicine
DX: M25.552 Pain in left hip (principal); E87.1 Hypo-osmolality and hyponatremia; E78.2 Mixed hyperlipidemia; I10 Essential (primary) hypertension; K21.9 Gastro-esophageal reflux disease without esophagitis; F32.A Depression, unspecified; R82.90 Unspecified abnormal findings in urine; M48.54XA Collapsed vertebra, not elsewhere classified, thoracic region, initial encounter for fracture; I48.20 Chronic atrial fibrillation, unspecified; K94.09 Other complications of colostomy; K56.41 Fecal impaction; B96.20 Unspecified Escherichia coli [E. coli] as the cause of diseases classified elsewhere; R26.2 Difficulty in walking, not elsewhere classified; M17.12 Unilateral primary osteoarthritis, left knee; E55.9 Vitamin D deficiency, unspecified; E66.9 Obesity, unspecified; F41.9 Anxiety disorder, unspecified; D50.9 Iron deficiency anemia, unspecified; C50.812 Malignant neoplasm of overlapping sites of left female breast; K64.8 Other hemorrhoids; K44.9 Diaphragmatic hernia without obstruction or gangrene; Z68.33 Body mass index [BMI] 33.0-33.9, adult; Z79.01 Long term (current) use of anticoagulants; Z80.0 Family history of malignant neoplasm of digestive organs; Z80.3 Family history of malignant neoplasm of breast; Z79.899 Other long term (current) drug therapy
CPT/HCPCS: 00123; 36415; 51701; 73552; 80048; 87077; 97110; 97162; 97530; 99285; 72110; 73502; 81003; 81015; 83735; 84300; 85025; 87086; 87186; 99223; 99233; 99239; J0696; J1171; J3490

== ENCOUNTER 2024-09-23 21:41 | Outpatient (REF) | payer MEDICARE, SELFPAY ==
[2024-09-23 21:20] LABS: Anion Gap 4.1 mmol/L (3-11); BUN 15 mg/dL (7-18); CO2 29.9 mmol/L (21.0-32.0); CREATININE 0.8 mg/dL (0.55-1.02); Chloride 99 mmol/L (98-107); Estimated GFR 71.71 (mL/min/1.73m2); Glucose 98 mg/dL (74-106); Potassium 5.1 mmol/L (3.5-5.1); Sodium 133 mmol/L (136-145)
== END 2024-09-23 21:42 | disposition home or self-care (01) ==
LOC: NCHCN 21:41
PROVIDERS: PCP Nurse Practitioner Family; Visit Provider Family Medicine
DX: E87.1 Hypo-osmolality and hyponatremia (principal)
CPT/HCPCS: 80048

== ENCOUNTER 2024-12-01 15:38 | Outpatient (REF) | payer MEDICARE, SELFPAY ==
[2024-12-01 15:56] LABS: Anion Gap 6.6 mmol/L (3-11); BUN 21 mg/dL (7-18); CO2 29.4 mmol/L (21.0-32.0); Calcium 9.3 mg/dL (8.5-10.1); Chloride 103 mmol/L (98-107); Estimated GFR 48.94 (mL/min/1.73m2); Glucose 98 mg/dL (74-106); Potassium 5.9 mmol/L (3.5-5.1); Sodium 139 mmol/L (136-145)
== END 2024-12-01 15:39 | disposition home or self-care (01) ==
LOC: NCHCN 15:38
PROVIDERS: PCP Nurse Practitioner Family; Visit Provider Nurse Practitioner Family
DX: I25.10 Atherosclerotic heart disease of native coronary artery without angina pectoris (principal)
CPT/HCPCS: 80048

== ENCOUNTER 2025-01-21 16:05 | Outpatient (REF) | payer MEDICARE, SELFPAY ==
[2025-01-21 21:16] LABS: Abs Immature Grans 0.02 10^3/uL (0.0-0.06); HCT 33.7 % (36.0-46.0); HGB 10.6 g/dL (11.2-15.7); Immature Grans % 0.4 %; MCH 30.6 pg (27.0-33.0); MCHC 31.5 % (32.0-36.0); MCV 97 fL (80-95); MPV 10.4 fL (8.0-11.0); Platelet Count 238 10^3/uL (130-400); RBC 3.46 10^6/uL (3.93-5.22); RDW 13.7 % (11.7-14.6); RDW-SD 49.0 fL; WBC 4.50 10^3/uL (4.4-10.8)
[2025-01-21 21:38] LABS: Hemoglobin A1C 5.5 % (<5.7)
[2025-01-21 21:45] LABS: Iron 57 ug/dL (50-170); Total Iron Binding Capacity 293 ug/dL (250-450)
[2025-01-21 22:05] LABS: Anion Gap 8.9 mmol/L (3-11); BUN 20 mg/dL (7-18); CO2 26.1 mmol/L (21.0-32.0); Calcium 8.8 mg/dL (8.5-10.1); Chloride 100 mmol/L (98-107); Estimated GFR 61.87 (mL/min/1.73m2); Ferritin 420 ng/mL (8-252); Glucose 102 mg/dL (74-106); Potassium 5.1 mmol/L (3.5-5.1); Sodium 135 mmol/L (136-145); Vitamin D 25 Total 32 ng/mL (30-100)
[2025-01-25 10:12] LABS: Transferrin 248 mg/dL (201-352)
== END 2025-01-21 16:06 | disposition home or self-care (01) ==
LOC: NCHCN 16:05
PROVIDERS: PCP Nurse Practitioner Family; Visit Provider Nurse Practitioner Family
DX: D50.9 Iron deficiency anemia, unspecified (principal); I25.10 Atherosclerotic heart disease of native coronary artery without angina pectoris; E66.9 Obesity, unspecified; M81.0 Age-related osteoporosis without current pathological fracture
CPT/HCPCS: 80048; 82306; 82728; 83036; 83540; 83550; 84466; 85025